=== PATIENT | female | born 1945 | race Caucasian/White ===

== ENCOUNTER 2019-09-10 13:33 | Outpatient (RCR) | payer MEDICARE, SELFPAY ==
--- NOTE | 2019-09-13 11:24 | PCPTNOTE ---
09/13/19-pt cancelled appointment due to inclement weather forcast.-.
--- NOTE | 2019-09-17 08:18 | PCPTNOTE ---
09/17/19- appointment on 09/16/19 was cancelled secondary to pt not having any transportation.-.
--- NOTE | 2019-09-18 07:16 | PTOPEVAL ---
Thank you for referring this patient to [facility]. Please review, sign, date and return this plan of care LAINE. I agree with and certify that the following plan of care is medically necessary. Referring Physician Date Admitting Provider: Attending Provider: Luisa Chowdary MD Referring Provider: *PT Outpatient Evaluation Start: 09/10/19 14:01 Freq: Status: Active Protocol: Document 09/10/19 14:01 [facility] (Rec: 09/10/19 14:53 [facility] [id number]) Therapy Assessment Status Assessment Status Assessment Status Evaluation Outpatient Past Medical History Neurological History Hx Cerebrovascular Accident (CVA) Yes: right side weakness 2018 Cardiovascular History Hx Hypercholesterolemia Yes Respiratory History Hx Respiratory Disorders No Significant History Gastrointestinal History Hx Obstructive Bowel Yes: colon cancer sep 2018 Genitourinary History Hx Genitourinary Disorders No Significant History Musculoskeletal History Hx Joint Replacement Yes: Rt. knee Hematological History Hx Hematological Disorders No Significant History Endocrine History Hx Endocrine Disorders No Significant History HEENT History Hx Cataracts Yes: 10 years ago Integumentary History Hx Skin Disorders No Significant History Reproductive History Hx Hysterectomy Yes Psychosocial History Hx Psychiatric Disorders No Significant History Pain History History of Any Previous or Ongoing No Significant History Instance of Pain Anesthesia History Hx Anesthesia Reactions No Significant History Other History Hx Cancer Yes: colon Hx Radiation Therapy Yes: colon cancer Evaluation Information Problem Diagnosis generalized weaknes, polyneuropathy Onset 09/04/19 Subjective Information patient reports she is coming Query Text:As Reported By Patient/ to therapy for her R side. she Family reports she is having weakness in the R side from the upper to the lower extremity. she reports she has had a slight stroke in the past that left her with this weakness in the R side. she reports she also has trouble with her balance. she reports she lives at the [facility]. she reports she has been there for 3 weeks. she reports prior to this, she was in her own
--- NOTE | 2019-09-18 16:28 | OTOPEVAL ---
Thank you for referring this patient to [facility]. Please review, sign, date and return this plan of care LAINE. I agree with and certify that the following plan of care is medically necessary. Referring Physician Date Admitting Provider: Attending Provider: Luisa Chowdary MD Referring Provider: *OT Outpatient Evaluation Start: 09/18/19 15:24 Freq: Status: Active Protocol: Document 09/18/19 15:23 [facility] (Rec: 09/18/19 16:28 [facility] [id number]) Therapy Assessment Status Assessment Status Assessment Status Evaluation Outpatient Past Medical History Neurological History Hx Cerebrovascular Accident (CVA) Yes: right side weakness 2018 Cardiovascular History Hx Hypercholesterolemia Yes Respiratory History Hx Respiratory Disorders No Significant History Gastrointestinal History Hx Obstructive Bowel Yes: colon cancer sep 2018 Genitourinary History Hx Genitourinary Disorders No Significant History Musculoskeletal History Hx Joint Replacement Yes: Rt. knee Hematological History Hx Hematological Disorders No Significant History Endocrine History Hx Endocrine Disorders No Significant History HEENT History Hx Cataracts Yes: 10 years ago Integumentary History Hx Skin Disorders No Significant History Reproductive History Hx Hysterectomy Yes Psychosocial History Hx Psychiatric Disorders No Significant History Pain History History of Any Previous or Ongoing No Significant History Instance of Pain Anesthesia History Hx Anesthesia Reactions No Significant History Other History Hx Cancer Yes: colon Hx Radiation Therapy Yes: colon cancer Evaluation Information Problem Diagnosis weakness Onset 09/04/19 Subjective Information Patient arrives to OT Query Text:As Reported By Patient/ evaluation following PT Family session. She reports that she recently moved out to the [facility]. Patient reports concerns with her coordination and strength of her R UE as well as R LE. Prior Level of Function Activity Level (Last 3 Months) Hand Dominance Right Activity of Daily Living Ability Independent Indoor/Home Mobility Independent Community Mobility Independent Functional Cognition (Planning, Shopping Independent , Taking Medications) Cooking No Cleaning Yes Laundry No Shopping No Driving
--- NOTE | 2019-10-29 16:22 | PTOPEVAL ---
Thank you for referring this patient to [facility]. Please review, sign, date and return this plan of care LAINE. I agree with and certify that the following plan of care is medically necessary. Referring Physician Date Admitting Provider: Attending Provider: Luisa Chowdary MD Referring Provider: *PT Outpatient Evaluation Start: 09/10/19 14:01 Freq: Status: Active Protocol: Document 10/29/19 14:00 [facility] (Rec: 10/29/19 16:18 [facility] [id number]) Therapy Assessment Status Assessment Status Assessment Status Re-evaluation Outpatient Past Medical History Neurological History Hx Cerebrovascular Accident (CVA) Yes: right side weakness 2018 Cardiovascular History Hx Hypercholesterolemia Yes Respiratory History Hx Respiratory Disorders No Significant History Gastrointestinal History Hx Obstructive Bowel Yes: colon cancer sep 2018 Genitourinary History Hx Genitourinary Disorders No Significant History Musculoskeletal History Hx Joint Replacement Yes: Rt. knee Hematological History Hx Hematological Disorders No Significant History Endocrine History Hx Endocrine Disorders No Significant History HEENT History Hx Cataracts Yes: 10 years ago Integumentary History Hx Skin Disorders No Significant History Reproductive History Hx Hysterectomy Yes Psychosocial History Hx Psychiatric Disorders No Significant History Pain History History of Any Previous or Ongoing No Significant History Instance of Pain Anesthesia History Hx Anesthesia Reactions No Significant History Other History Hx Cancer Yes: colon Hx Radiation Therapy Yes: colon cancer Evaluation Information Problem Diagnosis generalized weakness Subjective Information patient reports she feels Query Text:As Reported By Patient/ good this date. she reports Family she has just received her R ankle AFO. she reports she still has some difficulty with her balance. she reports she does feel better that she is no longer using a walker. Pain Assessment Timing of Pain Assessment Timing of Pain Assessment Assessment Self Report Self Report Pain Level 0 Pain Score Pain Score 0: Self Report Lower Extremity Muscle Strength Testing Hip Strength Right Hip Flexion Strength 4- Good - Hip Abduction Strength 4 Good Left Hip Flexion Strength 4+ Good + Hip Abduction Strength 4+ Good + Knee Strength Right Knee Flexion Strength 5 Normal Knee Extension Strength 4+ Good + Left K
--- NOTE | 2019-11-08 15:59 | PCOTNOTE ---
Patient is discharged from skilled OT services. See last treatment note for patient's skills and progress towards goals. Patient seen for 7 OT sessions. MS
== END 2019-11-05 17:00 | disposition home or self-care (01) ==
LOC: CHSPT 13:33
PROVIDERS: PCP Internal Medicine; Visit Provider Internal Medicine
DX: R53.1 Weakness (principal); G62.9 Polyneuropathy, unspecified
CPT/HCPCS: 97110; 97112; 97162; 97165; 97530

== ENCOUNTER 2019-10-28 15:06 | Outpatient (CLI) | payer MEDICARE, SELFPAY ==
[2019-10-28 15:25] LABS: Basophils Percent Auto 0.9 % (0.2-1.2); Eosinophils Absolute Auto 0.1 K/mm3 (0-0.3); Eosinophils Percent Auto 3.1 % (0-4.4); Hematocrit 38.1 % (37.0-47.0); Immature Granulocyte Absolute 0.01 K/mm3 (0.00-0.031); Immature Granulocyte Percent A 0.2 % (0-0.5); Lymphocytes Absolute Auto 0.95 K/mm3 (0.9-3.2); Mean Corpuscular HGB Conc 31.5 g/dl (32-36); Mean Corpuscular Hemoglobin 30.5 pg (26-34); Mean Corpuscular Volume 96.9 fl (80-100); Mean Platelet Volume 9.5 fl (7.4-10.4); Monocytes Absolute Auto 0.5 K/mm3 (0.1-0.6); Monocytes Percent Auto 10.8 % (2.6-8.5); Neutrophils Absolute Auto 2.9 K/mm3 (1.3-6.7); Platelet Count Result 198 k/mm3 (150-375); Red Blood Count 3.93 M/mm3 (4.2-5.4); Red Cell Distribution Width 14.5 % (11.5-14.5); White Blood Count 4.5 K/mm3 (4.5-10.0)
[2019-10-28 16:48] LABS: Alanine Aminotransferase 19 U/L (4-35); Albumin Level 4.2 g/dL (3.5-5.1); Alkaline Phosphatase 49 U/L (38-126); Aspartate Amino Transferase 27 U/L (14-36); Bilirubin,Total 0.3 mg/dL (0.2-1.3); Blood Urea Nitrogen 16 mg/dL (7-17); Calcium 9.3 mg/dL (8.4-10.2); Carbon Dioxide 31 mmol/L (22-30); Chloride 99 mmol/L (98-107); Estimated Glomerular Filt Rate > 60; Glucose 91 mg/dL (65-105); Potassium 4.3 mmol/L (3.4-5.0); Sodium 141 mmol/L (137-145)
[2019-10-28 17:19] LABS: Carcinoembryonic Antigen 2.5 ng/mL (0.0-3.0)
== END 2019-10-28 15:07 | disposition home or self-care (01) ==
LOC: ANHLAB 15:09
PROVIDERS: PCP Internal Medicine; Visit Provider Internal Medicine Hematology & Oncology
DX: C18.7 Malignant neoplasm of sigmoid colon (principal)
CPT/HCPCS: 36415; 80053; 82378; 85025

== ENCOUNTER 2019-11-24 20:30 | Inpatient (IN) | payer MEDICARE, SELFPAY ==
--- NOTE | ~2019-11-24 | CT_ITS ---
EXAMINATION: CT abdomen pelvis w con DATE: 11/24/2019 21:23 INDICATION: Generalized abdominal pain. TECHNIQUE: Computed tomography (CT) of the abdomen and pelvis was performed with 100 mL Omnipaque 350 intravenous contrast. Automated exposure control and iterative reconstruction technique were employe d. The dose-length product was 277.78 mGy-cm. COMPARISON: CT abdomen and pelvis 08/19/2019. FINDINGS: The visualized portions of the lung bases demonstrate mild atelectasis. Again seen is mild elevation right hemidiaphragm. No pleural effusion. The heart size is normal. No pericardial effusion . There is a central line tip in right atrium. There are cysts in the liver measuring up to 11 mm. Th e gallbladder, spleen, pancreas, adrenal glands are normal. There is cortical thinning of the kidneys . There is an anastomosis in the rectum. The appendix is normal. There are multiple dilated loops of small bowel without focal transition point. There are no pathologically enlarged lymph nodes. There i s no free intraperitoneal fluid. There are old healed fractures of right superior and inferior pubic rami. There is thoracolumbar levoscoliosis and severe spondylosis. IMPRESSION: 1. Dilated small bowel without focal transition point, consistent with adynamic ileus versus partial small bowel obstruction. Reviewed, dictated and finalized at location A.
--- NOTE | ~2019-11-24 | XR_ITS ---
EXAMINATION: XR abdomen/kub 1V DATE: 11/26/2019 08:10 INDICATION: Partial small bowel obstruction. TECHNIQUE: A supine view of the abdomen was obtained. COMPARISON: Studies dated 11/25/2019 and 11/24/2019 FINDINGS: Nasogastric tube tip in proximal side port in the body of the decompressed stomach. The oral contrast material is advanced now scattered throughout normal caliber colon. Anastomotic suture line at the r ectosigmoid junction. No dilated or residual contrast filled small bowel. Moderate lumbar levorotosco liosis. Bone island at the right femoral neck. IMPRESSION: 1. Normal bowel gas pattern with some residual oral contrast material from recent small bowel follow- through study now distributed throughout the normal colon. Reviewed, dictated and finalized at location A. IMPRESSION: 1. Normal bowel gas pattern with some residual oral contrast material from rece nt small bowel follow-through study now distributed throughout the normal colon .
--- NOTE | ~2019-11-24 | XR_ITS ---
EXAMINATION: XR abdomen NG/feed tube insert DATE: 11/24/2019 23:16 INDICATION: Nasogastric tube placement TECHNIQUE: A supine view of the abdomen and lower chest was obtained for evaluation of feeding tube placement. COMPARISON: CT dated 11/24/2019 FINDINGS: Nasogastric tube tip in the body of the stomach with proximal side-port near the level of the gastroe sophageal junction. Gas and stool scattered throughout the colon. No dilated gas-filled loops of patrice l identified. A few small calcified pulmonary nodules in the right lung along with calcified right hi lar lymph nodes consistent with old granulomatous disease. Cardiomegaly. Central venous catheter exte nding from the superior vena cava caudally with distal tip at the high right atrium. Thoracolumbar le vorotoscoliosis. IMPRESSION: 1. Nasogastric tube tip in the stomach. Reviewed, dictated and finalized at location A.
--- NOTE | ~2019-11-24 | XR_ITS ---
EXAMINATION: XR sm bowel follow through WS EXAM DATE: 11/25/2019 16:02 INDICATION: Partial small bowel obstruction versus ileus. TECHNIQUE: Plasticator radiograph was acquired. Small bowel series was performed with water-soluble solut ion. Spot images of the terminal ileum were acquired. The DAP for this procedure was 0.1 Gycm2. FINDINGS: Ileal and jejunal fold patterns are normal. There is no small bowel wall thickening or m ass effect displacing small bowel. There are no intraluminal filling defects identified. There is n o small bowel dilation. Terminal ileum is unremarkable. Contrast reached the colon by 45 minutes ti me, normal. IMPRESSION: Normal small bowel examination. Reviewed, dictated and finalized at location A.
[2019-11-24 20:32] VITALS: BP 170/102; PULSE 66; RESP 20; TEMP 36.7; O2SAT 100
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
[2019-11-24] MEDS: SODIUM CHLORIDE 0.9% IV 1,000 ML 999 ML IV CONT (20:43)
[2019-11-24 20:49] LABS: Basophils Percent Auto 0.7 % (0.2-1.2); Eosinophils Absolute Auto 0.2 K/mm3 (0-0.3); Eosinophils Percent Auto 3.2 % (0-4.4); Hematocrit 39.1 % (37.0-47.0); Hemoglobin 12.4 g/dL (12.0-15.0); Immature Granulocyte Absolute 0.01 K/mm3 (0.00-0.031); Immature Granulocyte Percent A 0.2 % (0-0.5); Lymphocytes Absolute Auto 0.86 K/mm3 (0.9-3.2); Lymphocytes Percent Auto 14.7 % (18.3-44.2); Mean Corpuscular HGB Conc 31.7 g/dl (32-36); Mean Corpuscular Hemoglobin 30.2 pg (26-34); Mean Corpuscular Volume 95.1 fl (80-100); Mean Platelet Volume 9.9 fl (7.4-10.4); Monocytes Absolute Auto 0.5 K/mm3 (0.1-0.6); Monocytes Percent Auto 9.1 % (2.6-8.5); Neutrophils Absolute Auto 4.2 K/mm3 (1.3-6.7); Neutrophils Percent Auto 72.1 % (45.5-73.1); Platelet Count Result 192 k/mm3 (150-375); Red Blood Count 4.11 M/mm3 (4.2-5.4); Red Cell Distribution Width 14.4 % (11.5-14.5); White Blood Count 5.9 K/mm3 (4.5-10.0)
[2019-11-24 21:04] LABS: Alanine Aminotransferase 18 U/L (4-35); Albumin Level 4.3 g/dL (3.5-5.1); Alkaline Phosphatase 49 U/L (38-126); Aspartate Amino Transferase 29 U/L (14-36); Bilirubin,Total 0.3 mg/dL (0.2-1.3); Blood Urea Nitrogen 16 mg/dL (7-17); Calcium 9.3 mg/dL (8.4-10.2); Carbon Dioxide 31 mmol/L (22-30); Chloride 102 mmol/L (98-107); Estimated Glomerular Filt Rate > 60; Glucose 127 mg/dL (65-105); Lipase 117 U/L (23-300); Sodium 136 mmol/L (137-145)
[2019-11-24 21:33] VITALS: BP 138/72; PULSE 75; RESP 20; O2SAT 98
[2019-11-24 22:19] VITALS: BP 145/62; PULSE 60; RESP 20; O2SAT 100
[2019-11-24 22:20] LABS: Add Urine Microscopic? NO; Appearance Urine Clear (Clear); Bilirubin Urine Negative (Negative); Blood Urine Negative (Negative); Color Urine Colorless (Yellow); Glucose Urine UA Negative (Negative); Ketones Urine Negative (Negative); Leukocyte Esterase Ur Negative LEU/UL (Negative); Nitrate Urine Negative (Negative); Protein Urine Negative (Negative); Specific Grav Ur 1.016 (1.001-1.035); Urobilinogen Urine Negative mg/dL (<2.0)
[2019-11-24] MEDS: PANTOPRAZOLE SODIUM IV 40 MG VIAL IV PUSH (22:50)
[2019-11-24 22:51] VITALS: BP 122/63; PULSE 66; RESP 20; O2SAT 98
[2019-11-24 23:01] VITALS: BP 164/73; PULSE 66; RESP 20; O2SAT 99
[2019-11-24 23:20] VITALS: BMI 20.9
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
[2019-11-25 00:13] VITALS: BP 146/68; PULSE 62; RESP 18; TEMP 36.9; O2SAT 99
[2019-11-25] MEDS: SODIUM CHLORIDE 0.9% IV 1,000 ML 100 ML IV CONT ×3 (00:20→21:44)
[2019-11-25 06:00] VITALS: BP 138/72; PULSE 66; RESP 18; TEMP 36.6; O2SAT 99
[2019-11-25 06:20] LABS: Basophils Percent Auto 0.7 % (0.2-1.2); Eosinophils Absolute Auto 0.2 K/mm3 (0-0.3); Eosinophils Percent Auto 4.1 % (0-4.4); Hematocrit 33.1 % (37.0-47.0); Hemoglobin 10.6 g/dL (12.0-15.0); Immature Granulocyte Absolute 0.01 K/mm3 (0.00-0.031); Immature Granulocyte Percent A 0.2 % (0-0.5); Mean Corpuscular Hemoglobin 29.9 pg (26-34); Mean Corpuscular Volume 93.2 fl (80-100); Mean Platelet Volume 10.2 fl (7.4-10.4); Monocytes Absolute Auto 0.6 K/mm3 (0.1-0.6); Monocytes Percent Auto 12.4 % (2.6-8.5); Neutrophils Absolute Auto 2.9 K/mm3 (1.3-6.7); Neutrophils Percent Auto 64.6 % (45.5-73.1); Platelet Count Result 161 k/mm3 (150-375); Red Blood Count 3.55 M/mm3 (4.2-5.4); Red Cell Distribution Width 14.3 % (11.5-14.5); White Blood Count 4.4 K/mm3 (4.5-10.0)
[2019-11-25 06:39] LABS: Alanine Aminotransferase 16 U/L (4-35); Albumin Level 3.1 g/dL (3.5-5.1); Alkaline Phosphatase 36 U/L (38-126); Aspartate Amino Transferase 26 U/L (14-36); Bilirubin,Total 0.3 mg/dL (0.2-1.3); Blood Urea Nitrogen 13 mg/dL (7-17); Calcium 7.8 mg/dL (8.4-10.2); Carbon Dioxide 26 mmol/L (22-30); Chloride 108 mmol/L (98-107); Estimated CRCL calculation 63 ml/min; Estimated Glomerular Filt Rate > 60; Glucose 87 mg/dL (65-105); Sodium 137 mmol/L (137-145)
[2019-11-25 08:00] VITALS: PULSE 66; RESP 18; O2SAT 99
[2019-11-25] MEDS: PANTOPRAZOLE SODIUM IV 40 MG VIAL IV PUSH (08:26)
--- NOTE | 2019-11-25 11:19 | PM.IMPN ---
Progress Note: A&P Assessment and Plan (1) Partial small bowel obstruction: Code(s): K56.600 - Partial intestinal obstruction, unspecified as to cause Status: Acute Assessment and Plan: Npo, medications on hold, continue IV fluids, NG tube in place, pt advised to walk in hallways, hopeful dc in 1-2 days time, i will order KUB for brady morning. (2) Small bowel obstruction due to adhesions: Code(s): K56.50 - Intestinal adhesions [bands], unspecified as to partial versus complete obstruction Status: Acute (3) Colon cancer: Qualifiers: Colon location: unspecified part of colon Qualified Code(s): C18.9 - Malignant neoplasm of colon, unspecified Code(s): C18.9 - Malignant neoplasm of colon, unspecified Status: Acute Assessment and Plan: Stable. SP Colon resection 2019. With negative margins and chemoradiation therapy. (4) Pure hypercholesterolemia: Code(s): E78.00 - Pure hypercholesterolemia, unspecified Status: Chronic (5) GERD (gastroesophageal reflux disease): Code(s): K21.9 - Gastro-esophageal reflux disease without esophagitis Status: Chronic Assessment and Plan: Protonix IV. Subjective Date/time seen: 11/25/19 11:19 Interval history: 74 year old female with known history of #2 previous bowel obstructions as well as history of previous colon cancer s/ p colon resection in 2019. Pt has NG tube in situ, doing well. Seen by surgery. Npo and iv fluids. No other complaints. Review of Systems Review of Systems: All systems reviewed & are unremarkable except as noted in HPI and below Constitutional: Constitutional: Denies no additional constitutional complaints Cardiovascular: Cardiovascular: Denies no additional cardiovascular complaints Respiratory: Respiratory: Denies no additional respiratory complaints Gastrointestinal: Gastrointestinal: Reports other (abdominal distension ) Exam Const: General: cooperative, healthy appearing, no acute distress, alert and awake Nutritional Appearance: well nourished Orientation/consciousness: patient oriented x3 Resp: Effort & Inspection: normal respiratory effort Auscultation: clear to auscultation bilaterally Cardio: Rate: regular rate Rhythm: regular rhythm Heart sounds: no murmurs GI: Inspection: distended and other (mild distension, non tender ) Auscultation: normal bowel sounds Skin: General skin exam: normal color and no rashes or lesions noted Neuro: General: patient oriented x3 Cranial nerves: Yes CN's II-XII intact bilaterally and Yes Equal, round and reactive pupils present Speech: normal speech Motor exam (neuro): 5/5 motor strength present throughout Sensory Exam: normal sensation Extrem: General: normal to inspection and no edema Psych: Mental Status: mental status grossly normal Affect: normal affect Objective Data Vital Signs Vital Signs: Vital Signs - 24 hr 11/24/19 20:32 11/24/19 21:33 11/24/19 22:19 Temperature 36.7 C Pulse Rate 66 75 60 Respiratory Rate 20 20 20 Blood Pressure 170/102 H 138/72 145/62 H Pulse Oximetry 100 98 100 11/24/19 22:51 11/24/19 23:01 11/25/19 00:13 Temperature 36.9 C Pulse Rate 66 66 62 Respiratory Rate 20 20 18 Blood Pressure 122/63 164/73 H 146/68 H Pulse Oximetry 98 99 99 11/25/19 06:00 11/25/19 08:00 Temperature 36.6 C Pulse Rate 66 66 Respiratory Rate 18 18 Blood Pressure 138/72 Pulse Oximetry 99 99 Intake/Output Intake/Output: Intake & Output 11/22/19 11/23/19 11/24/19 11/25/19 23:59 23:59 23:59 23:59 Intake Total 1100 1000 Output Total 700 Balance 1100 300 Meds/Results Medications: Active Medications Generic Name Dose Route Start Last Admin Trade Name Freq PRN Reason Stop Dose Admin Sodium Chloride 1,000 mls @ 100 mls/hr 11/24/19 22:15 11/25/19 08:31 Normal Saline Iv IV CONT 100 mls/hr .Q10H ANNA Administration Acetaminophen 1,000 mg in 100
--- NOTE | 2019-11-25 12:13 | PM.CNGS ---
Assessment and Plan Assessment and plan (1) Partial small bowel obstruction: Code(s): K56.600 - Partial intestinal obstruction, unspecified as to cause Status: Acute Assessment and Plan: CT scan reviewed and discussed with the patient. CT suggesting ileus versus partial small bowel obstruction. Patient has already improved by the time I examined her. She had moved her bowels right before admission and again since after I examined her today. She seems to be improving and her bowels continue to move, making it unlikely that she is obstructed. Will get a Gastrografin small bowel follow through today. If this goes through to the colon, then we will be able to remove the NG tube and allow her to start on a diet. Will continue with conservative management at this time with NG tube decompression, bowel rest, IV fluids and analgesics for now. Thank you for allowing me to evaluate the patient in consultation and we will continue to follow along with you. Additional Plan I discussed the patient's case and formulated the plan of care with Dr. Higgins. History of Present Illness Consult details Consult date: 11/25/19 Reason for consult: other (Ileus versus partial small bowel obstruction) Requesting physician: Mario Ponce DO Narrative: This is a 74-year-old female who presented to the emergency department with complaints of abdominal pain. 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 The patient was last admitted to [place] for a small bowel obstruction in July of 2019. She was treated conservatively with NG tube decompression and this resolved. She was discharged home and since been placed in assisted living. The patient reports that yesterday morning around 8:00 am she noticed a sudden onset of epigastric and right-sided abdominal pain that felt similar to the pain she experienced before being admitted in July of last year. She reports that after about noon yesterday, she also was unable to void but had the urgency to void at home. The abdominal pain continued to worsen and she eventually had the staff at her assisted living call EMS. She reports that prior to leaving her apartment, she had a formed bowel movement that was normal for her. She denies any recent nausea, vomiting, or diarrhea. She then presented to the emergency department for further evaluation. CT scan of the abdomen and pelvis showed dilated small bowel without focal transition point, consistent with ileus versus partial small bowel obstruction. Labs were unremarkable. Urinalysis normal. The patient was admitted to the Hospitalist service and our service was consulted for the possible partial small bowel obstruction. The patient is now being seen on the medical floor. She denies any abdominal pain, nausea, or bloating at this time. She states that yesterday she did have some bloating and nausea but this has subsided since admission. No vomiting. She reports her bowels have been moving normally for her. Denies flatus today and last bowel movement was last night around 8:00 pm. Reports now voiding three times today without complications. Denies any other urinary complaints. No other complaints at this time. Review of Systems Constitutional: Constitutional: Reports as per HPI, Denies chills, Denies excessive sweating, Denies fatigue, Denies fever(s), Denies headache(s) and Denies weakness Eyes: Eyes: Denies change in vision and Denies loss of vision ENT: Reports Normal hearing present, Denies dizziness and Denies headache(s) Cardiovascular: Cardiovascular: Denies chest pain, Denies syncope, Denies leg edema, Denies lightheadedness, Denies radiating jaw, neck or arm pain and Denies dyspnea Respiratory: Respiratory: Denies cough, Denies dyspnea and Denies wheezing Gastrointestinal: Gastrointestinal: Reports as per HPI, Reports abdominal pain, Denies melena, Reports bloating, De
[2019-11-25 14:00] VITALS: BP 129/83; PULSE 64; RESP 18; TEMP 36.8; O2SAT 99
--- NOTE | 2019-11-25 19:59 | PC.NURSE ---
N-G CONNECTED TO SUCTION AFTER XY REPORTED SHE WAS FINISHED WITH SBF CLEAR RETURN NOTED HAVING 2 BM FORMED AND BROWN
[2019-11-25 22:00] VITALS: BP 125/57; PULSE 62; RESP 18; TEMP 36.7; O2SAT 100
[2019-11-26 06:00] VITALS: BP 143/76; PULSE 78; RESP 18; TEMP 36.8; O2SAT 99
[2019-11-26] MEDS: SODIUM CHLORIDE 0.9% IV 1,000 ML 100 ML IV CONT (09:08)
[2019-11-26] MEDS: PANTOPRAZOLE SODIUM IV 40 MG VIAL IV PUSH (11:51)
--- NOTE | 2019-11-26 13:53 | P.PNGS_ITS ---
Progress Note: A&P Assessment and Plan (1) Ileus: Code(s): K56.7 - Ileus, unspecified Status: Acute Assessment and Plan: * No small bowel obstruction seen on SBFT yesterday. NG removed and advancing diet as tolerated. No other surgical recommendations at this time. Avoid constipation. Will sign off. Subjective Subjective Date/Time Seen: 11/26/19 13:53 Bowels moving. No significant abdominal pain. No obstruction seen on SBFT. Exam GI: GI Palp: No abdominal tenderness, Yes Soft to palpation, No Tenderness to palpation present (GI) and No Guarding due to palpation present (GI) Percussion: Yes normal to percussion Auscultation: normal bowel sounds Objective Data Vital Signs Vital Signs: Vital Signs - 24 hr 11/25/19 14:00 11/25/19 22:00 11/26/19 06:00 Temperature 36.8 C 36.7 C 36.8 C Pulse Rate 64 62 78 Respiratory Rate 18 18 18 Blood Pressure 129/83 125/57 L 143/76 H Pulse Oximetry 99 100 99 Intake/Output Intake/Output: Intake & Output 11/23/19 11/24/19 11/25/19 11/26/19 23:59 23:59 23:59 23:59 Intake Total 1100 2100 1000 Output Total 1950 1550 Balance 1100 150 -550 Meds/Results Medications: Active Medications Generic Name Dose Route Start Last Admin Trade Name Freq PRN Reason Stop Dose Admin Sodium Chloride 1,000 mls @ 100 mls/hr 11/24/19 22:15 11/26/19 09:08 Normal Saline Iv IV CONT 100 mls/hr .Q10H ANNA Administration Ondansetron HCl 4 mg 11/24/19 22:14 Zofran Inj IV PUSH Q4H PRN Nausea Pantoprazole Sodium 40 mg 11/25/19 09:00 11/26/19 11:51 Protonix Iv IV PUSH 40 mg QAM ANNA Administration Radiology Results: ITS Impressions Abdomen/Pelvis CT 11/24/19 21:25 IMPRESSION: 1. Dilated small bowel without focal transition point, consistent with adynamic ileus versus partial small bowel obstruction. Small Bowel X-Ray 11/25/19 16:36 IMPRESSION: Normal small bowel examination. Abdomen X-Ray 11/26/19 08:23 IMPRESSION: 1. Normal bowel gas pattern with some residual oral contrast material from recent small bowel follow-through study now distributed throughout the normal colon. Quality VTE Prophylaxis VTE prophylaxis: mechanical ordered
[2019-11-26 14:00] VITALS: BP 113/61; PULSE 69; RESP 18; TEMP 36.6; O2SAT 95
[2019-11-26] MEDS: ACETAMINOPHEN 325 MG TABLET 650 MG PO (15:08)
--- NOTE | 2019-11-26 16:37 | PM.IMPN ---
Progress Note: A&P Assessment and Plan (1) Partial small bowel obstruction: Code(s): K56.600 - Partial intestinal obstruction, unspecified as to cause Status: Acute Assessment and Plan: Small bowel series showing no obstruction. KUB today also revealing no obstructive process. NG tube removed and diet has been started. Advance diet as tolerated. Possibly home tomorrow. Patient takes MiraLax at home which will schedule here. (2) Colon cancer: Qualifiers: Colon location: unspecified part of colon Qualified Code(s): C18.9 - Malignant neoplasm of colon, unspecified Code(s): C18.9 - Malignant neoplasm of colon, unspecified Status: Acute Assessment and Plan: Patient is status post colon resection with negative margins and chemoradiation therapy in 2019. (3) Pure hypercholesterolemia: Code(s): E78.00 - Pure hypercholesterolemia, unspecified Status: Chronic Assessment and Plan: Stable. Normal LFTs. Resume Lipitor. (4) GERD (gastroesophageal reflux disease): Code(s): K21.9 - Gastro-esophageal reflux disease without esophagitis Status: Chronic Assessment and Plan: Stable. Resume Pepcid. Stop IV Protonix. Subjective Date/time seen: 11/26/19 16:37 Interval history: 74yo female with known history of previous bowel obstructions as well as history of previous colon cancer s/ p colon resection in 2019 here for abdominal pain and found to have pSBO. Assuming care. Chart reviewed. Patient feels well today. Tolerating the clear liquid diet. NG tube was removed earlier today. No nausea or vomiting. Some mild abdominal pain but improved after passing flatus and bowel movement. No chest pain or shortness of breath. She is up ambulating in the room. Exam Narrative: Exam Narrative: AF 113/61 69 Gen - NARD Chest - CTA bilaterally, nml RR CV - RRR S1/S2 Abd - Soft, NT/ND, Positive BS Ext - No pedal edema Psych - Nml mood; anxious affect Skin - Warm and dry Objective Data Vital Signs Vital Signs: Vital Signs - 24 hr 11/25/19 22:00 11/26/19 06:00 11/26/19 14:00 Temperature 98.0 F 98.3 F 97.8 F Pulse Rate 62 78 69 Respiratory Rate 18 18 18 Blood Pressure 125/57 L 143/76 H 113/61 Pulse Oximetry 100 99 95 Intake/Output Intake/Output: Intake & Output 11/23/19 11/24/19 11/25/19 11/26/19 23:59 23:59 23:59 23:59 Intake Total 1100 2100 1120 Output Total 1950 1550 Balance 1100 150 -430 Meds/Results Medications: Active Medications Generic Name Dose Route Start Last Admin Trade Name Freq PRN Reason Stop Dose Admin Acetaminophen 650 mg 11/26/19 14:55 11/26/19 15:08 Tylenol Tablet PO 650 mg Q6H PRN Administration Mild Pain (1-3) or Fever Sodium Chloride 1,000 mls @ 100 mls/hr 11/24/19 22:15 11/26/19 09:08 Normal Saline Iv IV CONT 100 mls/hr .Q10H ANNA Administration Ondansetron HCl 4 mg 11/24/19 22:14 Zofran Inj IV PUSH Q4H PRN Nausea Pantoprazole Sodium 40 mg 11/25/19 09:00 11/26/19 11:51 Protonix Iv IV PUSH 40 mg QAM ANNA Administration Radiology Results: ITS Impressions Abdomen/Pelvis CT 11/24/19 21:25 IMPRESSION: 1. Dilated small bowel without focal transition point, consistent with adynamic ileus versus partial small bowel obstruction. Small Bowel X-Ray 11/25/19 16:36 IMPRESSION: Normal small bowel examination. Abdomen X-Ray 11/26/19 08:23 IMPRESSION: 1. Normal bowel gas pattern with some residual oral contrast material from recent small bowel follow-through study now distributed throughout the normal colon. Quality VTE Prophylaxis VTE prophylaxis: mechanical ordered
[2019-11-26] MEDS: FAMOTIDINE 20 MG TABLET PO (18:10)
[2019-11-26] MEDS: polyethylene glycoL 3350 17 GM POWD.PACK PO (18:10)
[2019-11-26 22:00] VITALS: BP 136/75; PULSE 63; RESP 18; TEMP 36.4; O2SAT 98
[2019-11-27] MEDS: ACETAMINOPHEN 500 MG TABLET 1000 MG PO (03:47)
[2019-11-27 06:00] VITALS: BP 154/82; PULSE 71; RESP 18; TEMP 36.4; O2SAT 99
[2019-11-27] MEDS: LORATADINE 10 MG TABLET PO (07:52)
[2019-11-27] MEDS: ATORVASTATIN 20 MG TABLET PO (07:52)
[2019-11-27] MEDS: FAMOTIDINE 20 MG TABLET PO (07:52)
[2019-11-27] MEDS: polyethylene glycoL 3350 17 GM POWD.PACK PO (07:52)
[2019-11-27] MEDS: MULTIVITAMINS THERAPEUTIC TAB (*BKC) 1 TABLET PO (07:52)
--- NOTE | 2019-11-27 11:36 | PM.DS ---
DS: Diagnosis Admitting Diagnosis Admitting Diagnosis: Partial intestinal obstruction, unspecified as to cause Discharge Diagnosis (1) Partial small bowel obstruction: Code(s): K56.600 - Partial intestinal obstruction, unspecified as to cause Status: Acute Assessment and Plan: Patient with abdominal pain. CT scan showing dilated small bowel without focal transition point, consistent with adynamic ileus versus partial small bowel obstruction. NGT placed. Serial x-ray showing improvement and a small bowel series ordered showing no obstruction. NG tube removed and clear liquid diet started. Diet advanced to regular diet and patient tolerated this well. MiraLax resumed and patient with normal BMs. (2) Colon cancer: Qualifiers: Colon location: unspecified part of colon Qualified Code(s): C18.9 - Malignant neoplasm of colon, unspecified Code(s): C18.9 - Malignant neoplasm of colon, unspecified Status: Acute Assessment and Plan: Patient is status post colon resection with negative margins and chemoradiation therapy in 2019. (3) Pure hypercholesterolemia: Code(s): E78.00 - Pure hypercholesterolemia, unspecified Status: Chronic Assessment and Plan: Stable. Normal LFTs. We resumed Lipitor. (4) GERD (gastroesophageal reflux disease): Code(s): K21.9 - Gastro-esophageal reflux disease without esophagitis Status: Chronic Assessment and Plan: Stable. We resumed Pepcid. DS: Summary Hospital Course Reason for hospitalization: 74yo female here for abdominal pain. Please see H&P for details. Hospital Course: As above. Status at Discharge Functional status at discharge: independent ambulation Overall status at discharge: patient is back to baseline Time Spent with Patient Time attestation: Total time spent providing and/or coordinating discharge services:31 minutes Time spent: Greater than 30 minutes Exam Narrative: Exam Narrative: AF 154/82 71 Gen - NARD sitting up in chair Chest - CTA bilaterally, nml RR CV - RRR S1/S2 Abd - Soft, NT/ND, Positive BS Ext - No pedal edema Psych - Nml mood and affect Skin - Warm and dry Discharge Plan Discharge Attending physician on discharge: Cipriano Coronado Discharging Clinician: Cipriano Coronado Anticipated Discharge Date/Time: 11/27/19 11:43 Patient Disposition: Home, Self-Care Activity: as tolerated Diet: regular Discharge Instructions: Take precautions to avoid falls. Rise slowly from sitting lying position. Pause before walking. Titrate MiraLax to ensure 1 soft bowel movement daily. Patient Instructions: Antibiotic Form, Pain Management in Older Adults (GEN) Stand Alone Forms: General Discharge Information Follow-up/Referrals: Luisa Chowdary MD [Primary Care Provider] - Call for Appointment Discharge Medications: New polyethylene glycol 3350 [Miralax] 17 gram Powder In Packet 17 g PO BID Qty: 100 RF: 2 Continued atorvastatin 20 mg Tablet 20 mg PO DAILY RF: 0 melatonin 10 mg Tablet 10 mg PO HS PRN (Reason: Insomnia) RF: 0 multivitamin Tablet 1 tablet PO DAILY RF: 0 famotidine 20 mg Tablet 20 mg PO BID RF: 0 acetaminophen [Mapap (acetaminophen)] 500 mg Capsule 1,000 mg PO Q6H PRN (Reason: Pain (Scale Score 1-3)) RF: 0 cetirizine 10 mg Tablet 5 mg PO DAILY RF: 0 Date of admission: 11/25/19 09:48 Primary Care Provider: Luisa Chowdary Admitting Provider: Philip Connelly Attending physician on admission: Cipriano Coronado Condition: Stable Quality VTE Prophylaxis VTE prophylaxis: mechanical ordered
== END 2019-11-27 13:58 | disposition home or self-care (01) | DRG 389 ==
LOC: ANHED 22:26 → ANH3MEDSUR 22:33
PROVIDERS: Admitting Provider Family Medicine; Emergency Provider Emergency Medicine; PCP Internal Medicine; Visit Provider Internal Medicine
DX: K56.600 Partial intestinal obstruction, unspecified as to cause (principal); I69.351 Hemiplegia and hemiparesis following cerebral infarction affecting right dominant side; Z85.038 Personal history of other malignant neoplasm of large intestine; M19.90 Unspecified osteoarthritis, unspecified site; E78.00 Pure hypercholesterolemia, unspecified; Z90.710 Acquired absence of both cervix and uterus; K21.9 Gastro-esophageal reflux disease without esophagitis; Z92.21 Personal history of antineoplastic chemotherapy; Z92.3 Personal history of irradiation; Z96.651 Presence of right artificial knee joint; Z98.49 Cataract extraction status, unspecified eye
CPT/HCPCS: 36415; 74018; 74177; 74250; 80053; 81003; 83605; 83690; 85025; 85610; 85730; 96361; 96365; 96367; 96375; 96376; 99285; A9270; C9113; G0378; J0131; J7030; Q9967

== ENCOUNTER 2020-05-30 21:40 | Inpatient (IN) | payer MEDICARE, SELFPAY ==
--- NOTE | ~2020-05-30 | XR_ITS ---
XR abdomen/kub 1V DATE: 06/01/2020 07:02 INDICATION: Small bowel obstruction TECHNIQUE: Portable supine AP view on 06/01/2020 at 0645 hours COMPARISON: 05/31/2020 portable AP view at 0125 hours FINDINGS: An NG tube is noted within the lower body of the stomach approximately, the proximal side-p ort approximately 12 mm distal to the diaphragmatic hiatus. Probable surgical clip overlying the left lower quadrant of the abdomen. Radiopaque bowel sutures ove rlie the mid pelvis. There is a moderately prominent amount of fecal material in the colon. No bowel obstruction is evident. The psoas shadows are intact. No visceromegaly is detected. There is rotatory levoscoliosis of the lumbar spine. IMPRESSION: NG tube in stomach Moderately prominent amount of fecal material within the colon; no bowel obstruction is evident radio graphically. Reviewed, dictated and finalized at [facility]. Reviewed, dictated and finalized at [facility]. IMPRESSION: NG tube in stomach Moderately prominent amount of fecal material within the colon; no bowel obstru ction is evident radiographically.
--- NOTE | ~2020-05-30 | XR_ITS ---
XR UGI water soluble w sbs DATE: 06/01/2020 11:42 INDICATION: Small bowel obstruction TECHNIQUE: Single contrast upper gastrointestinal examination with serial images of the abdomen and s pot images of the terminal ileum 2 minutes fluoroscopy time DAP: 31.864 COMPARISON: 11/25/2019 small bowel series FINDINGS: Water-soluble Omnipaque 350 contrast material was administered through the existing nasogas tric tube. No mucosal fold thickening, ulceration or intraluminal mass lesion of the stomach is detected. Normal ly shaped duodenal bulb. Normal small bowel mucosal pattern. No small bowel stricture, mucosal fold thickening, abnormal dilatation or obstruction is evident. Con trast material reaches the colon within 1.5 hours. No abnormality of the terminal ileum is evident Radiopaque sutures are noted in the lower mid pelvic area. IMPRESSION: No evidence of bowel obstruction Reviewed, dictated and finalized at [facility]. Reviewed, dictated and finalized at [facility].
--- NOTE | ~2020-05-30 | CT_ITS ---
EXAMINATION: CT brain wo con INDICATION: Altered mental status, prior stroke COMPARISON: 01/16/2019 TECHNIQUE: Standard unenhanced head CT. The dose-length product (DLP) was 605.33 mGy-cm. The mA was a djusted according to patient size. Iterative reconstruction technique was employed. FINDINGS: There is no acute intraparenchymal hemorrhage. No evidence of mass lesion. No evidence of a cute infarction. There is chronic encephalomalacia in the left frontal lobe in the left MCA distribut ion. There is mild periventricular and subcortical hypodensity probably related to small vessel ische yessenia disease. There is mild prominence of the sulci and ventricles related to cerebral atrophy. Intrac ranial calcified cerebral atherosclerosis is noted. There are no extra-axial collections. There is no mass effect or midline shift. The orbits and soft tissues are unremarkable. The visualized sinuses and mastoid air cells are well aerated. IMPRESSION: 1. 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 2. Age related findings. Reviewed, dictated and finalized at [facility].
--- NOTE | ~2020-05-30 | CT_ITS ---
EXAMINATION: CT abdomen pelvis w con EXAM DATE: 05/30/2020 22:33 INDICATION: Low abdominal pain. TECHNIQUE: Spiral CT of the abdomen and pelvis was performed following intravenous injection of 100 m L Omnipaque 350. Axial, coronal and sagittal images were reviewed. The dose-length product (DLP) fo r this examination was 333.21 mGy-cm. The exposure was tailored according to patient size (auto mA e xposure control), and iterative reconstruction (ASIR) was used as additional dose reduction technique . Comparison is made to prior examination from 11/24/2019. FINDINGS: There is a 1 cm lateral segment cyst. The liver, spleen, adrenal glands and pancreas are o therwise unremarkable. Gallbladder is unremarkable. No biliary obstruction. Portal and splenic vei ns are patent. Kidneys enhance symmetrically. There is no hydronephrosis. The uterus is not ident ified and has likely been surgically resected. The bladder is unremarkable. There is no retroperito aleena or pelvic lymphadenopathy. There is mild scattered arteriosclerotic disease. The appendix is normal. Multiple loops of moderately distended small bowel with evidence of fecal st asis, bowel dilation up to 3.5 cm. There is a transition point identified in the deep right side of t pelvis, see axial image 131. There is fluid contents beyond this, ileum is not completely collapse d. This is consistent with partial small bowel obstruction. [place] infraumbilical abdominal wall d ehiscence with small bowel bulging inside, not causing any transition points. There is moderate amount of colonic stool. There is intact rectosigmoid anastomosis site. No free i ntraperitoneal gas. The heart is normal in size. There are no pericardial or pleural effusions. [facility] lung bases are unremarkable. There are no osteoblastic or osteolytic lesions identified. Compared to October examination, a more discrete transition point is identified, and the bowel is more dilated. IMPRESSION: 1. Partial small bowel obstruction with transition point identified in right lower quadrant, could b e related. 2. Other chronic, surgical changes. Reviewed, dictated and finalized at location [facility]. IMPRESSION: 1. Partial small bowel obstruction with transition point identified in right l ower quadrant, could be related. 2. Other chronic, surgical changes.
--- NOTE | ~2020-05-30 | XR_ITS ---
EXAMINATION: XR abdomen NG/feed tube insert EXAM DATE: 05/31/2020 01:31 INDICATION: Tube insertion. TECHNIQUE: Frontal projection(s) of the abdomen for interpretation. Comparison is made to prior exami nation from 11/26/2019. FINDINGS: Feeding tube tip and side-port project over left side of the abdomen, expected position. Th ere is nonobstructive upper abdominal bowel gas pattern, but please note that partial obstruction was suspected on CT scan. Lung bases unremarkable. There is moderate thoracolumbar levoscoliosis. IMPRESSION: Tube in position. Reviewed, dictated and finalized at location [facility]. IMPRESSION: Tube in position.
[2020-05-30 21:40] VITALS: PULSE 69; RESP 18; TEMP 36.6; O2SAT 98
--- NOTE | 2020-05-30 21:51 | ED.ABDPAIN ---
HPI - Abdominal Pain General Chief Complaint: Abdominal Pain Stated Complaint: abd pain Time Seen by Provider: 05/30/20 21:41 Source: patient Mode of arrival: EMS Limitations: no limitations History of Present Illness HPI narrative: This patient is a 74 year old female with history of colon cancer and bowel obstruction who presents for evaluation of right abdominal pain. She states she developed pain around 830 after eating dinner. Her pain was initially located in her right lower abdomen and she reports now her pain is located in her right upper abdomen. She states she had a small bowel movement to see if her pain would improved. She also reports she was drinking water to see if her pain improved, but her pain has continued to worsen. She denies vomiting or fever. She reports similar pain in the past and it was due to bowel obstruction. MD elicited complaint: abdominal pain Radiation: RUQ and RLQ Exacerbating factors: movement Relieving factors: nothing Related Data Home Medications Medication Instructions Recorded Confirmed acetaminophen [Mapap 1,000 mg PO Q6H PRN 06/21/19 05/31/20 (acetaminophen)] famotidine 20 mg PO DAILY 06/21/19 05/31/20 multivitamin 1 tablet PO DAILY 06/21/19 05/31/20 atorvastatin 20 mg PO DAILY 07/23/19 05/31/20 melatonin 10 mg PO HS PRN 08/19/19 05/31/20 cetirizine 5 mg PO DAILY 11/24/19 05/31/20 polyethylene glycol 3350 [Miralax] 34 g PO DAILY 05/31/20 05/31/20 Allergies Allergy/AdvReac Type Severity Reaction Status Date / Time ampicillin Allergy Unknown Unknown Verified 11/24/19 20:40 morphine AdvReac Confusion Verified 11/25/19 00:06 Review of Systems Review of Systems: All systems reviewed & are unremarkable except as noted in HPI and below Constitutional: Constitutional: Denies chills and Denies fever(s) Gastrointestinal: Gastrointestinal: Reports abdominal pain, Denies constipation, Denies diarrhea and Denies vomiting Genitourinary: Genitourinary: Denies dysuria and Denies flank pain PMFSH Social History Social History Social History: Smoking status: Never smoker Second hand tobacco smoke exposure: No Alcohol intake: never Substance use: never Substance use type: does not use Living arrangements: assisted living Occupation/Education: retired Gender identity (if verbalized by the patient): Female Sexual Orientation (if Verbalized by the Patient): Straight or Heterosexual Spiritual care concerns: No Agree to blood products: Yes Exam Const: General: alert Orientation/consciousness: patient oriented x3 Other: moderate distress due to pain Eyes: EOM: EOMs intact bilaterally Neck: Neck: no lymphadenopathy Resp: Effort & Inspection: normal respiratory effort and no retractions Auscultation: clear to auscultation bilaterally Cardio: Rate: regular rate Rhythm: regular rhythm Heart sounds: no murmurs GI: Inspection: distended GI Palp: Yes Soft to palpation, Yes Tenderness to palpation present (GI) (diffuse) and No Rigid due to palpation Auscultation: Hyperactive bowel sounds present Skin: General skin exam: normal color Rashes: no rashes Neuro: General: patient oriented x3 and moves all extremities Course Consultations Consultation #1: I Discussed case with Dr. Dangelo who accepts patient to his service. Date: 05/31/20 Time: 02:13 Vital Signs Vital signs: Vital Signs Temperature 97.8 F 05/30/20 21:40 Pulse Rate 69 05/30/20 21:40 Respiratory Rate 18 05/30/20 21:40 Pulse Oximetry 98 05/30/20 21:40 Temperature 97.6 F 05/31/20 02:55 Pulse Rate 62 05/31/20 02:55 Respiratory Rate 16 05/31/20 02:55 Blood Pressure 137/65 05/31/20 02:55 Pulse Oximetry 97 05/31/20 02:55 MDM - Abdominal Pain Lab Data Attestation: I reviewed the patient's lab results. Result diagrams: 05/30/20 21:56 05/30/20 21:56 Labs: Lab R
[2020-05-30 22:03] LABS: Basophils Absolute Auto 0.1 K/mm3 (0.0-0.1); Basophils Percent Auto 0.7 % (0.2-1.2); Eosinophils Absolute Auto 0.2 K/mm3 (0-0.3); Eosinophils Percent Auto 2.5 % (0-4.4); Hematocrit 40.3 % (37.0-47.0); Hemoglobin 13.5 g/dL (12.0-15.0); Immature Granulocyte Absolute 0.01 K/mm3 (0.00-0.031); Immature Granulocyte Percent A 0.1 % (0-0.5); Lymphocytes Absolute Auto 1.18 K/mm3 (0.9-3.2); Lymphocytes Percent Auto 14.6 % (18.3-44.2); Mean Corpuscular HGB Conc 33.5 g/dl (32-36); Mean Corpuscular Hemoglobin 31.6 pg (26-34); Mean Corpuscular Volume 94.4 fl (80-100); Monocytes Absolute Auto 0.7 K/mm3 (0.1-0.6); Monocytes Percent Auto 8.2 % (2.6-8.5); Neutrophils Percent Auto 73.9 % (45.5-73.1); Platelet Count Result 188 k/mm3 (150-375); Red Blood Count 4.27 M/mm3 (4.2-5.4); Red Cell Distribution Width 14.1 % (11.5-14.5); White Blood Count 8.1 K/mm3 (4.5-10.0)
[2020-05-30] MEDS: ONDANSETRON INJ 4 MG/2 ML VIAL IV PUSH (22:05)
[2020-05-30 22:13] LABS: Lactic Acid Reflex 1.3 mmol/L (0.7-2.1)
[2020-05-30 22:14] LABS: Alanine Aminotransferase 19 U/L (4-35); Albumin Level 4.3 g/dL (3.5-5.1); Alkaline Phosphatase 52 U/L (38-126); Anion Gap 6 mmol/L (8-16); Aspartate Amino Transferase 29 U/L (14-36); Bilirubin,Total 0.4 mg/dL (0.2-1.3); Blood Urea Nitrogen 11 mg/dL (7-17); Calcium 9.4 mg/dL (8.4-10.2); Carbon Dioxide 35 mmol/L (22-30); Chloride 98 mmol/L (98-107); Estimated CRCL calculation 53 ml/min; Estimated Glomerular Filt Rate > 60; Glucose 122 mg/dL (65-105); Lipase 72 U/L (23-300); Potassium 3.9 mmol/L (3.4-5.0); Sodium 139 mmol/L (137-145)
[2020-05-30 23:17] VITALS: BP 120/72; PULSE 74; RESP 16; O2SAT 97
[2020-05-30 23:57] LABS: Add Urine Microscopic? YES; Appearance Urine Clear (Clear); Bilirubin Urine Negative (Negative); Blood Urine Negative (Negative); Color Urine Straw (Yellow); Glucose Urine UA Negative (Negative); Ketones Urine Negative (Negative); Leukocyte Esterase Ur Trace LEU/UL (Negative); Mucus Urine Rare /lpf; Nitrate Urine Negative (Negative); Protein Urine Negative (Negative); RBC Urine 0-2 /hpf (0-2); Squamous Epithelial Cell Urine Few /hpf (Few); Urobilinogen Urine Negative mg/dL (<2.0)
[2020-05-31] LABS: Specific Grav Ur 1.034 (1.001-1.035)
[2020-05-31 02:22] VITALS: BP 128/74; PULSE 58; RESP 16; O2SAT 96
[2020-05-31 02:52] VITALS: BMI 21.5
[2020-05-31 02:55] VITALS: BP 137/65; PULSE 62; RESP 16; TEMP 36.4; O2SAT 97
--- NOTE | 2020-05-31 03:06 | ADMGEN ---
This patient, Azeb Vallejo, was admitted to [facility] Surg Room 325-01. Patient/family oriented to hospital policies and general routines including ID bracelet, bed and alarms, visiting hours, pain management, procedures, bathroom and other care routines, personal items, smoking policy, room service/diet, and visiting hours. Valuables list has been completed. Information on how to activate the Rapid Response Team has been discussed. Patient/Family are encouraged to report perceived risks to care and to ask questions if they do not understand what they are told or what they should do.
[2020-05-31] MEDS: SODIUM CHLORIDE 0.9% IV 1,000 ML 125 ML IV CONT (03:39)
[2020-05-31 06:00] VITALS: BP 148/68; PULSE 67; RESP 16; TEMP 36.8; O2SAT 95
[2020-05-31 08:00] VITALS: PULSE 67; RESP 16; O2SAT 95
[2020-05-31] MEDS: KCL 40 MEQ/D5/0.9% SOD CHL 1,000 ML 100 ML IV CONT ×2 (09:57→23:29)
[2020-05-31] MEDS: FAMOTIDINE 20 MG/2 ML VIAL IV PUSH ×2 (09:58→20:47)
[2020-05-31] MEDS: ENOXAPARIN 40 MG/0.4 ML SYRINGE SUB-Q (09:58)
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
[2020-05-31 14:00] VITALS: BP 129/81; PULSE 64; RESP 16; TEMP 36.7; O2SAT 98
[2020-05-31] MEDS: ACETAMINOPHEN 500 MG TABLET 1000 MG PO ×2 (16:18→23:58)
[2020-05-31 22:00] VITALS: BP 124/72; PULSE 68; RESP 20; TEMP 36.6; O2SAT 96
[2020-06-01 06:00] VITALS: BP 132/75; PULSE 65; RESP 18; TEMP 36.4; O2SAT 94
[2020-06-01 06:15] LABS: Hematocrit 35.9 % (37.0-47.0); Hemoglobin 11.9 g/dL (12.0-15.0); Mean Corpuscular HGB Conc 33.1 g/dl (32-36); Mean Corpuscular Hemoglobin 30.9 pg (26-34); Mean Corpuscular Volume 93.2 fl (80-100); Platelet Count Result 174 k/mm3 (150-375); Red Blood Count 3.85 M/mm3 (4.2-5.4); Red Cell Distribution Width 14.2 % (11.5-14.5); White Blood Count 4.4 K/mm3 (4.5-10.0)
[2020-06-01 06:46] LABS: Anion Gap 3 mmol/L (8-16); Blood Urea Nitrogen 4 mg/dL (7-17); Calcium 8.3 mg/dL (8.4-10.2); Carbon Dioxide 30 mmol/L (22-30); Chloride 109 mmol/L (98-107); Estimated CRCL calculation 75 ml/min; Estimated Glomerular Filt Rate > 60; Glucose 109 mg/dL (65-105); Potassium 3.9 mmol/L (3.4-5.0); Sodium 142 mmol/L (137-145)
--- NOTE | 2020-06-01 07:44 | PM.PNGS ---
Progress Note: A&P Assessment and Plan (1) Partial small bowel obstruction: Code(s): K56.600 - Partial intestinal obstruction, unspecified as to cause Status: Acute Assessment and Plan: much improved. Will get Gastrografin upper GI small-bowel follow-through this morning. If no evidence of obstruction, will discontinue NG tube and proceed with feeding. (2) Colon cancer: Qualifiers: Colon location: unspecified part of colon Qualified Code(s): C18.9 - Malignant neoplasm of colon, unspecified Code(s): C18.9 - Malignant neoplasm of colon, unspecified Status: Chronic (3) History of external beam radiation therapy: Code(s): Z92.3 - Personal history of irradiation Status: Chronic Subjective Subjective Date/Time Seen: 06/01/20 07:44 Patient reports: no new complaints, feels better, pain is less, bowel movement and afebrile Review of Systems Review of Systems: All systems reviewed & are unremarkable except as noted in HPI and below Constitutional: Constitutional: Denies headache(s) Cardiovascular: Cardiovascular: Denies chest pain and Denies dyspnea Respiratory: Respiratory: Denies cough and Denies dyspnea Gastrointestinal: Gastrointestinal: Reports as per HPI Neurologic: Denies confusion and Denies headache(s) Exam Const: General: comfortable and no acute distress; No confusion Orientation/consciousness: patient oriented x3 and No confusion GI: GI Palp: Yes Soft to palpation, Yes Tenderness to palpation present (GI), No Guarding due to palpation present (GI) and No Rebound tenderness present Auscultation: normal bowel sounds Neuro: General: patient oriented x3, no focal motor deficits and No confusion Extrem: General: no calf tenderness and no edema Psych: Affect: normal affect Insight: Good insight present (Psych) Judgement: Good judgement present (Psych) Objective Data Vital Signs Vital Signs: Vital Signs - 24 hr 05/31/20 08:00 05/31/20 14:00 05/31/20 22:00 Temperature 36.7 C 36.6 C Pulse Rate 67 64 68 Respiratory Rate 16 16 20 Blood Pressure 129/81 124/72 Pulse Oximetry 95 98 96 06/01/20 06:00 Temperature 36.4 C L Pulse Rate 65 Respiratory Rate 18 Blood Pressure 132/75 Pulse Oximetry 94 Intake/Output Intake/Output: Intake & Output 10/02/20 05/30/20 05/31/20 06/01/20 23:59 23:59 23:59 23:59 Intake Total 1700 0 Output Total 1275 850 Balance 425 -850 Meds/Results Medications: Active Medications Generic Name Dose Route Start Last Admin Trade Name Freq PRN Reason Stop Dose Admin Acetaminophen 1,000 mg 05/31/20 07:46 05/31/20 23:58 Tylenol Tablet PO 1,000 mg Q6H PRN Administration Mild Pain (1-3) or Fever Enoxaparin Sodium 40 mg 05/31/20 09:00 05/31/20 09:58 Lovenox SUB-Q 40 mg DAILY ANNA Administration Famotidine 20 mg 05/31/20 09:00 05/31/20 20:47 Pepcid Iv IV PUSH 20 mg Q12HR ANNA Administration Potassium Chloride/Dextrose/Sod Cl 1,000 mls @ 100 mls/hr 05/31/20 07:50 05/31/20 23:29 Kcl 40 Meq/D5ns IV CONT 100 mls/hr .Q10H ANNA Administration Ondansetron HCl 4 mg 05/31/20 02:07 Zofran Inj IV PUSH Q4H PRN Nausea Phenol 1 spray 05/31/20 13:51 Chloraseptic [place] MUCOUS MEM PRN PRN Sore Throat Radiology Results: ITS Impressions Abdomen/Pelvis CT 05/31/20 08:48 IMPRESSION: 1. Partial small bowel obstruction with transition point identified in right lower quadrant, could be related. 2. Other chronic, surgical changes. Abdomen X-Ray 06/01/20 07:12 IMPRESSION: NG tube in stomach Moderately prominent amount of fecal material within the colon; no bowel obstruction is evident radiographically. Labs Labs: Laboratory Results - last 24 hr 06/01/20 06/01/20 05:53 05:53 WBC 4.4 L RBC 3.85 L Hgb 11.9 L Hct 35.9 L MCV 93.2 MCH 30.9 MCHC 33.1 RDW 14.2 Plt Count 174 MPV 10.
[2020-06-01] MEDS: FAMOTIDINE 20 MG/2 ML VIAL IV PUSH ×2 (09:12→20:18)
[2020-06-01] MEDS: ENOXAPARIN 40 MG/0.4 ML SYRINGE SUB-Q (09:12)
[2020-06-01 14:00] VITALS: BP 153/88; PULSE 78; RESP 16; TEMP 37.2; O2SAT 96
--- NOTE | 2020-06-01 18:00 | WPDCN ---
Assessment and Plan Assessment and plan (1) Delirium: Code(s): R41.0 - Disorientation, unspecified Status: Acute (2) Partial small bowel obstruction: Code(s): K56.600 - Partial intestinal obstruction, unspecified as to cause Status: Acute (3) Pure hypercholesterolemia: Code(s): E78.00 - Pure hypercholesterolemia, unspecified Status: Chronic (4) GERD (gastroesophageal reflux disease): Code(s): K21.9 - Gastro-esophageal reflux disease without esophagitis Status: Chronic Additional Plan The hospitalist service has been consulted for further evaluation of confusion and headache. Her headache has since resolved, and she reported that was mainly frontal headache which she believes was due to her inability to have anything to eat or drink. With regards to the confusion, her history suggests hospital induced delirium. In fact she has had previous episodes of delirium and combativeness with previous hospitalizations. I spoke with the patient, her daughter, and nurse about the importance of keeping a regular schedule, to dim the lights at nighttime, and to keep a calm and quiet environment. She may eventually need a sitter and seems to be doing well with redirection at this time. I would avoid narcotics, sedatives, etcetera. Stroke is unlikely however her daughters quite concerned thus will order a brain CT although she is clearly suffering from delirium. Thank you for allowing us to participate in this patient's care. Please do not hesitate to contact us with any questions. We will follow with you. Supervising physician for this medical consultation is Dr. Alcon Coronado. This document was completed by using [employer] speech recognition software, therefore loan consultant variances may occur. Despite proofreading, typographical errors may also occur. HPI Data of Consult Date/Time: 06/01/20 18:00 Requesting Physician: Yung Dangelo MD Primary Care Provider: Luisa Chowdary MD Consult Narrative Narrative: Azeb Vallejo is a 74-year-old female with history stroke with mild right hand and foot weakness, colon cancer status post colectomy and chemo radiation therapy, hypertension, and GERD whom the hospitalist service has been consulted for further evaluation of confusion and a headache. She is admitted to the surgery service after presenting to the emergency department in the evening hours on 05/30/2020 with complaints of abdominal pain. She was found to have a partial small-bowel obstruction and was treated with conservative therapy. Upper GI follow-through today showed no evidence of obstruction an NG tube has been removed. Over the past 24 hours or so, the patient's daughter, especially, has been concerned about her mental status. At baseline the patient is quite quiet and reserved however today she has been extremely talkative, and has been having hallucinations. She reported to her daughter that people were painting murals on the garber in the basement, she was seeing things moving her room that were not there, and she thought she saw bullets in the wall. She has also been a bit restless and anxious, trying to get out of her chair and reportedly she has been short and ?snippy? with nursing staff. Patient also reports today that her right leg felt like ?mush? and she required help ambulating with a gait belt when typically she can ambulate with a cane and the use of orthotic in the right shoe (she has residual right foot weakness from prior stroke). She has since been walking as per usual since that time. At the time of my evaluation the patient is alert and oriented x4 and has intermittent hallucinations but is easily redirectable. She has no complaints and specifically denies current headache (she blames her headache earlier in the day on dehydration as she has not been able to drink as much water she typically does since hospitalization), vertigo, auditory and visual changes (aside
--- NOTE | 2020-06-01 18:50 | PC.NURSE ---
Pt to xray for SBS/UGI from [id number] via stretcher.
[2020-06-01 20:06] LABS: Glucose Point of Care 109 (65-105)
[2020-06-01] MEDS: KCL 40 MEQ/D5/0.9% SOD CHL 1,000 ML 100 ML IV CONT (20:16)
[2020-06-01 22:00] VITALS: BP 143/67; PULSE 77; RESP 20; TEMP 36.4; O2SAT 99
[2020-06-02] MEDS: ACETAMINOPHEN 500 MG TABLET 1000 MG PO (03:35)
[2020-06-02 06:11] LABS: Basophils Percent Auto 0.4 % (0.2-1.2); Eosinophils Absolute Auto 0.1 K/mm3 (0-0.3); Eosinophils Percent Auto 2.6 % (0-4.4); Hematocrit 35.2 % (37.0-47.0); Hemoglobin 11.6 g/dL (12.0-15.0); Immature Granulocyte Absolute 0.02 K/mm3 (0.00-0.031); Immature Granulocyte Percent A 0.4 % (0-0.5); Lymphocytes Absolute Auto 0.77 K/mm3 (0.9-3.2); Lymphocytes Percent Auto 15.1 % (18.3-44.2); Mean Corpuscular Hemoglobin 30.6 pg (26-34); Mean Corpuscular Volume 92.9 fl (80-100); Mean Platelet Volume 9.8 fl (7.4-10.4); Monocytes Absolute Auto 0.6 K/mm3 (0.1-0.6); Neutrophils Absolute Auto 3.6 K/mm3 (1.3-6.7); Neutrophils Percent Auto 70.5 % (45.5-73.1); Platelet Count Result 168 k/mm3 (150-375); Red Blood Count 3.79 M/mm3 (4.2-5.4); Red Cell Distribution Width 14.1 % (11.5-14.5); White Blood Count 5.1 K/mm3 (4.5-10.0)
[2020-06-02 06:23] VITALS: BP 139/66; PULSE 66; RESP 20; TEMP 36.5; O2SAT 98
[2020-06-02 06:26] LABS: Alanine Aminotransferase 15 U/L (4-35); Albumin Level 3.3 g/dL (3.5-5.1); Alkaline Phosphatase 45 U/L (38-126); Anion Gap 4 mmol/L (8-16); Aspartate Amino Transferase 24 U/L (14-36); Bilirubin,Total 0.6 mg/dL (0.2-1.3); Blood Urea Nitrogen 6 mg/dL (7-17); Calcium 8.4 mg/dL (8.4-10.2); Carbon Dioxide 27 mmol/L (22-30); Chloride 109 mmol/L (98-107); Estimated CRCL calculation 63 ml/min; Estimated Glomerular Filt Rate > 60; Glucose 118 mg/dL (65-105); Phosphorus 2.6 mg/dL (2.5-4.5); Potassium 4.1 mmol/L (3.4-5.0); Sodium 140 mmol/L (137-145)
[2020-06-02] MEDS: KCL 40 MEQ/D5/0.9% SOD CHL 1,000 ML 100 ML IV CONT (07:00)
[2020-06-02 08:21] LABS: Folic Acid > 20.0 ng/mL (2.76->20)
[2020-06-02] MEDS: ENOXAPARIN 40 MG/0.4 ML SYRINGE SUB-Q (08:31)
[2020-06-02] MEDS: FAMOTIDINE 20 MG/2 ML VIAL IV PUSH (08:33)
--- NOTE | 2020-06-02 09:46 | PM.DS ---
DS: Admitting Diagnosis Admitting Diagnosis Admitting Diagnosis: small bowel obstruction DS: Discharge Diagnosis Discharge Diagnosis (1) Partial small bowel obstruction: Code(s): K56.600 - Partial intestinal obstruction, unspecified as to cause Status: Resolved (2) Delirium: Code(s): R41.0 - Disorientation, unspecified Status: Resolved (3) Colon cancer: Qualifiers: Colon location: unspecified part of colon Qualified Code(s): C18.9 - Malignant neoplasm of colon, unspecified Code(s): C18.9 - Malignant neoplasm of colon, unspecified Status: Chronic (4) History of external beam radiation therapy: Code(s): Z92.3 - Personal history of irradiation Status: Chronic DS: Summary Time Spent with Patient Time attestation: Total time spent providing and/or coordinating discharge services: the patient is a 74-year-old woman who has some baseline dementia and lives in assisted living. She had an upper rectal cancer removed by Dr. Garcia in September of 2018. Following surgery she had pelvic radiation therapy which was completed January 02, 2019. She developed partial small-bowel obstructions in July of 2019 and again last October. Both of these resolve without surgery. The patient came to the emergency room on May 30 with abdominal pain, she had no nausea or vomiting. Evaluation showed a recurrent partial small-bowel obstruction. She had some diffuse abdominal tenderness. An NG tube was placed and by the next morning she was feeling quite a bit better. She was given IV fluid resuscitation and analgesics. She continued to improve. Radiographically her small-bowel obstruction had resolved by 06/01/2020. An upper GI small-bowel follow-through was done and showed no evidence of a small-bowel obstruction. Also on 06/01/2020 the patient had some confusion and was seen in consultation by the hospitalist. This did not appear to be a stroke. CT scan of the head was done and shoulder an old left middle cerebral artery infarct but no acute intracranial abnormality. She was diagnosed as having acute delirium which subsequently resolved. Following her upper GI small-bowel follow-through, her NG tube was removed and the patient was started on liquids. She tolerated these well. Her diet was advanced to solid food on June 02. Her mental status was back to baseline on June 02. She was discharged in good condition. Exam GI: Inspection: non-distended and scar GI Palp: Yes Soft to palpation and No Tenderness to palpation present (GI) Auscultation: normal bowel sounds Neuro: General: oriented to place ( [facility]), oriented to time ( Two [place]), no focal motor deficits and CN's II-XI intact bilaterally Cognition (Neuro): normal cognition ( baseline) Speech: normal speech Motor exam (neuro): 5/5 motor strength present throughout and No tremor noted DS: Data Data Completed and Pending Labs on day of discharge: Labs from last 24 hours 06/02/20 06/02/20 06/02/20 05:57 05:57 05:57 WBC 5.1 RBC 3.79 L Hgb 11.6 L Hct 35.2 L MCV 92.9 MCH 30.6 MCHC 33.0 RDW 14.1 Plt Count 168 MPV 9.8 Immature Gran % (Auto) 0.4 Neut % (Auto) 70.5 Lymph % (Auto) 15.1 L [place] % (Auto) 11.0 H Eos % (Auto) 2.6 Baso % (Auto) 0.4 Lymph # (Auto) 0.77 L [place] # (Auto) 0.6 Eos # (Auto) 0.1 Baso # (Auto) 0.0 Abs Immat Gran (auto) 0.02 Absolute Neuts (auto) 3.6 Absolute Nucleated RBC 0.0 Nucleated RBC % 0.0 Sodium 140 Potassium 4.1 Chloride 109 H Carbon Dioxide 27 Anion Gap 4 L BUN 6 L Creatinine 0.60 L Estim Creat Clear Calc 63 Estimated GFR > 60 Glucose 118 H POC Capillary Glucose Calcium 8.4 Phosphorus 2.6 Magnesium 2.0 Total Bilirubin 0.6 AST 24 ALT 15 Alkaline Phosphatase 45 Total Protein 6.0 L Albumin 3.3 L Vitamin B12 664.0 Folat
[2020-06-02 13:49] LABS: SARS-CoV-2 RNA PCR Negative
== END 2020-06-02 15:10 | DRG 389 ==
LOC: ANHED 05-31 02:16 → ANH3MEDSUR 05-31 02:23
PROVIDERS: Internal Medicine; Physician Assistant; Admitting Provider Surgery; Emergency Provider General Practice; PCP Internal Medicine; Visit Provider Surgery
DX: K56.600 Partial intestinal obstruction, unspecified as to cause (principal); I69.351 Hemiplegia and hemiparesis following cerebral infarction affecting right dominant side; R41.0 Disorientation, unspecified; F03.90 Unspecified dementia, unspecified severity, without behavioral disturbance, psychotic disturbance, mood disturbance, and anxiety; Z20.828 Contact with and (suspected) exposure to other viral communicable diseases; M19.90 Unspecified osteoarthritis, unspecified site; K21.9 Gastro-esophageal reflux disease without esophagitis; E78.00 Pure hypercholesterolemia, unspecified; Z98.41 Cataract extraction status, right eye; Z85.038 Personal history of other malignant neoplasm of large intestine; Z96.651 Presence of right artificial knee joint; Z92.3 Personal history of irradiation; Z90.710 Acquired absence of both cervix and uterus; Z98.42 Cataract extraction status, left eye
CPT/HCPCS: 36415; 70450; 74018; 74177; 74240; 74248; 80048; 80053; 81001; 82607; 82746; 83605; 83690; 83735; 84100; 84443; 85025; 85027; 87635; 96374; 96375; 99285; A9270; C9803; G0378; J0131; J1650; J2405; J3480; J7030; Q9967; U0003

== ENCOUNTER 2020-07-04 01:30 | Inpatient (IN) | payer MEDICARE, SELFPAY ==
[2020-07-04] VITALS (7 sets, daily range): BP systolic 117–146; BP diastolic 62–105; PULSE 71–105; RESP 16–19; TEMP 36.3–37.7; O2SAT 91–99; BMI 22.8
--- NOTE | ~2020-07-04 | XR_ITS ---
EXAMINATION: XR chest 2V DATE: 07/04/2020 02:37 INDICATION: Chest pain TECHNIQUE: AP and lateral views of the chest are obtained. COMPARISON: 08/20/2019 FINDINGS: There is mild atelectasis of the lung bases. There is no pleural effusion or pneumothorax. The cardiomediastinal silhouette is normal. There is mild thoracic spondylosis. A right internal jugu lar Port-A-Cath ends with its tip in the right atrium. Healed right-sided rib and left clavicle fract ures are noted. IMPRESSION: 1. Mild atelectasis of the lung bases. Reviewed, dictated and finalized at location A. ALCHOLIZER
--- NOTE | ~2020-07-04 | XR_ITS ---
EXAMINATION: XR small bowel follow through DATE: 07/05/2020 20:11 INDICATION: Nausea and abdominal pain TECHNIQUE: Barrel Tester And Drainer radiograph(s) of the abdomen was/were obtained. Water-soluble contrast was administe red through the nasogastric tube and sequential radiographs of the abdomen were obtained. Fluoroscopy was not performed. COMPARISON: 06/01/2020 FINDINGS: Barrel Tester And Drainer image demonstrates a nasogastric tube in the stomach and multiple dilated loops of sm all bowel. A surgical anastomosis is noted in the pelvis. Contrast opacifies the dilated small bowel. The colon is normal in caliber. Transit time from the stomach to proximal colon was approximately tw o hours. Contrast is seen in the rectum on the final image. IMPRESSION: 1. Dilated small bowel with passage of contrast through the bowel into the rectum, consistent with il eus. Reviewed, dictated and finalized at location A. D CARE MANAGER IMPRESSION: 1. Dilated small bowel with passage of contrast through the bowel into the rect um, consistent with ileus.
--- NOTE | ~2020-07-04 | XR_ITS ---
EXAMINATION: XR abdomen NG/feed tube insert INDICATION: Nasogastric tube placement TECHNIQUE: Portable AP KUB-NG at 0425 hours COMPARISON: 06/01/2020 FINDINGS: The nasogastric tube is in the stomach. There is mild atelectasis of the lung bases. A part ially imaged right-sided Port-A-Cath ends with its tip in the proximal right atrium. Dilated small jim wel loops are present in the midabdomen. IMPRESSION: 1. Nasogastric tube in the stomach. Reviewed, dictated and finalized at location A. RGLASS AUTO BODY REPAIRER
--- NOTE | ~2020-07-04 | CT_ITS ---
EXAMINATION: CT abdomen pelvis w con INDICATION: Abdominal pain, history of cancer of the sigmoid colon TECHNIQUE: Computed tomographic images of the abdomen and pelvis were obtained after the administrati on of 100 cc of Omnipaque 350 intravenous contrast. The dose-length product (DLP) was 517.43 mGy-cm. Automated exposure control and iterative reconstruction technique were employed. COMPARISON: 05/30/2020 FINDINGS: Minimal dependent atelectasis is present in the lung bases. The heart size is normal. Stabl e nodules of the right lower lobe measure up to 5 mm. There is a 1.3 cm cyst in the liver. The spleen , pancreas, gallbladder, and adrenal glands are normal. The kidneys are unremarkable. There is calcif ied atherosclerosis of the aorta and many of the other arteries. No pathologically enlarged abdominal or pelvic lymph nodes are identified. Surgical changes are noted in the sigmoid colon. There are mul tiple dilated loops of small bowel. No focal transition point is identified. A ventral hernia is note d containing nonobstructed large and small bowel. There is no free intraperitoneal gas. There is thor acolumbar levoscoliosis. IMPRESSION: 1. Dilated small bowel without focal transition point, consistent with partial obstruction versus ashley namic ileus. Reviewed, dictated and finalized at location A. L INSPECTION SUPERVISOR IMPRESSION: 1. Dilated small bowel without focal transition point, consistent with partial obstruction versus adynamic ileus.
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
[2020-07-04 01:55] LABS: Add Urine Microscopic? NO; Appearance Urine Clear (Clear); Bilirubin Urine Negative (Negative); Blood Urine Negative (Negative); Color Urine Straw (Yellow); Glucose Urine UA Negative (Negative); Ketones Urine Negative (Negative); Leukocyte Esterase Ur Negative LEU/UL (Negative); Nitrate Urine Negative (Negative); Protein Urine Negative (Negative); Specific Grav Ur 1.006 (1.001-1.035); Urobilinogen Urine Negative mg/dL (<2.0)
--- NOTE | 2020-07-04 02:04 | ECG_ITS ---
Measurements Intervals [place] Rate: 72 P: 67 MO: 145 QRS: -4 QRSD: 91 T: 24 QT: 384 QTc: 421 Interpretive Statements SINUS RHYTHM EARLY PRECORDIAL R/S TRANSITION BASELINE ARTIFACT- I, II, AVR, AVF BORDERLINE ECG Electronically Signed On 07-04-2020 7:05:39 CORE DRILLER HELPER by Stewart Barrera D.O.
[2020-07-04] MEDS: ONDANSETRON INJ 4 MG/2 ML VIAL IV PUSH (02:07)
[2020-07-04] MEDS: SODIUM CHLORIDE 0.9% IV 1,000 ML 999 ML IV CONT (02:07)
[2020-07-04 02:15] LABS: Basophils Percent Auto 0.5 % (0.2-1.2); Eosinophils Absolute Auto 0.2 K/mm3 (0-0.3); Hematocrit 42.7 % (37.0-47.0); Hemoglobin 14.3 g/dL (12.0-15.0); Immature Granulocyte Absolute 0.02 K/mm3 (0.00-0.031); Immature Granulocyte Percent A 0.3 % (0-0.5); Lymphocytes Absolute Auto 0.71 K/mm3 (0.9-3.2); Lymphocytes Percent Auto 9.6 % (18.3-44.2); Mean Corpuscular HGB Conc 33.5 g/dl (32-36); Mean Corpuscular Hemoglobin 31.2 pg (26-34); Monocytes Absolute Auto 0.6 K/mm3 (0.1-0.6); Monocytes Percent Auto 8.2 % (2.6-8.5); Neutrophils Absolute Auto 5.9 K/mm3 (1.3-6.7); Neutrophils Percent Auto 79.4 % (45.5-73.1); Platelet Count Result 188 k/mm3 (150-375); Red Blood Count 4.59 M/mm3 (4.2-5.4); Red Cell Distribution Width 13.7 % (11.5-14.5); White Blood Count 7.4 K/mm3 (4.5-10.0)
[2020-07-04] MEDS: MORPHINE SULFATE (*CRX) 2 MG/ML INJ IV PUSH (02:18)
--- NOTE | 2020-07-04 02:25 | PC.NURSE ---
pt to ct via stretcher
[2020-07-04 02:27] LABS: Alanine Aminotransferase 17 U/L (4-35); Albumin Level 4.1 g/dL (3.5-5.1); Alkaline Phosphatase 66 U/L (38-126); Anion Gap 6 mmol/L (8-16); Aspartate Amino Transferase 27 U/L (14-36); Bilirubin,Total 0.8 mg/dL (0.2-1.3); Blood Urea Nitrogen 10 mg/dL (7-17); Calcium 9.6 mg/dL (8.4-10.2); Carbon Dioxide 35 mmol/L (22-30); Chloride 97 mmol/L (98-107); Estimated CRCL calculation 55 ml/min; Estimated Glomerular Filt Rate > 60; Glucose 130 mg/dL (65-105); Lipase 51 U/L (23-300); Potassium 3.4 mmol/L (3.4-5.0); Sodium 138 mmol/L (137-145)
[2020-07-04 02:30] LABS: INR 0.9; Partial Thromboplastin Time 25.6 SECONDS (22.3-36.8); Prothrombin Time 12.9 Seconds (11.1-14.7)
[2020-07-04 02:38] LABS: Troponin I < 0.012 ng/mL (0.000-0.034)
[2020-07-04] MEDS: MORPHINE SULFATE (*CRX) 4 MG/ML INJ IV PUSH ×2 (04:14→06:27)
--- NOTE | 2020-07-04 05:10 | ADMGEN ---
This patient, Azeb Vallejo, was admitted to Medical Room 349-01. Patient/family oriented to hospital policies and general routines including ID bracelet, bed and alarms, visiting hours, pain management, procedures, bathroom and other care routines, personal items, smoking policy, room service/diet, and visiting hours. Information on how to activate the Rapid Response Team has been discussed. Patient/Family are encouraged to report perceived risks to care and to ask questions if they do not understand what they are told or what they should do.
[2020-07-04] MEDS: SODIUM CHLORIDE 0.9% IV 1,000 ML 125 ML IV CONT ×3 (05:18→20:23)
[2020-07-04] MEDS: MORPHINE SULFATE (*CRX) 4 MG/ML INJ 2 MG IV PUSH (08:30)
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
[2020-07-04 10:14] LABS: Anion Gap 6 mmol/L (8-16); Blood Urea Nitrogen 10 mg/dL (7-17); Calcium 8.5 mg/dL (8.4-10.2); Carbon Dioxide 29 mmol/L (22-30); Chloride 103 mmol/L (98-107); Estimated CRCL calculation 61 ml/min; Estimated Glomerular Filt Rate > 60; Glucose 143 mg/dL (65-105); Magnesium 1.7 mg/dL (1.6-2.3); Potassium 3.6 mmol/L (3.4-5.0); Sodium 138 mmol/L (137-145)
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
[2020-07-05 05:16] VITALS: BP 114/63; PULSE 69; RESP 16; TEMP 36.9; O2SAT 97
[2020-07-05] MEDS: SODIUM CHLORIDE 0.9% IV 1,000 ML 125 ML IV CONT ×2 (05:32→21:02)
[2020-07-05 06:19] LABS: Hematocrit 34.4 % (37.0-47.0); Hemoglobin 11.2 g/dL (12.0-15.0); Mean Corpuscular HGB Conc 32.6 g/dl (32-36); Mean Corpuscular Hemoglobin 30.7 pg (26-34); Mean Corpuscular Volume 94.2 fl (80-100); Mean Platelet Volume 10.5 fl (7.4-10.4); Platelet Count Result 144 k/mm3 (150-375); Red Blood Count 3.65 M/mm3 (4.2-5.4); Red Cell Distribution Width 13.9 % (11.5-14.5); White Blood Count 5.1 K/mm3 (4.5-10.0)
[2020-07-05 06:35] LABS: Anion Gap 5 mmol/L (8-16); Blood Urea Nitrogen 9 mg/dL (7-17); Carbon Dioxide 25 mmol/L (22-30); Chloride 110 mmol/L (98-107); Estimated CRCL calculation 72 ml/min; Estimated Glomerular Filt Rate > 60; Glucose 84 mg/dL (65-105); Magnesium 1.7 mg/dL (1.6-2.3); Potassium 3.3 mmol/L (3.4-5.0); Sodium 140 mmol/L (137-145)
[2020-07-05 07:53] VITALS: PULSE 69; RESP 16; O2SAT 97
[2020-07-05] MEDS: MORPHINE SULFATE (*CRX) 4 MG/ML INJ 2 MG IV PUSH ×3 (11:07→21:06)
--- NOTE | 2020-07-05 11:56 | PM.PNGS ---
Progress Note: A&P Assessment and Plan (1) Small bowel obstruction due to adhesions: Code(s): K56.50 - Intestinal adhesions [bands], unspecified as to partial versus complete obstruction Status: Acute Assessment and Plan: exam benign, +bowel movts, very little NG output, will clamp NG and poss dc later today, start clears if NG out Subjective Subjective Date/Time Seen: 07/05/20 11:56 feels ok, +bowel movts, no further N/V, but still c some crampy pain karma RLQ Review of Systems Constitutional: Constitutional: Denies anorexia, Denies chills, Reports fatigue, Denies fever(s), Reports lethargy and Reports weakness Cardiovascular: Cardiovascular: Reports no additional cardiovascular complaints Respiratory: Respiratory: Reports no additional respiratory complaints Gastrointestinal: Gastrointestinal: Reports abdominal pain, Denies belching, Reports bloating, Reports GI cramping, Denies nausea and Denies vomiting Exam Const: General: cooperative, comfortable and no acute distress Resp: Effort & Inspection: normal respiratory effort Auscultation: clear to auscultation bilaterally Cardio: Rate: regular rate Rhythm: regular rhythm GI: Inspection: normal to inspection and distended GI Palp: Yes Soft to palpation, No Firmness to palpation present (GI), Yes Tenderness to palpation present (GI) and No Guarding due to palpation present (GI) Objective Data Vital Signs Vital Signs: Vital Signs - 24 hr 07/04/20 14:00 07/04/20 20:49 07/05/20 05:16 Temperature 37.7 C H 36.6 C 36.9 C Pulse Rate 102 H 71 69 Respiratory Rate 16 16 16 Blood Pressure 128/71 117/62 114/63 Pulse Oximetry 91 96 97 07/05/20 07:53 Temperature Pulse Rate 69 Respiratory Rate 16 Blood Pressure Pulse Oximetry 97 Intake/Output Intake/Output: Intake & Output 07/02/20 07/03/20 07/04/20 07/05/20 23:59 23:59 23:59 23:59 Intake Total 2100 1200 Output Total 700 800 Balance 1400 400 Meds/Results Medications: Active Medications Generic Name Dose Route Start Last Admin Trade Name Freq PRN Reason Stop Dose Admin Sodium Chloride 1,000 mls @ 125 mls/hr 07/04/20 04:10 07/05/20 05:32 Normal Saline Iv IV CONT 125 mls/hr .Q8H ANNA Administration Acetaminophen 1,000 mg in 100 mls @ 400 mls/hr 07/04/20 14:50 07/05/20 07:42 Ofirmev 1,000 Mg Ivpb IVPB 07/05/20 14:51 Infused Q6H PRN Infusion Pain Potassium Chloride 500 mls @ 125 mls/hr 07/05/20 10:30 07/05/20 11:09 Kcl 40 Meq/D5w 500 Ml Peripheral IVPB 07/05/20 14:29 125 mls/hr ONCE ONE Administration Morphine Sulfate 2 mg 07/04/20 08:08 07/05/20 11:07 Morphine Sulfate (*Crx) 4 Mg/Ml Inj IV PUSH 2 mg Q2H PRN Administration Pain Rated 7-10 Ondansetron HCl 4 mg 07/04/20 04:07 Ondansetron Inj 4 Mg/2 Ml Vial IV PUSH Q4H PRN Nausea Radiology Results: ITS Impressions Chest X-Ray 07/04/20 08:44 IMPRESSION: 1. Mild atelectasis of the lung bases. Abdomen X-Ray 07/04/20 09:12 IMPRESSION: 1. Nasogastric tube in the stomach. Abdomen/Pelvis CT 07/04/20 10:46 IMPRESSION: 1. Dilated small bowel without focal transition point, consistent with partial obstruction versus adynamic ileus. Labs Labs: Laboratory Results - last 24 hr 07/05/20 07/05/20 05:39 05:39 WBC 5.1 RBC 3.65 L Hgb 11.2 L D Hct 34.4 L MCV 94.2 MCH 30.7 MCHC 32.6 RDW 13.9 Plt Count 144 L MPV 10.5 H Sodium 140 Potassium 3.3 L Chloride 110 H Carbon Dioxide 25 Anion Gap 5 L BUN 9 Creatinine 0.50 L Estim Creat Clear Calc 72 Estimated GFR > 60 Glucose 84 Calcium 7.0 L Magnesium 1.7 Quality VTE Prophylaxis VTE prophylaxis: mechanical ordered
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
--- NOTE | 2020-07-05 13:37 | PM.IMPN ---
Progress Note: A&P Assessment and Plan (1) Partial small bowel obstruction: Code(s): K56.600 - Partial intestinal obstruction, unspecified as to cause Status: Resolved Assessment and Plan: 07/05/20 13:37 Azeb Vallejo is a 74 year old female patient is 74-year-old female with history of upper rectal cancer patient was seen by general surgery team and had a surgical removal in September of 2018, after surgery patient had a pelvic radiation therapy, since then patient has had recurrent small-bowel obstruction which have resolved without any surgical intervention, patient presented to emergency department early this morning on 07/04 complaint abdominal pain and and cramping burping and belching, patient had a CT scan of the abdomen which showed patient has dilated small bowel without focal transition point, consistent with partial obstruction versus adynamic ileus. patient was placed on NG tube, IV hydration, upon arrival to the floor on 07/04 patient and a small BM, today 07/05 patient had another BM last night, patient was seen by surgery team and has clamped the NG tube plan is to monitor 4-6 hours and if there is no significant symptoms of nausea or vomiting will remove NG tube and start the patient on clear liquid will continue to monitor, patient does complain right lower quadrant pain and bloating, will monitor will have a surgery evaluate the patient and further recommendation to follow, patient is also seen GI patient may need a colonoscopy to further evaluate and further recommendation to follow, patient daughter is present in the room answered all her questions. (2) Delirium: Code(s): R41.0 - Disorientation, unspecified Status: Resolved Assessment and Plan: patient is clinically stable (3) Colon cancer: Qualifiers: Colon location: unspecified part of colon Qualified Code(s): C18.9 - Malignant neoplasm of colon, unspecified Code(s): C18.9 - Malignant neoplasm of colon, unspecified Status: Chronic Assessment and Plan: patient is status post surgical removal of the cancer in September of 1999 and radiation therapy a after will consult GI patient may need a colonoscopy, for further recommendation Subjective Date/time seen: 07/05/20 13:37 Azeb Vallejo is a 74 year old female patient is 74-year-old female with history of upper rectal cancer patient was seen by general surgery team and had a surgical removal in September of 2018, after surgery patient had a pelvic radiation therapy, since then patient has had recurrent small-bowel obstruction which have resolved without any surgical intervention, patient presented to emergency department early this morning on 07/04 complaint abdominal pain and and cramping burping and belching, patient had a CT scan of the abdomen which showed patient has dilated small bowel without focal transition point, consistent with partial obstruction versus adynamic ileus. patient was placed on NG tube, IV hydration, upon arrival to the floor on 07/04 patient and a small BM, today 07/05 patient had another BM last night, patient was seen by surgery team and has clamped the NG tube plan is to monitor 4-6 hours and if there is no significant symptoms of nausea or vomiting will remove NG tube and start the patient on clear liquid will continue to monitor, patient does complain right lower quadrant pain and bloating, will monitor will have a surgery evaluate the patient and further recommendation to follow, patient is also seen GI patient may need a colonoscopy to further evaluate and further recommendation to follow, patient daughter is present in the room answered all her questions. Review of Systems Review of Systems: All systems reviewed & are unremarkable except as noted in HPI and below Exam Narrative: Exam Narrative: elderly frail Patient is comfortable, NAD HEENT: eyes are clear and none icteric LUNGS:CTA HEART: RR S1S2 ABD: bowel sounds
[2020-07-05 14:00] VITALS: BP 136/54; PULSE 69; RESP 16; TEMP 36.4; O2SAT 96
[2020-07-05 15:10] VITALS: BP 155/87; PULSE 77; RESP 16; TEMP 36.5; O2SAT 95
--- NOTE | 2020-07-05 15:14 | ECG_ITS ---
Measurements Intervals [place] Rate: 78 P: 44 CO: 141 QRS: 21 QRSD: 82 T: 55 QT: 351 QTc: 401 Interpretive Statements SINUS RHYTHM NONSPECIFIC ST & T-WAVE ABNORMALITY- DIFFUSE LEADS BASELINE ARTIFACT- I, II, III, AVR, AVL, AVF, V1-V6 BORDERLINE ECG Electronically Signed On 07-06-2020 8:36:59 C ARCHITECT by Stewart Barrera D.O.
[2020-07-05] MEDS: ONDANSETRON INJ 4 MG/2 ML VIAL IV PUSH (15:20)
[2020-07-05 15:58] LABS: Troponin I < 0.012 ng/mL (0.000-0.034)
[2020-07-05 20:51] VITALS: BP 161/78; PULSE 86; RESP 14; TEMP 37.6; O2SAT 94
[2020-07-06 00:53] LABS: SARS-CoV-2 RNA PCR Negative
[2020-07-06] MEDS: SODIUM CHLORIDE 0.9% IV 1,000 ML 125 ML IV CONT ×2 (05:26→15:56)
[2020-07-06 06:00] VITALS: BP 133/70; PULSE 71; RESP 16; TEMP 37; O2SAT 94
[2020-07-06 06:23] LABS: Hemoglobin 11.1 g/dL (12.0-15.0); Mean Corpuscular HGB Conc 32.6 g/dl (32-36); Mean Platelet Volume 10.6 fl (7.4-10.4); Platelet Count Result 168 k/mm3 (150-375); Red Blood Count 3.58 M/mm3 (4.2-5.4); Red Cell Distribution Width 13.8 % (11.5-14.5); White Blood Count 6.4 K/mm3 (4.5-10.0)
[2020-07-06 06:37] LABS: Anion Gap 7 mmol/L (8-16); Blood Urea Nitrogen 5 mg/dL (7-17); Calcium 7.4 mg/dL (8.4-10.2); Carbon Dioxide 23 mmol/L (22-30); Chloride 107 mmol/L (98-107); Estimated CRCL calculation 72 ml/min; Estimated Glomerular Filt Rate > 60; Glucose 70 mg/dL (65-105); Magnesium 1.9 mg/dL (1.6-2.3); Potassium 3.4 mmol/L (3.4-5.0); Sodium 137 mmol/L (137-145)
--- NOTE | 2020-07-06 11:52 | WPDGIPROGNO ---
Progress Note: A&P Additional Plan Patient feeling better this morning. Reports he passing bowel movement flatus. NG tube remains in place. Physical exam reveals patient be alert. HEENT exam reveals her to be anicteric. Lungs are clear. Heart without murmur. Abdomen is soft mild distention noted no localized tenderness. Small-bowel series reveals passage of contrast suggesting ileus. Impression 1. Partial small-bowel obstruction appears to be improving. May have a lingering ileus. Plan is to clamp NG tube discontinue in surgical service agrees. Slow advancing of diet advised. 2. Stage III colon cancer. Elective follow-up colonoscopy advised as an outpatient. This should be deferred until ileus and small-bowel obstruction resolved. Anticipate this is an outpatient. Subjective Date/time seen: 07/06/20 11:52 Objective Data Vital Signs Vital Signs: Vital Signs - 24 hr 07/05/20 14:00 07/05/20 15:10 07/05/20 20:51 Temperature 97.6 F 97.7 F 99.6 F Pulse Rate 69 77 86 Respiratory Rate 16 16 14 Blood Pressure 136/54 L 155/87 H 161/78 H Pulse Oximetry 96 95 94 07/06/20 06:00 Temperature 98.6 F Pulse Rate 71 Respiratory Rate 16 Blood Pressure 133/70 Pulse Oximetry 94 Intake/Output Intake/Output: Intake & Output 07/03/20 07/04/20 07/05/20 07/06/20 23:59 23:59 23:59 23:59 Intake Total 2100 2200 1160 Output Total 700 2500 600 Balance 1400 -300 560 Meds/Results Medications: Active Medications Generic Name Dose Route Start Last Admin Trade Name Freq PRN Reason Stop Dose Admin Sodium Chloride 1,000 mls @ 125 mls/hr 07/04/20 04:10 07/06/20 05:26 Normal Saline Iv IV CONT 125 mls/hr .Q8H ANNA Administration Acetaminophen 1,000 mg in 100 mls @ 400 mls/hr 07/06/20 06:43 07/06/20 07:11 Ofirmev 1,000 Mg Ivpb IVPB 07/07/20 06:44 Infused Q6H PRN Infusion Pain Rated 4-6 Potassium Chloride 500 mls @ 75 mls/hr 07/06/20 09:00 07/06/20 09:29 Kcl 40 Meq/D5w 500 Ml Peripheral IVPB 07/06/20 15:39 75 mls/hr ONCE ONE Administration Morphine Sulfate 2 mg 07/04/20 08:08 07/05/20 21:06 Morphine Sulfate (*Crx) 4 Mg/Ml Inj IV PUSH 2 mg Q2H PRN Administration Pain Rated 7-10 Ondansetron HCl 4 mg 07/04/20 04:07 07/05/20 15:20 Ondansetron Inj 4 Mg/2 Ml Vial IV PUSH 4 mg Q4H PRN Administration Nausea Pantoprazole Sodium 40 mg 07/07/20 09:00 Pantoprazole Sodium Iv 40 Mg Vial IV PUSH [facility] Radiology Results: ITS Impressions Chest X-Ray 07/04/20 08:44 IMPRESSION: 1. Mild atelectasis of the lung bases. Abdomen X-Ray 07/04/20 09:12 IMPRESSION: 1. Nasogastric tube in the stomach. Abdomen/Pelvis CT 07/04/20 10:46 IMPRESSION: 1. Dilated small bowel without focal transition point, consistent with partial obstruction versus adynamic ileus. Upper GI and Small Bowel X-Ray 07/05/20 20:23 IMPRESSION: 1. Dilated small bowel with passage of contrast through the bowel into the rectum, consistent with ileus. Labs Labs: Laboratory Results - last 24 hr 07/05/20 07/05/20 07/06/20 14:12 15:27 05:25 WBC 6.4 RBC 3.58 L Hgb 11.1 L Hct 34.0 L MCV 95.0 MCH 31.0 MCHC 32.6 RDW 13.8 Plt Count 168 MPV 10.6 H Sodium Potassium Chloride Carbon Dioxide Anion Gap BUN Creatinine Estim Creat Clear Calc Estimated GFR Glucose Calcium Magnesium Troponin I < 0.012 SARS-CoV-2 RNA (RT-PCR) Negative 07/06/20 05:25 WBC RBC Hgb Hct MCV MCH MCHC RDW Plt Count MPV Sodium 137 Potassium 3.4 Chloride 107 Carbon Dioxide 23 Anion Gap 7 L BUN 5 L Creatinine 0.50 L Estim Creat Clear Calc 72 Estimated GFR > 60 Glucose 70 Calcium 7.4 L Magnesium 1.9 Troponin I SARS-CoV-2 RNA (RT-PCR)
--- NOTE | 2020-07-06 12:24 | PM.PNGS ---
Progress Note: A&P Assessment and Plan (1) Partial small bowel obstruction: Code(s): K56.600 - Partial intestinal obstruction, unspecified as to cause Status: Resolved Assessment and Plan: Seems to be resolving. Exam benign and patient clinically improving. Bowels are moving. Will clamp NG tube today. If she tolerates this, okay to start slowly advancing on a diet. Additional Plan Discussed plan of care with Dr. Phelps. Subjective Subjective Date/Time Seen: 07/06/20 10:24 Patient reports: no new complaints, feels better, flatus and bowel movement Interval history: Patient reports feeling better today. Denies abdominal pain and feels less bloated. Reports minimal flatus yesterday and multiple bowel movements last night, none yet today. No nausea. NG in place on suction. Has tolerated ambulation but reporting generalized weakness (that has been ongoing for the past few weeks). No other new complaints. Review of Systems Review of Systems: All systems reviewed & are unremarkable except as noted in HPI and below Constitutional: Constitutional: Reports no additional constitutional complaints, Denies fever(s) and Reports weakness Cardiovascular: Cardiovascular: Reports no additional cardiovascular complaints, Denies chest pain, Denies chest pain at rest and Denies leg edema Respiratory: Respiratory: Reports no additional respiratory complaints, Denies cough and Denies dyspnea Gastrointestinal: Gastrointestinal: Reports as per HPI and Reports no additional gastrointestinal complaints Exam Const: General: cooperative, comfortable and no acute distress Nutritional Appearance: average body habitus Orientation/consciousness: patient oriented x3 Resp: Effort & Inspection: normal respiratory effort Auscultation: clear to auscultation bilaterally Cardio: Rate: regular rate Rhythm: regular rhythm GI: Inspection: other (mildly distended) GI Palp: Yes Soft to palpation, Yes Tenderness to palpation present (GI) (improved lower abdominal tenderness, no focal tenderness), No Guarding due to palpation present (GI), Yes Hernia present (lower near midline incisional hernia, soft and reducible) and No Rebound tenderness present Auscultation: normal bowel sounds Skin: General skin exam: normal color Rashes: no rashes Neuro: General: patient oriented x3 and no focal motor deficits Extrem: General: normal to inspection, no pedal edema, no calf tenderness and no edema Psych: Appearance: grossly normal Mental Status: mental status grossly normal Attitude: cooperative Insight: Good insight present (Psych) Judgement: Good judgement present (Psych) Objective Data Vital Signs Vital Signs: Vital Signs - 24 hr 07/05/20 14:00 07/05/20 15:10 07/05/20 20:51 Temperature 97.6 F 97.7 F 99.6 F Pulse Rate 69 77 86 Respiratory Rate 16 16 14 Blood Pressure 136/54 L 155/87 H 161/78 H Pulse Oximetry 96 95 94 07/06/20 06:00 Temperature 98.6 F Pulse Rate 71 Respiratory Rate 16 Blood Pressure 133/70 Pulse Oximetry 94 Intake/Output Intake/Output: Intake & Output 07/03/20 07/04/20 07/05/20 07/06/20 23:59 23:59 23:59 23:59 Intake Total 2100 2200 1160 Output Total 700 2500 600 Balance 1400 -300 560 Meds/Results Medications: Active Medications Generic Name Dose Route Start Last Admin Trade Name Freq PRN Reason Stop Dose Admin Sodium Chloride 1,000 mls @ 125 mls/hr 07/04/20 04:10 07/06/20 05:26 Normal Saline Iv IV CONT 125 mls/hr .Q8H ANNA Administration Acetaminophen 1,000 mg in 100 mls @ 400 mls/hr 07/06/20 06:43 07/06/20 07:11 Ofirmev 1,000 Mg Ivpb IVPB 07/07/20 06:44 Infused Q6H PRN Infusion Pain Rated 4-6 Potassium Chloride 500 mls @ 75 mls/hr 07/06/20 09:00 07/06/20 09:29 Kcl 40 Meq/D5w 500 Ml Peripheral IVPB 07/06/20 15:39 75 mls/hr ONCE ONE Administration Morphine Sulfate 2 mg 07/04/20 08:08 07/05/20 21:06 Morphine Sulfate (*Crx) 4 Mg/Ml Inj IV PUSH 2 mg
[2020-07-06 14:00] VITALS: BP 135/73; PULSE 74; RESP 18; TEMP 36.4; O2SAT 97
[2020-07-06] MEDS: CENTRAL LINE FLUSH 10 ML IV PUSH ×2 (14:21→21:03)
--- NOTE | 2020-07-06 15:02 | PM.IMPN ---
Progress Note: A&P Assessment and Plan (1) Partial small bowel obstruction: Code(s): K56.600 - Partial intestinal obstruction, unspecified as to cause Status: Resolved Assessment and Plan: 07/06/20 15:02 Azeb Vallejo is a 74 year old female patient is 74-year-old female with history of upper rectal cancer patient was seen by general surgery team and had a surgical removal in September of 2018, after surgery patient had a pelvic radiation therapy, since then patient has had recurrent small-bowel obstruction which have resolved without any surgical intervention, patient presented to emergency department early this morning on 07/04 complaint abdominal pain and and cramping burping and belching, patient had a CT scan of the abdomen which showed patient has dilated small bowel without focal transition point, consistent with partial obstruction versus adynamic ileus. patient was placed on NG tube, IV hydration, upon arrival to the floor on 07/04 patient and a small BM, today 07/05 patient had another BM last night, patient was seen by surgery team and has clamped the NG tube plan is to monitor 4-6 hours and if there is no significant symptoms of nausea or vomiting will remove NG tube and start the patient on clear liquid will continue to monitor, patient does complain right lower quadrant pain and bloating, will monitor will have a surgery evaluate the patient and further recommendation to follow, on 07/05 patient had a small-bowel follow-through which showed patient has ileus, and her ileus is slow resolving most likely secondary underlying colon cancer, patient is seen by surgery service NG tube is clamped if there is no significant nausea or vomiting we can remove the NG tube and possibly start on clear liquid, patient is seen by GI recommended patient need a colonoscopy for further evaluate this can be arranged as an outpatient once the patient clinically stable, patient daughter is present in answered all her questions (2) Delirium: Code(s): R41.0 - Disorientation, unspecified Status: Resolved Assessment and Plan: patient is clinically stable (3) Colon cancer: Qualifiers: Colon location: unspecified part of colon Qualified Code(s): C18.9 - Malignant neoplasm of colon, unspecified Code(s): C18.9 - Malignant neoplasm of colon, unspecified Status: Chronic Assessment and Plan: patient is status post surgical removal of the cancer in September of 1999 and radiation therapy a after will consult GI patient may need a colonoscopy, for further recommendation Subjective Date/time seen: 07/06/20 15:02 Azeb Vallejo is a 74 year old female patient is 74-year-old female with history of upper rectal cancer patient was seen by general surgery team and had a surgical removal in September of 2018, after surgery patient had a pelvic radiation therapy, since then patient has had recurrent small-bowel obstruction which have resolved without any surgical intervention, patient presented to emergency department early this morning on 07/04 complaint abdominal pain and and cramping burping and belching, patient had a CT scan of the abdomen which showed patient has dilated small bowel without focal transition point, consistent with partial obstruction versus adynamic ileus. patient was placed on NG tube, IV hydration, upon arrival to the floor on 07/04 patient and a small BM, today 07/05 patient had another BM last night, patient was seen by surgery team and has clamped the NG tube plan is to monitor 4-6 hours and if there is no significant symptoms of nausea or vomiting will remove NG tube and start the patient on clear liquid will continue to monitor, patient does complain right lower quadrant pain and bloating, will monitor will have a surgery evaluate the patient and further recommendation to follow, on 07/05 patient had a small-bowel follow-through which showed patient has ileus, and her ileus is slow res
[2020-07-06 20:45] VITALS: BP 143/67; PULSE 66; RESP 14; TEMP 37; O2SAT 97
[2020-07-07] MEDS: SODIUM CHLORIDE 0.9% IV 1,000 ML 125 ML IV CONT (00:33)
[2020-07-07] MEDS: CENTRAL LINE FLUSH 10 ML IV PUSH ×3 (05:51→22:30)
[2020-07-07 06:00] VITALS: BP 144/72; PULSE 72; RESP 14; TEMP 36.7; O2SAT 98
[2020-07-07 06:19] LABS: Anion Gap 7 mmol/L (8-16); Blood Urea Nitrogen 4 mg/dL (7-17); Calcium 7.3 mg/dL (8.4-10.2); Carbon Dioxide 24 mmol/L (22-30); Chloride 111 mmol/L (98-107); Estimated CRCL calculation 87 ml/min; Estimated Glomerular Filt Rate > 60; Glucose 103 mg/dL (65-105); Magnesium 1.8 mg/dL (1.6-2.3); Potassium 3.4 mmol/L (3.4-5.0); Sodium 142 mmol/L (137-145)
[2020-07-07 08:00] VITALS: PULSE 72; RESP 14; O2SAT 92
[2020-07-07] MEDS: PANTOPRAZOLE SODIUM IV 40 MG VIAL IV PUSH (08:50)
[2020-07-07] MEDS: SODIUM CHLORIDE 0.9% IV 1,000 ML 75 ML IV CONT (08:59)
[2020-07-07 09:39] LABS: Hematocrit 32.6 % (37.0-47.0); Hemoglobin 10.9 g/dL (12.0-15.0); Mean Corpuscular HGB Conc 33.4 g/dl (32-36); Mean Corpuscular Hemoglobin 31.1 pg (26-34); Mean Corpuscular Volume 92.9 fl (80-100); Platelet Count Result 175 k/mm3 (150-375); Red Blood Count 3.51 M/mm3 (4.2-5.4); Red Cell Distribution Width 13.7 % (11.5-14.5); White Blood Count 4.4 K/mm3 (4.5-10.0)
--- NOTE | 2020-07-07 10:02 | PM.PNGS ---
Progress Note: A&P Assessment and Plan (1) Partial small bowel obstruction: Code(s): K56.600 - Partial intestinal obstruction, unspecified as to cause Status: Resolved Assessment and Plan: Continues to improve. Exam benign and bowels are moving. Will advance to full liquids and okay to advance diet as tolerated from our standpoint. Additional Plan Discussed plan of care with Dr. Phelps. GI consult noted. Appears they will be planning an outpatient colonoscopy after discharge. Subjective Subjective Date/Time Seen: 07/07/20 10:02 Patient reports: no new complaints, feels better, flatus and bowel movement Interval history: Patient tolerating clear liquids. Had 3 BMs yesterday and one this morning. Reports bloating has improved. Denies abdominal pain. Mild nausea this morning that subsided, no vomiting. No other complaints at this time. Review of Systems Review of Systems: All systems reviewed & are unremarkable except as noted in HPI and below Constitutional: Constitutional: Denies chills and Denies fever(s) Cardiovascular: Cardiovascular: Denies chest pain, Denies leg edema and Denies dyspnea Respiratory: Respiratory: Reports no additional respiratory complaints, Denies cough and Denies dyspnea Gastrointestinal: Gastrointestinal: Reports as per HPI and Reports no additional gastrointestinal complaints Exam Const: General: comfortable and no acute distress Orientation/consciousness: patient oriented x3 Resp: Effort & Inspection: normal respiratory effort Auscultation: clear to auscultation bilaterally Cardio: Rate: regular rate Rhythm: regular rhythm GI: Inspection: other (mildly distended) GI Palp: Yes Soft to palpation, Yes Tenderness to palpation present (GI) (diffusely tender, mild, improving) and No Guarding due to palpation present (GI) Auscultation: normal bowel sounds Neuro: General: patient oriented x3 and no focal motor deficits Extrem: General: normal to inspection, no calf tenderness and no edema Psych: Appearance: grossly normal Mental Status: mental status grossly normal Insight: Good insight present (Psych) Judgement: Good judgement present (Psych) Objective Data Vital Signs Vital Signs: Vital Signs - 24 hr 07/06/20 14:00 07/06/20 20:45 07/07/20 06:00 Temperature 97.5 F L 98.6 F 98.1 F Pulse Rate 74 66 72 Respiratory Rate 18 14 14 Blood Pressure 135/73 143/67 H 144/72 H Pulse Oximetry 97 97 98 Intake/Output Intake/Output: Intake & Output 07/04/20 07/05/20 07/06/20 07/07/20 23:59 23:59 23:59 23:59 Intake Total 2100 2200 2760 2300 Output Total 700 2500 850 800 Balance 1400 -300 1910 1500 Meds/Results Medications: Active Medications Generic Name Dose Route Start Last Admin Trade Name Freq PRN Reason Stop Dose Admin Heparin Sodium (Beef Lung) 50 units 07/07/20 09:00 07/07/20 08:55 Heparin Flush 50 Units/5 Ml Syringe IV PUSH Not Given QAM ANNA Heparin Sodium (Beef Lung) 50 units 07/06/20 13:25 Heparin Flush 50 Units/5 Ml Syringe IV PUSH PRN PRN after intermittent infusion Heparin Sodium (Beef Lung) 50 units 07/06/20 13:25 Heparin Flush 50 Units/5 Ml Syringe IV PUSH PRN PRN after blood draws Heparin Sodium (Porcine) 500 units 07/06/20 13:25 Heparin Sod Flush 500 Units/5 Ml Syringe IV PUSH PRN PRN see comments below Sodium Chloride 1,000 mls @ 75 mls/hr 07/04/20 04:10 07/07/20 08:59 Normal Saline Iv IV CONT 75 mls/hr .[id number] ANNA Administration Morphine Sulfate 2 mg 07/04/20 08:08 07/05/20 21:06 Morphine Sulfate (*Crx) 4 Mg/Ml Inj IV PUSH 2 mg Q2H PRN Administration Pain Rated 7-10 Ondansetron HCl 4 mg 07/04/20 04:07 07/05/20 15:20 Ondansetron Inj 4 Mg/2 Ml Vial IV PUSH 4 mg Q4H PRN Administration Nausea Pantoprazole Sodium 40 mg 07/07/20 09:00 07/07/20 08:50 Pantoprazole Sodium Iv 40 Mg Vial IV PUSH 40 mg QAM ANNA Administration Sodium Chl
[2020-07-07 10:54] VITALS: O2SAT 92
[2020-07-07] MEDS: POTASSIUM CHLORIDE 20 MEQ PACKET (FOR LIQUID) 40 MEQ PO (12:08)
--- NOTE | 2020-07-07 13:09 | WPDGIPROGNO ---
Progress Note: A&P Additional Plan Patient more alert and comfortable this morning. NG tube is removed. Patient tolerating full liquid diet at this point. Physical exam reveals patient be alert. Abdomen is soft bowel sounds are present. She has mild right-sided abdominal discomfort however. no masses are palpable. Impression 1. Partial small-bowel obstruction. Appears resolved. No obstruction on small bowel series. Agree with stool advancing diet slowly. 2. History of colon cancer. Elective colonoscopy is advised this can be performed as an outpatient. Would wait until complete resolution of her small bowel obstruction. Subjective Date/time seen: 07/07/20 13:09 Objective Data Vital Signs Vital Signs: Vital Signs - 24 hr 07/06/20 14:00 07/06/20 20:45 07/07/20 06:00 Temperature 97.5 F L 98.6 F 98.1 F Pulse Rate 74 66 72 Respiratory Rate 18 14 14 Blood Pressure 135/73 143/67 H 144/72 H Pulse Oximetry 97 97 98 07/07/20 08:00 07/07/20 10:54 Temperature Pulse Rate 72 Respiratory Rate 14 Blood Pressure Pulse Oximetry 92 92 Intake/Output Intake/Output: Intake & Output 07/04/20 07/05/20 07/06/20 07/07/20 23:59 23:59 23:59 23:59 Intake Total 2100 2200 2760 2890 Output Total 700 2500 850 800 Balance 1400 -300 1910 2090 Meds/Results Medications: Active Medications Generic Name Dose Route Start Last Admin Trade Name Freq PRN Reason Stop Dose Admin Heparin Sodium (Beef Lung) 50 units 07/07/20 09:00 07/07/20 08:55 Heparin Flush 50 Units/5 Ml Syringe IV PUSH Not Given QAM ANNA Heparin Sodium (Beef Lung) 50 units 07/06/20 13:25 Heparin Flush 50 Units/5 Ml Syringe IV PUSH PRN PRN after intermittent infusion Heparin Sodium (Beef Lung) 50 units 07/06/20 13:25 Heparin Flush 50 Units/5 Ml Syringe IV PUSH PRN PRN after blood draws Heparin Sodium (Porcine) 500 units 07/06/20 13:25 Heparin Sod Flush 500 Units/5 Ml Syringe IV PUSH PRN PRN see comments below Morphine Sulfate 2 mg 07/04/20 08:08 07/05/20 21:06 Morphine Sulfate (*Crx) 4 Mg/Ml Inj IV PUSH 2 mg Q2H PRN Administration Pain Rated 7-10 Ondansetron HCl 4 mg 07/04/20 04:07 07/05/20 15:20 Ondansetron Inj 4 Mg/2 Ml Vial IV PUSH 4 mg Q4H PRN Administration Nausea Pantoprazole Sodium 40 mg 07/07/20 09:00 07/07/20 08:50 Pantoprazole Sodium Iv 40 Mg Vial IV PUSH 40 mg QAM ANNA Administration Sodium Chloride 10 ml 07/06/20 14:00 07/07/20 05:51 Central Line Flush IV PUSH 10 ml Q8HR ANNA Administration Radiology Results: ITS Impressions Chest X-Ray 07/04/20 08:44 IMPRESSION: 1. Mild atelectasis of the lung bases. Abdomen X-Ray 07/04/20 09:12 IMPRESSION: 1. Nasogastric tube in the stomach. Abdomen/Pelvis CT 07/04/20 10:46 IMPRESSION: 1. Dilated small bowel without focal transition point, consistent with partial obstruction versus adynamic ileus. Upper GI and Small Bowel X-Ray 07/05/20 20:23 IMPRESSION: 1. Dilated small bowel with passage of contrast through the bowel into the rectum, consistent with ileus. Labs Labs: Laboratory Results - last 24 hr 07/07/20 07/07/20 05:43 05:43 WBC 4.4 L RBC 3.51 L Hgb 10.9 L Hct 32.6 L MCV 92.9 MCH 31.1 MCHC 33.4 RDW 13.7 Plt Count 175 MPV 11.0 H Sodium 142 Potassium 3.4 Chloride 111 H Carbon Dioxide 24 Anion Gap 7 L BUN 4 L Creatinine 0.40 L Estim Creat Clear Calc 87 Estimated GFR > 60 Glucose 103 Calcium 7.3 L Magnesium 1.8
--- NOTE | 2020-07-07 13:32 | PC.NURSE ---
Tolerated full liquid diet with no problems noted.
[2020-07-07 14:00] VITALS: BP 111/76; PULSE 86; RESP 16; TEMP 36.6; O2SAT 98
--- NOTE | 2020-07-07 14:52 | PM.IMPN ---
Progress Note: A&P Assessment and Plan (1) Partial small bowel obstruction: Code(s): K56.600 - Partial intestinal obstruction, unspecified as to cause Status: Resolved Assessment and Plan: 07/07/20 14:52 Azeb Vallejo is a 74 year old female patient is 74-year-old female with history of upper rectal cancer patient was seen by general surgery team and had a surgical removal in September of 2018, after surgery patient had a pelvic radiation therapy, since then patient has had recurrent small-bowel obstruction which have resolved without any surgical intervention, patient presented to emergency department early this morning on 07/04 complaint abdominal pain and and cramping burping and belching, patient had a CT scan of the abdomen which showed patient has dilated small bowel without focal transition point, consistent with partial obstruction versus adynamic ileus. patient was placed on NG tube, IV hydration, upon arrival to the floor on 07/04 patient and a small BM, today 07/05 patient had another BM last night, patient was seen by surgery team and has clamped the NG tube plan is to monitor 4-6 hours and if there is no significant symptoms of nausea or vomiting will remove NG tube and start the patient on clear liquid will continue to monitor, patient does complain right lower quadrant pain and bloating, will monitor will have a surgery evaluate the patient and further recommendation to follow, on 07/05 patient had a small-bowel follow-through which showed patient has ileus, and her ileus is slow resolving most likely secondary underlying colon cancer, patient is seen by surgery service NG tube is clamped if there is no significant nausea or vomiting we can remove the NG tube and possibly start on clear liquid, patient is seen by GI recommended patient need a colonoscopy for further evaluate this can be arranged as an outpatient once the patient clinically stable, patient daughter is present in answered all her questions Today patient is seen by surgery team and removed NG tube, patient had a clear liquid this morning and will have full liquid for lunch and will advanced diet as tolerated, is feeling better denies any abdominal pain nausea or vomiting did have a BM yesterday, remains clinically stable may discharge the patient home tomorrow (2) Delirium: Code(s): R41.0 - Disorientation, unspecified Status: Resolved Assessment and Plan: patient is clinically stable (3) Colon cancer: Qualifiers: Colon location: unspecified part of colon Qualified Code(s): C18.9 - Malignant neoplasm of colon, unspecified Code(s): C18.9 - Malignant neoplasm of colon, unspecified Status: Chronic Assessment and Plan: patient is status post surgical removal of the cancer in September of 1999 and radiation therapy a after will consult GI patient may need a colonoscopy, for further recommendation Subjective Date/time seen: 07/07/20 14:52 Azeb Vallejo is a 74 year old female patient is 74-year-old female with history of upper rectal cancer patient was seen by general surgery team and had a surgical removal in September of 2018, after surgery patient had a pelvic radiation therapy, since then patient has had recurrent small-bowel obstruction which have resolved without any surgical intervention, patient presented to emergency department early this morning on 07/04 complaint abdominal pain and and cramping burping and belching, patient had a CT scan of the abdomen which showed patient has dilated small bowel without focal transition point, consistent with partial obstruction versus adynamic ileus. patient was placed on NG tube, IV hydration, upon arrival to the floor on 07/04 patient and a small BM, today 07/05 patient had another BM last night, patient was seen by surgery team and has clamped the NG tube plan is to monitor 4-6 hours and if there is no significant symptoms of nausea or vomiting will remove NG tube
[2020-07-07 20:10] VITALS: BP 137/85; PULSE 73; RESP 12; TEMP 36.8; O2SAT 100
[2020-07-08 05:27] VITALS: BP 139/80; PULSE 83; RESP 12; TEMP 36.9; O2SAT 98
[2020-07-08] MEDS: CENTRAL LINE FLUSH 10 ML IV PUSH ×2 (06:08→12:02)
[2020-07-08 06:29] LABS: Hematocrit 30.7 % (37.0-47.0); Hemoglobin 10.2 g/dL (12.0-15.0); Mean Corpuscular HGB Conc 33.2 g/dl (32-36); Mean Corpuscular Hemoglobin 31.1 pg (26-34); Mean Corpuscular Volume 93.6 fl (80-100); Mean Platelet Volume 9.9 fl (7.4-10.4); Platelet Count Result 167 k/mm3 (150-375); Red Blood Count 3.28 M/mm3 (4.2-5.4); Red Cell Distribution Width 13.7 % (11.5-14.5); White Blood Count 3.9 K/mm3 (4.5-10.0)
[2020-07-08 06:41] LABS: Anion Gap 6 mmol/L (8-16); Blood Urea Nitrogen 4 mg/dL (7-17); Calcium 7.7 mg/dL (8.4-10.2); Carbon Dioxide 26 mmol/L (22-30); Chloride 110 mmol/L (98-107); Estimated CRCL calculation 72 ml/min; Estimated Glomerular Filt Rate > 60; Glucose 98 mg/dL (65-105); Magnesium 1.8 mg/dL (1.6-2.3); Potassium 3.3 mmol/L (3.4-5.0); Sodium 142 mmol/L (137-145)
[2020-07-08] MEDS: POTASSIUM CHLORIDE 20 MEQ TABLET 40 MEQ PO (09:00)
[2020-07-08] MEDS: PANTOPRAZOLE SODIUM IV 40 MG VIAL IV PUSH (09:01)
--- NOTE | 2020-07-08 09:36 | WPDGIPROGNO ---
Progress Note: A&P Additional Plan Patient appears alert comfortable this morning. Tolerating diet. Physical exam reveals patient to be alert. Vital signs stable. Abdomen bowel sounds are present. Abdomen is soft flat nontender. No masses identified at this time. Impression 1. Resolved small-bowel obstruction. Suspect she has adhesions. Plan is for diet be advanced as tolerated. 2. History of colon cancer. Follow-up colonoscopy advised. This will be planned as an outpatient. Would prefer that her small-bowel obstruction be resolved completely before proceeding with colon prep. Subjective Date/time seen: 07/08/20 09:36 Objective Data Vital Signs Vital Signs: Vital Signs - 24 hr 07/07/20 10:54 07/07/20 14:00 07/07/20 20:10 Temperature 97.8 F 98.2 F Pulse Rate 86 73 Respiratory Rate 16 12 Blood Pressure 111/76 137/85 Pulse Oximetry 92 98 100 07/08/20 05:27 Temperature 98.4 F Pulse Rate 83 Respiratory Rate 12 Blood Pressure 139/80 Pulse Oximetry 98 Intake/Output Intake/Output: Intake & Output 07/05/20 07/06/20 07/07/20 07/08/20 23:59 23:59 23:59 23:59 Intake Total 2200 2760 3580 300 Output Total 2500 850 800 800 Balance -300 1910 2780 -500 Meds/Results Medications: Active Medications Generic Name Dose Route Start Last Admin Trade Name Freq PRN Reason Stop Dose Admin Heparin Sodium (Beef Lung) 50 units 07/07/20 09:00 07/08/20 09:01 Heparin Flush 50 Units/5 Ml Syringe IV PUSH 50 units QAM ANNA Administration Heparin Sodium (Beef Lung) 50 units 07/06/20 13:25 07/07/20 13:27 Heparin Flush 50 Units/5 Ml Syringe IV PUSH 50 units PRN PRN Administration after intermittent infusion Heparin Sodium (Beef Lung) 50 units 07/06/20 13:25 07/08/20 06:08 Heparin Flush 50 Units/5 Ml Syringe IV PUSH 50 units PRN PRN Administration after blood draws Heparin Sodium (Porcine) 500 units 07/06/20 13:25 Heparin Sod Flush 500 Units/5 Ml Syringe IV PUSH PRN PRN see comments below Morphine Sulfate 2 mg 07/04/20 08:08 07/05/20 21:06 Morphine Sulfate (*Crx) 4 Mg/Ml Inj IV PUSH 2 mg Q2H PRN Administration Pain Rated 7-10 Ondansetron HCl 4 mg 07/04/20 04:07 07/05/20 15:20 Ondansetron Inj 4 Mg/2 Ml Vial IV PUSH 4 mg Q4H PRN Administration Nausea Pantoprazole Sodium 40 mg 07/07/20 09:00 07/08/20 09:01 Pantoprazole Sodium Iv 40 Mg Vial IV PUSH 40 mg QAM ANNA Administration Sodium Chloride 10 ml 07/06/20 14:00 07/08/20 06:08 Central Line Flush IV PUSH 10 ml Q8HR ANNA Administration Radiology Results: ITS Impressions Chest X-Ray 07/04/20 08:44 IMPRESSION: 1. Mild atelectasis of the lung bases. Abdomen X-Ray 07/04/20 09:12 IMPRESSION: 1. Nasogastric tube in the stomach. Abdomen/Pelvis CT 07/04/20 10:46 IMPRESSION: 1. Dilated small bowel without focal transition point, consistent with partial obstruction versus adynamic ileus. Upper GI and Small Bowel X-Ray 07/05/20 20:23 IMPRESSION: 1. Dilated small bowel with passage of contrast through the bowel into the rectum, consistent with ileus. Labs Labs: Laboratory Results - last 24 hr 07/07/20 07/08/20 07/08/20 05:43 06:06 06:06 WBC 4.4 L 3.9 L RBC 3.51 L 3.28 L Hgb 10.9 L 10.2 L Hct 32.6 L 30.7 L MCV 92.9 93.6 MCH 31.1 31.1 MCHC 33.4 33.2 RDW 13.7 13.7 Plt Count 175 167 MPV 11.0 H 9.9 Sodium 142 Potassium 3.3 L Chloride 110 H Carbon Dioxide 26 Anion Gap 6 L BUN 4 L Creatinine 0.50 L Estim Creat Clear Calc 72 Estimated GFR > 60 Glucose 98 Calcium 7.7 L Magnesium 1.8
--- NOTE | 2020-07-08 11:03 | PM.PNGS ---
Progress Note: A&P Assessment and Plan (1) Small bowel obstruction due to adhesions: Code(s): K56.50 - Intestinal adhesions [bands], unspecified as to partial versus complete obstruction Status: Acute Assessment and Plan: improved c conservative mgmt, ok to dc home Subjective Subjective Date/Time Seen: 07/08/20 11:03 feels better today, ap diet, having normal bowel fxn Review of Systems Constitutional: Constitutional: Denies anorexia, Denies chills, Denies fever(s), Denies lethargy, Denies poor appetite and Denies weakness Cardiovascular: Cardiovascular: Reports no additional cardiovascular complaints Respiratory: Respiratory: Reports no additional respiratory complaints Gastrointestinal: Gastrointestinal: Reports no additional gastrointestinal complaints Exam Const: General: cooperative, comfortable and no acute distress Orientation/consciousness: patient oriented x3 Resp: Effort & Inspection: normal respiratory effort Auscultation: clear to auscultation bilaterally Cardio: Rate: regular rate Rhythm: regular rhythm GI: Inspection: normal to inspection and non-distended GI Palp: No abdominal tenderness, Yes Soft to palpation, No Tenderness to palpation present (GI) and No Guarding due to palpation present (GI) Auscultation: normal bowel sounds Objective Data Vital Signs Vital Signs: Vital Signs - 24 hr 07/07/20 14:00 07/07/20 20:10 07/08/20 05:27 Temperature 36.6 C 36.8 C 36.9 C Pulse Rate 86 73 83 Respiratory Rate 16 12 12 Blood Pressure 111/76 137/85 139/80 Pulse Oximetry 98 100 98 Intake/Output Intake/Output: Intake & Output 07/05/20 07/06/20 07/07/20 07/08/20 23:59 23:59 23:59 23:59 Intake Total 2200 2760 3580 300 Output Total 2500 850 800 800 Balance -300 1910 2780 -500 Meds/Results Medications: Active Medications Generic Name Dose Route Start Last Admin Trade Name Freq PRN Reason Stop Dose Admin Heparin Sodium (Beef Lung) 50 units 07/07/20 09:00 07/08/20 09:01 Heparin Flush 50 Units/5 Ml Syringe IV PUSH 50 units QAM ANNA Administration Heparin Sodium (Beef Lung) 50 units 07/06/20 13:25 07/07/20 13:27 Heparin Flush 50 Units/5 Ml Syringe IV PUSH 50 units PRN PRN Administration after intermittent infusion Heparin Sodium (Beef Lung) 50 units 07/06/20 13:25 07/08/20 06:08 Heparin Flush 50 Units/5 Ml Syringe IV PUSH 50 units PRN PRN Administration after blood draws Heparin Sodium (Porcine) 500 units 07/06/20 13:25 Heparin Sod Flush 500 Units/5 Ml Syringe IV PUSH PRN PRN see comments below Morphine Sulfate 2 mg 07/04/20 08:08 07/05/20 21:06 Morphine Sulfate (*Crx) 4 Mg/Ml Inj IV PUSH 2 mg Q2H PRN Administration Pain Rated 7-10 Ondansetron HCl 4 mg 07/04/20 04:07 07/05/20 15:20 Ondansetron Inj 4 Mg/2 Ml Vial IV PUSH 4 mg Q4H PRN Administration Nausea Pantoprazole Sodium 40 mg 07/07/20 09:00 07/08/20 09:01 Pantoprazole Sodium Iv 40 Mg Vial IV PUSH 40 mg QAM ANNA Administration Sodium Chloride 10 ml 07/06/20 14:00 07/08/20 06:08 Central Line Flush IV PUSH 10 ml Q8HR ANNA Administration Radiology Results: ITS Impressions Chest X-Ray 07/04/20 08:44 IMPRESSION: 1. Mild atelectasis of the lung bases. Abdomen X-Ray 07/04/20 09:12 IMPRESSION: 1. Nasogastric tube in the stomach. Abdomen/Pelvis CT 07/04/20 10:46 IMPRESSION: 1. Dilated small bowel without focal transition point, consistent with partial obstruction versus adynamic ileus. Upper GI and Small Bowel X-Ray 07/05/20 20:23 IMPRESSION: 1. Dilated small bowel with passage of contrast through the bowel into the rectum, consistent with ileus. Labs Labs: Laboratory Results - last 24 hr 07/08/20 07/08/20 06:06 06:06 WBC 3.9 L RBC 3.28 L Hgb 10.2 L Hct 30.7 L MCV 93.6 MCH 31.1 MCHC 33.2 RDW 13.7 Plt Count 167 MPV 9.9 Sodium 142 P
[2020-07-08] MEDS: HEPARIN SOD FLUSH 500 UNITS/5 ML SYRINGE IV PUSH (11:59)
--- NOTE | 2020-07-08 12:31 | PM.DS ---
DS: Admitting Diagnosis Admitting Diagnosis Admitting Diagnosis: Small bowel obstruction DS: Discharge Diagnosis Discharge Diagnosis (1) Partial small bowel obstruction: Code(s): K56.600 - Partial intestinal obstruction, unspecified as to cause Status: Resolved Assessment and Plan: 07/07/20 14:52 Azeb Vallejo is a 74 year old female patient is 74-year-old female with history of upper rectal cancer patient was seen by general surgery team and had a surgical removal in September of 2018, after surgery patient had a pelvic radiation therapy, since then patient has had recurrent small-bowel obstruction which have resolved without any surgical intervention, patient presented to emergency department early this morning on 07/04 complaint abdominal pain and and cramping burping and belching, patient had a CT scan of the abdomen which showed patient has dilated small bowel without focal transition point, consistent with partial obstruction versus adynamic ileus. patient was placed on NG tube, IV hydration, upon arrival to the floor on 07/04 patient and a small BM, today 07/05 patient had another BM last night, patient was seen by surgery team and has clamped the NG tube plan is to monitor 4-6 hours and if there is no significant symptoms of nausea or vomiting will remove NG tube and start the patient on clear liquid will continue to monitor, patient does complain right lower quadrant pain and bloating, will monitor will have a surgery evaluate the patient and further recommendation to follow, on 07/05 patient had a small-bowel follow-through which showed patient has ileus, and her ileus is slow resolving most likely secondary underlying colon cancer, patient is seen by surgery service NG tube is clamped if there is no significant nausea or vomiting we can remove the NG tube and possibly start on clear liquid, patient is seen by GI recommended patient need a colonoscopy for further evaluate this can be arranged as an outpatient once the patient clinically stable, patient daughter is present in answered all her questions Today patient is seen by surgery team and removed NG tube, patient had a clear liquid this morning and will have full liquid for lunch and will advanced diet as tolerated, is feeling better denies any abdominal pain nausea or vomiting did have a BM yesterday, remains clinically stable may discharge the patient home tomorrow (2) Delirium: Code(s): R41.0 - Disorientation, unspecified Status: Resolved Assessment and Plan: patient is clinically stable (3) Colon cancer: Qualifiers: Colon location: unspecified part of colon Qualified Code(s): C18.9 - Malignant neoplasm of colon, unspecified Code(s): C18.9 - Malignant neoplasm of colon, unspecified Status: Chronic Assessment and Plan: patient is status post surgical removal of the cancer in September of 1999 and radiation therapy a after will consult GI patient may need a colonoscopy, for further recommendation DS: Summary Hospital Course Reason for hospitalization: Chief complaint: Small bowel obstruction Narrative: Azeb Vallejo is a 74 year old female patient is 74-year-old female with history of upper rectal cancer patient was seen by his general surgery team and had a surgical removal in September of 2018, after surgery patient had a pelvic radiation therapy, since then patient has had recurrent small-bowel obstruction which have resolved without any surgical intervention, patient presented to emergency department early this morning the complaint abdominal pain and and cramping burping and belching, patient had a CT scan of the abdomen which showed patient has dilated small bowel without focal transition point, consistent with partial obstruction versus adynamic ileus. patient was placed on NG tube, IV hydration, upon arrival to the floor patient and a small BM, patient was seen by surgery service recommended to continue prese
== END 2020-07-08 14:49 | DRG 389 ==
LOC: ANHED 03:58 → ANH3MED 05:04
PROVIDERS: Admitting Provider Family Medicine; Emergency Provider Emergency Medicine; PCP Internal Medicine; Visit Provider Family Medicine
DX: K56.7 Ileus, unspecified (principal); I69.351 Hemiplegia and hemiparesis following cerebral infarction affecting right dominant side; Z85.038 Personal history of other malignant neoplasm of large intestine; Z20.828 Contact with and (suspected) exposure to other viral communicable diseases; R41.0 Disorientation, unspecified; M19.90 Unspecified osteoarthritis, unspecified site; E78.00 Pure hypercholesterolemia, unspecified; Z96.651 Presence of right artificial knee joint; Z87.820 Personal history of traumatic brain injury; Z98.49 Cataract extraction status, unspecified eye; Z90.710 Acquired absence of both cervix and uterus; Z90.722 Acquired absence of ovaries, bilateral
CPT/HCPCS: 36415; 71046; 74177; 74250; 80048; 80053; 81003; 83690; 83735; 84484; 85025; 85027; 85610; 85730; 87040; 87635; 93005; 96361; 96374; 96375; 96376; 97110; 97116; 97161; 97165; 97530; 97535; 99285; A9270; C9113; C9803; G0378; J0131; J1642; J2270; J2405; J3480; J7030; Q9967; U0003

== ENCOUNTER 2020-12-05 04:31 | Inpatient (IN) | payer MEDICARE, SELFPAY ==
[2020-12-05] VITALS (11 sets, daily range): BP systolic 130–147; BP diastolic 64–104; PULSE 64–82; RESP 14–18; TEMP 36.3–36.9; O2SAT 94–99; BMI 22.8
--- NOTE | ~2020-12-05 | XR_ITS ---
EXAMINATION: XR abdomen/kub 1V EXAM DATE: 12/06/2020 05:42 INDICATION: Small bowel obstruction. TECHNIQUE: Frontal projection(s) of the abdomen for interpretation. Comparison is made to prior exami nation from 12/05/2020. FINDINGS: Feeding tube is in position. Small bowel obstruction seen on CT from yesterday is not appa rent on this examination. There is moderate amount of colonic stool and gas. Rectosigmoid anastomosis material. Moderate lumbosacral levoscoliosis. Lung bases unremarkable. IMPRESSION: Feeding tube in position. Nonspecific bowel gas pattern. Reviewed, dictated and finalized at location A.
--- NOTE | ~2020-12-05 | XR_ITS ---
EXAMINATION: XR sm bowel follow through EXAM DATE: 12/07/2020 10:25 INDICATION: Small bowel obstruction. TECHNIQUE: Benefits Officer radiograph was acquired. Small bowel series was performed with water-soluble solut ion. Fluoroscopic time of 0.0 minutes. A total of 5 KUB images obtained for the exam. Spot images not acquired, reportedly patient was having reflux from the administered contrast while in supine po sition and there were concerns about aspiration. Correlation is made to CT abdomen pelvis earlier amando e date. FINDINGS: Benefits Officer image confirmed nasogastric tube in expected position. On the 15 minute image contras t had gone through most of the small bowel. There was increasing distention on the 30 minute image. O n the 45 minute image contrast is just reaching the cecum, normal transit time. Terminal ileum is unr emarkable. In the right lower quadrant there is a loop of small bowel which does demonstrate mild fold thickenin g, probably mild edema. This finding has been indicated on the 30 minute x-ray. This is the segment o f small bowel which was identified on CT earlier same date, correlate with that report. IMPRESSION: 1. Single loop of normal calibered small bowel with mild wall thickening identified. Probably edema. 2. Normal transit time of 45 minutes. Reviewed, dictated and finalized at location A. IMPRESSION: 1. Single loop of normal calibered small bowel with mild wall thickening ident ified. Probably edema. 2. Normal transit time of 45 minutes.
--- NOTE | ~2020-12-05 | CT_ITS ---
EXAMINATION: CT abdomen pelvis wo con DATE: 12/07/2020 05:02 INDICATION: Abdominal pain TECHNIQUE: Computed tomography (CT) of the abdomen and pelvis was performed without intravenous contr ast. The dose-length product (DLP) was 766.15 mGy-cm. Automated exposure control and iterative recons truction technique were employed. COMPARISON: 12/05/2020 FINDINGS: Minimal dependent atelectasis is present in the lung bases. Cardiomegaly is noted. A nasoga stric tube is in the stomach. There is a 1.3 cm cyst in the left hepatic lobe. The spleen, pancreas, and adrenal glands are normal. Hyperattenuating material in the gallbladder likely reflects vicarious excretion of contrast from recent CT examination. The gallbladder is otherwise unremarkable. The kid neys are normal. No persistently dilated bowel loops are present. Although limited by the absence of intravenous contrast, there is persistent wall thickening in the small bowel near the area of the pre viously described transition. A Iisdro catheter has been inserted. There is a surgical anastomosis at the rectosigmoid junction. There is no free intraperitoneal gas. No pathologically enlarged abdominal or pelvic lymph nodes are identified. There is levoscoliosis and moderate spondylosis of the lumbar spine. Healed fractures of the right inferior and superior pubic rami are noted. IMPRESSION: 1. Interval resolution of dilated small bowel. Persistent wall thickening of the small bowel in the r egion of the previously described transition. Reviewed, dictated and finalized at location B. IMPRESSION: 1. Interval resolution of dilated small bowel. Persistent wall thickening of th e small bowel in the region of the previously described transition.
--- NOTE | ~2020-12-05 | CT_ITS ---
EXAMINATION: CT brain wo con EXAM DATE: 12/07/2020 05:02 INDICATION: Altered mental status. TECHNIQUE: Spiral CT of the head was performed without contrast. Axial, coronal and sagittal images were reviewed. The dose-length product (DLP) for this examination was 605.33 mGy-cm. The exposure w as tailored according to patient size, and iterative reconstruction (ASIR) was used as additional dos e reduction technique. Comparison is made to prior examination from 06/01/2020. FINDINGS: There is no acute intraparenchymal hemorrhage. No evidence of intraparenchymal brain mass lesion. No evidence of acute infarction. Please note that initial head CT has limited sensitivity f or small or acute infarctions. Large old left frontal lobe infarction. Small old left parietal lobe infarction. There is mild periventricular and subcortical hypodensity, nonspecific but probably rela abraham to small vessel ischemic disease. There is mild prominence of the sulci and ventricles related to cerebral atrophy. There is intracranial carotid arteriosclerosis. There are no extra-axial kwabena ections. There is no mass effect or midline shift. The orbits are unremarkable. Soft tissue is unr emarkable. The visualized sinuses and mastoid air cells are well aerated. IMPRESSION: 1. No acute intracranial findings. 2. Chronic age related findings. 3. Old large left frontal, small left parietal lobe infarctions. Reviewed, dictated and finalized at location A.
--- NOTE | ~2020-12-05 | CT_ITS ---
EXAMINATION: CT abdomen pelvis w con EXAM DATE: 12/05/2020 05:42 INDICATION: Abdominal pain. TECHNIQUE: Spiral CT of the abdomen and pelvis was performed following intravenous injection of 100 m L Omnipaque 350. Axial, coronal and sagittal images were reviewed. The dose-length product (DLP) fo r this examination was 247.71 mGy-cm. The exposure was tailored according to patient size (auto mA e xposure control), and iterative reconstruction (ASIR) was used as additional dose reduction technique . 07/04/2020 FINDINGS: Trace perihepatic ascites. Several loops of significantly distended small bowel with a barrios sition point identified in the right side of the pelvis, indicated on axial image 109. There is fecal stasis proximal to this within the dilated loop of small bowel. There is mild to moderate wall thick ening of the ileum from the obstruction point for bowel 30 cm segment, consistent with enteritis. Mod erate amount of colonic stool. Normal appendix. Rectosigmoid anastomosis. No free intraperitoneal gas or pneumatosis. Infraumbilical abdominal wall dehiscence in the midline with small bowel bulging inside, but does not appear to be a cause of obstruction. The liver, spleen, adrenal glands and pancreas are unremarkable. Gallbladder is unremarkable. No bi liary obstruction. Portal and splenic veins are patent. Kidneys enhance symmetrically. There is no hydronephrosis. The uterus is not identified and has likely been surgically resected. The bladder is unremarkable. There is no retroperitoneal or pelvic lymphadenopathy. There is mild scattered a rteriosclerotic disease. There are bibasilar linear opacities, subsegmental atelectasis. Moderate t o severe thoracolumbar levoscoliosis. There are no osteoblastic or osteolytic lesions identified. IMPRESSION: 1. Small bowel obstruction, could be from adhesion or enteritis given the mild to moderate small bow el wall thickening from the obstructing point for about 30 cm. 2. Ventral infraumbilical abdominal wall dehiscence. Reviewed, dictated and finalized at location A. IMPRESSION: 1. Small bowel obstruction, could be from adhesion or enteritis given the mild to moderate small bowel wall thickening from the obstructing point for about 3 0 cm. 2. Ventral infraumbilical abdominal wall dehiscence.
--- NOTE | ~2020-12-05 | XR_ITS ---
EXAMINATION: XR abdomen NG/feed tube insert EXAM DATE: 12/05/2020 07:00 INDICATION: Nasogastric tube placement. TECHNIQUE: Frontal projection(s) of the abdomen for interpretation. Comparison is made to prior exami nation from 07/05/2020. FINDINGS: Feeding tube tip and side-port project over gastric bubble, adequate. There is a right-alexsander ed portacatheter. Contrast within the renal collecting systems. Lung bases are unremarkable. Nonspeci fic upper abdominal bowel gas pattern. IMPRESSION: 1. Small bowel obstruction seen on CT is not apparent on this KUB. 2. Feeding tube in position. Reviewed, dictated and finalized at location A.
[2020-12-05] MEDS: SODIUM CHLORIDE 0.9% IV 1,000 ML 999 ML IV CONT (05:01)
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
[2020-12-05] MEDS: ONDANSETRON INJ 4 MG/2 ML VIAL IV PUSH (05:03)
[2020-12-05 05:12] LABS: Basophils Absolute Auto 0.1 K/mm3 (0.0-0.1); Basophils Percent Auto 0.7 % (0.2-1.2); Eosinophils Absolute Auto 0.2 K/mm3 (0-0.3); Eosinophils Percent Auto 1.7 % (0-4.4); Hematocrit 39.8 % (37.0-47.0); Hemoglobin 13.1 g/dL (12.0-15.0); Immature Granulocyte Absolute 0.03 K/mm3 (0.00-0.031); Immature Granulocyte Percent A 0.3 % (0-0.5); Lymphocytes Absolute Auto 0.92 K/mm3 (0.9-3.2); Lymphocytes Percent Auto 10.6 % (18.3-44.2); Mean Corpuscular HGB Conc 32.9 g/dl (32-36); Mean Corpuscular Volume 91.3 fl (80-100); Mean Platelet Volume 10.2 fl (7.4-10.4); Monocytes Absolute Auto 0.5 K/mm3 (0.1-0.6); Monocytes Percent Auto 6.1 % (2.6-8.5); Neutrophils Percent Auto 80.6 % (45.5-73.1); Platelet Count Result 198 k/mm3 (150-375); Red Blood Count 4.36 M/mm3 (4.2-5.4); Red Cell Distribution Width 13.6 % (11.5-14.5); White Blood Count 8.7 K/mm3 (4.5-10.0)
[2020-12-05 05:24] LABS: Alanine Aminotransferase 17 U/L (4-35); Alkaline Phosphatase 61 U/L (38-126); Anion Gap 4 mmol/L (8-16); Aspartate Amino Transferase 29 U/L (14-36); Bilirubin,Total 0.4 mg/dL (0.2-1.3); Blood Urea Nitrogen 10 mg/dL (7-17); Calcium 8.8 mg/dL (8.4-10.2); Carbon Dioxide 29 mmol/L (22-30); Chloride 106 mmol/L (98-107); Estimated CRCL calculation 52 ml/min; Estimated Glomerular Filt Rate > 60; Glucose 128 mg/dL (65-105); Lactic Acid Reflex 1.1 mmol/L (0.7-2.1); Lipase 60 U/L (23-300); Potassium 3.6 mmol/L (3.4-5.0); Sodium 139 mmol/L (137-145)
[2020-12-05 07:39] LABS: Add Urine Microscopic? YES; Appearance Urine Clear (Clear); Bilirubin Urine Negative (Negative); Blood Urine Negative (Negative); Color Urine Straw (Yellow); Glucose Urine UA Negative (Negative); Ketones Urine Trace mg/dL (Negative); Leukocyte Esterase Ur Negative LEU/UL (Negative); Nitrate Urine Negative (Negative); Protein Urine Negative (Negative); RBC Urine 0-2 /hpf (0-2); Squamous Epithelial Cell Urine Few /hpf (Few); Urobilinogen Urine Negative mg/dL (<2.0); WBC Urine 0-3 /hpf
[2020-12-05 07:40] LABS: Specific Grav Ur 1.032 (1.001-1.035)
--- NOTE | 2020-12-05 07:51 | ADMGEN ---
This patient, Azeb Vallejo, was admitted to 3 [facility] Room 315-01. Patient/family oriented to hospital policies and general routines including ID bracelet, bed and alarms, visiting hours, pain management, procedures, bathroom and other care routines, personal items, smoking policy, room service/diet, and visiting hours. Information on how to activate the Rapid Response Team has been discussed. Patient/Family are encouraged to report perceived risks to care and to ask questions if they do not understand what they are told or what they should do.
[2020-12-05] MEDS: SODIUM CHLORIDE 0.9% IV 1,000 ML 100 ML IV CONT ×2 (07:58→18:26)
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
[2020-12-05] MEDS: PANTOPRAZOLE SODIUM IV 40 MG VIAL IV PUSH (13:56)
[2020-12-06] MEDS: SODIUM CHLORIDE 0.9% IV 1,000 ML 100 ML IV CONT ×2 (05:57→15:41)
[2020-12-06 06:00] VITALS: BP 152/75; PULSE 78; RESP 18; TEMP 36.4; O2SAT 98
[2020-12-06 06:09] LABS: Basophils Percent Auto 0.6 % (0.2-1.2); Eosinophils Absolute Auto 0.1 K/mm3 (0-0.3); Eosinophils Percent Auto 1.8 % (0-4.4); Hemoglobin 11.9 g/dL (12.0-15.0); Immature Granulocyte Absolute 0.01 K/mm3 (0.00-0.031); Immature Granulocyte Percent A 0.2 % (0-0.5); Lymphocytes Absolute Auto 0.75 K/mm3 (0.9-3.2); Mean Corpuscular HGB Conc 33.1 g/dl (32-36); Mean Corpuscular Hemoglobin 30.2 pg (26-34); Mean Corpuscular Volume 91.4 fl (80-100); Mean Platelet Volume 9.8 fl (7.4-10.4); Monocytes Absolute Auto 0.4 K/mm3 (0.1-0.6); Neutrophils Absolute Auto 3.7 K/mm3 (1.3-6.7); Neutrophils Percent Auto 74.4 % (45.5-73.1); Platelet Count Result 170 k/mm3 (150-375); Red Blood Count 3.94 M/mm3 (4.2-5.4)
[2020-12-06 06:29] LABS: Alanine Aminotransferase 15 U/L (4-35); Albumin Level 3.6 g/dL (3.5-5.1); Alkaline Phosphatase 52 U/L (38-126); Anion Gap 6 mmol/L (8-16); Aspartate Amino Transferase 28 U/L (14-36); Bilirubin,Total 0.7 mg/dL (0.2-1.3); Blood Urea Nitrogen 7 mg/dL (7-17); Calcium 8.3 mg/dL (8.4-10.2); Carbon Dioxide 26 mmol/L (22-30); Chloride 108 mmol/L (98-107); Estimated CRCL calculation 60 ml/min; Estimated Glomerular Filt Rate > 60; Glucose 82 mg/dL (65-105); Potassium 3.5 mmol/L (3.4-5.0); Sodium 140 mmol/L (137-145)
[2020-12-06] MEDS: PANTOPRAZOLE SODIUM IV 40 MG VIAL IV PUSH (08:35)
--- NOTE | 2020-12-06 11:21 | PM.IMPN ---
Progress Note: A&P Assessment and Plan (1) Partial small bowel obstruction: Code(s): K56.600 - Partial intestinal obstruction, unspecified as to cause Status: Resolved Assessment and Plan: Likely due to adhesions. Less likely due to radiation enteritis or recurrent neoplasm. She had a soft bowel movement last night. Pain has resolved. No further nausea. Plain films demonstrate improvement with nonspecific bowel gas pattern. General surgery following with management deferred to general surgery Plan for gastrografin small-bowel follow-through tomorrow Continue bowel rest, NPO, NG tube in place Continue antiemetics and analgesics as needed. Avoid morphine due to hx of combativeness. (2) History of external beam radiation therapy: Code(s): Z92.3 - Personal history of irradiation Status: Chronic (3) Hx of colon cancer, stage III: Code(s): Z85.038 - Personal history of other malignant neoplasm of large intestine Status: Acute Assessment and Plan: Stage IIIB status post resection 2019, radiation therapy, and chemotherapy. I had a long discussion with the patient and the patient's daughter and Little AGUILAR. I discussed that she needs a repeat colonoscopy to r/o recurrence. They are aware of the need for repeat colonoscopy and have not had this accomplished yet due to visitor restriction w/ COVID. The patient has a hx of delirium and the daughter wants to be present before and after the procedure. Discussed with Dr. Wagner who states that 1 visitor is now allowed so I called to speak with Little Garcia and she will call Monday to get this scheduled after recovery from her small bowel obstruction. Check CEA (4) GERD (gastroesophageal reflux disease): Qualifiers: Esophagitis presence: esophagitis presence not specified Qualified Code(s): K21.9 - Gastro-esophageal reflux disease without esophagitis Code(s): K21.9 - Gastro-esophageal reflux disease without esophagitis Status: Chronic Assessment and Plan: Continue pantoprazole IV (5) Cerebrovascular accident: Onset Date: ~2018 Code(s): I63.9 - Cerebral infarction, unspecified Status: Chronic Assessment and Plan: Spring 2018 with residual RUE and RLE weakness and issues with dexterity. Discussed with surgery who is okay to clamp for medications so we will plan to resume ASA and atorvastatin (6) Hx of delirium: Code(s): Z87.898 - Personal history of other specified conditions Status: Chronic Assessment and Plan: She has a hx of delirium during prior hospitalizations. Discussed with her daughter and she is available to come at any time should this recur Keep a regular schedule, minimize interruptions at night while sleeping, foster calm/quiet environment, and reorient if needed to prevent this Subjective Date/time seen: 12/06/20 11:21 Mrs. Vallejo is a 75 y.o. 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 She reports that her pain has resolved. She had a soft brown bowel movement last night and she is passing small amounts of flatus. She denies nausea. She denies chest pain, dyspnea, and cough. She denies fever and chills. She is voiding without any difficulty. She denies dizziness and lightheadedness. Her daughter was at the bedside as well to assist with history and noted that she has a history of delirium when her daughter is not present. Review of Systems Review of Systems: All systems reviewed & are unremarkable except as noted in HPI and below Exam Narrative: Exam Narrative: General: Very pleasant, well-developed, and well-nourished 75 y.o. female lying semi-recumbent in bed in no acute distress.
--- NOTE | 2020-12-06 12:27 | PM.PNGS ---
Progress Note: A&P Assessment and Plan (1) Partial small bowel obstruction: Code(s): K56.600 - Partial intestinal obstruction, unspecified as to cause Status: Resolved Assessment and Plan: Bowel obstruction showing signs improvement, I reviewed abdominal x-ray this morning and shows nonobstructive bowel gas pattern. Will get Gastrografin small-bowel follow-through tomorrow. (2) Hx of colon cancer, stage III: Code(s): Z85.038 - Personal history of other malignant neoplasm of large intestine Status: Acute Subjective Subjective Date/Time Seen: 12/06/20 12:27 Interval history: Patient did have a small bowel movement this morning. Passing flatus. No abdominal pain currently. Exam GI: Inspection: non-distended GI Palp: Yes Soft to palpation, No Tenderness to palpation present (GI) and No Guarding due to palpation present (GI) Auscultation: normal bowel sounds Objective Data Vital Signs Vital Signs: Vital Signs - 24 hr 12/05/20 14:00 12/05/20 22:00 12/06/20 06:00 Temperature 36.3 C L 36.3 C L 36.4 C Pulse Rate 70 82 78 Respiratory Rate 16 18 18 Blood Pressure 132/73 130/64 152/75 H Pulse Oximetry 98 97 98 Intake/Output Intake/Output: Intake & Output 12/03/20 12/04/20 12/05/20 12/06/20 23:59 23:59 23:59 23:59 Intake Total 2100 1000 Output Total 100 Balance 2100 900 Meds/Results Medications: Active Medications Generic Name Dose Route Start Last Admin Trade Name Freq PRN Reason Stop Dose Admin Sodium Chloride 1,000 mls @ 100 mls/hr 12/05/20 06:35 12/06/20 05:57 Normal Saline Iv IV CONT 100 mls/hr .Q10H ANNA Administration Ondansetron HCl 4 mg 12/05/20 06:35 Ondansetron Inj 4 Mg/2 Ml Vial IV PUSH Q4H PRN Nausea Pantoprazole Sodium 40 mg 12/05/20 09:00 12/06/20 08:35 Pantoprazole Sodium Iv 40 Mg Vial IV PUSH 40 mg QAM ANNA Administration Radiology Results: ITS Impressions Abdomen/Pelvis CT 12/05/20 09:35 IMPRESSION: 1. Small bowel obstruction, could be from adhesion or enteritis given the mild to moderate small bowel wall thickening from the obstructing point for about 30 cm. 2. Ventral infraumbilical abdominal wall dehiscence. Abdomen X-Ray 12/06/20 07:33 IMPRESSION: Feeding tube in position. Nonspecific bowel gas pattern. Labs Labs: Laboratory Results - last 24 hr 12/06/20 12/06/20 06:00 06:00 WBC 5.0 RBC 3.94 L Hgb 11.9 L Hct 36.0 L MCV 91.4 MCH 30.2 MCHC 33.1 RDW 14.0 Plt Count 170 MPV 9.8 Immature Gran % (Auto) 0.2 Neut % (Auto) 74.4 H Lymph % (Auto) 15.0 L Tillman % (Auto) 8.0 Eos % (Auto) 1.8 Baso % (Auto) 0.6 Lymph # (Auto) 0.75 L Tillman # (Auto) 0.4 Eos # (Auto) 0.1 Baso # (Auto) 0.0 Abs Immat Gran (auto) 0.01 Absolute Neuts (auto) 3.7 Absolute Nucleated RBC 0.0 Nucleated RBC % 0.0 Sodium 140 Potassium 3.5 Chloride 108 H Carbon Dioxide 26 Anion Gap 6 L BUN 7 Creatinine 0.60 L Estim Creat Clear Calc 60 Estimated GFR > 60 Glucose 82 Calcium 8.3 L Total Bilirubin 0.7 AST 28 ALT 15 Alkaline Phosphatase 52 Total Protein 6.0 L Albumin 3.6 Quality VTE Prophylaxis VTE prophylaxis: mechanical ordered
[2020-12-06 13:59] VITALS: BP 147/69; PULSE 62; RESP 16; TEMP 36.8; O2SAT 98
[2020-12-06] MEDS: ENOXAPARIN 40 MG/0.4 ML SYRINGE SUB-Q (21:04)
[2020-12-06 22:00] VITALS: BP 159/83; PULSE 92; RESP 18; TEMP 36.3; O2SAT 98
[2020-12-07] MEDS: SODIUM CHLORIDE 0.9% IV 1,000 ML 100 ML IV CONT (02:22)
[2020-12-07] MEDS: DEXTROSE 50% 25 GM/50 ML SYRINGE IV PUSH (03:02)
[2020-12-07] MEDS: DEXTROSE 5% 1,000 ML 1,000 ML 100 ML IV CONT ×2 (03:12→15:28)
[2020-12-07] MEDS: LORazepam INJ (*CRX) 2 MG/ML VIAL 0.5 MG IV PUSH (03:42)
[2020-12-07 04:15] LABS: Glucose Point of Care 56 (65-105)
[2020-12-07 04:15] LABS: Glucose Point of Care 149 (65-105)
--- NOTE | 2020-12-07 05:05 | PM.EVENT ---
Event Note Event Note Event Note: The patient had gotten very confused during the night. She relies what year it was but thought that she was at a concert and she was on stage. The patient was calling the staff levels and would not allow anybody to perform any lab work. Patient was ordered Ativan. The staff felt like the patient was having stroke-like symptoms. However all her neural sore intact and her speech is clear now. Her blood sugar was slightly low earlier which she may be having a longer time recovering from the low blood sugar. However CT of the brain was ordered to rule out any CVA. And the patient was having some suprapubic discomfort with palpation so I ordered a CT of the abdomen.
--- NOTE | 2020-12-07 05:29 | PC.NURSE ---
CLEANING ASSOCIATE Chandra notified that the patient is confused more then the beginning of the shift. Patient was slurring some of her words. Patient unable to urinate. bladder scan >900, CLEANING ASSOCIATE stated to put pedersen in. Right before insertion patient urinated, bladder scanned a second time which showed 535, pedersen placed and 500ml removed from bladder. RN checked blood sugar, blood sugar critically low. CLEANING ASSOCIATE order Q6HR blood sugars. Blood sugars improved with dextrose. CLEANING ASSOCIATE put in orders to change IV fluids. CLEANING ASSOCIATE order Head CT, ABD CT.
[2020-12-07 06:00] VITALS: BP 118/72; PULSE 90; RESP 18; TEMP 37.2; O2SAT 98
[2020-12-07 06:19] LABS: Hematocrit 34.6 % (37.0-47.0); Hemoglobin 11.6 g/dL (12.0-15.0); Mean Corpuscular HGB Conc 33.5 g/dl (32-36); Mean Corpuscular Hemoglobin 30.6 pg (26-34); Mean Corpuscular Volume 91.3 fl (80-100); Mean Platelet Volume 10.5 fl (7.4-10.4); Platelet Count Result 165 k/mm3 (150-375); Red Blood Count 3.79 M/mm3 (4.2-5.4); White Blood Count 5.1 K/mm3 (4.5-10.0)
[2020-12-07 06:34] LABS: Anion Gap 6 mmol/L (8-16); Blood Urea Nitrogen 8 mg/dL (7-17); Calcium 8.2 mg/dL (8.4-10.2); Carbon Dioxide 23 mmol/L (22-30); Chloride 110 mmol/L (98-107); Estimated CRCL calculation 71 ml/min; Estimated Glomerular Filt Rate > 60; Glucose 101 mg/dL (65-105); Magnesium 1.6 mg/dL (1.6-2.3); Potassium 3.3 mmol/L (3.4-5.0); Sodium 139 mmol/L (137-145)
[2020-12-07 06:52] LABS: Glucose Point of Care 110 (65-105)
[2020-12-07] MEDS: PANTOPRAZOLE SODIUM IV 40 MG VIAL IV PUSH (08:43)
--- NOTE | 2020-12-07 08:56 | PM.IMPN ---
Progress Note: A&P Assessment and Plan (1) Partial small bowel obstruction: Code(s): K56.600 - Partial intestinal obstruction, unspecified as to cause Status: Resolved Assessment and Plan: Likely due to adhesions. Less likely due to radiation enteritis or recurrent neoplasm. Soft bowel movement 2 nights ago, no BM today, passing gas, active bowel sounds. Pain has resolved, except with palpation of lower ab. No further nausea. Plain films demonstrate improvement with nonspecific bowel gas pattern. Follow through study today showed: 1. Single loop of normal calibered small bowel with mild wall thickening identified. Probably edema. 2. Normal transit time of 45 minutes. General surgery following with management deferred to general surgery Surgery planning to D/C NG and start on clear liquid diet. monitoring I/O Continue antiemetics and analgesics as needed. Avoid morphine and/or narcotics due to hx of combativeness. (2) Hx of colon cancer, stage III: Code(s): Z85.038 - Personal history of other malignant neoplasm of large intestine Status: Acute Assessment and Plan: Stage IIIB status post resection 2019, radiation therapy, and chemotherapy. former hospitalist had discussion with the patient and the patient's daughter and Little AGUILAR. discussed that patient needs a repeat colonoscopy to r/o recurrence. They are aware of the need for repeat colonoscopy and have not had this accomplished yet due to visitor restriction w/ COVID. The patient has a hx of delirium and the daughter wants to be present before and after the procedure. Discussed with Dr. Wagner who states that 1 visitor is now allowed so called to speak with Little Garcia and she will call Monday to get this scheduled after recovery from her small bowel obstruction. CEA check pending (3) GERD (gastroesophageal reflux disease): Qualifiers: Esophagitis presence: esophagitis presence not specified Qualified Code(s): K21.9 - Gastro-esophageal reflux disease without esophagitis Code(s): K21.9 - Gastro-esophageal reflux disease without esophagitis Status: Chronic Assessment and Plan: Continue pantoprazole IV curerntly not a concern with NG in place, no complaints at this time other than wanting NG out. monitor with advancing diet. (4) Cerebrovascular accident: Onset Date: ~2018 Code(s): I63.9 - Cerebral infarction, unspecified Status: Chronic Assessment and Plan: Spring 2018 with residual RUE and RLE weakness and issues with dexterity. Discussed with surgery who is okay to clamp for medications so we will plan to resume ASA and atorvastatin no new or concerning weakness or loss of sensation noted today. patient is ambulating to and from bathroom with stand by staff assistance. (5) Hx of delirium: Code(s): Z87.898 - Personal history of other specified conditions Status: Chronic Assessment and Plan: She has a hx of delirium during prior hospitalizations. Discussed with her daughter and she is available to come at any time should this recur Keep a regular schedule, minimize interruptions at night while sleeping, foster calm/quiet environment, and reorient if needed to prevent this family is having her 2-3 daughters take turns sitting with patient to keep her oriented, keep her from pulling on her NG or IVs, and to help avoid her agitation/anxiety episodes. Additional Plan DUE TO THE ACUITY IN NATURE OF HER ILLNESS SHE WILL REQUIRE AT LEAST 2 MIDNIGHTS OF HOSPITALIZATION Subjective Date/time seen: 12/07/20 08:56 Azeb is doing well, better. She has active bowel sounds throughout all quadrants, is passing gas, and getting up to use the stool thinking that she is going to have a bowel movement, but has not had any stool output yet. Her lower abdomen is still painful to soft or gentle palpation greater pain on the left than the right. Her fo
--- NOTE | 2020-12-07 08:58 | PC.NURSE ---
to xray per stretcher
--- NOTE | 2020-12-07 09:20 | PCPTNOTE ---
Attempted PT eval. Pt gone to X ray. Will try again later today.
--- NOTE | 2020-12-07 10:34 | PC.NURSE ---
patient returned to floor from xray
--- NOTE | 2020-12-07 10:59 | PCOTNOTE ---
attempted OT evaluation. Patient declines all movement and participation in OT evaluation. Patient's daughter present and states she will encourage her mother to participate next time. Nurse notified, will attempt later.
[2020-12-07 14:00] VITALS: BP 145/79; PULSE 74; RESP 18; TEMP 36.7; O2SAT 100
--- NOTE | 2020-12-07 15:19 | PM.PNGS ---
Progress Note: A&P Assessment and Plan (1) Partial small bowel obstruction: Code(s): K56.600 - Partial intestinal obstruction, unspecified as to cause Status: Resolved Assessment and Plan: Gastrografin SBFT today showed normal transit to the colon in 45 minutes. Bowels are moving. D/C NG tube and start clear liquids. Encouraged increased activity, walking the halls. (2) Hx of colon cancer, stage III: Code(s): Z85.038 - Personal history of other malignant neoplasm of large intestine Status: Acute Additional Plan I have discussed the plan of care with Dr. Higgins. Subjective Subjective Date/Time Seen: 12/07/20 15:19 Patient reports: feels better, flatus and bowel movement Interval history: Patient able to answer questions but seems somewhat confused on some recent events. Family at the bedside. Denies abdominal pain, nausea, bloating. Reports flatus and multiple BMs. No other complaints. Exam Const: General: comfortable; No acute distress Orientation/consciousness: patient oriented x3 GI: Inspection: non-distended and scar (Midline vertical scar) GI Palp: Yes Soft to palpation and No Tenderness to palpation present (GI) Auscultation: normal bowel sounds Neuro: General: moves all extremities and no focal motor deficits Psych: Insight: Limited insight present (Psych) Judgement: Limited judgement present (Psych) Objective Data Vital Signs Vital Signs: Vital Signs - 24 hr 12/06/20 22:00 12/07/20 06:00 Temperature 97.4 F L 99.0 F Pulse Rate 92 90 Respiratory Rate 18 18 Blood Pressure 159/83 H 118/72 Pulse Oximetry 98 98 Intake/Output Intake/Output: Intake & Output 12/04/20 12/05/20 12/06/20 12/07/20 23:59 23:59 23:59 23:59 Intake Total 2100 2000 1000 Output Total 150 850 Balance 2100 1850 150 Meds/Results Medications: Active Medications Generic Name Dose Route Start Last Admin Trade Name Freq PRN Reason Stop Dose Admin Aspirin 81 mg 12/07/20 08:00 12/07/20 08:43 Aspirin 81 Mg Chewable Tablet PO Not Given DAILY@0800 [facility] Atorvastatin Calcium 20 mg 12/07/20 09:00 12/07/20 08:43 Atorvastatin 20 Mg Tablet PO Not Given DAILY [facility] Dextrose 12.5 gm 12/07/20 02:45 12/07/20 03:02 Dextrose 50% 25 Gm/50 Ml Syringe IV PUSH 12.5 gm PRN PRN Administration Hypoglycemia Protocol Enoxaparin Sodium 40 mg 12/06/20 21:00 12/06/20 21:04 Enoxaparin 40 Mg/0.4 Ml Syringe SUB-Q 40 mg HS ANNA Administration Glucagon 1 mg 12/07/20 02:45 Glucagon For Inj 1 Mg Vial IM PRN PRN Hypoglycemia Protocol Glucose 15 gm 12/07/20 02:45 Glucose Oral Gel 15 Gm Of Glucse In 37.5 Gm Tube PO PRN PRN Hypoglycemia Protocol Dextrose 1,000 mls @ 100 mls/hr 12/07/20 02:45 Dextrose 5% 1,000 Ml IVPB PRN PRN Hypoglycemia Protocol Dextrose 1,000 mls @ 100 mls/hr 12/07/20 03:05 12/07/20 03:12 Dextrose 5% 1,000 Ml IV CONT 100 mls/hr .Q10H ANNA Administration Lidocaine 2 patch 12/07/20 12:50 Lidocaine 5% Patch TRANSDERM DAILY ANNA Ondansetron HCl 4 mg 12/05/20 06:35 Ondansetron Inj 4 Mg/2 Ml Vial IV PUSH Q4H PRN Nausea Pantoprazole Sodium 40 mg 12/05/20 09:00 12/07/20 08:43 Pantoprazole Sodium Iv 40 Mg Vial IV PUSH 40 mg QAM ANNA Administration Potassium Chloride 20 meq 12/07/20 12:05 Potassium Chloride 20 Meq Packet (For Liquid) PO 12/10/20 12:06 DAILY [facility] Radiology Results: ITS Impressions Abdomen X-Ray 12/06/20 07:33 IMPRESSION: Feeding tube in position. Nonspecific bowel gas pattern. Head CT 12/07/20 07:26 IMPRESSION: 1. No acute intracranial findings. 2. Chronic age related findings. 3. Old large left frontal, small left parietal lobe infarctions. Abdomen/Pelvis CT 12/07/20 08:30 IMPRESSION: 1. Interval resolution of dilated small bowel. Persistent wall thickening of the small bowel in the ward
[2020-12-07] MEDS: ASPIRIN 81 MG CHEWABLE TABLET PO (15:31)
[2020-12-07] MEDS: POTASSIUM CHLORIDE 20 MEQ PACKET (FOR LIQUID) PO (15:31)
[2020-12-07] MEDS: LIDOCAINE 5% PATCH 2 PATCH TRANSDERM (15:31)
[2020-12-07 18:39] LABS: Glucose Point of Care 238 (65-105)
[2020-12-07] MEDS: ENOXAPARIN 40 MG/0.4 ML SYRINGE SUB-Q (20:54)
[2020-12-07 22:00] VITALS: BP 144/75; PULSE 68; RESP 18; TEMP 36.2; O2SAT 100
[2020-12-08 01:05] LABS: Glucose Point of Care 145 (65-105)
[2020-12-08] MEDS: DEXTROSE 5% 1,000 ML 1,000 ML 100 ML IV CONT ×2 (01:13→11:42)
[2020-12-08 06:00] VITALS: BP 132/61; PULSE 64; RESP 16; TEMP 36.3; O2SAT 98
[2020-12-08 06:09] LABS: Glucose Point of Care 106 (65-105)
[2020-12-08 06:32] LABS: Basophils Percent Auto 0.6 % (0.2-1.2); Eosinophils Absolute Auto 0.3 K/mm3 (0-0.3); Eosinophils Percent Auto 5.5 % (0-4.4); Hematocrit 37.7 % (37.0-47.0); Hemoglobin 12.4 g/dL (12.0-15.0); Immature Granulocyte Absolute 0.01 K/mm3 (0.00-0.031); Immature Granulocyte Percent A 0.2 % (0-0.5); Lymphocytes Percent Auto 16.9 % (18.3-44.2); Mean Corpuscular HGB Conc 32.9 g/dl (32-36); Mean Corpuscular Hemoglobin 29.9 pg (26-34); Mean Corpuscular Volume 90.8 fl (80-100); Mean Platelet Volume 10.4 fl (7.4-10.4); Monocytes Absolute Auto 0.5 K/mm3 (0.1-0.6); Monocytes Percent Auto 9.4 % (2.6-8.5); Neutrophils Absolute Auto 3.6 K/mm3 (1.3-6.7); Neutrophils Percent Auto 67.4 % (45.5-73.1); Platelet Count Result 186 k/mm3 (150-375); Red Blood Count 4.15 M/mm3 (4.2-5.4); Red Cell Distribution Width 13.9 % (11.5-14.5); White Blood Count 5.3 K/mm3 (4.5-10.0)
[2020-12-08 06:41] LABS: Alanine Aminotransferase 16 U/L (4-35); Albumin Level 3.7 g/dL (3.5-5.1); Alkaline Phosphatase 50 U/L (38-126); Anion Gap 6 mmol/L (8-16); Aspartate Amino Transferase 30 U/L (14-36); Bilirubin,Total 0.7 mg/dL (0.2-1.3); Blood Urea Nitrogen 3 mg/dL (7-17); Calcium 8.6 mg/dL (8.4-10.2); Carbon Dioxide 28 mmol/L (22-30); Chloride 108 mmol/L (98-107); Estimated CRCL calculation 60 ml/min; Estimated Glomerular Filt Rate > 60; Glucose 118 mg/dL (65-105); Potassium 3.5 mmol/L (3.4-5.0); Sodium 142 mmol/L (137-145)
[2020-12-08] MEDS: ATORVASTATIN 20 MG TABLET PO (07:59)
[2020-12-08] MEDS: ASPIRIN 81 MG CHEWABLE TABLET PO (07:59)
[2020-12-08] MEDS: LIDOCAINE 5% PATCH 2 PATCH TRANSDERM (08:00)
[2020-12-08] MEDS: PANTOPRAZOLE SODIUM IV 40 MG VIAL IV PUSH (08:00)
[2020-12-08] MEDS: POTASSIUM CHLORIDE 20 MEQ PACKET (FOR LIQUID) PO (08:00)
[2020-12-08] MEDS: ACETAMINOPHEN 325 MG TABLET 650 MG PO (09:16)
[2020-12-08 12:13] LABS: Glucose Point of Care 83 (65-105)
[2020-12-08 12:50] LABS: Carcinoembryonic Antigen 2.7 ng/mL (0.0-3.0)
[2020-12-08 14:00] VITALS: BP 122/70; PULSE 61; RESP 18; TEMP 36.5; O2SAT 100
--- NOTE | 2020-12-08 14:31 | PM.PNGS ---
Progress Note: A&P Assessment and Plan (1) Partial small bowel obstruction: Code(s): K56.600 - Partial intestinal obstruction, unspecified as to cause Status: Resolved Assessment and Plan: Bowels continue to move and she is tolerating her diet. Advance to soft diet. Okay from a surgical standpoint to discharge the patient when medically stable. (2) Hx of colon cancer, stage III: Code(s): Z85.038 - Personal history of other malignant neoplasm of large intestine Status: Acute Assessment and Plan: She has not had a colonoscopy since her surgery in September of 2018. I will work on scheduling a colonoscopy with Dr. Garcia as an outpatient in the future. Will avoid doing this too quickly after the resolution of her bowel obstruction in order to tolerate the prep. Additional Plan I have discussed the plan of care with Dr. Higgins. Subjective Subjective Date/Time Seen: 12/08/20 13:31 Patient reports: tolerating liquids well, flatus and bowel movement Interval history: Patient seen today and feeling well. No abdominal pain, nausea, or vomiting. Bloating continues to improve. Reports flatus and BM today. Tolerated full liquids this morning. She tried chicken pot pie and had issues with swallowing this. She reports coughing/choking with a bite of the pot pie, although she then tried some liquids after and had no issues. No other issues with swallowing meds or food until this occurence. No other complaints at this time. Exam Const: General: comfortable and alert; No acute distress Orientation/consciousness: patient oriented x3 and Other orientation findings (forgetful at times) GI: Inspection: normal to inspection and non-distended GI Palp: Yes Soft to palpation, No Tenderness to palpation present (GI) and No Guarding due to palpation present (GI) Auscultation: normal bowel sounds Neuro: General: moves all extremities and no focal motor deficits Extrem: General: normal to inspection Psych: Insight: Limited insight present (Psych) Judgement: Limited judgement present (Psych) Objective Data Vital Signs Vital Signs: Vital Signs - 24 hr 12/07/20 22:00 12/08/20 06:00 Temperature 97.1 F L 97.4 F L Pulse Rate 68 64 Respiratory Rate 18 16 Blood Pressure 144/75 H 132/61 Pulse Oximetry 100 98 Intake/Output Intake/Output: Intake & Output 12/05/20 12/06/20 12/07/20/13/21 23:59 23:59 23:59 23:59 Intake Total 2099 1999 7243 2710 Output Total 150 1700 3050 Balance 2100 1850 765 -340 Meds/Results Medications: Active Medications Generic Name Dose Route Start Last Admin Trade Name Freq PRN Reason Stop Dose Admin Acetaminophen 650 mg 12/08/20 08:36 12/08/20 09:16 Acetaminophen 325 Mg Tablet PO 650 mg Q4H PRN Administration Mild Pain (1-3) or Fever Aspirin 81 mg 12/07/20 08:00 12/08/20 07:59 Aspirin 81 Mg Chewable Tablet PO 81 mg DAILY@0800 ANNA Administration Atorvastatin Calcium 20 mg 12/07/20 09:00 12/08/20 07:59 Atorvastatin 20 Mg Tablet PO 20 mg DAILY ANNA Administration Dextrose 12.5 gm 12/07/20 02:45 12/07/20 03:02 Dextrose 50% 25 Gm/50 Ml Syringe IV PUSH 12.5 gm PRN PRN Administration Hypoglycemia Protocol Enoxaparin Sodium 40 mg 12/06/20 21:00 12/07/20 20:54 Enoxaparin 40 Mg/0.4 Ml Syringe SUB-Q 40 mg HS ANNA Administration Glucagon 1 mg 12/07/20 02:45 Glucagon For Inj 1 Mg Vial IM PRN PRN Hypoglycemia Protocol Glucose 15 gm 12/07/20 02:45 Glucose Oral Gel 15 Gm Of Glucse In 37.5 Gm Tube PO PRN PRN Hypoglycemia Protocol Dextrose 1,000 mls @ 100 mls/hr 12/07/20 02:45 Dextrose 5% 1,000 Ml IVPB PRN PRN Hypoglycemia Protocol Lidocaine 2 patch 12/07/20 12:50 12/08/20 08:00 Lidocaine 5% Patch TRANSDERM 2 patch DAILY ANNA Administration Ondansetron HCl 4 mg 12/05/20 06:35 Ondansetron Inj 4 Mg/2 Ml Vial IV PUSH Q4H PRN
--- NOTE | 2020-12-08 14:37 | PM.IMPN ---
Progress Note: A&P Assessment and Plan (1) Partial small bowel obstruction: Code(s): K56.600 - Partial intestinal obstruction, unspecified as to cause Status: Resolved Assessment and Plan: Presented with 1 day history of abdominal pain consistent with prior SBO. CT on 12/05/2020 showed SBO. Likely due to adhesions. Less likely due to radiation enteritis or recurrent neoplasm. Her bowel function has returned with conservative management and she is passing flatus and having loose stools. Small-bowel follow-through performed 12/07 showed normal transit time of 45 minutes. Appreciate general surgery consultation. Continue full liquid diet. Had some difficulty with soft/bite sized diet so will go back to full liquids at dinner and attempt soft/bite sized diet for breakfast tomorrow. NG tube discontinued on 12/07/2020 Encourage ambulation Analgesics and antiemetics available as needed. Will avoid narcotics as possible due to confusion/delirium Hopeful discharge tomorrow if continued improvement and able to tolerate diet. (2) Hx of colon cancer, stage III: Code(s): Z85.038 - Personal history of other malignant neoplasm of large intestine Status: Acute Assessment and Plan: Stage IIIB status post resection 2019, radiation therapy, and chemotherapy. CEA is 2.7 Recommended outpatient repeat colonoscopy to rule out recurrence. A plan to schedule outpatient colonoscopy with Dr. Temple. (3) GERD (gastroesophageal reflux disease): Qualifiers: Esophagitis presence: esophagitis presence not specified Qualified Code(s): K21.9 - Gastro-esophageal reflux disease without esophagitis Code(s): K21.9 - Gastro-esophageal reflux disease without esophagitis Status: Chronic Assessment and Plan: No issues at this time. Continue IV Protonix Continue to slowly advance diet (4) Cerebrovascular accident: Onset Date: ~2018 Code(s): I63.9 - Cerebral infarction, unspecified Status: Chronic Assessment and Plan: Spring 2018 with residual RUE and RLE weakness and issues with dexterity. Continue ASA and atorvastatin Appreciate PT/OT eval (5) Hx of delirium: Code(s): Z87.898 - Personal history of other specified conditions Status: Chronic Assessment and Plan: She has a hx of delirium during prior hospitalizations. She had an episode of acute confusion on 12/07/2020 overnight. Keep a regular schedule, minimize interruptions at night while sleeping, foster calm/quiet environment, and reorient if needed to prevent this Family is having her 2-3 daughters take turns sitting with patient to keep her oriented and to help avoid agitation/anxiety episodes. They have received permission to be present in the hospital at any time given history. Subjective Date/time seen: 12/08/20 14:38 Interval history: Date of service: 12/08/2020 Azeb garcia is a 75-year-old female with history of CVA with residual right-sided deficits, stage III colon cancer status post colon resection and chemoradiation in 2019, and hyperlipidemia who is seen in follow-up for small bowel obstruction. She is feeling fairly well today. She denies abdominal pain. She denies nausea or vomiting. She was able to tolerate full liquid diet well this morning. She reports a liquid stool this morning. She denies abdominal cramping or bloating. She was up and walking the halls this morning with therapy in felt that she did well. She felt steady on her feet and denied dizziness or lightheadedness. She does endorse weakness of the right leg which is a chronic issue. She denies shortness breath, cough, chest pain. Denies fever or chills. She has no additional concerns at this time. Her daughter is at the bedside during interview and examination. Review of Systems Review of Systems: All systems reviewed & are unremarkable except as noted in HPI and below E
[2020-12-08 17:54] LABS: Glucose Point of Care 104 (65-105)
[2020-12-08] MEDS: ENOXAPARIN 40 MG/0.4 ML SYRINGE SUB-Q (20:38)
[2020-12-08 20:45] LABS: SARS-CoV-2 RNA PCR Negative
[2020-12-08 21:12] LABS: Glucose Point of Care 111 (65-105)
[2020-12-08 21:57] VITALS: BP 137/79; PULSE 73; RESP 20; TEMP 36.8; O2SAT 98
[2020-12-08 22:54] VITALS: PULSE 68; O2SAT 98
[2020-12-09 06:00] VITALS: BP 138/75; PULSE 74; RESP 20; TEMP 36.7; O2SAT 99
[2020-12-09 06:35] LABS: Anion Gap 4 mmol/L (8-16); Blood Urea Nitrogen 6 mg/dL (7-17); Calcium 8.7 mg/dL (8.4-10.2); Carbon Dioxide 29 mmol/L (22-30); Chloride 108 mmol/L (98-107); Estimated CRCL calculation 60 ml/min; Estimated Glomerular Filt Rate > 60; Glucose 103 mg/dL (65-105); Potassium 3.8 mmol/L (3.4-5.0); Sodium 141 mmol/L (137-145)
[2020-12-09 07:54] LABS: Glucose Point of Care 98 (65-105)
[2020-12-09 08:08] VITALS: O2SAT 95
[2020-12-09] MEDS: LIDOCAINE 5% PATCH 2 PATCH TRANSDERM (09:00)
[2020-12-09] MEDS: ATORVASTATIN 20 MG TABLET PO (09:01)
[2020-12-09] MEDS: ASPIRIN 81 MG CHEWABLE TABLET PO (09:01)
[2020-12-09] MEDS: POTASSIUM CHLORIDE 20 MEQ PACKET (FOR LIQUID) PO (09:01)
[2020-12-09] MEDS: PANTOPRAZOLE SODIUM IV 40 MG VIAL IV PUSH (09:01)
[2020-12-09 11:29] LABS: Glucose Point of Care 79 (65-105)
--- NOTE | 2020-12-09 11:49 | PM.DS ---
DS: Admitting Diagnosis Admitting Diagnosis Admitting Diagnosis: Partial small-bowel obstruction DS: Discharge Diagnosis Discharge Diagnosis (1) Partial small bowel obstruction: Code(s): K56.600 - Partial intestinal obstruction, unspecified as to cause Status: Resolved Assessment and Plan: Presented with 1 day history of abdominal pain consistent with prior SBO. CT on 12/05/2020 showed SBO. Likely due to adhesions. Less likely due to radiation enteritis or recurrent neoplasm. She was seen in consultation by General surgery. Her bowel function returned with conservative management. NG tube discontinued on 12/07/2020. Small-bowel follow-through performed 12/07 showed normal transit time of 45 minutes. Diet was slowly advanced and she was able to tolerate a soft and bite sized diet, which she will continue. (2) Hx of colon cancer, stage III: Code(s): Z85.038 - Personal history of other malignant neoplasm of large intestine Status: Acute Assessment and Plan: Stage IIIB status post resection 2019, radiation therapy, and chemotherapy. CEA is 2.7. Last colonoscopy was September 2018. She has been scheduled for colonoscopy with Dr. Garcia on 01/01/2021. (3) GERD (gastroesophageal reflux disease): Qualifiers: Esophagitis presence: esophagitis presence not specified Qualified Code(s): K21.9 - Gastro-esophageal reflux disease without esophagitis Code(s): K21.9 - Gastro-esophageal reflux disease without esophagitis Status: Chronic Assessment and Plan: Remained asymptomatic. Received IV Protonix during stay. Continue PO omeprazole upon discharge (4) Cerebrovascular accident: Onset Date: ~2018 Code(s): I63.9 - Cerebral infarction, unspecified Status: Chronic Assessment and Plan: Spring 2018 with residual RUE and RLE weakness and issues with dexterity. She was evaluated by PT/OT. Continue aspirin and atorvastatin. (5) Hx of delirium: Code(s): Z87.898 - Personal history of other specified conditions Status: Chronic Assessment and Plan: She has a hx of delirium during prior hospitalizations. She had an episode of acute confusion on 12/07/2020 overnight. Efforts taken to keep a regular schedule, minimize interruptions at night while sleeping, foster calm/quiet environment, and reorient to avoid further episodes. Her daughters were present with her throughout her admission to help avoid agitation/anxiety. DS: Summary Hospital Course Reason for hospitalization: Partial small-bowel obstruction Hospital Course: Date of admission: 12/05/2020 Date of discharge: 12/09/2020 Azeb Vallejo is a 75-year-old female with history of CVA with residual right-sided deficits, stage III colon cancer status post colon resection and chemoradiation in 2019, and hyperlipidemia who presented to the emergency department on 12/05/2020 with associated nausea and vomiting. She has had small bowel obstructions in the past and felt that her symptoms were similar. Upon presentation to the emergency department, her blood pressure was elevated with additional vital signs stable, she was afebrile, CBC and BMP unremarkable, lactic 1.1, abdomen/pelvis CT showed small bowel obstruction with several loops of significantly distended small bowel with a transition point identified in the right side of the pelvis. She was admitted to the hospitalist service for further evaluation and management and seen in consultation by General surgery. Please see above for further details. Her small-bowel obstruction resolved conservatively. She was able to tolerate a diet and her bowel function returned. She began feeling much better and was comfortable with discharge back to her nursing facility. Given her overall improvement, she was determined to no longer require inpatient care and was felt to be stable for discharge. She will need to follow-up with her primary care p
--- NOTE | 2020-12-09 12:11 | PM.PNGS ---
Subjective Subjective Date/Time Seen: 12/09/20 12:11 Interval history: Patient tolerating soft diet. No recurrent symptoms. Exam GI: Inspection: non-distended GI Palp: Yes Soft to palpation, No Tenderness to palpation present (GI) and No Guarding due to palpation present (GI) Percussion: Yes normal to percussion Auscultation: normal bowel sounds Objective Data Vital Signs Vital Signs: Vital Signs - 24 hr 12/08/20 14:00 12/08/20 21:57 12/08/20 22:54 Temperature 36.5 C 36.8 C Pulse Rate 61 73 68 Respiratory Rate 18 20 Blood Pressure 122/70 137/79 Pulse Oximetry 100 98 98 12/09/20 06:00 12/09/20 08:08 Temperature 36.7 C Pulse Rate 74 Respiratory Rate 20 Blood Pressure 138/75 Pulse Oximetry 99 95 Intake/Output Intake/Output: Intake & Output 12/06/20 12/07/20 12/08/20 12/09/20 23:59 23:59 23:59 23:59 Intake Total 2000 2465 3990 440 Output Total 150 1700 3050 Balance 1850 765 940 440 Meds/Results Medications: Active Medications Generic Name Dose Route Start Last Admin Trade Name Freq PRN Reason Stop Dose Admin Acetaminophen 650 mg 12/08/20 08:36 12/08/20 09:16 Acetaminophen 325 Mg Tablet PO 650 mg Q4H PRN Administration Mild Pain (1-3) or Fever Aspirin 81 mg 12/07/20 08:00 12/09/20 09:01 Aspirin 81 Mg Chewable Tablet PO 81 mg DAILY@0800 ANNA Administration Atorvastatin Calcium 20 mg 12/07/20 09:00 12/09/20 09:01 Atorvastatin 20 Mg Tablet PO 20 mg DAILY ANNA Administration Dextrose 12.5 gm 12/07/20 02:45 12/07/20 03:02 Dextrose 50% 25 Gm/50 Ml Syringe IV PUSH 12.5 gm PRN PRN Administration Hypoglycemia Protocol Enoxaparin Sodium 40 mg 12/06/20 21:00 12/08/20 20:38 Enoxaparin 40 Mg/0.4 Ml Syringe SUB-Q 40 mg HS ANNA Administration Glucagon 1 mg 12/07/20 02:45 Glucagon For Inj 1 Mg Vial IM PRN PRN Hypoglycemia Protocol Glucose 15 gm 12/07/20 02:45 Glucose Oral Gel 15 Gm Of Glucse In 37.5 Gm Tube PO PRN PRN Hypoglycemia Protocol Dextrose 1,000 mls @ 100 mls/hr 12/07/20 02:45 Dextrose 5% 1,000 Ml IVPB PRN PRN Hypoglycemia Protocol Lidocaine 2 patch 12/07/20 12:50 12/09/20 09:00 Lidocaine 5% Patch TRANSDERM 2 patch DAILY ANNA Administration Ondansetron HCl 4 mg 12/05/20 06:35 Ondansetron Inj 4 Mg/2 Ml Vial IV PUSH Q4H PRN Nausea Pantoprazole Sodium 40 mg 12/05/20 09:00 12/09/20 09:01 Pantoprazole Sodium Iv 40 Mg Vial IV PUSH 40 mg QAM ANNA Administration Potassium Chloride 20 meq 12/07/20 12:05 12/09/20 09:01 Potassium Chloride 20 Meq Packet (For Liquid) PO 12/10/20 12:06 20 meq DAILY ANNA Administration Radiology Results: ITS Impressions Abdomen X-Ray 12/06/20 07:33 IMPRESSION: Feeding tube in position. Nonspecific bowel gas pattern. Head CT 12/07/20 07:26 IMPRESSION: 1. No acute intracranial findings. 2. Chronic age related findings. 3. Old large left frontal, small left parietal lobe infarctions. Abdomen/Pelvis CT 12/07/20 08:30 IMPRESSION: 1. Interval resolution of dilated small bowel. Persistent wall thickening of the small bowel in the region of the previously described transition. Small Bowel X-Ray 12/07/20 10:36 IMPRESSION: 1. Single loop of normal calibered small bowel with mild wall thickening identified. Probably edema. 2. Normal transit time of 45 minutes. Labs Labs: Laboratory Results - last 24 hr 12/08/20 12/08/20 12/08/20 05:57 11:41 11:45 Sodium Potassium Chloride Carbon Dioxide Anion Gap BUN Creatinine Estim Creat Clear Calc Estimated GFR Glucose POC Capillary Glucose 83 Calcium Carcinoembryonic Ag 2.7 SARS-CoV-2 RNA (RT-PCR) Negative 12/08/20 12/08/20 12/09/20 16:45 20:36 05:52 Sodium 141 Potassium 3.8 Chloride 108 H Carbon Dioxide 29 Anion Gap 4 L BUN
== END 2020-12-09 13:30 | DRG 389 ==
LOC: ANHED 06:50 → ANH3MEDSUR 07:24
PROVIDERS: Nurse Practitioner; Physician Assistant; Surgery; Admitting Provider Internal Medicine; Emergency Provider Emergency Medicine; PCP Internal Medicine; Visit Provider Physician Assistant
DX: K56.51 Intestinal adhesions [bands], with partial obstruction (principal); G81.91 Hemiplegia, unspecified affecting right dominant side; K21.9 Gastro-esophageal reflux disease without esophagitis; Z20.822 Contact with and (suspected) exposure to COVID-19; M19.90 Unspecified osteoarthritis, unspecified site; E78.00 Pure hypercholesterolemia, unspecified; Z96.651 Presence of right artificial knee joint; Z66 Do not resuscitate; Z98.42 Cataract extraction status, left eye; Z98.41 Cataract extraction status, right eye; Z90.710 Acquired absence of both cervix and uterus; Z90.722 Acquired absence of ovaries, bilateral; Z92.3 Personal history of irradiation; Z87.820 Personal history of traumatic brain injury; Z85.038 Personal history of other malignant neoplasm of large intestine
CPT/HCPCS: 36415; 70450; 74018; 74176; 74177; 74250; 80048; 80053; 81001; 82378; 82948; 83605; 83690; 83735; 85025; 85027; 96365; 96375; 97110; 97116; 97161; 97165; 97535; 99285; A9270; C9113; C9803; G0378; J0131; J1650; J2060; J2405; J7030; J7070; Q9967; U0003; U0005

== ENCOUNTER 2020-12-29 08:57 | Outpatient (CLI) | payer MEDICARE, SELFPAY ==
[2020-12-29 17:41] LABS: SARS-CoV-2 RNA PCR Negative (Negative)
== END 2020-12-29 08:58 | disposition home or self-care (01) ==
LOC: CHSLAB 09:06
PROVIDERS: PCP Internal Medicine; Visit Provider Surgery
DX: Z85.038 Personal history of other malignant neoplasm of large intestine (principal); Z20.822 Contact with and (suspected) exposure to COVID-19
CPT/HCPCS: C9803; U0003; U0005

== ENCOUNTER 2021-01-01 02:18 | Day surgery (SDC) | payer MEDICARE, SELFPAY ==
[2020-12-22 14:33] VITALS: BMI 20.7
[2021-01-01 12:08] VITALS: BP 153/78; PULSE 81; RESP 18; TEMP 36.3; O2SAT 98; BMI 20.2
[2021-01-01] MEDS: LACTATED RINGERS 1,000 ML 150 ML IV CONT (12:23)
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
--- NOTE | 2021-01-01 13:19 | WPDHPUPDATE1 ---
History and Physical Update Update Date/Time: 01/01/21 13:19 History and Physical has been reviewed, including an updated exam of the patient. There are changes in the patient's condition. Patient has had no symptoms of small-bowel obstruction over the last month. Because she has not had a colonoscopy since her colon surgery with resection of a T3 colon cancer in the sigmoid colon in 2019 it was been recommended that we proceed with a colonoscopy. Her last hospitalization was in the middle of November and the history physical is otherwise up-to-date. Risks, benefits, and alternatives of a colonoscopy with possible biopsies have been discussed and questions answered. Patient agrees to proceed with procedure.
[2021-01-01 14:26] VITALS: BP 123/84; PULSE 88; RESP 21; O2SAT 98
[2021-01-01 14:36] VITALS: BP 134/87; PULSE 71; RESP 23; O2SAT 99
[2021-01-01 14:46] VITALS: BP 149/83; PULSE 61; RESP 21; O2SAT 100
== END 2021-01-01 15:10 | disposition home or self-care (01) ==
PROVIDERS: PCP Internal Medicine; Visit Provider Surgery
PROC: 0DJD8ZZ Inspection of Lower Intestinal Tract, Via Natural or Artificial Opening Endoscopic (ICD-10-PCS; CPT 45378; principal; 2021-01-01 13:30)
DX: Z12.11 Encounter for screening for malignant neoplasm of colon (principal); Z90.49 Acquired absence of other specified parts of digestive tract; Z85.038 Personal history of other malignant neoplasm of large intestine; K62.89 Other specified diseases of anus and rectum; K64.1 Second degree hemorrhoids; K63.89 Other specified diseases of intestine; K56.50 Intestinal adhesions [bands], unspecified as to partial versus complete obstruction; Z79.82 Long term (current) use of aspirin; Z86.73 Personal history of transient ischemic attack (TIA), and cerebral infarction without residual deficits; M19.90 Unspecified osteoarthritis, unspecified site; E78.00 Pure hypercholesterolemia, unspecified; Z92.21 Personal history of antineoplastic chemotherapy; Z92.3 Personal history of irradiation
CPT/HCPCS: G0105; J2704; J7120

== ENCOUNTER 2021-01-15 09:14 | Outpatient (NON) | payer MEDICARE, SELFPAY ==
[2021-01-15 09:26] LABS: Basophils Absolute Auto 0.04 K/mm3 (0.00-0.10); Eosinophils Absolute Auto 0.17 K/mm3 (0.02-0.50); Hematocrit 39.8 % (35.0-42.0); Hemoglobin 12.8 g/dL (11.7-13.8); Immature Granulocyte Absolute 0.01 K/mm3 (0.00-0.00); Immature Granulocyte Percent A 0.2 % (0.0-0.0); Lymphocytes Absolute Auto 1.03 K/mm3 (1.10-4.50); Lymphocytes Percent Auto 24.5 % (18.0-42.0); Mean Corpuscular HGB Conc 32.2 g/dL (32.0-36.0); Mean Corpuscular Hemoglobin 29.8 pg (27.0-31.0); Mean Corpuscular Volume 92.6 fL (78.0-102.0); Mean Platelet Volume 10.3 fl (9.2-11.8); Monocytes Absolute Auto 0.36 K/mm3 (0.10-0.90); Monocytes Percent Auto 8.6 % (2.0-11.0); Neutrophils Absolute Auto 2.6 K/mm3 (1.7-7.2); Neutrophils Percent Auto 61.7 % (50.0-70.0); Platelet Count Result 208 K/mm3 (150-420); Red Cell Distribution Width 14.5 % (11.6-14.4); White Blood Count 4.2 K/mm3 (4.8-10.8)
[2021-01-15 09:27] LABS: Add Urine Microscopic? YES; Appearance Urine Clear (Clear); Bilirubin Urine Negative (Negative); Blood Urine Negative (Negative); Color Urine Yellow (Yellow); Glucose Urine UA Negative (Negative); Ketones Urine Negative (Negative); Leukocyte Esterase Ur 2+ (Negative); Nitrate Urine Negative (Negative); Protein Urine Negative (Negative); Urobilinogen Urine 0.2 mg/dL (0.2-1.0)
[2021-01-15 09:39] LABS: Bacteria Urine 1+ /hpf; RBC Urine None seen /hpf (0-2); Squamous Epithelial Cell Urine Few /hpf (Few)
[2021-01-15 10:29] LABS: Alanine Aminotransferase 26 U/L (14-59); Albumin Level 3.9 g/dL (3.4-5.0); Alkaline Phosphatase 62 U/L (46-116); Anion Gap 6 mmol/L (8-16); Aspartate Amino Transferase 32 U/L (15-37); Bilirubin,Total 0.4 mg/dL (0.00-1.00); Blood Urea Nitrogen 10 mg/dL (7-18); Calcium 9.2 mg/dL (8.5-10.1); Carbon Dioxide 31 mmol/L (21-32); Chloride 106 mmol/L (98-108); Cholesterol 179 mg/dL (0-200); Creatine Kinase 134 U/L (26-192); Estimated Glomerular Filt Rate > 60; Ferritin 37 ng/mL (8-252); Glucose 84 mg/dL (70-99); HDL Direct 81 mg/dL (40-60); Iron 61 ug/dL (50-170); LDL Cholesterol Calculated 84 mg/dL (<130); Osmolality Calculated 294 mOsm/kg (285-295); Percent Iron Saturation 18 % (12-57); Potassium 4.3 mmol/L (3.5-5.1); Sodium 143 mmol/L (136-145); Total Protein 7.7 g/dL (6.4-8.2); Triglycerides 70 mg/dL (0-150)
== END 2021-01-15 09:15 | disposition home or self-care (01) ==
LOC: CHSLAB 09:16
PROVIDERS: Visit Provider Internal Medicine
DX: E78.5 Hyperlipidemia, unspecified (principal); D64.0 Hereditary sideroblastic anemia; N39.0 Urinary tract infection, site not specified
CPT/HCPCS: 36415; 80053; 80061; 81001; 82550; 82728; 83540; 83550; 85025

== ENCOUNTER 2021-02-17 10:33 | Outpatient (NON) | payer MEDICARE, SELFPAY ==
[2021-02-17 10:58] LABS: Basophils Absolute Auto 0.04 K/mm3 (0.00-0.10); Basophils Percent Auto 0.7 % (0.0-1.0); Eosinophils Absolute Auto 0.08 K/mm3 (0.02-0.50); Eosinophils Percent Auto 1.3 % (1.0-6.0); Hemoglobin 12.5 g/dL (11.7-13.8); Immature Granulocyte Absolute 0.01 K/mm3 (0.00-0.00); Immature Granulocyte Percent A 0.2 % (0.0-0.0); Lymphocytes Absolute Auto 1.08 K/mm3 (1.10-4.50); Mean Corpuscular HGB Conc 32.1 g/dL (32.0-36.0); Mean Corpuscular Hemoglobin 30.3 pg (27.0-31.0); Mean Corpuscular Volume 94.7 fL (78.0-102.0); Mean Platelet Volume 9.8 fl (9.2-11.8); Monocytes Absolute Auto 0.56 K/mm3 (0.10-0.90); Monocytes Percent Auto 9.3 % (2.0-11.0); Neutrophils Absolute Auto 4.2 K/mm3 (1.7-7.2); Neutrophils Percent Auto 70.5 % (50.0-70.0); Platelet Count Result 212 K/mm3 (150-420); Red Blood Count 4.12 M/mm3 (4.20-5.40); Red Cell Distribution Width 14.6 % (11.6-14.4)
[2021-02-17 11:26] LABS: Alanine Aminotransferase 28 U/L (14-59); Albumin Level 3.8 g/dL (3.4-5.0); Alkaline Phosphatase 59 U/L (46-116); Anion Gap 9 mmol/L (8-16); Aspartate Amino Transferase 21 U/L (15-37); Bilirubin,Total 0.4 mg/dL (0.00-1.00); Blood Urea Nitrogen 9 mg/dL (7-18); Calcium 8.8 mg/dL (8.5-10.1); Carbon Dioxide 30 mmol/L (21-32); Chloride 101 mmol/L (98-108); Estimated Glomerular Filt Rate > 60; Glucose 98 mg/dL (70-99); Osmolality Calculated 288 mOsm/kg (285-295); Potassium 3.9 mmol/L (3.5-5.1); Sodium 140 mmol/L (136-145); Total Protein 6.8 g/dL (6.4-8.2)
[2021-02-21 08:17] LABS: Carcinoembryonic Antigen 3.1 ng/mL (0.0-2.4)
== END 2021-02-17 10:34 | disposition home or self-care (01) ==
PROVIDERS: Visit Provider Internal Medicine Hematology & Oncology
DX: C18.7 Malignant neoplasm of sigmoid colon (principal)
CPT/HCPCS: 36415; 80053; 82378; 85025

== ENCOUNTER 2021-03-05 01:17 | Day surgery (SDC) | payer MEDICARE, SELFPAY ==
[2021-02-26 10:10] VITALS: BMI 22.4
[2021-03-05 06:25] VITALS: BP 159/82; PULSE 65; RESP 20; TEMP 37.1; O2SAT 98
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
[2021-03-05] MEDS: LACTATED RINGERS 1,000 ML 30 ML IV CONT (06:45)
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
--- NOTE | 2021-03-05 07:19 | WPDHPUPDATE1 ---
History and Physical Update Update Date/Time: 03/05/21 07:19 History and Physical has been reviewed, including an updated exam of the patient. There are NO changes in the patient's condition. Risks, benefits, and alternatives have been discussed and questions answered. Patient agrees to proceed with procedure.
[2021-03-05] MEDS: LIDO 2%/EPINEPHRINE 1:100,000 20 ML VIAL 10 ML INFILTRATE (07:48)
[2021-03-05 08:10] VITALS: BP 110/72; PULSE 70; RESP 14; O2SAT 100
[2021-03-05 08:40] VITALS: BP 157/82; PULSE 66; RESP 14
--- NOTE | 2021-03-05 08:52 | W.PM.PROC2 ---
Procedure Note - Detailed Date of Procedure 03/05/21 Pre-op Diagnosis Malignant Neoplasm Sigmoid Colon Post-op Diagnosis same Procedure Performed Removal of Jenny-cath Surgeon Nathan Garcia MD Senior Information Security Architect Luis SANTOS, OR Mechanical Designer Anesthesia MAC and local (2% Xylocaine with Epi) Indications Patient has had a Port-A-Cath in for chemotherapy in the past. Now no longer in use. Plan to remove under local anesthetic. Findings Unremarkable port and catheter. Description of Procedure Prior to the procedure the patient was seen in the holding area and the area of proposed surgery was marked. All questions were answered and the patient wished to proceed with removal of the Port-A-Cath. The patient was brought to the operating room and placed supine. The entire right neck, chest, and shoulder were prepped with chlorhexidine. The area was draped off. Time-out was performed confirming patient and site of surgery. Following this a 15 blade knife was used to make incision directly on the scar from the previous port placement. This was done after infiltrating local anesthetic into the area of and inferior to the scar and into the area of the pocket containing the port to some degree using 1% xylocaine with epinephrine. Following this we carefully dissected down to the junction of the port and catheter. Bovie cautery with needle-tip was used to carefully incise the capsule around the port and free up the scar tissue around the junction of the port and catheter. Two Prolene sutures that were holding the port to the underlying fascia were carefully excised with a 15 blade knife and mosquito hemostats. Following this the port was brought up and out of the pocket. Then watching the patient's respirations I carefully removed the catheter in one smooth pull while applying pressure in the lower right neck area at the catheter exit site as the patient was breathing out. Pressure was held for 1 minute. I used Bovie cautery on some the subcutaneous tissues as we waited for good clotting. Again hemostasis was checked in the wound using Bovie cautery for superficial hemostasis in the subcutaneous tissues. Following this closure was obtained with 2 layers. I used buried subcutaneous sutures of 3-0 Vicryl in the subcutaneous layer followed by a running subcuticular closure of 4-0 Monocryl on the skin. Patient tolerated the procedure well. Estimated blood loss was 3 cc Sponge, needle, and instrument counts were correct at the end the procedure and patient was taken to the outpatient recovery area in good condition. Implants none Estimated Blood Loss 3 Drains No Packing No Pathology none sent Complications No immediate complications Condition stable Disposition same day
== END 2021-03-05 09:05 | disposition home or self-care (01) ==
PROVIDERS: PCP Internal Medicine; Visit Provider Surgery
PROC: (CPT 36589; principal; 2021-03-05 07:30)
DX: Z45.2 Encounter for adjustment and management of vascular access device (principal); Z85.038 Personal history of other malignant neoplasm of large intestine; Z92.21 Personal history of antineoplastic chemotherapy; R10.9 Unspecified abdominal pain; I69.351 Hemiplegia and hemiparesis following cerebral infarction affecting right dominant side; M19.90 Unspecified osteoarthritis, unspecified site; E78.00 Pure hypercholesterolemia, unspecified; Z90.49 Acquired absence of other specified parts of digestive tract; Z79.82 Long term (current) use of aspirin
CPT/HCPCS: 36590; J2704; J3010; J7120

== ENCOUNTER 2021-03-11 14:18 | Inpatient (IN) | payer MEDICARE, SELFPAY ==
[2021-03-11] VITALS (8 sets, daily range): BP systolic 129–164; BP diastolic 74–97; PULSE 54–74; RESP 16–20; TEMP 36.4–36.9; O2SAT 91–100; BMI 21.8
--- NOTE | ~2021-03-11 | CT_ITS ---
EXAMINATION: CT abdomen pelvis wo con DATE: 03/13/2021 10:27 INDICATION: Small bowel obstruction TECHNIQUE: Computed tomography (CT) of the abdomen and pelvis was performed without intravenous contr ast. The dose-length product (DLP) was 439.24 mGy-cm. Automated exposure control and iterative recons truction technique were employed. COMPARISON: 03/11/2021 FINDINGS: There is a small right pleural effusion. Minimal airspace opacities are present in the visu alized lung bases. The heart size is normal. There is a nasogastric tube in the stomach. A small to m oderate volume of ascites has developed. There is an 11 mm cyst of the liver. The spleen, pancreas, a nd adrenal glands are normal. The gallbladder is distended which is likely due to fasting state. The kidneys are unremarkable. No pathologically enlarged abdominal or pelvic lymph nodes are identified. A surgical anastomosis is present in the rectum. There are multiple persistently dilated loops of sma ll bowel without significant change. The distal small bowel is decompressed. There is thoracolumbar l evoscoliosis. There is an umbilical hernia containing fat and ascites. Is no free intraperitoneal gas is identified. IMPRESSION: 1. Small bowel obstruction. 2. Interval development of small to moderate volume of ascites. 3. Small right pleural effusion. Reviewed, dictated and finalized at location A.
--- NOTE | ~2021-03-11 | XR_ITS ---
EXAMINATION: XR abdomen obstructive series DATE: 03/12/2021 07:09 INDICATION: Generalized abdominal pain. TECHNIQUE: Upright and supine views of the abdomen on 3 radiographs were obtained. COMPARISON: CT abdomen and pelvis 03/11/2021 FINDINGS: There are no dilated loops of bowel. There is a small volume of stool in the colon. No free intraperitoneal gas. The nasogastric tube tip is in the stomach. There is contrast in the bladder, w hich is distended. IMPRESSION: 1. Normal bowel gas pattern. 2. Distended bladder. Reviewed, dictated and finalized at location A.
--- NOTE | ~2021-03-11 | CT_ITS ---
EXAMINATION: CT abdomen pelvis w con EXAM DATE: 03/11/2021 16:11 INDICATION: Abdominal tenderness, distention, pain. Prior obstruction in November. History colon cancer. TECHNIQUE: Spiral CT of the abdomen and pelvis was performed following intravenous injection of 100 m L Omnipaque 350. Axial, coronal and sagittal images of the abdomen and pelvis were reviewed. The do se-length product (DLP) for this examination was 282.25 mGy-cm. The exposure was tailored according to patient size (auto mA exposure control), and iterative reconstruction (ASIR) was used as additiona l dose reduction technique. Comparison is made to prior examination from 12/18/2019. FINDINGS: The liver, spleen, adrenal glands and pancreas are unremarkable. Gallbladder is unremarkab le. No biliary obstruction. Mild right-sided hydroureteronephrosis without obstructing stone. Could be the results of low-lying b ladder due to some amount of pelvic prolapse. The bladder is distended. The kidneys do enhance symmet rically. The uterus is not identified and has likely been surgically resected. There is no retroper itoneal or pelvic lymphadenopathy. Multiple midline abdominal wall hernias. Some bowel bulging inside 2 of these but no transition point due to this, they are nonobstructing. There are several regions of mild noncontiguous small bowel di lation, with differential diagnosis including enteritis or partial low-grade small bowel obstruction. There is moderate amount of colonic contents. Intact rectosigmoid anastomosis. The appendix is tye l. No free intraperitoneal gas. The heart is normal in size. There are no pericardial or ple ural effusions. The lung bases are unremarkable. Moderate to severe thoracolumbar levoscoliosis. IMPRESSION: 1. Several noncontiguous regions mild small bowel dilation without discrete transition point. Could be enteritis or low-grade partial obstruction. 2. Midline hernias with bowel bulging inside. 3. Some amount of pelvic prolapse, distended bladder and mild right hydroureteronephrosis probably p hasic. Reviewed, dictated and finalized at location B. IMPRESSION: 1. Several noncontiguous regions mild small bowel dilation without discrete tr ansition point. Could be enteritis or low-grade partial obstruction. 2. Midline hernias with bowel bulging inside. 3. Some amount of pelvic prolapse, distended bladder and mild right hydrourete ronephrosis probably phasic.
--- NOTE | ~2021-03-11 | XR_ITS ---
EXAMINATION: XR sm bowel follow through WS DATE: 03/15/2021 10:00 INDICATION: Small bowel obstruction TECHNIQUE: Independent Beauty Consultant radiograph(s) of the abdomen was/were obtained. Oral contrast was administered, and sequential radiographs of the abdomen were obtained until oral contrast was noted to be in the proxi mal colon. COMPARISON: CT dated 03/15/2021 FINDINGS: Independent Beauty Consultant image demonstrates a persistent single dilated loop of gas-filled small bowel in the right abdo men. Anastomotic suture line is seen in the pelvis in the region of the rectosigmoid junction. Transi t time from the stomach to proximal colon was approximately 45 minutes. There is normal caliber and m ucosal fold pattern throughout the small bowel. The dilated loop of small bowel decreases to normal c aliber on the 45 minute and 1 hour and 15 minute images at which time there are no residual dilated l oops of bowel. IMPRESSION: 1. Prior small bowel obstruction appears to have resolved with contrast transit into the colon within 45 minutes and with resolution of prior small bowel dilation. Reviewed, dictated and finalized at location A. IMPRESSION: 1. Prior small bowel obstruction appears to have resolved with contrast transit into the colon within 45 minutes and with resolution of prior small bowel dila tion.
--- NOTE | ~2021-03-11 | XR_ITS ---
EXAMINATION: XR abdomen obstructive series DATE: 03/17/2021 09:40 INDICATION: Abdominal pain TECHNIQUE: Upright and supine views of the abdomen were obtained. COMPARISON: 03/15/2021 FINDINGS: There is mildly dilated small bowel in the midabdomen. Gas and enteric contrast material fr om recent small bowel follow-through are seen throughout the colon to the level of the rectum. The vi sualized lung bases are clear. There is thoracolumbar levoscoliosis. Moderate osteoarthritis is noted in the hips. IMPRESSION: 1. Dilated small bowel, likely ileus. Reviewed, dictated and finalized at location B.
--- NOTE | ~2021-03-11 | CT_ITS ---
EXAMINATION: CT abdomen pelvis wo con DATE: 03/15/2021 05:14 INDICATION: Bowel obstruction. Abdominal pain. TECHNIQUE: Computed tomography (CT) of the abdomen and pelvis was performed without intravenous contr ast. Automated exposure control and iterative reconstruction technique were employed. The dose-length product was 486.81 mGy-cm. COMPARISON: 03/13/2021 FINDINGS: Small bilateral pleural effusions with dependent atelectasis in the bilateral lower lobes. Heart size is normal. No pericardial effusion. 1 cm hepatic cyst. Dependently layering sludge versus residual v icariously excreted contrast in the otherwise normal-appearing gallbladder. Spleen, pancreas, bilater al adrenal glands and kidneys are normal. Interval decrease in now a couple short mildly dilated loop s of small bowel in the abdomen consistent with improving small bowel obstruction. Normal appendix. P ostoperative changes with anastomotic suture line at the rectosigmoid junction. Ventral diastases wit h wide mouthed hernia containing short segments of nonobstructed large and small bowel. The uterus is not identified and has likely been surgically resected. Bladder is normal. Minimal ascites in the cu l-de-sac. Pelvic floor relaxation. No pathologically enlarged abdominal or pelvic lymphadenopathy. Ol d healed right superior and inferior pubic rami fractures thoracolumbar levoscoliosis with moderate s pondylosis. IMPRESSION: 1. Improving small bowel obstruction. 2. Small bilateral pleural effusions. 3. Ventral hernia with wide mouthed midline hernia containing short segment of nonobstructed bowel. Reviewed, dictated and finalized at location A.
--- NOTE | ~2021-03-11 | CT_ITS ---
EXAMINATION: CT abdomen pelvis w con DATE: 03/18/2021 09:16 INDICATION: Persistent small bowel obstruction presenting with nausea and vomiting. TECHNIQUE: Computed tomography (CT) of the abdomen and pelvis was performed with 100 mL Omnipaque-350 intravenous contrast. Automated exposure control and iterative reconstruction technique were employe d. The dose-length product was 293.08 mGy-cm. COMPARISON: 03/15/2021 mild atelectasis and a few scattered calcified granulomata at the bilateral low er lung zones. Heart size is normal. No pericardial or pleural effusion. 1 cm hepatic cyst. Gallbladd er is dilated to 4.7 cm but without evident wall thickening or pericholecystic inflammatory change to suggest acute cholecystitis. Pancreas, spleen, bilateral adrenal glands and kidneys are normal. Agai n seen are multiple loops of dilated fluid-filled small bowel which measure up to 4.8 cm in maximal d iameter. There is a transition point in the mid abdomen on axial series 3, image 90, coronal series 6 01, image 32. Colon is relatively decompressed with anastomotic suture line at the rectosigmoid junct ion. Normal appendix. Bladder is normal. The uterus is not identified and has likely been surgically resected. Pelvic floor relaxation. Small amount of ascites in the cul-de-sac. No pathologically enlar ged abdominal or pelvic lymphadenopathy. Old healed right superior and inferior pubic rami fractures. Thoracolumbar levorotoscoliosis with moderate spondylosis. FINDINGS: 1. Recurrent small bowel obstruction with transition point in the mid abdomen. 2. Ventral diastases with wide mouthed hernia IMPRESSION: 1. Reviewed, dictated and finalized at location A. IMPRESSION: 1.
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
[2021-03-11] MEDS: SODIUM CHLORIDE 0.9% IV 1,000 ML 999 ML IV CONT (15:24)
[2021-03-11] MEDS: ONDANSETRON INJ 4 MG/2 ML VIAL IV PUSH (15:24)
[2021-03-11] MEDS: HYDROmorphone HCL INJ (*CRX) 2 MG/ML VIAL 0.5 MG IV PUSH ×3 (15:24→22:51)
[2021-03-11 15:29] LABS: Basophils Absolute Auto 0.04 K/mm3 (0.00-0.10); Basophils Percent Auto 0.8 % (0.0-1.0); Eosinophils Absolute Auto 0.05 K/mm3 (0.02-0.50); Hematocrit 38.7 % (35.0-42.0); Hemoglobin 12.7 g/dL (11.7-13.8); Immature Granulocyte Absolute 0.02 K/mm3 (0.00-0.00); Immature Granulocyte Percent A 0.4 % (0.0-0.0); Lymphocytes Absolute Auto 0.96 K/mm3 (1.10-4.50); Lymphocytes Percent Auto 18.6 % (18.0-42.0); Mean Corpuscular HGB Conc 32.8 g/dL (32.0-36.0); Mean Corpuscular Hemoglobin 30.1 pg (27.0-31.0); Mean Corpuscular Volume 91.7 fL (78.0-102.0); Mean Platelet Volume 9.3 fl (9.2-11.8); Monocytes Absolute Auto 0.46 K/mm3 (0.10-0.90); Monocytes Percent Auto 8.9 % (2.0-11.0); Neutrophils Absolute Auto 3.6 K/mm3 (1.7-7.2); Neutrophils Percent Auto 70.3 % (50.0-70.0); Platelet Count Result 213 K/mm3 (150-420); Red Blood Count 4.22 M/mm3 (4.20-5.40); Red Cell Distribution Width 14.2 % (11.6-14.4); White Blood Count 5.2 K/mm3 (4.8-10.8)
[2021-03-11 15:45] LABS: Alanine Aminotransferase 27 U/L (14-59); Albumin Level 3.8 g/dL (3.4-5.0); Alkaline Phosphatase 63 U/L (46-116); Anion Gap 11 mmol/L (8-16); Aspartate Amino Transferase 20 U/L (15-37); Bilirubin,Total 0.3 mg/dL (0.00-1.00); Blood Urea Nitrogen 9 mg/dL (7-18); Calcium 9.2 mg/dL (8.5-10.1); Carbon Dioxide 28 mmol/L (21-32); Chloride 103 mmol/L (98-108); Estimated CRCL calculation 52 ml/min; Estimated Glomerular Filt Rate > 60; Glucose 108 mg/dL (70-99); Lipase 102 U/L (73-393); Osmolality Calculated 293 mOsm/kg (285-295); Potassium 3.5 mmol/L (3.5-5.1); Sodium 142 mmol/L (136-145); Total Protein 7.3 g/dL (6.4-8.2)
[2021-03-11 15:48] LABS: Lactic Acid Reflex 1.6 mmol/L (0.4-2.0)
[2021-03-11] MEDS: SODIUM CHLORIDE 0.9% IV 1,000 ML 150 ML IV CONT (19:49)
--- NOTE | 2021-03-11 21:09 | PC.NURSE ---
Patient is NPO.
[2021-03-11] MEDS: PANTOPRAZOLE SODIUM IV 40 MG VIAL IV PUSH (21:35)
--- NOTE | 2021-03-11 22:45 | ADMGEN ---
This patient, Azeb Vallejo, was admitted to 2nd Floor Room 204-2. Patient/family oriented to hospital policies and general routines including ID bracelet, bed and alarms, visiting hours, pain management, procedures, bathroom and other care routines, personal items, smoking policy, room service/diet, and visiting hours. Information on how to activate the Rapid Response Team has been discussed. Patient/Family are encouraged to report perceived risks to care and to ask questions if they do not understand what they are told or what they should do.
[2021-03-11] MEDS: SODIUM CHLORIDE 0.9% IV 1,000 ML 100 ML IV CONT (22:59)
[2021-03-12 01:58] VITALS: BP 122/67; PULSE 67; RESP 20; TEMP 36.3; O2SAT 97
[2021-03-12] MEDS: SODIUM CHLORIDE 0.9% IV 1,000 ML 150 ML IV CONT ×3 (04:36→17:37)
[2021-03-12 05:30] LABS: Basophils Absolute Auto 0.03 K/mm3 (0.00-0.10); Basophils Percent Auto 0.4 % (0.0-1.0); Eosinophils Absolute Auto 0.01 K/mm3 (0.02-0.50); Eosinophils Percent Auto 0.1 % (1.0-6.0); Hemoglobin 11.8 g/dL (11.7-13.8); Immature Granulocyte Absolute 0.04 K/mm3 (0.00-0.00); Immature Granulocyte Percent A 0.6 % (0.0-0.0); Lymphocytes Absolute Auto 0.58 K/mm3 (1.10-4.50); Lymphocytes Percent Auto 8.3 % (18.0-42.0); Mean Corpuscular HGB Conc 31.9 g/dL (32.0-36.0); Mean Corpuscular Hemoglobin 29.9 pg (27.0-31.0); Mean Corpuscular Volume 93.9 fL (78.0-102.0); Mean Platelet Volume 9.7 fl (9.2-11.8); Monocytes Absolute Auto 0.42 K/mm3 (0.10-0.90); Neutrophils Absolute Auto 5.9 K/mm3 (1.7-7.2); Neutrophils Percent Auto 84.6 % (50.0-70.0); Platelet Count Result 209 K/mm3 (150-420); Red Blood Count 3.94 M/mm3 (4.20-5.40); Red Cell Distribution Width 14.4 % (11.6-14.4)
[2021-03-12 05:55] LABS: Alanine Aminotransferase 23 U/L (14-59); Albumin Level 3.1 g/dL (3.4-5.0); Alkaline Phosphatase 56 U/L (46-116); Anion Gap 8 mmol/L (8-16); Aspartate Amino Transferase 16 U/L (15-37); Bilirubin,Total 0.5 mg/dL (0.00-1.00); Blood Urea Nitrogen 7 mg/dL (7-18); Calcium 8.2 mg/dL (8.5-10.1); Carbon Dioxide 28 mmol/L (21-32); Chloride 109 mmol/L (98-108); Estimated CRCL calculation 54 ml/min; Estimated Glomerular Filt Rate > 60; Glucose 116 mg/dL (70-99); Lipase 62 U/L (73-393); Osmolality Calculated 299 mOsm/kg (285-295); Potassium 3.8 mmol/L (3.5-5.1); Sodium 145 mmol/L (136-145)
[2021-03-12 06:00] LABS: Lactic Acid Reflex 0.9 mmol/L (0.4-2.0)
[2021-03-12 08:00] VITALS: BP 122/78; PULSE 78; RESP 20; TEMP 36.6; O2SAT 97
[2021-03-12] MEDS: HYDROmorphone HCL INJ (*CRX) 2 MG/ML VIAL 0.5 MG IV PUSH ×3 (08:26→19:04)
[2021-03-12] MEDS: PANTOPRAZOLE SODIUM IV 40 MG VIAL IV PUSH ×2 (08:26→21:24)
[2021-03-12] MEDS: ENOXAPARIN 40 MG/0.4 ML SYRINGE SUB-Q (08:30)
[2021-03-12] MEDS: ONDANSETRON INJ 4 MG/2 ML VIAL IV PUSH (10:40)
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
--- NOTE | 2021-03-12 11:07 | PC.NURSE ---
patient had emesis sm amt of clear with brown specks. ng tube checked again for placement and flushed with 15ml of h20, immediate return of brown clear fluid in tube and return of 300ml. back in bed hob up. prn given for n/v and prn given headache. oral care given and lip balm applied. claims feeling better. denies any abd pain at this time. family at bedside.
[2021-03-12 16:00] VITALS: BP 116/60; PULSE 65; RESP 15; TEMP 36.7; O2SAT 94
[2021-03-12 16:19] LABS: Add Urine Microscopic? YES; Appearance Urine Clear (Clear); Bilirubin Urine Negative (Negative); Blood Urine Negative (Negative); Color Urine Light Yellow (Yellow); Glucose Urine UA Negative (Negative); Ketones Urine 1+ (Negative); Leukocyte Esterase Ur Trace LEU/UL (Negative); Nitrate Urine Negative (Negative); Protein Urine Negative (Negative); Specific Grav Ur 1.015 (1.010-1.020); Urobilinogen Urine 0.2 mg/dL (0.2-1.0)
[2021-03-12 16:35] LABS: RBC Urine None seen /hpf (0-2); Squamous Epithelial Cell Urine Few /hpf (Few)
[2021-03-12 16:36] LABS: Bacteria Urine 1+ /hpf
[2021-03-13] VITALS: BP 142/73; PULSE 71; RESP 18; TEMP 37.1; O2SAT 91
[2021-03-13] MEDS: SODIUM CHLORIDE 0.9% IV 1,000 ML 150 ML IV CONT (00:59)
[2021-03-13] MEDS: HYDROmorphone HCL INJ (*CRX) 2 MG/ML VIAL 0.5 MG IV PUSH ×4 (01:03→21:22)
[2021-03-13] MEDS: ONDANSETRON INJ 4 MG/2 ML VIAL IV PUSH ×2 (01:04→06:42)
--- NOTE | 2021-03-13 01:26 | PC.NURSE ---
Dr. Houston notified of pt's c/o sore throat from NG tube; New orders received and noted.
[2021-03-13] MEDS: PHENOL/SOD PHENO SPRAY CHERRY (*BKC) 1 SPRAY MUCOUS MEM ×3 (01:35→20:19)
[2021-03-13 01:39] VITALS: TEMP 37.1
[2021-03-13 05:12] LABS: Hematocrit 35.5 % (35.0-42.0); Hemoglobin 11.3 g/dL (11.7-13.8); Mean Corpuscular HGB Conc 31.8 g/dL (32.0-36.0); Mean Corpuscular Hemoglobin 30.7 pg (27.0-31.0); Mean Corpuscular Volume 96.5 fL (78.0-102.0); Mean Platelet Volume 10.1 fl (9.2-11.8); Platelet Count Result 181 K/mm3 (150-420); Red Blood Count 3.68 M/mm3 (4.20-5.40); Red Cell Distribution Width 14.6 % (11.6-14.4); White Blood Count 6.5 K/mm3 (4.8-10.8)
[2021-03-13 05:29] LABS: Alanine Aminotransferase 19 U/L (14-59); Albumin Level 2.7 g/dL (3.4-5.0); Alkaline Phosphatase 49 U/L (46-116); Aspartate Amino Transferase 15 U/L (15-37); Bilirubin,Total 0.6 mg/dL (0.00-1.00); Blood Urea Nitrogen 6 mg/dL (7-18); Calcium 7.9 mg/dL (8.5-10.1); Carbon Dioxide 26 mmol/L (21-32); Estimated CRCL calculation 65 ml/min; Estimated Glomerular Filt Rate > 60; Glucose 81 mg/dL (70-99); Total Protein 5.4 g/dL (6.4-8.2)
[2021-03-13 05:34] LABS: Anion Gap 9 mmol/L (8-16); Chloride 112 mmol/L (98-108); Osmolality Calculated 300 mOsm/kg (285-295); Potassium 3.6 mmol/L (3.5-5.1); Sodium 147 mmol/L (136-145)
[2021-03-13 07:35] VITALS: BP 137/88; PULSE 66; RESP 18; TEMP 37; O2SAT 94
[2021-03-13] MEDS: DEXTROSE 5%/0.9% SOD CHL 1,000 ML 150 ML IV CONT ×3 (08:14→21:42)
[2021-03-13] MEDS: ENOXAPARIN 40 MG/0.4 ML SYRINGE SUB-Q (08:52)
[2021-03-13] MEDS: PANTOPRAZOLE SODIUM IV 40 MG VIAL IV PUSH ×2 (08:52→20:16)
--- NOTE | 2021-03-13 09:49 | P.PN_ITS ---
Progress Note: A&P Assessment and Plan (1) Partial obstruction of small intestine: Code(s): K56.600 - Partial intestinal obstruction, unspecified as to cause <Ugo Garcia GAS DISPATCHER-C - Last Filed: 03/13/21 09:52> Status: Acute <Ugo Garcia GAS DISPATCHERLynnetteEvert - Last Filed: 03/13/21 09:52> Assessment and Plan: * Chronic, possibly secondary to adhesion or enteritis * CT indicates partial obstructing to the sigmoid colon * Patient will remain n.p.o. with NG tube to suction in place * CT of the abdomen scheduled for 03/14/2021 * Continue antiemesis and analgesics * Avoid morphine and due to history of combativeness * Patient currently receiving Dilaudid it is controlling her pain at this time <Ugo GarciaEUNICE - Last Filed: 03/13/21 09:52> (2) Hx of delirium: Code(s): Z87.898 - Personal history of other specified conditions <Ugo Garcia GAS DISPATCHER-C - Last Filed: 03/13/21 09:52> Status: Chronic <Ugo Garcia GAS DISPATCHER-C - Last Filed: 03/13/21 09:52> Assessment and Plan: * History of hospitalization delirium <Ugo GarciaEUNICE - Last Filed: 03/13/21 09:52> (3) Cerebrovascular accident: Onset Date: ~2018 <Ugo Garcia GAS DISPATCHERLynnetteEvert - Last Filed: 03/13/21 09:52> Code(s): I63.9 - Cerebral infarction, unspecified <Ugo Garcia GAS DISPATCHER-C - Last Filed: 03/13/21 09:52> Status: Chronic <Ugo Garcia GAS DISPATCHERLynnetteEvert - Last Filed: 03/13/21 09:52> Assessment and Plan: * CVA in 2019 with residual to the right upper and lower extremity <Ugo GarciaEUNICE - Last Filed: 03/13/21 09:52> (4) Hx of colon cancer, stage III: Code(s): Z85.038 - Personal history of other malignant neoplasm of large intestine <Ugo AndersonEUNICE Padilla - Last Filed: 03/13/21 09:52> Status: Acute <Ugo Garcia EMILY-C - Last Filed: 03/13/21 09:52> Assessment and Plan: * Developed colon cancer September 2018 status post hemicolectomy for stage T3!, 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 * Followed by <Ugo AndersonEMILY Padilla-C - Last Filed: 03/13/21 09:52> (5) GERD (gastroesophageal reflux disease): Qualifiers: Esophagitis presence: esophagitis presence not specified Qualified Code(s): K21.9 - Gastro-esophageal reflux disease without esophagitis <Ugo AndersonJuan Garcia GAS DISPATCHER-C - Last Filed: 03/13/21 09:52> Code(s): K21.9 - Gastro-esophageal reflux disease without esophagitis <Ugo AndersonJuan Garcia GAS DISPATCHER-C - Last Filed: 03/13/21 09:52> Status: Chronic <Ugo AndersonNAZ PadillaMaryanne - Last Filed: 03/13/21 09:52> Assessment and Plan: * Protonix <Ugo AndersonNAZ PadillaP-C - Last Filed: 03/13/21 09:52> (6) Pure hypercholesterolemia: Code(s): E78.00 - Pure hypercholesterolemia, unspecified <Ugo Garcia JULIOC - Last Filed: 03/13/21 09:52> Status: Chronic <Ugo AndersonJuan JoseNAZMaribellC - Last Filed: 03/13/21 09:52> Additional Plan Pt was seen on rounds with Ugo RICH. Please review the notes. Will review the CT scan to decide whether to transfer her today for Surgical review. <Victor Hugo Pringle MD - Last Filed: 03/13/21 12:54> Time Spent With Patient Time with patient: 15 - 25 minutes <Victor Hugo Pringle MD - Last Filed: 03/13/21 12:54> Subjective Date/time seen: 03/13/21 09:49 patient continues to have severe abdominal cramping specifically on the right upper quadrant. Her pain is being controlled with pain medication, she will remain n.p.o. for another day. We will
--- NOTE | 2021-03-13 09:49 | WPDPN ---
Progress Note: A&P Assessment and Plan (1) Partial obstruction of small intestine: Code(s): K56.600 - Partial intestinal obstruction, unspecified as to cause <Ugo Ann EUNICE Garcia - Last Filed: 03/13/21 09:52> Status: Acute <Ugo GarciaEUNICE - Last Filed: 03/13/21 09:52> Assessment and Plan: Chronic, possibly secondary to adhesion or enteritis CT indicates partial obstructing to the sigmoid colon Patient will remain n.p.o. with NG tube to suction in place CT of the abdomen scheduled for 03/14/2021 Continue antiemesis and analgesics Avoid morphine and due to history of combativeness Patient currently receiving Dilaudid it is controlling her pain at this time <Ugo JustinEUNICE Padilla - Last Filed: 03/13/21 09:52> (2) Hx of delirium: Code(s): Z87.898 - Personal history of other specified conditions <EUNICE Irby - Last Filed: 03/13/21 09:52> Status: Chronic <Ugo GarciaEUNICE - Last Filed: 03/13/21 09:52> Assessment and Plan: History of hospitalization delirium <Ugo JustinEUNICE Padilla - Last Filed: 03/13/21 09:52> (3) Cerebrovascular accident: Onset Date: ~2019 <Ugo JustinEUNICE Padilla - Last Filed: 03/13/21 09:52> Code(s): I63.9 - Cerebral infarction, unspecified <Ugo AndersonEUNICE Padilla - Last Filed: 03/13/21 09:52> Status: Chronic <Sarwatina JustinEUNICE Padilla - Last Filed: 03/13/21 09:52> Assessment and Plan: CVA in 2019 with residual to the right upper and lower extremity <EUNICE Irby - Last Filed: 03/13/21 09:52> (4) Hx of colon cancer, stage III: Code(s): Z85.038 - Personal history of other malignant neoplasm of large intestine <EUNICE Irby - Last Filed: 03/13/21 09:52> Status: Acute <SarwatEUNICE Garcia - Last Filed: 03/13/21 09:52> Assessment and Plan: Developed colon cancer September 2018 status post hemicolectomy for stage T3!, 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 Followed by <EUNICE Irby - Last Filed: 03/13/21 09:52> (5) GERD (gastroesophageal reflux disease): Qualifiers: Esophagitis presence: esophagitis presence not specified Qualified Code(s): K21.9 - Gastro-esophageal reflux disease without esophagitis <JULIO IrbyC - Last Filed: 03/13/21 09:52> Code(s): K21.9 - Gastro-esophageal reflux disease without esophagitis <JULIO IrbyC - Last Filed: 03/13/21 09:52> Status: Chronic <EUNICE Irby - Last Filed: 03/13/21 09:52> Assessment and Plan: Protonix <JULIO IrbyC - Last Filed: 03/13/21 09:52> (6) Pure hypercholesterolemia: Code(s): E78.00 - Pure hypercholesterolemia, unspecified <EUNICE Irby - Last Filed: 03/13/21 09:52> Status: Chronic <EUNICE Irby - Last Filed: 03/13/21 09:52> Additional Plan Pt was seen on rounds with Ms Ugo RICH. Please review the notes. Will review the CT scan to decide whether to transfer her today for Surgical review. <Victor Hugo Pringle MD - Last Filed: 03/13/21 12:54> Time Spent With Patient Time with patient: 15 - 25 minutes <Victor Hugo Pringle MD - Last Filed: 03/13/21 12:54> Subjective Date/time seen: 03/13/21 09:49 patient continues to have severe abdominal cramping specifically on the right upper quadrant. Her pain is being controlled with pain medication, she will remain n.p.o. for another day. We will repeat a CT of the abdomen in the a.m. and attempt to advance her diet if no change in CT. patient does have brownish secretion in the suction canister her NG tube which is different from yesterday. The patient denies SOB, CP, palpitation, extremity numbness, lightheadedness, dizziness, constipation, diarrhea, chills, or
[2021-03-13 13:05] VITALS: TEMP 37.3
[2021-03-13 16:34] VITALS: BP 124/70; PULSE 65; RESP 18; TEMP 36.8; O2SAT 93
[2021-03-14] VITALS: BP 137/66; PULSE 73; RESP 20; TEMP 36.3; O2SAT 95
[2021-03-14] MEDS: HYDROmorphone HCL INJ (*CRX) 2 MG/ML VIAL 0.5 MG IV PUSH ×2 (03:37→09:26)
--- NOTE | 2021-03-14 03:47 | PC.NURSE ---
Pt given Dilaudid 0.5 mg IVP to relieve c/o lower abdominal pain. Pt rated her pain as a 9 on a 1-10 pain scale.
[2021-03-14 05:17] LABS: Hematocrit 34.1 % (35.0-42.0); Hemoglobin 10.9 g/dL (11.7-13.8); Mean Corpuscular Hemoglobin 30.5 pg (27.0-31.0); Mean Corpuscular Volume 95.5 fL (78.0-102.0); Platelet Count Result 177 K/mm3 (150-420); Red Blood Count 3.57 M/mm3 (4.20-5.40); Red Cell Distribution Width 14.4 % (11.6-14.4); White Blood Count 4.9 K/mm3 (4.8-10.8)
--- NOTE | 2021-03-14 05:25 | PC.NURSE ---
Pt expelled several small pieces of small formed brown stool mixed with urine @ once on BSC.
[2021-03-14 05:35] LABS: Alanine Aminotransferase 6 U/L (14-59); Albumin Level 2.8 g/dL (3.4-5.0); Alkaline Phosphatase 47 U/L (46-116); Anion Gap 12 mmol/L (8-16); Aspartate Amino Transferase 15 U/L (15-37); Bilirubin,Total 0.5 mg/dL (0.00-1.00); Blood Urea Nitrogen 3 mg/dL (7-18); Calcium 7.5 mg/dL (8.5-10.1); Carbon Dioxide 25 mmol/L (21-32); Chloride 109 mmol/L (98-108); Estimated CRCL calculation 61 ml/min; Estimated Glomerular Filt Rate > 60; Glucose 119 mg/dL (70-99); Magnesium 1.5 mg/dL (1.8-2.4); Osmolality Calculated 299 mOsm/kg (285-295); Potassium 2.9 mmol/L (3.5-5.1); Sodium 146 mmol/L (136-145); Total Protein 5.6 g/dL (6.4-8.2)
[2021-03-14] MEDS: DEXTROSE 5%/0.9% SOD CHL 1,000 ML 150 ML IV CONT ×3 (06:06→19:43)
[2021-03-14 07:40] VITALS: BP 128/78; PULSE 70; RESP 18; TEMP 36.8; O2SAT 92
--- NOTE | 2021-03-14 08:37 | WPDPN ---
Progress Note: A&P Assessment and Plan (1) Partial obstruction of small intestine: Code(s): K56.600 - Partial intestinal obstruction, unspecified as to cause Status: Acute Assessment and Plan: Chronic, possibly secondary to adhesion or enteritis CT indicates partial obstructing to the sigmoid colon Patient will remain n.p.o. with NG tube to suction in place CT of the abdomen scheduled for 03/15/2021 patient will more than likely need SBFT Continue antiemesis and analgesics Avoid morphine and due to history of combativeness Patient currently receiving Dilaudid it is controlling her pain at this time (2) Hx of delirium: Code(s): Z87.898 - Personal history of other specified conditions Status: Chronic Assessment and Plan: History of hospitalization delirium (3) Cerebrovascular accident: Onset Date: ~2018 Code(s): I63.9 - Cerebral infarction, unspecified Status: Chronic Assessment and Plan: CVA in 2019 with residual to the right upper and lower extremity (4) Hx of colon cancer, stage III: Code(s): Z85.038 - Personal history of other malignant neoplasm of large intestine Status: Acute Assessment and Plan: Developed colon cancer September 2018 status post hemicolectomy for stage T3!, 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 Followed by (5) GERD (gastroesophageal reflux disease): Qualifiers: Esophagitis presence: esophagitis presence not specified Qualified Code(s): K21.9 - Gastro-esophageal reflux disease without esophagitis Code(s): K21.9 - Gastro-esophageal reflux disease without esophagitis Status: Chronic Assessment and Plan: Protonix (6) Pure hypercholesterolemia: Code(s): E78.00 - Pure hypercholesterolemia, unspecified Status: Chronic (7) Hypokalemia: Code(s): E87.6 - Hypokalemia Status: Acute Assessment and Plan: Potassium 2.9 Will replace with K rider (8) Hypomagnesemia: Code(s): E83.42 - Hypomagnesemia Status: Acute Assessment and Plan: Magnesium 1.5 Will supplement with mag sulfate IV Subjective Date/time seen: 03/14/21 08:37 patient continues to have abdominal cramping she did have 1 small bowel movement today her pain is still being controlled by pain medication. Her NG is still in place and up to suction. Plan to schedule a CT of the abdomen tomorrow morning if no improvement I will call Dr. Garcia to see if he wants patient transferred to [place]. Patient will more than likely need SBFT in our facility does not provide the services. The patient denies SOB, CP, palpitation, extremity numbness, lightheadedness, dizziness, constipation, diarrhea, chills, or fever. Review of Systems Review of Systems: Narrative: A 14 organ system Review of Systems was performed and pertinent positives included in the HPI, otherwise remaining ROS is negative. All systems reviewed & are unremarkable except as noted in HPI and below Exam Narrative: Exam Narrative: GENERAL: This is a well-nourished, well-developed patient, in no apparent distress. HEAD: normocephalic, atraumatic. EYES: PERRL. Sclera clear/white. Vision is grossly intact. EARS: External ears normal, auditory canals clear and without drainage, TMs normal without perforation. Hearing grossly intact. NOSE: External nose normal with no obvious nasal discharge, nares without redness, no rhinorrhea. THROAT: Mucous membranes moist, posterior pharynx clear. NECK: Neck supple, non-tender without lymphadenopathy, masses or thyromegaly. CARDIOVASCULAR: Regular rate and rhythm without murmurs, gallops, or rubs. RESPIRATORY: Clear to auscultation. Breath sounds equal bilaterally. No wheezes, rales, or rhonchi. GASTROINTESTINAL: Abdomen soft, abdominal tenderness right upper quadrant, nondistended. Bowel sounds are active. No hepato-splenom
[2021-03-14] MEDS: KCL 20 MEQ/SW 100 ML 100 ML 50 MEQ IVPB ×2 (09:04→11:19)
[2021-03-14] MEDS: ENOXAPARIN 40 MG/0.4 ML SYRINGE SUB-Q (09:05)
[2021-03-14] MEDS: PANTOPRAZOLE SODIUM IV 40 MG VIAL IV PUSH ×2 (09:05→20:44)
[2021-03-14] MEDS: MAGNESIUM SULF 2 GM/WATER 50ML 2 GM/50 ML BAG IVPB (10:45)
[2021-03-14] MEDS: SODIUM CHLORIDE 0.9% IV 250 ML 100 ML IV CONT (11:19)
[2021-03-14 15:34] VITALS: BP 136/79; PULSE 66; RESP 18; TEMP 37.2; O2SAT 92
--- NOTE | 2021-03-14 20:40 | PC.NURSE ---
Assisted to BSC, very confused, verbal cues needed to complete activity; Patient states, Your making fun of me , I don't believe you are a nurse Refused IV Protonix and requested to speak to Charge Nurse. Vianey, Charge Nurse came in to room and discussed care needs and that this nurse was there to care for her. Patient agreed to medication and continued care but was tearful at times and stated she didn't know what was going on and what she should do. Reoriented to place and Hospitalization but then said she wasn't sure.
[2021-03-14 23:49] VITALS: BP 152/88; PULSE 73; RESP 20; TEMP 36.7; O2SAT 97
--- NOTE | 2021-03-15 00:50 | PC.NURSE ---
Pt up to the commode with assist of one. Pt voided 1200 ml mof light yellow clear urine. Pt's gait and balance were very unsteady during transfer. Side rails up x2 and alarm set. Pt was upset that the bed alarm was set and said I wouldnt do that to you I explained why the bed alarm was on at this time. but pt said she didnt trust me.
--- NOTE | 2021-03-15 02:15 | PC.NURSE ---
Dr. Houston notified of pt's agitated behavior; New orders received and noted.
[2021-03-15] MEDS: LORazepam INJ (*CRX) 2 MG/ML VIAL 1 MG IV PUSH (02:32)
[2021-03-15] MEDS: DEXTROSE 5%/0.9% SOD CHL 1,000 ML 150 ML IV CONT ×2 (02:37→13:00)
--- NOTE | 2021-03-15 03:32 | PC.NURSE ---
Sleeping; skin pink, respirations easy/unlabored. N/G to low intermitten suction continues. IV fluids @150ml/hr per IV pump.
--- NOTE | 2021-03-15 04:48 | PC.NURSE ---
Dr. Houston notified of pt pulling NG tube out; He said to contact X-ray and have a CTA of the abdomen done now .
--- NOTE | 2021-03-15 04:55 | PC.NURSE ---
Pulled out N/G; agitated trying to get out of bed however would not stand to be assisted to BSC requiring complete assist to pivot transfer. Very disoriented and pushing against staff. Voided clear light yellow urine and assisted by 2 staff to return to bed. Bed alarm reset and patient immediately attempted to get out of bed again, states she doesn't know where she wants to go. Purvi, oil pumper contacted physician regarding N/G and patient behavoirs. Patient placed in w/c and brought to nurse's station to wait for X-Ray for transport to CT. Patient remains confused to situation, needing constant visual monitoring and verbal cues to remain in W/C.
--- NOTE | 2021-03-15 05:06 | PC.NURSE ---
To radiology department per w/c accompanied by tech.
[2021-03-15 05:27] LABS: Hematocrit 35.5 % (35.0-42.0); Hemoglobin 11.5 g/dL (11.7-13.8); Mean Corpuscular HGB Conc 32.4 g/dL (32.0-36.0); Mean Corpuscular Hemoglobin 29.9 pg (27.0-31.0); Mean Corpuscular Volume 92.4 fL (78.0-102.0); Mean Platelet Volume 10.3 fl (9.2-11.8); Platelet Count Result 188 K/mm3 (150-420); Red Blood Count 3.84 M/mm3 (4.20-5.40); Red Cell Distribution Width 13.7 % (11.6-14.4); White Blood Count 4.8 K/mm3 (4.8-10.8)
[2021-03-15 05:44] LABS: Alanine Aminotransferase 21 U/L (14-59); Albumin Level 3.2 g/dL (3.4-5.0); Alkaline Phosphatase 52 U/L (46-116); Anion Gap 9 mmol/L (8-16); Aspartate Amino Transferase 20 U/L (15-37); Bilirubin,Total 0.5 mg/dL (0.00-1.00); Blood Urea Nitrogen 1 mg/dL (7-18); Calcium 8.2 mg/dL (8.5-10.1); Carbon Dioxide 27 mmol/L (21-32); Chloride 111 mmol/L (98-108); Estimated CRCL calculation 66 ml/min; Estimated Glomerular Filt Rate > 60; Glucose 94 mg/dL (70-99); Magnesium 1.7 mg/dL (1.8-2.4); Osmolality Calculated 299 mOsm/kg (285-295); Potassium 3.1 mmol/L (3.5-5.1); Sodium 147 mmol/L (136-145); Total Protein 6.4 g/dL (6.4-8.2)
--- NOTE | 2021-03-15 05:50 | PC.NURSE ---
Remains at nurse's station in Shirin-chair with table in place to maintain a safe environment. Patient frequently trying to remove Coban from IV insertion site and pulling at tray.
[2021-03-15 07:30] VITALS: BP 146/78; PULSE 84; RESP 18; TEMP 36.8; O2SAT 96
--- NOTE | 2021-03-15 08:00 | PC.NURSE ---
Patient off floor to radiology
--- NOTE | 2021-03-15 10:00 | PC.NURSE ---
Patient returned to floor from radiology
[2021-03-15] MEDS: PANTOPRAZOLE SODIUM IV 40 MG VIAL IV PUSH ×2 (10:19→21:14)
[2021-03-15] MEDS: ENOXAPARIN 40 MG/0.4 ML SYRINGE SUB-Q (10:19)
[2021-03-15] MEDS: ASPIRIN 81 MG ENTERIC TABLET PO (10:19)
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
--- NOTE | 2021-03-15 10:46 | WPDPN ---
Progress Note: A&P Assessment and Plan (1) Partial obstruction of small intestine: Code(s): K56.600 - Partial intestinal obstruction, unspecified as to cause <Ugo Garcia EUNICE - Last Filed: 03/15/21 10:52> Status: Acute <Ugo Garcia EUNICE - Last Filed: 03/15/21 10:52> Assessment and Plan: Chronic, possibly secondary to adhesion or enteritis CT indicates partial obstructing to the sigmoid colon repeat CT indicates improved small bowel obstruction Patient will remain n.p.o. with NG tube to suction in place CT of the abdomen scheduled for 03/15/2021 SBFT indicates small bowel obstruction resolved will start clear liquid diet and advance as tolerated Continue antiemesis and analgesics Avoid morphine and due to history of combativeness Patient currently receiving Dilaudid it is controlling her pain at this time <Ugo Garcia JULIOC - Last Filed: 03/15/21 10:52> (2) Hx of delirium: Code(s): Z87.898 - Personal history of other specified conditions <Ugo Garcia JULIOC - Last Filed: 03/15/21 10:52> Status: Chronic <Ugo Garcia EUNICE - Last Filed: 03/15/21 10:52> Assessment and Plan: History of hospitalization delirium Patient has a history of sundowners <Ugo Garcia JULIOC - Last Filed: 03/15/21 10:52> (3) Cerebrovascular accident: Onset Date: ~2018 <Ugo Garcia EUNICE - Last Filed: 03/15/21 10:52> Code(s): I63.9 - Cerebral infarction, unspecified <Ugo Garcia JULIOC - Last Filed: 03/15/21 10:52> Status: Chronic <Ugo Garcia EUNICE - Last Filed: 03/15/21 10:52> Assessment and Plan: 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 Followed by <Ugo AndersonJuan Jose [facility]-C - Last Filed: 03/15/21 10:52> (5) GERD (gastroesophageal reflux disease): Qualifiers: Esophagitis presence: esophagitis presence not specified Qualified Code(s): K21.9 - Gastro-esophageal reflux disease without esophagitis <Ugo Garcia EMILY-C - Last Filed: 03/15/21 10:52> Code(s): K21.9 - Gastro-esophageal reflux disease without esophagitis <Ugo AndersonJuan Jose EMILY-C - Last Filed: 03/15/21 10:52> Status: Chronic <Ugo Garcia EMILY-C - Last Filed: 03/15/21 10:52> Assessment and Plan: Protonix <Ugo Garcia EMILY-C - Last Filed: 03/15/21 10:52> (6) Pure hypercholesterolemia: Code(s): E78.00 - Pure hypercholesterolemia, unspecified <Ugo Garcia EMILY-C - Last Filed: 03/15/21 10:52> Status: Chronic <Ugo Garica EMILY-C - Last Filed: 03/15/21 10:52> (7) Hypokalemia: Code(s): E87.6 - Hypokalemia <Ugo Garcia EMILY-C - Last Filed: 03/15/21 10:52> Status: Acute <Ugo Garcia EMILY-C - Last Filed: 03/15/21 10:52> Assessment and Plan: Potassium 2.9>3.1 Will replace with K rider <Ugo AndersonJuan Garcia EMILY-C - Last Filed: 03/15/21 10:52> (8) Hypomagnesemia: Code(s): E83.42 - Hypomagnesemia <EUNICE Irby - Last Filed: 03/15/21 10:52> Status: Acute <EUNICE Irby - Last Filed: 03/15/21 10:52> Assessment and Plan: Magnesium 1.5>1.7 Will supplement with mag sulfate IV <EUNICE Irby - Last Filed: 03/15/21 10:52> Subjective Date/time seen:
[2021-03-15 12:44] VITALS: TEMP 36.6
[2021-03-15] MEDS: KCL 20 MEQ/SW 100 ML 100 ML 50 MEQ IVPB ×2 (13:12→15:15)
[2021-03-15 16:00] VITALS: BP 137/93; PULSE 80; RESP 18; TEMP 36.4; O2SAT 99
[2021-03-15] MEDS: MAGNESIUM SULF 2 GM/WATER 50ML 2 GM/50 ML BAG IVPB (17:40)
--- NOTE | 2021-03-15 19:45 | PC.NURSE ---
Mold Tooler assisting patient off toilet and patient walked with walker set walker down and started demanding her cane so she can walk. Mold Tooler and charge nurse attempting to redirect patient and safety precautions with patient. Patient agitated and stated she doesn't need this thing, I have my own and slamming walker down. Mold Tooler and charge nurse were able to redirect patient back to recliner. Patient did not want chair reclined as she stated she was going to do my exercises. Tray was placed on recliner.
[2021-03-15 20:23] LABS: Appearance Urine Clear (Clear); Bilirubin Urine Negative (Negative); Color Urine Light Yellow (Yellow); Glucose Urine UA Negative (Negative); Ketones Urine Negative (Negative); Leukocyte Esterase Ur 1+ LEU/UL (Negative); Nitrate Urine Negative (Negative); Protein Urine Negative (Negative); Specific Grav Ur 1.015 (1.010-1.020); Urobilinogen Urine 0.2 mg/dL (0.2-1.0)
[2021-03-15 20:30] LABS: Add Urine Microscopic? YES; Bacteria Urine None seen /hpf; Blood Urine Trace-Intact (Negative); RBC Urine 0-2 /hpf (0-2); Squamous Epithelial Cell Urine Rare /hpf (Few); WBC Urine 0-3 /hpf (0-3)
[2021-03-16] VITALS: BP 148/85; PULSE 65; RESP 18; TEMP 36.2; O2SAT 98
--- NOTE | 2021-03-16 00:39 | PC.NURSE ---
Patient bed alarm sounding. Middle School Librarian entered room and patient stated had to use restroom. [employer] Librarian assisting patient and then patient grabbed bedside commode and attempted to throw bedside commode. Patient started hitting loan underwriter in chest and shoving writers shoulder. Patient very unsteady and loan underwriter attempting to get patient back into bed, which patient is refusing. Patient finally sat on bed, refused to toilet and laid down and covered self up. Bed alarm set, rails up.
--- NOTE | 2021-03-16 00:58 | PC.NURSE ---
Patient getting out of bed to get cane. Track Repair Supervisor assisting patient d/t unsteady gait. Patient jerking shoulders away. Patient grabbed cane and got back into bed. Currently holding cane to chest and in bed. Not sleeping.
[2021-03-16] MEDS: ACETAMINOPHEN 500 MG TABLET 1000 MG PO ×3 (04:38→20:47)
[2021-03-16 07:30] VITALS: BP 154/81; PULSE 71; RESP 18; TEMP 36.4; O2SAT 97
[2021-03-16 07:47] LABS: Hematocrit 35.3 % (35.0-42.0); Hemoglobin 11.7 g/dL (11.7-13.8); Mean Corpuscular HGB Conc 33.1 g/dL (32.0-36.0); Mean Corpuscular Hemoglobin 30.6 pg (27.0-31.0); Mean Corpuscular Volume 92.4 fL (78.0-102.0); Mean Platelet Volume 9.8 fl (9.2-11.8); Platelet Count Result 199 K/mm3 (150-420); Red Blood Count 3.82 M/mm3 (4.20-5.40); White Blood Count 4.8 K/mm3 (4.8-10.8)
[2021-03-16 07:57] LABS: Anion Gap 9 mmol/L (8-16); Blood Urea Nitrogen 4 mg/dL (7-18); Calcium 8.4 mg/dL (8.5-10.1); Carbon Dioxide 29 mmol/L (21-32); Chloride 108 mmol/L (98-108); Estimated CRCL calculation 58 ml/min; Estimated Glomerular Filt Rate > 60; Glucose 99 mg/dL (70-99); Osmolality Calculated 298 mOsm/kg (285-295); Potassium 3.4 mmol/L (3.5-5.1); Sodium 146 mmol/L (136-145)
[2021-03-16] MEDS: ASPIRIN 81 MG ENTERIC TABLET PO (08:13)
[2021-03-16] MEDS: ENOXAPARIN 40 MG/0.4 ML SYRINGE SUB-Q (08:14)
[2021-03-16] MEDS: PANTOPRAZOLE SODIUM IV 40 MG VIAL IV PUSH ×2 (08:14→21:11)
--- NOTE | 2021-03-16 11:29 | PC.NURSE ---
pt's sister at bedside visiting with pt
--- NOTE | 2021-03-16 13:27 | P.DS_ITS ---
DS: Discharge Diagnosis Discharge Diagnosis (1) Partial obstruction of small intestine: Code(s): K56.600 - Partial intestinal obstruction, unspecified as to cause Status: Acute Assessment and Plan: * Chronic, possibly secondary to adhesion or enteritis * CT indicates partial obstructing to the sigmoid colon repeat CT indicates improved small bowel obstruction * Patient will remain n.p.o. with NG tube to suction in place * CT of the abdomen scheduled for 03/15/2021 * SBFT indicates small bowel obstruction resolved will start clear liquid diet and advance as tolerated * Continue antiemesis and analgesics * Avoid morphine and due to history of combativeness * Patient currently receiving Dilaudid it is controlling her pain at this time * (2) Hx of delirium: Code(s): Z87.898 - Personal history of other specified conditions Status: Chronic Assessment and Plan: * History of hospitalization delirium * Patient has a history of sundowners (3) Cerebrovascular accident: Onset Date: ~2018 Code(s): I63.9 - Cerebral infarction, unspecified Status: Chronic Assessment and Plan: * CVA in 2019 with residual to the right upper and lower extremity (4) Hx of colon cancer, stage III: Code(s): Z85.038 - Personal history of other malignant neoplasm of large intestine Status: Acute Assessment and Plan: * Developed colon cancer September 2018 status post hemicolectomy for stage T3!, 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 * Followed by (5) GERD (gastroesophageal reflux disease): Qualifiers: Esophagitis presence: esophagitis presence not specified Qualified Code(s): K21.9 - Gastro-esophageal reflux disease without esophagitis Code(s): K21.9 - Gastro-esophageal reflux disease without esophagitis Status: Chronic Assessment and Plan: * Protonix (6) Pure hypercholesterolemia: Code(s): E78.00 - Pure hypercholesterolemia, unspecified Status: Chronic (7) Hypokalemia: Code(s): E87.6 - Hypokalemia Status: Acute Assessment and Plan: * Potassium 2.9>3.1 * Will replace with K rider (8) Hypomagnesemia: Code(s): E83.42 - Hypomagnesemia Status: Acute Assessment and Plan: * Magnesium 1.5>1.7 * Will supplement with mag sulfate IV DS: Summary Time Spent with Patient Time attestation: Total time spent providing and/or coordinating discharge services: DS: Data Data Completed and Pending Labs on day of discharge: Labs from last 24 hours 03/16/21 03/16/21 03/15/21 07:40 07:40 20:00 WBC 4.8 RBC 3.82 L Hgb 11.7 Hct 35.3 MCV 92.4 MCH 30.6 MCHC 33.1 RDW 14.0 Plt Count 199 MPV 9.8 Sodium 146 H Potassium 3.4 L Chloride 108 Carbon Dioxide 29 Anion Gap 9 BUN 4 L Creatinine 0.65 Estim Creat Clear Calc 58 Estimated GFR > 60 Glucose 99 Calculated Osmolality 298 H Calcium 8.4 L Urine Color Light yellow Urine Appearance Clear Urine pH 7.0 Ur Specific [place] 1.015 Urine Protein Negative Urine Glucose (UA) Negative Urine Ketones Negative Ur Blood (Man) Trace-intact H
--- NOTE | 2021-03-16 13:27 | PM.DS ---
DS: Discharge Diagnosis Discharge Diagnosis (1) Partial obstruction of small intestine: Code(s): K56.600 - Partial intestinal obstruction, unspecified as to cause Status: Acute Assessment and Plan: Chronic, possibly secondary to adhesion or enteritis CT indicates partial obstructing to the sigmoid colon repeat CT indicates improved small bowel obstruction Patient will remain n.p.o. with NG tube to suction in place CT of the abdomen scheduled for 03/15/2021 SBFT indicates small bowel obstruction resolved will start clear liquid diet and advance as tolerated Continue antiemesis and analgesics Avoid morphine and due to history of combativeness Patient currently receiving Dilaudid it is controlling her pain at this time (2) Hx of delirium: Code(s): Z87.898 - Personal history of other specified conditions Status: Chronic Assessment and Plan: History of hospitalization delirium Patient has a history of sundowners (3) Cerebrovascular accident: Onset Date: ~2018 Code(s): I63.9 - Cerebral infarction, unspecified Status: Chronic Assessment and Plan: CVA in 2019 with residual to the right upper and lower extremity (4) Hx of colon cancer, stage III: Code(s): Z85.038 - Personal history of other malignant neoplasm of large intestine Status: Acute Assessment and Plan: Developed colon cancer September 2018 status post hemicolectomy for stage T3!, 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 Followed by (5) GERD (gastroesophageal reflux disease): Qualifiers: Esophagitis presence: esophagitis presence not specified Qualified Code(s): K21.9 - Gastro-esophageal reflux disease without esophagitis Code(s): K21.9 - Gastro-esophageal reflux disease without esophagitis Status: Chronic Assessment and Plan: Protonix (6) Pure hypercholesterolemia: Code(s): E78.00 - Pure hypercholesterolemia, unspecified Status: Chronic (7) Hypokalemia: Code(s): E87.6 - Hypokalemia Status: Acute Assessment and Plan: Potassium 2.9>3.1 Will replace with K rider (8) Hypomagnesemia: Code(s): E83.42 - Hypomagnesemia Status: Acute Assessment and Plan: Magnesium 1.5>1.7 Will supplement with mag sulfate IV DS: Summary Time Spent with Patient Time attestation: Total time spent providing and/or coordinating discharge services: DS: Data Data Completed and Pending Labs on day of discharge: Labs from last 24 hours 03/16/21 03/16/21 03/15/21 07:40 07:40 20:00 WBC 4.8 RBC 3.82 L Hgb 11.7 Hct 35.3 MCV 92.4 MCH 30.6 MCHC 33.1 RDW 14.0 Plt Count 199 MPV 9.8 Sodium 146 H Potassium 3.4 L Chloride 108 Carbon Dioxide 29 Anion Gap 9 BUN 4 L Creatinine 0.65 Estim Creat Clear Calc 58 Estimated GFR > 60 Glucose 99 Calculated Osmolality 298 H Calcium 8.4 L Urine Color Light yellow Urine Appearance Clear Urine pH 7.0 Ur Specific [place] 1.015 Urine Protein Negative Urine Glucose (UA) Negative Urine Ketones Negative Ur Blood (Man) Trace-intact H Urine Nitrate Negative Urine Bilirubin Negative Urine Urobilinogen 0.2 Leukocyte Esterase Rfl 1+ H Urine RBC 0-2 Urine WBC 0-3 Ur Squamous Epith Cells Rare Urine Bacteria None seen Discharge Plan Discharge Discharge Medications: No Action sennosides [Senna Lax] 8.6 mg Tablet 8.6 mg PO DAILY PRN (Reason: Constipation) RF: 0 omeprazole 40 mg capsule,delayed release(DR/EC) 40 mg PO DAILY RF: 0 multivitamin Tablet 1 tablet PO DAILY RF: 0 acetaminophen [Mapap (acetaminophen)] 500 mg Capsule 1,000 mg PO Q6H PRN (Reason: Pain (Scale Score 1-3)) RF: 0 cetirizine 10 mg Tablet 10 mg PO DAILY RF: 0 atorvastatin 20 mg tablet 20 mg P
--- NOTE | 2021-03-16 13:28 | PC.NURSE ---
Juan TABULATING MACHINE MECHANIC at bedside with pt
--- NOTE | 2021-03-16 13:45 | P.PNIM_ITS ---
Progress Note: A&P Assessment and Plan (1) Partial obstruction of small intestine: Code(s): K56.600 - Partial intestinal obstruction, unspecified as to cause <Christos Pedro STEVEN Day - Last Filed: 03/16/21 14:06> Status: Acute <Christos AmayaSTEVEN kennedy - Last Filed: 03/16/21 14:06> Assessment and Plan: * Chronic, possibly secondary to adhesion or enteritis * CT indicates partial obstructing to the sigmoid colon repeat CT indicates improved small bowel obstruction * Patient will remain n.p.o. with NG tube to suction in place * CT of the abdomen scheduled for 03/15/2021 * SBFT indicates small bowel obstruction resolved will start clear liquid diet and advance as tolerated * Continue antiemesis and analgesics * Avoid morphine and due to history of combativeness * Patient currently receiving Dilaudid it is controlling her pain at this time 03/16/2021 Imaging from yesterday indicated resolution of SBO, Pt had pain after eating lunch, RN reports Pt did have a lot of gas around 1345 hours after lunch, will go to full liquid diet, continue with pain management <Christos YanSTEVEN Duarte - Last Filed: 03/16/21 14:06> (2) Hx of delirium: Code(s): Z87.898 - Personal history of other specified conditions <Christos YanSTEVEN Duarte - Last Filed: 03/16/21 14:06> Status: Chronic <Christos YanSTEVEN Duarte - Last Filed: 03/16/21 14:06> Assessment and Plan: * History of hospitalization delirium * Patient has a history of sundowners 03/16/2021 This AM to early after noon Pt seemed good, able to hold conversation <Christos FarrahSTEVEN Duarte - Last Filed: 03/16/21 14:06> (3) Cerebrovascular accident: Onset Date: 2018 <Christos FarrahSTEVEN Duarte - Last Filed: 03/16/21 14:06> Code(s): I63.9 - Cerebral infarction, unspecified <Christos FarrahSTEVEN Duarte - Last Filed: 03/16/21 14:06> Status: Chronic <Christos Farrah. Vogt, DEPUTY SHERIFF K9 HANDLER-C - Last Filed: 03/16/21 14:06> Assessment and Plan: * CVA in 2019 with residual to the right upper and lower extremity 03/16/2021 Pt walking in [place] with her sister using a walker, walked with small cautious steps <Christos DayPASHA-C - Last Filed: 03/16/21 14:06> (4) Hx of colon cancer, stage III: Code(s): Z85.038 - Personal history of other malignant neoplasm of large intestine <Christos Day DEPUTY SHERIFF K9 HANDLER-C - Last Filed: 03/16/21 14:06> Status: Acute <OSIEL TolbertN-C - Last Filed: 03/16/21 14:06> Assessment and Plan: * Developed colon cancer September 2018 status post hemicolectomy for stage T3!, 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 * Followed by <Christos DayPASHA-C - Last Filed: 03/16/21 14:06> (5) GERD (gastroesophageal reflux disease): Qualifiers: Esophagitis presence: esophagitis presence not specified Qualified Code(s): K21.9 - Gastro-esophageal reflux disease without esophagitis <Christos Day DEPUTY SHERIFF K9 HANDLER-C - Last Filed: 03/16/21 14:06> Code(s): K21.9 - Gastro-esophageal reflux disease without esophagitis <Christos Day DEPUTY SHERIFF K9 HANDLER-C - Last Filed: 03/16/21 14:06> Status: Chronic <Christos DayPASHA-C - Last Filed: 03/16/21 14:06> Assessment and Plan: * Protonix <Christos DayPASHA-C - Last Filed: 03/16/21 14:06> (6) Pure hypercholesterolemia: Code(s): E78.00 - Pure hypercholesterolemia, unspecified <Christos DayPASHA-C - Last Filed: 03/16/21 14:06> Status: Chronic <Christos DayAPSHA-C - Last Filed: 03/16/21 14:06> Assessment and Plan:
--- NOTE | 2021-03-16 13:45 | PM.IMPN ---
Progress Note: A&P Assessment and Plan (1) Partial obstruction of small intestine: Code(s): K56.600 - Partial intestinal obstruction, unspecified as to cause <Christos FarrahSTEVEN Duarte - Last Filed: 03/16/21 14:06> Status: Acute <Christos FarrahSTEVEN Duarte - Last Filed: 03/16/21 14:06> Assessment and Plan: Chronic, possibly secondary to adhesion or enteritis CT indicates partial obstructing to the sigmoid colon repeat CT indicates improved small bowel obstruction Patient will remain n.p.o. with NG tube to suction in place CT of the abdomen scheduled for 03/15/2021 SBFT indicates small bowel obstruction resolved will start clear liquid diet and advance as tolerated Continue antiemesis and analgesics Avoid morphine and due to history of combativeness Patient currently receiving Dilaudid it is controlling her pain at this time 03/16/2021 Imaging from yesterday indicated resolution of SBO, Pt had pain after eating lunch, RN reports Pt did have a lot of gas around 1345 hours after lunch, will go to full liquid diet, continue with pain management <STEVEN Tolbert - Last Filed: 03/16/21 14:06> (2) Hx of delirium: Code(s): Z87.898 - Personal history of other specified conditions <STEVEN Tolbert - Last Filed: 03/16/21 14:06> Status: Chronic <STEVEN Tolbert - Last Filed: 03/16/21 14:06> Assessment and Plan: History of hospitalization delirium Patient has a history of sundowners 03/16/2021 This AM to early after noon Pt seemed good, able to hold conversation <STEVEN Tolbert - Last Filed: 03/16/21 14:06> (3) Cerebrovascular accident: Onset Date: 2018 <STEVEN Tolbert - Last Filed: 03/16/21 14:06> Code(s): I63.9 - Cerebral infarction, unspecified <STEVEN Tolbert - Last Filed: 03/16/21 14:06> Status: Chronic <STEVEN Tolbert - Last Filed: 03/16/21 14:06> Assessment and Plan: CVA in 2019 with residual to the right upper and lower extremity 03/16/2021 Pt walking in [place] with her sister using a walker, walked with small cautious steps <Christos YanJuan BarbDAVYC - Last Filed: 03/16/21 14:06> (4) Hx of colon cancer, stage III: Code(s): Z85.038 - Personal history of other malignant neoplasm of large intestine <Christos DyaPASHA-C - Last Filed: 03/16/21 14:06> Status: Acute <Christos DayPASHA-C - Last Filed: 03/16/21 14:06> Assessment and Plan: Developed colon cancer September 2018 status post hemicolectomy for stage T3!, 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 Followed by <Christos YanDAVY DuarteC - Last Filed: 03/16/21 14:06> (5) GERD (gastroesophageal reflux disease): Qualifiers: Esophagitis presence: esophagitis presence not specified Qualified Code(s): K21.9 - Gastro-esophageal reflux disease without esophagitis <Christos YanJuan Jose LuisPASHA kennedy-C - Last Filed: 03/16/21 14:06> Code(s): K21.9 - Gastro-esophageal reflux disease without esophagitis <Christos YanJuan Jose LuisPASHA kennedy-C - Last Filed: 03/16/21 14:06> Status: Chronic <Christos YanJuan Jose LuisPASHA kennedy-C - Last Filed: 03/16/21 14:06> Assessment and Plan: Protonix <Christos YanJuan Jose LuisPASHA kennedy-C - Last Filed: 03/16/21 14:06> (6) Pure hypercholesterolemia: Code(s): E78.00 - Pure hypercholesterolemia, unspecified <Christos AmayaPASHA kennedy-C - Last Filed: 03/16/21 14:06> Status: Chronic <Christos YanJuan Jose LuisPASHA kennedy-C - Last Filed: 03/16/21 14:06> Assessment and Plan: Continue atorvastatin <Christos YanJuan Jose LuisPASHA kennedy-C - Last Filed: 03/16/21 14:06> (7) Hypokalemia: Code(s): E87.6 - Hypokalemia <STEVEN Tolbert - Last Filed: 03/16/21 14:06> Status: Acute <STEVEN Tolbert - Last Filed: 03/16/21 14:06> Assessment and Plan: [place]
--- NOTE | 2021-03-16 14:23 | PCOTNOTE ---
OT attempted to see patient for PM session however patient declined at this time secondary to gas pain. Nursing is aware. MS
[2021-03-16 16:00] VITALS: BP 147/87; PULSE 76; RESP 20; TEMP 36.8; O2SAT 98
[2021-03-16 23:57] VITALS: BP 120/91; PULSE 71; RESP 20; TEMP 36.4; O2SAT 98
[2021-03-17] MEDS: ONDANSETRON INJ 4 MG/2 ML VIAL IV PUSH ×2 (03:24→12:05)
--- NOTE | 2021-03-17 03:30 | PC.NURSE ---
Pt is c/o nausea and vomiting; Pt given zofran 4 mg IVP to relieve nausea and vomiting.
[2021-03-17 05:41] LABS: Hematocrit 37.9 % (35.0-42.0); Hemoglobin 12.5 g/dL (11.7-13.8); Mean Corpuscular Volume 91.1 fL (78.0-102.0); Mean Platelet Volume 10.2 fl (9.2-11.8); Platelet Count Result 206 K/mm3 (150-420); Red Blood Count 4.16 M/mm3 (4.20-5.40); Red Cell Distribution Width 14.1 % (11.6-14.4); White Blood Count 5.2 K/mm3 (4.8-10.8)
[2021-03-17 05:52] LABS: Anion Gap 10 mmol/L (8-16); Blood Urea Nitrogen 9 mg/dL (7-18); Carbon Dioxide 27 mmol/L (21-32); Chloride 106 mmol/L (98-108); Estimated CRCL calculation 54 ml/min; Estimated Glomerular Filt Rate > 60; Glucose 108 mg/dL (70-99); Osmolality Calculated 295 mOsm/kg (285-295); Potassium 3.6 mmol/L (3.5-5.1); Sodium 143 mmol/L (136-145)
[2021-03-17 08:00] VITALS: BP 118/73; PULSE 86; RESP 18; TEMP 37.3; O2SAT 97
[2021-03-17] MEDS: ASPIRIN 81 MG ENTERIC TABLET PO (08:37)
[2021-03-17] MEDS: PANTOPRAZOLE SODIUM IV 40 MG VIAL IV PUSH ×2 (08:37→21:11)
[2021-03-17] MEDS: ACETAMINOPHEN 500 MG TABLET 1000 MG PO (08:37)
[2021-03-17] MEDS: ENOXAPARIN 40 MG/0.4 ML SYRINGE SUB-Q (08:37)
[2021-03-17] MEDS: MAG HYDROX/AL HYDROX/SIMETH 30 ML UDC PO (10:41)
[2021-03-17] MEDS: ACETAMINOPHEN/CODEINE (*CRX) 300/30 MG TABLET 1 TAB PO (13:25)
--- NOTE | 2021-03-17 14:39 | PM.IMPN ---
Progress Note: A&P Assessment and Plan (1) Partial obstruction of small intestine: Code(s): K56.600 - Partial intestinal obstruction, unspecified as to cause Status: Acute Assessment and Plan: Chronic, possibly secondary to adhesion or enteritis CT indicates partial obstructing to the sigmoid colon repeat CT indicates improved small bowel obstruction Patient will remain n.p.o. with NG tube to suction in place CT of the abdomen scheduled for 03/15/2021 SBFT indicates small bowel obstruction resolved will start clear liquid diet and advance as tolerated Continue antiemesis and analgesics Avoid morphine and due to history of combativeness Patient currently receiving Dilaudid it is controlling her pain at this time 03/16/2021 Imaging from yesterday indicated resolution of SBO, Pt had pain after eating lunch, RN reports Pt did have a lot of gas around 1345 hours after lunch, will go to full liquid diet, continue with pain management 03/17/2021 Increased abdominal pain this AM with drinking, 2X vomiting, made NPO, family states Dilaudid makes Pt confused and Morphine makes her combative, Tylenol III worked well for this Pt as she is now resting/sleeping, started D5NS @ 100/h d/t NPO status, will consider placement of NG tube (2) Hx of delirium: Code(s): Z87.898 - Personal history of other specified conditions Status: Chronic Assessment and Plan: History of hospitalization delirium Patient has a history of sundowners 03/16/2021 This AM to early after noon Pt seemed good, able to hold conversation 03/17/2021 Pt does seem a bit anxious today, likely related to pain/hospitalization/History (3) Cerebrovascular accident: Onset Date: ~2018 Code(s): I63.9 - Cerebral infarction, unspecified Status: Chronic Assessment and Plan: CVA in 2019 with residual to the right upper and lower extremity 03/16/2021 Pt walking in [place] with her sister using a walker, walked with small cautious steps 03/17/2021 Pt working with PT/OT (4) Hx of colon cancer, stage III: Code(s): Z85.038 - Personal history of other malignant neoplasm of large intestine Status: Acute Assessment and Plan: Developed colon cancer September 2018 status post hemicolectomy for stage T3!, 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 Followed by (5) GERD (gastroesophageal reflux disease): Qualifiers: Esophagitis presence: esophagitis presence not specified Qualified Code(s): K21.9 - Gastro-esophageal reflux disease without esophagitis Code(s): K21.9 - Gastro-esophageal reflux disease without esophagitis Status: Chronic Assessment and Plan: Protonix (6) Pure hypercholesterolemia: Code(s): E78.00 - Pure hypercholesterolemia, unspecified Status: Chronic Assessment and Plan: Continue atorvastatin (7) Hypokalemia: Code(s): E87.6 - Hypokalemia Status: Acute Assessment and Plan: Potassium 2.9>3.1 Will replace with K rider 03/16/2021 K 3.4 this AM, continue to monitor 03/17/2021 K 3.6 (8) Hypomagnesemia: Code(s): E83.42 - Hypomagnesemia Status: Acute Assessment and Plan: Magnesium 1.5>1.7 Will supplement with mag sulfate IV 03/16/2021 will monitor as needed 03/17/2021 lab holiday in the AM Additional Plan Discussed with Little, daughter, about keeping Pt here since she is stable and should [facility] accept then plan to transfer her at that time. Otherwise should Pt need more urgent transfer d/t severe change in condition then will attempt [facility] first and other facilities thereafter. Little was ok with this plan. Subjective Date/time seen: 03/17/21 14:39 Pt seems anxious today. She c/o abdominal pain this AM. States clear liquids were causing her abdomen to burn and the only thing that seemed to make it better was cold liquids. She admits thought that this did not last long.
[2021-03-17] MEDS: METOCLOPRAMIDE HCL INJ 10 MG/2 ML VIAL IV PUSH ×2 (15:46→18:06)
[2021-03-17] MEDS: DEXTROSE 5%/0.9% SOD CHL 1,000 ML 100 ML IV CONT (15:46)
[2021-03-17 16:00] VITALS: BP 126/70; PULSE 76; RESP 18; TEMP 37.1; O2SAT 97
--- NOTE | 2021-03-17 23:05 | PC.NURSE ---
Bedside report completed. Patient is sleeping with cloth over forehead.
[2021-03-18] VITALS: BP 102/65; PULSE 59; RESP 18; TEMP 37.9; O2SAT 92
[2021-03-18] MEDS: METOCLOPRAMIDE HCL INJ 10 MG/2 ML VIAL IV PUSH ×4 (00:12→17:06)
[2021-03-18] MEDS: HYDROmorphone HCL INJ (*CRX) 2 MG/ML VIAL 0.5 MG IV PUSH (00:16)
[2021-03-18] MEDS: DEXTROSE 5%/0.9% SOD CHL 1,000 ML 100 ML IV CONT ×2 (00:46→12:10)
--- NOTE | 2021-03-18 03:15 | PC.NURSE ---
Patient rang for toilet. Since she has IV pump connected, she used the bedside commode. Did not urinate - said I guess I just thought I had to go . Went back to bed. Pain level has decreased. Patient went back to sleep.
[2021-03-18 04:28] VITALS: TEMP 37.6
--- NOTE | 2021-03-18 06:20 | PC.NURSE ---
Patient called for the toilet. Had difficulty standing for pivot, turn to bedside commode. After approximately 5 minutes on the commode, she began vomiting. Most of it was caught in the emesis bag or her gown. She vomited approximately 400 mL of brown, slurry fluid. Patient was cleaned up, and helped back to bed. She was very tired, and needed a lot of help to stand and pivot to the bed. She went to sleep almost immediatly after she was returned to the bed.
--- NOTE | 2021-03-18 06:45 | PC.NURSE ---
Dr. Houston notified of pt's large amount of brown emesis; No new orders at this time.
[2021-03-18 07:55] VITALS: BP 119/69; PULSE 103; RESP 20; TEMP 36.6; O2SAT 95
[2021-03-18] MEDS: SACCHAROMYCES BOULARDII 250 MG CAPSULE PO ×2 (09:59→17:06)
[2021-03-18] MEDS: ENOXAPARIN 40 MG/0.4 ML SYRINGE SUB-Q (09:59)
[2021-03-18] MEDS: PANTOPRAZOLE SODIUM IV 40 MG VIAL IV PUSH (10:00)
[2021-03-18] MEDS: ASPIRIN 81 MG ENTERIC TABLET PO (10:00)
[2021-03-18] MEDS: ACETAMINOPHEN/CODEINE (*CRX) 300/30 MG TABLET 1 TAB PO (11:36)
--- NOTE | 2021-03-18 14:23 | PM.DS ---
DS: Admitting Diagnosis Admitting Diagnosis SBO <STEVEN Tolbert - Last Filed: 03/18/21 15:06> DS: Discharge Diagnosis Discharge Diagnosis (1) Partial obstruction of small intestine: Code(s): K56.600 - Partial intestinal obstruction, unspecified as to cause <STEVEN Tolbert - Last Filed: 03/18/21 15:06> Status: Acute <STEVEN Tolbert - Last Filed: 03/18/21 15:06> Assessment and Plan: Chronic, possibly secondary to adhesion or enteritis CT indicates partial obstructing to the sigmoid colon repeat CT indicates improved small bowel obstruction Patient will remain n.p.o. with NG tube to suction in place CT of the abdomen scheduled for 03/15/2021 SBFT indicates small bowel obstruction resolved will start clear liquid diet and advance as tolerated Continue antiemesis and analgesics Avoid morphine and due to history of combativeness Patient currently receiving Dilaudid it is controlling her pain at this time 03/16/2021 Imaging from yesterday indicated resolution of SBO, Pt had pain after eating lunch, RN reports Pt did have a lot of gas around 1345 hours after lunch, will go to full liquid diet, continue with pain management 03/17/2021 Increased abdominal pain this AM with drinking, 2X vomiting, made NPO, family states Dilaudid makes Pt confused and Morphine makes her combative, Tylenol III worked well for this Pt as she is now resting/sleeping, started D5NS @ 100/h d/t NPO status, will consider placement of NG tube 03/18/2021 CT imaging this AM indicates: Recurrent small bowel obstruction with transition point in the mid abdomen, Ventral diastases with wide mouthed hernia, discussed this with LAYLA Coronel at [facility] with Dr. Hoffmann and Dr Garcia onboard with accepting this Pt d/t recurrent SBO. Will be placing NG tube, Pt no vomiting today has been NPO <STEVEN Tolbert - Last Filed: 03/18/21 15:06> (2) Hx of delirium: Code(s): Z87.898 - Personal history of other specified conditions <STEVEN Tolbert - Last Filed: 03/18/21 15:06> Status: Chronic <STEVEN Tolbert - Last Filed: 03/18/21 15:06> Assessment and Plan: History of hospitalization delirium Patient has a history of sundowners 03/16/2021 This AM to early after noon Pt seemed good, able to hold conversation 03/17/2021 Pt does seem a bit anxious today, likely related to pain/hospitalization/History 03/18/2021 Pt was a little confused to day but was able to refocus, Pt does not tolerate Dilaudid well causes confusion and Morphine makes her combative, Tylenol III seems to work quite well for her <STEVEN Tolbert - Last Filed: 03/18/21 15:06> (3) Cerebrovascular accident: Onset Date: 2018 <STEVEN Tolbert - Last Filed: 03/18/21 15:06> Code(s): I63.9 - Cerebral infarction, unspecified <STEVEN Tolbert - Last Filed: 03/18/21 15:06> Status: Chronic <STEVEN Tolbert - Last Filed: 03/18/21 15:06> Assessment and Plan: CVA in 2019 with residual to the right upper and lower extremity 03/16/2021 Pt walking in [place] with her sister using a walker, walked with small cautious steps 03/17/2021 Pt working with PT/OT 03/18/2021 ... 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 Followed by <STEVEN Tolbert - Last Filed: 03/18/21 15:06> (5) GERD (gastroesophageal reflux disease): Qualifiers: Esophagitis presen
[2021-03-18 16:40] VITALS: BP 128/77; PULSE 78; RESP 18; TEMP 36.8; O2SAT 97
--- NOTE | 2021-03-18 16:48 | PC.NURSE ---
Placement found for patient at [facility]. Bed 256. Report called to Birdie at [facility]. Call back #[phone]. Patient being transferred due to unresolved bowel obstruction. Patient and family aware or situation and agree to transfer.
--- NOTE | 2021-03-18 17:00 | PC.NURSE ---
Report given. Birdie from [facility] Room is not clean yet, will call back when room is ready and it is okay to contact EMS for transport.
--- NOTE | 2021-03-18 18:15 | PC.NURSE ---
[facility] notified of need for transfer. This nurse was told that [facility] 2nd ambulance rig was down and they were unable to transfer patient. [facility] was notified of need for transfer.
--- NOTE | 2021-03-18 18:58 | PC.NURSE ---
This nurse called to find out status of [facility] for transfer. Dispatcher stated this patient was the next on the list and that the ambulance was on their way back from previous call.
--- NOTE | 2021-03-18 20:13 | PC.NURSE ---
[facility] here to transfer patient to [facility] Room 256. Patient alert and oriented. Patient is able to amb with assist to ambulance stretcher. Patient denies abd pain, chest pain, SOB. Daughter present in room and took patient's belongings.
== END 2021-03-18 20:10 | disposition short-term general hospital (02) | DRG 389 ==
LOC: CHSED 14:21 → CHS2ND 18:04
PROVIDERS: Nurse Practitioner; Nurse Practitioner Family; Admitting Provider Emergency Medicine; Emergency Provider Emergency Medicine; PCP Internal Medicine; Visit Provider Emergency Medicine
DX: K56.600 Partial intestinal obstruction, unspecified as to cause (principal); I69.351 Hemiplegia and hemiparesis following cerebral infarction affecting right dominant side; Z85.038 Personal history of other malignant neoplasm of large intestine; Z87.820 Personal history of traumatic brain injury; E78.00 Pure hypercholesterolemia, unspecified; M19.90 Unspecified osteoarthritis, unspecified site; Z90.710 Acquired absence of both cervix and uterus; Z90.722 Acquired absence of ovaries, bilateral; Z90.49 Acquired absence of other specified parts of digestive tract; Z96.651 Presence of right artificial knee joint; E87.6 Hypokalemia; E83.42 Hypomagnesemia; K21.9 Gastro-esophageal reflux disease without esophagitis; K43.9 Ventral hernia without obstruction or gangrene; G30.9 Alzheimer's disease, unspecified; F02.80 Dementia in other diseases classified elsewhere, unspecified severity, without behavioral disturbance, psychotic disturbance, mood disturbance, and anxiety; Z98.49 Cataract extraction status, unspecified eye
CPT/HCPCS: 36415; 74019; 74150; 74176; 74177; 74250; 80048; 80053; 81001; 83605; 83690; 83735; 85025; 85027; 87077; 87086; 87088; 87186; 96361; 96374; 96375; 97110; 97116; 97162; 97165; 97530; 97535; 99285; A9270; C9113; J0131; J0743; J1170; J1650; J2060; J2405; J2765; J3475; J3480; J7030; J7042; J7050; Q9967

== ENCOUNTER 2021-03-18 21:46 | Inpatient (IN) | payer MEDICARE, SELFPAY ==
--- NOTE | ~2021-03-18 | XR_ITS ---
EXAMINATION: XR abdomen obstructive series DATE: 03/19/2021 07:52 INDICATION: Small bowel obstruction TECHNIQUE: Upright and supine views of the abdomen were obtained. COMPARISON: 03/19/2021, 03/18/2021 FINDINGS: The nasogastric tube is in the stomach. There are persistently dilated loops of small bowel without significant change. The colon appears relatively gasless. Contrast from earlier CT examinati on partially opacifies the urinary tract. There is thoracolumbar levoscoliosis. Mild osteoarthritis i s noted in the hips. IMPRESSION: 1. Dilated small bowel consistent with small bowel obstruction. Reviewed, dictated and finalized at location B.
--- NOTE | ~2021-03-18 | US_ITS ---
EXAMINATION: US venous doppler [facility] DATE: 03/19/2021 07:46 INDICATION: Lower limb swelling TECHNIQUE: Shaw scale images without and with compression and Doppler images of the left lower extrem ity veins were obtained. COMPARISON: None FINDINGS: The left common femoral vein, profunda femoral vein, femoral vein, popliteal vein, peroneal trunk, posterior tibial veins, and greater saphenous vein are patent. IMPRESSION: 1. Patent left lower extremity veins. No evidence of deep venous thrombosis. Reviewed, dictated and finalized at location B.
--- NOTE | ~2021-03-18 | XR_ITS ---
EXAMINATION: XR abdomen NG/feed tube insert DATE: 03/19/2021 00:38 INDICATION: Nasogastric tube placement TECHNIQUE: A supine view of the abdomen and lower chest was obtained for evaluation of feeding tube placement. COMPARISON: None. FINDINGS: Nasogastric tube tip in proximal side port in the body of the stomach. No dilated loops of gas-filled bowel in the visualized abdomen. Lungs are clear with the apices excluded from the [id number]. Ca rdiomediastinal silhouette is normal. Moderate thoracolumbar levoscoliosis with moderate spondylosis. IMPRESSION: 1. Nasogastric tube in the stomach. Reviewed, dictated and finalized at location A.
--- NOTE | 2021-03-18 20:52 | ADMGEN ---
This patient, Azeb Vallejo, was admitted to [facility] Medical Room 256-. Patient/family oriented to hospital policies and general routines including ID bracelet, bed and alarms, visiting hours, pain management, procedures, bathroom and other care routines, personal items, smoking policy, room service/diet, and visiting hours. Information on how to activate the Rapid Response Team has been discussed. Patient/Family are encouraged to report perceived risks to care and to ask questions if they do not understand what they are told or what they should do.
[2021-03-18 21:26] VITALS: BP 126/62; PULSE 88; RESP 16; TEMP 36.6; O2SAT 94; BMI 21.9
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
[2021-03-18] MEDS: ERTAPENEM 1 GM/NS 50 ML 1 GM/50 ML BAG IVPB (22:48)
[2021-03-18] MEDS: KCL 20 MEQ/D5/0.45% SOD CHL 1,000 ML 100 ML IV CONT (23:14)
[2021-03-19] VITALS (12 sets, daily range): BP systolic 117–155; BP diastolic 62–90; PULSE 71–109; RESP 11–20; TEMP 36.4–38.3; O2SAT 90–100
--- NOTE | 2021-03-19 01:07 | PC.NURSE ---
FAX RECEIVED STATING NG PLACEMENT WAS IN THE STOMACH. CONNECTED PT TO LOW INTERMITTENT SUCTION.
[2021-03-19] MEDS: HYDROmorphone HCL INJ (*CRX) 1 MG/ML SYR 0.5 MG IV PUSH (02:43)
[2021-03-19 05:56] LABS: Hematocrit 32.8 % (37.0-47.0); Hemoglobin 10.9 g/dL (12.0-15.0); Mean Corpuscular HGB Conc 33.2 g/dl (32-36); Mean Corpuscular Hemoglobin 30.4 pg (26-34); Mean Corpuscular Volume 91.6 fl (80-100); Mean Platelet Volume 10.2 fl (7.4-10.4); Platelet Count Result 202 k/mm3 (150-375); Red Blood Count 3.58 M/mm3 (4.2-5.4); Red Cell Distribution Width 14.6 % (11.5-14.5); White Blood Count 7.2 K/mm3 (4.5-10.0)
[2021-03-19 06:02] LABS: Alanine Aminotransferase 27 U/L (4-35); Albumin Level 2.9 g/dL (3.5-5.1); Alkaline Phosphatase 58 U/L (38-126); Anion Gap 4 mmol/L (8-16); Aspartate Amino Transferase 28 U/L (14-36); Bilirubin,Total 0.5 mg/dL (0.2-1.3); Blood Urea Nitrogen 15 mg/dL (7-17); Calcium 8.3 mg/dL (8.4-10.2); Carbon Dioxide 31 mmol/L (22-30); Chloride 102 mmol/L (98-107); Estimated CRCL calculation 60 ml/min; Estimated Glomerular Filt Rate > 60; Glucose 128 mg/dL (65-110); Lactic Acid Reflex 0.9 mmol/L (0.7-2.1); Magnesium 1.9 mg/dL (1.6-2.3); Potassium 3.2 mmol/L (3.4-5.0); Sodium 137 mmol/L (137-145)
[2021-03-19 06:38] LABS: Band Neutrophils Percent 22 % (0-6); Lymphocytes Absolute Manual 0.86 K/mm3 (1.1-4.5); Monocytes Percent Manual 7 % (3-9); Neutrophils Absolute Manual 5.83 K/mm3 (1.7-7.2); Neutrophils Percent Manual 59 % (46-73); Platelet Estimate Adequate (Adequate); Total Cells Counted 100
[2021-03-19 06:39] LABS: Hypochromasia 1+ (NORMAL)
[2021-03-19] MEDS: PANTOPRAZOLE SODIUM IV 40 MG VIAL IV PUSH (09:34)
--- NOTE | 2021-03-19 10:27 | PM.IMPN ---
Progress Note: A&P Assessment and Plan (1) Small bowel obstruction: Code(s): K56.609 - Unspecified intestinal obstruction, unspecified as to partial versus complete obstruction Status: Acute Assessment and Plan: Persistent, plan for exploratory laparotomy with adhesiolysis later today per nursing staff -Continue NG tube, no bowel sounds heard -Change fluids to 40meq/D5/0/9% saline since potassium is a little low and sodium has improved. -Appreciate sx recommendations (2) Memory impairment: Code(s): R41.3 - Other amnesia Status: Acute Assessment and Plan: A&Ox4 for me today. -Previous provider states she has no official diagnosis of dementia but does have a hx of hospital induced delirium - Will attempt to keep a calm/quiet environment for the patient with plans to keep a regimented wake/sleep schedule. -She is close to the nursing station (3) Gastroesophageal reflux disease: Code(s): K21.9 - Gastro-esophageal reflux disease without esophagitis Status: Acute Assessment and Plan: Continue protonix (4) Hyperlipidemia: Code(s): E78.5 - Hyperlipidemia, unspecified Status: Acute Assessment and Plan: Chronic -statin held Additional Plan Thank you for allowing us to participate in this patient's care. Please do not hesitate to contact us with any questions. Time Spent With Patient Time with patient: 25 - 35 minutes Subjective Date/time seen: 03/19/21 10:27 Interval history: Pt is a 75 y/o female here for SBO. Pt was seen today And she is doing much better since the NG tube has been placed. She has abdominal pain with palpation but little pain at rest. She has not been having any bowel movements or passing gas. She denies nausea, vomiting, Chest pain, shortness of breath,fevers or chills. Daughter at bedside and plan discussed with her. Review of Systems Review of Systems: All systems reviewed & are unremarkable except as noted in HPI and below Exam Narrative: Exam Narrative: General: Well developed well nourished patient in NAD HEENT: normocephalic, NG tube intact Neck: supple Neuro: Alert and oriented x4 CV:RRR Resp:CTA Abd: Soft, non distended. pain to palpation throughout. Positive bowel sounds Extremities: No swelling, erythema, or pain to palpation. Objective Data Vital Signs Vital Signs: Vital Signs - 24 hr 03/18/21 21:26 03/19/21 05:22 Temperature 97.9 F 97.6 F Pulse Rate 88 83 Respiratory Rate 16 16 Blood Pressure 126/62 117/62 Pulse Oximetry 94 96 Intake/Output Intake/Output: Intake & Output 03/16/21 03/17/21 03/18/21 03/19/21 23:59 23:59 23:59 23:59 Intake Total 0 Output Total 0 Balance 0 Meds/Results Medications: Active Medications Generic Name Dose Route Start Last Admin Trade Name Freq PRN Reason Stop Dose Admin Hydrocodone Bitart/Acetaminophen 1 tab 03/18/21 21:46 Hydrocodone/Acetaminophen (*Crx) 5-325 Mg Tablet PO Q4H PRN Moderate Pain (4-6) Enoxaparin Sodium 30 mg 03/19/21 09:00 Enoxaparin 30 Mg/0.3 Ml Syringe SUB-Q DAILY ANNA Hydromorphone HCl 0.5 mg 03/18/21 21:51 03/19/21 02:43 Hydromorphone Hcl Inj (*Crx) 1 Mg/Ml Syr IV PUSH 0.5 mg Q3H PRN Administration Pain Rated 4-6 Hydromorphone HCl 1 mg 03/18/21 21:58 Hydromorphone Hcl Inj (*Crx) 1 Mg/Ml Syr IV PUSH Q3H PRN Pain Rated 7-10 Potassium Chloride/Dextrose/Sod Cl 1,000 mls @ 100 mls/hr 03/18/21 21:50 03/18/21 23:14 Kcl 20 Meq/D5/0.45% Sod Chl IV CONT 100 mls/hr .Q10H ANNA Administration Ertapenem 1 gm in 50 mls @ 100 mls/hr 03/19/21 22:00 Invanz 1 Gm/Ns 50 Ml IVPB Q24H ANNA Naloxone HCl 0.1 mg 03/18/21 21:46 Naloxone Hcl 0.4 Mg/Ml Vial IV PUSH Q2M PRN Opiate Reversal Ondansetron HCl 4 mg 03/18/21 21:46 Ondansetron Inj 4 Mg/2 Ml Vial IV PUSH Q6H PRN Nausea And Vomiting Pantoprazole S
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
[2021-03-19] MEDS: KCL 40 MEQ/D5/0.9% SOD CHL 1,000 ML 100 ML IV CONT ×2 (11:56→22:40)
--- NOTE | 2021-03-19 12:37 | WPDHPUPDATE1 ---
History and Physical Update Update Date/Time: 03/19/21 12:37 History and Physical has been reviewed, including an updated exam of the patient. There are NO changes in the patient's condition. Risks, benefits, and alternatives have been discussed and questions answered. Patient agrees to proceed with procedure.
[2021-03-19] MEDS: LACTATED RINGERS 1,000 ML 30 ML IV CONT ×3 (12:45→20:45)
--- NOTE | 2021-03-19 12:50 | WPDANESEPPF ---
Anes - Initial Pre Proc Eval Procedure: Operation Date: 03/19/21 14:15 Proposed Procedures p Diagnostic Laparoscopy, Possible Lysis of Adhesion with Release of Small Bowel Obstruction - Nathan Garcia MD s Possible Open - Nathan Garcia MD Date/Time: 03/19/21 12:50 Surgeon: Shanae Daniels PA-C Pre Op Diagnosis: SBO Patient Data Age: 75 Gender: F Height: 1.65 m Weight: 59.9 kg Last Vital Signs Temp 36.4 C 03/19/21 05:22 Pulse 83 03/19/21 05:22 Resp 16 03/19/21 05:22 BP 117/62 03/19/21 05:22 Pulse Ox 96 03/19/21 05:22 Allergies Allergy/AdvReac Type Severity Reaction Status Date / Time morphine AdvReac Intermediate Confusion Verified 03/11/21 15:05 ampicillin AdvReac Mild Rash Verified 03/11/21 15:05 Home Medications Medication Instructions Recorded Confirmed Type acetaminophen [Mapap 1,000 mg PO Q6H PRN 06/21/19 03/18/21 History (acetaminophen)] multivitamin [Daily Multi-Vitamin] 1 tablet PO DAILY 06/21/19 03/18/21 History cetirizine [Zyrtec] 10 mg PO DAILY 11/24/19 03/18/21 History polyethylene glycol 3350 [Miralax] 34 g PO DAILY 05/31/20 03/18/21 History aspirin 81 mg PO DAILY 07/04/20 03/18/21 History atorvastatin [Lipitor] 20 mg PO DAILY 12/05/20 03/18/21 History Adult Probiotic 3,000 mmu cells PO DAILY 12/22/20 03/18/21 History psyllium [Hydrocil Instant] 1 packet PO DAILY 02/26/21 03/18/21 History simethicone [Gas-X Extra Strength] 125 mg PO DAILY 02/26/21 03/18/21 History omeprazole 40 mg PO DAILY 03/11/21 03/18/21 History sennosides [Senna Lax] 8.6 mg PO DAILY PRN 03/11/21 03/18/21 History Laboratory Tests 03/19/21 03/19/21 03/19/21 05:28 05:28 05:28 WBC 7.2 K/mm3 K/mm3 (4.5-10.0) RBC 3.58 M/mm3 L M/mm3 (4.2-5.4) Hgb 10.9 g/dL L g/dL (12.0-15.0) Hct 32.8 % L % (37.0-47.0) MCV 91.6 fl fl (80-100) MCH 30.4 pg pg (26-34) MCHC 33.2 g/dl g/dl (32-36) RDW 14.6 % H % (11.5-14.5) Plt Count 202 k/mm3 k/mm3 (150-375) MPV 10.2 fl fl (7.4-10.4) Immature Gran % (Auto) Not Reportable Neut % (Auto) Not Reportable Lymph % (Auto) Not Reportable [place] % (Auto) Not Reportable Eos % (Auto) Not Reportable Baso % (Auto) Not Reportable Lymph # (Auto) Not Reportable [place] # (Auto) Not Reportable Eos # (Auto) Not Reportable Baso # (Auto) Not Reportable Abs Immat Gran (auto) Not Reportable Absolute Neuts (auto) Not Reportable Absolute Nucleated RBC Not Reportable Total Counted 100 Neutrophils % (Manual) 59 % % (46-73) Band Neutrophils % 22 % H % (0-6) Lymphocytes % (Manual) 12.0 % L % (18-44) Monocytes % (Manual) 7 % % (3-9) Nucleated RBC % Not Reportable Abs Neuts (Manual) 5.83 K/mm3 K/mm3 (1.7-7.2) Abs Lymphs (Manual) 0.86 K/mm3 L K/mm3 (1.1-4.5) Abs Monocytes (Manual) 0.50 K/mm3 K/mm3 (0.1-0.90) Platelet Estimate Adequate (Adequate) Hypochromasia 1+ (NORMAL) Sodium 137 mmol/L mmol/L (137-145) Potassium 3.2 mmol/L L mmol/L (3.4-5.0) Chloride 102 mmol/L mmol/L (98-107) Carbon Dioxide 31 mmol/L H mmol/L (22-30) Anion Gap 4 mmol/L L mmol/L (8-16) BUN 15 mg/dL D mg/dL (7-17) Creatinine 0.60 mg/dL L mg/dL (0.7-1.0) Estim Creat Clear Calc 60 ml/min ml/min Estimated GFR > 60 (59 - ) Glucose 128 mg/dL H mg/dL (65-110) Lactic Acid 0.9 mmol/L mmol/L (0.7-2.1) Calcium 8.3 mg/dL L mg/dL (8.4-10.2) Magnesium 1.9 mg/dL mg/dL (1.6-2.3) Total Bilirubin 0.5 mg/dL mg/dL (0.2-1.3) AST 28 U/L U/L (14-36) ALT 27 U/L U/L
[2021-03-19] MEDS: BUPIVACAINE/EPINEPHRINE 0.5% 30 ML VIAL INFILTRATE (14:52)
--- NOTE | 2021-03-19 20:35 | W.PM.PROC2 ---
Procedure Note - Detailed Date of Procedure 03/19/21 Pre-op Diagnosis 1. Recurrent small bowel obstruction (SBO) 2. ventral incisional hernia lower midline more to the right. Post-op Diagnosis same Procedure Performed 1. operative laparoscopy, with lysis of adhesions, and release of small-bowel obstruction.a 2. diagnostic laparoscopy 3. laparoscopic assisted mesh repair of a 3 x 2.5 cm right lower quadrant ventral incisional hernia Surgeon Nathan Garcia MD Routing Equipment Tender Silverio Higgins DO Indications The patient has intermittently over the last 2 years been admitted for small bowel obstructions which typically have resolved with NG decompression. However, recently approximately 8 days ago, she was admitted to [facility] with another episode of SBO and improved after NG suction and a small-bowel follow-through proved that dye went through to the cecum. However, she developed recurrent symptoms while in a swing bed in [facility] this week and a CT scan again showed central abdominal SBO wit a transition zone in the mid small bowel for causing a partial to complete small bowel obstruction on 03/18/2021. when I reviewed the CT scan of that date with Dr. mikala ferguson in radiology her at [facility] appeared that this was occurring in the same area as the previous time the week before which was deep to the umbilicus about half-way back to the retroperitoneum. Findings Severe adhesions of the omentum to the anterior abdominal wall throughout the entire midline of the abdomen. There werealso multiple interloop adhesions and fibrous bands leading to partial or near obstruction. All adhesions were lysed except for a very long adhesion of 1 loop of small bowel against the sacral prominence in the pelvis. Description of Procedure Patient was brought to the operating room and placed supine. After induction of adequate general tracheal anesthesia by [facility] anesthesia a Isidro catheter was placed. An NG tube was already in position. This was connected to low intermittent suction. Following this the patient's entire abdomen was widely draped and prepped in usual sterile fashion. Following this time-out was performed confirming patient and site of surgery to be the abdomen for small-bowel obstruction and possible ventral incisional hernia repair. Confirmation was made of a permit allowing for permission to repair the known ventral incisional hernia in the lower abdomen also. Following this I accessed the abdomen with the Veress needle technique using a small incision in the left upper quadrant 2 fingerbreadths below the costal margin on the left placing 2 towel clips on this and elevating the skin and then advancing a 5 mm 0 degree laparoscope through the trocar and carefully advanced this into the abdomen upon entering it appeared that we were among some adhesions. I then carefully moved the laparoscope back and forth to try to find an open spot within the peritoneum and although there was a good pneumoperitoneum I could not find anopen area within the abdominal cavity. Therefore, without doing anything else I moved to the patient's right side and in about the right mid abdomen made a small incision with an 11 blade knife and another 5 mm trocar port was obtained and I placed the laparoscopic through this using direct vision through the port nd I was then able to enter the abdomen and find a clear space within the peritoneum on the right side of the abdomen. In this allowed us to see through to the left side And then I could tell that we had never truly entered the peritoneum and had instilled CO2 gas into the preperitoneal space on the left. We were then able to bring the original trocar through the peritoneum into the peritoneal space. So then I moved back to the left side and in about the left mid abdomen I placed a 3rd 5 mm trocar that contained a balloon on the inside and placed it under direct lapproscopic visulization. Then this balloon was filled with 5
--- NOTE | 2021-03-19 21:30 | PC.NURSE ---
Returned from OR per [braxton ]. Report received from [Alyce SANTOS ].
[2021-03-19] MEDS: ERTAPENEM 1 GM/NS 50 ML 1 GM/50 ML BAG IVPB (21:58)
[2021-03-20] VITALS: BP 131/66; PULSE 64; RESP 14; TEMP 36.6; O2SAT 98
[2021-03-20 03:14] VITALS: BP 137/68; PULSE 69; RESP 18; TEMP 36.7; O2SAT 100
[2021-03-20 05:37] LABS: Basophils Percent Auto 0.3 % (0.2-1.2); Hematocrit 32.1 % (37.0-47.0); Hemoglobin 10.3 g/dL (12.0-15.0); Immature Granulocyte Absolute 0.03 K/mm3 (0.00-0.031); Immature Granulocyte Percent A 0.4 % (0-0.5); Lymphocytes Absolute Auto 0.53 K/mm3 (0.9-3.2); Lymphocytes Percent Auto 7.6 % (18.3-44.2); Mean Corpuscular HGB Conc 32.1 g/dl (32-36); Mean Corpuscular Hemoglobin 30.1 pg (26-34); Mean Corpuscular Volume 93.9 fl (80-100); Mean Platelet Volume 9.9 fl (7.4-10.4); Monocytes Absolute Auto 0.4 K/mm3 (0.1-0.6); Monocytes Percent Auto 5.9 % (2.6-8.5); Neutrophils Percent Auto 85.8 % (45.5-73.1); Platelet Count Result 200 k/mm3 (150-375); Red Blood Count 3.42 M/mm3 (4.2-5.4); Red Cell Distribution Width 14.5 % (11.5-14.5)
[2021-03-20 05:55] LABS: Anion Gap 5 mmol/L (8-16); Blood Urea Nitrogen 11 mg/dL (7-17); Carbon Dioxide 26 mmol/L (22-30); Chloride 108 mmol/L (98-107); Estimated CRCL calculation 60 ml/min; Estimated Glomerular Filt Rate > 60; Glucose 144 mg/dL (65-110); Magnesium 1.9 mg/dL (1.6-2.3); Sodium 139 mmol/L (137-145)
[2021-03-20] MEDS: ENOXAPARIN 40 MG/0.4 ML SYRINGE SUB-Q (08:35)
[2021-03-20] MEDS: PANTOPRAZOLE SODIUM IV 40 MG VIAL IV PUSH (08:35)
--- NOTE | 2021-03-20 10:20 | PM.PNGS ---
Progress Note: A&P Assessment and Plan (1) Small bowel obstruction: Onset Date: ~02/2021 Code(s): K56.609 - Unspecified intestinal obstruction, unspecified as to partial versus complete obstruction Status: Acute Assessment and Plan: Await return of bowel function Increase activity Continue NG decompression, Isidro possibly out tomorrow (2) Memory impairment: Onset Date: Unknown Code(s): R41.3 - Other amnesia Status: Acute Subjective Subjective Date/Time Seen: 03/20/21 10:20 Interval history: No flatus or BM yet. Complains of NG tube discomfort. Pain controlled. Exam GI: Inspection: non-distended GI Palp: Yes Soft to palpation and Yes Tenderness to palpation present (GI) (appropriate postop) Auscultation: Hypoactive bowel sounds present Objective Data Vital Signs Vital Signs: Vital Signs - 24 hr 03/19/21 12:45 03/19/21 20:18 03/19/21 20:30 Temperature 38.3 C H 36.8 C Pulse Rate 72 100 109 H Respiratory Rate 20 17 15 Blood Pressure 128/70 136/80 137/70 Pulse Oximetry 96 100 100 03/19/21 20:45 03/19/21 21:00 03/19/21 21:16 Temperature Pulse Rate 100 84 71 Respiratory Rate 14 13 11 L Blood Pressure 155/90 H 145/80 H 138/73 Pulse Oximetry 100 98 100 03/19/21 21:29 03/19/21 21:44 03/19/21 22:14 Temperature 36.5 C 36.6 C 36.4 C Pulse Rate 79 82 76 Respiratory Rate 16 16 14 Blood Pressure 144/77 H 132/71 136/74 Pulse Oximetry 91 90 98 03/19/21 22:28 03/19/21 23:02 03/20/21 00:00 Temperature 36.6 C 36.6 C Pulse Rate 78 64 Respiratory Rate 16 14 Blood Pressure 145/75 H 131/66 Pulse Oximetry 98 99 98 03/20/21 03:14 Temperature 36.7 C Pulse Rate 69 Respiratory Rate 18 Blood Pressure 137/68 Pulse Oximetry 100 Intake/Output Intake/Output: Intake & Output 03/17/21 03/18/21 03/19/21 03/20/21 23:59 23:59 23:59 23:59 Intake Total 3350 1100 Output Total 870 625 Balance 2480 475 Meds/Results Medications: Active Medications Generic Name Dose Route Start Last Admin Trade Name Freq PRN Reason Stop Dose Admin Hydrocodone Bitart/Acetaminophen 1 tab 03/18/21 21:46 Hydrocodone/Acetaminophen (*Crx) 5-325 Mg Tablet PO Q4H PRN Moderate Pain (4-6) Diphenhydramine HCl 25 mg 03/19/21 21:29 Diphenhydramine Hcl Inj 50 Mg/Ml Vial IV PUSH Q6H PRN Itching Enoxaparin Sodium 40 mg 03/20/21 09:00 03/20/21 08:35 Enoxaparin 40 Mg/0.4 Ml Syringe SUB-Q 40 mg DAILY ANNA Administration Hydromorphone HCl 0.5 mg 03/18/21 21:51 03/19/21 02:43 Hydromorphone Hcl Inj (*Crx) 1 Mg/Ml Syr IV PUSH 0.5 mg Q3H PRN Administration Pain Rated 4-6 Hydromorphone HCl 1 mg 03/18/21 21:58 Hydromorphone Hcl Inj (*Crx) 1 Mg/Ml Syr IV PUSH Q3H PRN Pain Rated 7-10 Ertapenem 1 gm in 50 mls @ 100 mls/hr 03/19/21 22:00 03/19/21 22:28 Invanz 1 Gm/Ns 50 Ml IVPB Infused Q24H ANNA Infusion Potassium Chloride/Dextrose/Sod Cl 1,000 mls @ 100 mls/hr 03/19/21 10:30 03/20/21 08:41 Kcl 40 Meq/D5ns IV CONT Infused .Q10H ANNA Infusion Acetaminophen 1,000 mg in 100 mls @ 400 mls/hr 03/19/21 22:00 03/20/21 06:34 Ofirmev 1,000 Mg Ivpb IVPB 03/22/21 14:14 Infused Q8H ANNA Infusion Naloxone HCl 0.1 mg 03/18/21 21:46 Naloxone Hcl 0.4 Mg/Ml Vial IV PUSH Q2M PRN Opiate Reversal Ondansetron HCl 4 mg 03/18/21 21:46 Ondansetron Inj 4 Mg/2 Ml Vial IV PUSH Q6H PRN Nausea And Vomiting Pantoprazole Sodium 40 mg 03/19/21 09:00 03/20/21 08:35 Pantoprazole Sodium Iv 40 Mg Vial IV PUSH 40 mg QAM ANNA Administration Senna/Docusate Sodium 2 tab 03/19/21 21:29 03/19/21 21:48 Senna/Docusate Sodium Tablet PO Not Given HS [facility] Radiology Results: ITS Impressions Venous Doppler Study 03/19/21 08:11 IMPRESSION: 1. Patent left lower extremity veins. No evidence of deep venous thrombosis. Abdomen X-Ray 03/19/21 10:47 IMPRESS
[2021-03-20] MEDS: KCL 40 MEQ/D5/0.9% SOD CHL 1,000 ML 100 ML IV CONT ×2 (10:55→21:20)
--- NOTE | 2021-03-20 13:17 | PM.IMPN ---
Progress Note: A&P Assessment and Plan (1) Small bowel obstruction: Onset Date: ~02/2021 Code(s): K56.609 - Unspecified intestinal obstruction, unspecified as to partial versus complete obstruction Status: Acute Assessment and Plan: Pt underwent laparoscopy with lysis of adhesions with laparoscopic assisted mesh repair of a 3 x 2.5 cm right lower quadrant ventral incisional hernia -Pt doing well after sx and icision sites clean and dry -She has not had any flatus or BMs yet but I do hear bowel sounds -Continue with the abdominal binder and NG tube -PT/OT ordered (2) Memory impairment: Onset Date: Unknown Code(s): R41.3 - Other amnesia Status: Acute Assessment and Plan: A&Ox4 for me today. -Previous provider states she has no official diagnosis of dementia but does have a hx of hospital induced delirium - Will attempt to keep a calm/quiet environment for the patient with plans to keep a regimented wake/sleep schedule. -She is close to the nursing station -will start buspar for anxiety once pt able to take oral meds. will do PRN ativan for now. (3) Gastroesophageal reflux disease: Code(s): K21.9 - Gastro-esophageal reflux disease without esophagitis Status: Acute Assessment and Plan: Continue protonix (4) Hyperlipidemia: Onset Date: Unknown Code(s): E78.5 - Hyperlipidemia, unspecified Status: Acute Assessment and Plan: Chronic -statin held Additional Plan Pt has a Urine cx grow 50,000-100,000 of enterobacter 03/15/21. Notes briefly reviewed, I don't see much mention of this. She states she had no dysuria (before catheter was placed prior to sx). I don't see any need for abx at this time as pt has normal WBC, no symptoms, and no fevers. Will monitor. Subjective Date/time seen: 03/20/21 13:17 Interval history: Pt is a 75 y/o female here for SBO. Pt was seen today and is doing well. She has abdominal pain with palpation and being a little sore. She has not been having any bowel movements or passing gas. She denies nausea, vomiting, chest pain, shortness of breath, fevers or chills. Daughter has asked the nurse for anxiety medications due to pts dementia and crying spells. She has a catheter but denies hx of dysuria. Exam Narrative: Exam Narrative: General: Well developed well nourished patient in NAD HEENT: normocephalic, NG tube intact Neck: supple Neuro: Alert and oriented x4 for me today CV:RRR Resp:CTA Abd: Soft, non distended. Incision sites clean and dry. bowel sounds present but scarce. Abdominal binder intact. Extremities: No swelling, erythema, or pain to palpation. Objective Data Vital Signs Vital Signs: Vital Signs - 24 hr 03/19/21 20:18 03/19/21 20:30 03/19/21 20:45 Temperature 98.2 F Pulse Rate 100 109 H 100 Respiratory Rate 17 15 14 Blood Pressure 136/80 137/70 155/90 H Pulse Oximetry 100 100 100 03/19/21 21:00 03/19/21 21:16 03/19/21 21:29 Temperature 97.7 F Pulse Rate 84 71 79 Respiratory Rate 13 11 L 16 Blood Pressure 145/80 H 138/73 144/77 H Pulse Oximetry 98 100 91 03/19/21 21:44 03/19/21 22:14 03/19/21 22:28 Temperature 97.9 F 97.6 F Pulse Rate 82 76 Respiratory Rate 16 14 Blood Pressure 132/71 136/74 Pulse Oximetry 90 98 98 03/19/21 23:02 03/20/21 00:00 03/20/21 03:14 Temperature 97.8 F 97.8 F 98.1 F Pulse Rate 78 64 69 Respiratory Rate 16 14 18 Blood Pressure 145/75 H 131/66 137/68 Pulse Oximetry 99 98 100 Intake/Output Intake/Output: Intake & Output 03/17/21 03/18/21 03/19/21 03/20/21 23:59 23:59 23:59 23:59 Intake Total 3350 1100 Output Total 870 625 Balance 2480 475 Meds/Results Medications: Active Medications Generic Name Dose Route Start Last Admin Trade Name Freq PRN Reason Stop Dose Admin Hydrocodone Bitart/Acetaminophen 1 tab 03/18/21 21:46 Hydrocodone/Acetaminophen (*Crx) 5-325 Mg Tablet PO Q4
[2021-03-20 14:00] VITALS: BP 128/65; PULSE 62; RESP 14; TEMP 36.9; O2SAT 97
--- NOTE | 2021-03-20 14:26 | PC.NURSE ---
pt's daughter requested to speak with me about her, her siblings', and pt's concerns regarding pt's anxiety; daughter stated that pt was recently dx with moderate Alzheimer's and is very anxious, weepy, and depressed; daughter stated pt is very lucid today and both daughter and pt agree that they want pt to begin some type of anxiolytic med; spoke with hospitalist regarding pt and daughter's concerns
[2021-03-20] MEDS: ERTAPENEM 1 GM/NS 50 ML 1 GM/50 ML BAG IVPB (21:25)
[2021-03-20 22:00] VITALS: BP 148/78; PULSE 73; RESP 16; TEMP 36.6; O2SAT 94
[2021-03-21 06:00] VITALS: BP 144/81; PULSE 73; RESP 16; TEMP 36.4; O2SAT 96
[2021-03-21 07:06] LABS: Hematocrit 29.9 % (37.0-47.0); Hemoglobin 9.9 g/dL (12.0-15.0); Mean Corpuscular HGB Conc 33.1 g/dl (32-36); Mean Corpuscular Hemoglobin 30.7 pg (26-34); Mean Corpuscular Volume 92.9 fl (80-100); Mean Platelet Volume 10.1 fl (7.4-10.4); Platelet Count Result 200 k/mm3 (150-375); Red Blood Count 3.22 M/mm3 (4.2-5.4); Red Cell Distribution Width 14.4 % (11.5-14.5); White Blood Count 8.4 K/mm3 (4.5-10.0)
[2021-03-21 07:17] LABS: Anion Gap 4 mmol/L (8-16); Blood Urea Nitrogen 8 mg/dL (7-17); Carbon Dioxide 26 mmol/L (22-30); Chloride 108 mmol/L (98-107); Estimated CRCL calculation 60 ml/min; Estimated Glomerular Filt Rate > 60; Glucose 106 mg/dL (65-110); Sodium 138 mmol/L (137-145)
[2021-03-21] MEDS: PANTOPRAZOLE SODIUM IV 40 MG VIAL IV PUSH (08:10)
[2021-03-21] MEDS: ENOXAPARIN 40 MG/0.4 ML SYRINGE SUB-Q (08:11)
[2021-03-21] MEDS: KCL 40 MEQ/D5/0.9% SOD CHL 1,000 ML 100 ML IV CONT (09:36)
--- NOTE | 2021-03-21 10:52 | PM.PNGS ---
Progress Note: A&P Assessment and Plan (1) Small bowel obstruction: Onset Date: ~02/2021 Code(s): K56.609 - Unspecified intestinal obstruction, unspecified as to partial versus complete obstruction Status: Acute Assessment and Plan: Will leave NG out for now since there was minimal output. Continue ice chips but will delay advancing diet until bowel function improving a little more. Isidro out today Increase ambulation (2) Memory impairment: Onset Date: Unknown Code(s): R41.3 - Other amnesia Status: Acute Subjective Subjective Date/Time Seen: 03/21/21 10:52 Interval history: NG came out this morning. Patient doesn't remember pulling it out but says she sneezed and it came out. Might be passing a little flatus but feeling a little bloated and having some cramping pain. Exam GI: Inspection: incision (intact) and other (Slightly distended) GI Palp: Yes Tenderness to palpation present (GI) (approrpiate postop) Auscultation: normal bowel sounds Objective Data Vital Signs Vital Signs: Vital Signs - 24 hr 03/20/21 14:00 03/20/21 22:00 03/21/21 06:00 Temperature 36.9 C 36.6 C 36.4 C Pulse Rate 62 73 73 Respiratory Rate 14 16 16 Blood Pressure 128/65 148/78 H 144/81 H Pulse Oximetry 97 94 96 Intake/Output Intake/Output: Intake & Output 03/18/21 03/19/21 03/20/21 03/21/21 23:59 23:59 23:59 23:59 Intake Total 3350 2350 1100 Output Total 870 1925 1125 Balance 2480 425 -25 Meds/Results Medications: Active Medications Generic Name Dose Route Start Last Admin Trade Name Freq PRN Reason Stop Dose Admin Hydrocodone Bitart/Acetaminophen 1 tab 03/18/21 21:46 Hydrocodone/Acetaminophen (*Crx) 5-325 Mg Tablet PO Q4H PRN Moderate Pain (4-6) Diphenhydramine HCl 25 mg 03/19/21 21:29 Diphenhydramine Hcl Inj 50 Mg/Ml Vial IV PUSH Q6H PRN Itching Enoxaparin Sodium 40 mg 03/20/21 09:00 03/21/21 08:11 Enoxaparin 40 Mg/0.4 Ml Syringe SUB-Q 40 mg DAILY ANNA Administration Hydromorphone HCl 0.5 mg 03/18/21 21:51 03/19/21 02:43 Hydromorphone Hcl Inj (*Crx) 1 Mg/Ml Syr IV PUSH 0.5 mg Q3H PRN Administration Pain Rated 4-6 Hydromorphone HCl 1 mg 03/18/21 21:58 Hydromorphone Hcl Inj (*Crx) 1 Mg/Ml Syr IV PUSH Q3H PRN Pain Rated 7-10 Ertapenem 1 gm in 50 mls @ 100 mls/hr 03/19/21 22:00 03/20/21 22:25 Invanz 1 Gm/Ns 50 Ml IVPB Infused Q24H ANNA Infusion Potassium Chloride/Dextrose/Sod Cl 1,000 mls @ 100 mls/hr 03/19/21 10:30 03/21/21 09:36 Kcl 40 Meq/D5ns IV CONT 100 mls/hr .Q10H ANNA Administration Acetaminophen 1,000 mg in 100 mls @ 400 mls/hr 03/19/21 22:00 03/21/21 06:06 Ofirmev 1,000 Mg Ivpb IVPB 03/22/21 14:14 Infused Q8H ANNA Infusion Lorazepam 0.5 mg 03/20/21 13:15 Lorazepam Inj (*Crx) 2 Mg/Ml Vial IV PUSH Q6H PRN extreme Anxiety Naloxone HCl 0.1 mg 03/18/21 21:46 Naloxone Hcl 0.4 Mg/Ml Vial IV PUSH Q2M PRN Opiate Reversal Ondansetron HCl 4 mg 03/18/21 21:46 Ondansetron Inj 4 Mg/2 Ml Vial IV PUSH Q6H PRN Nausea And Vomiting Pantoprazole Sodium 40 mg 03/19/21 09:00 03/21/21 08:10 Pantoprazole Sodium Iv 40 Mg Vial IV PUSH 40 mg QAM ANNA Administration Senna/Docusate Sodium 2 tab 03/19/21 21:29 03/20/21 21:22 Senna/Docusate Sodium Tablet PO Not Given HS [facility] Radiology Results: ITS Impressions Venous Doppler Study 03/19/21 08:11 IMPRESSION: 1. Patent left lower extremity veins. No evidence of deep venous thrombosis. Abdomen X-Ray 03/19/21 10:47 IMPRESSION: 1. Dilated small bowel consistent with small bowel obstruction. Labs Labs: Laboratory Results - last 24 hr 03/21/21 03/21/21 06:59 06:59 WBC 8.4 RBC 3.22 L Hgb 9.9 L Hct 29.9 L MCV 92.9 MCH 30.7 MCHC 33.1 RDW 14.4 Plt Count 200 MPV 10.1 Sodium 138 Potassium 4.0 Chloride
--- NOTE | 2021-03-21 11:02 | PM.IMPN ---
Progress Note: A&P Assessment and Plan (1) Small bowel obstruction: Onset Date: ~02/2021 Code(s): K56.609 - Unspecified intestinal obstruction, unspecified as to partial versus complete obstruction Status: Acute Assessment and Plan: Pt underwent laparoscopy with lysis of adhesions with laparoscopic assisted mesh repair of a 3 x 2.5 cm right lower quadrant ventral incisional hernia -Pt doing well after sx and icision sites clean and dry -She has been passing gas. NG tube removed -Continue with the abdominal binder -PT/OT ordered (2) Memory impairment: Onset Date: Unknown Code(s): R41.3 - Other amnesia Status: Acute Assessment and Plan: A&Ox4 for me today. -Previous provider states she has no official diagnosis of dementia but does have a hx of hospital induced delirium - Will attempt to keep a calm/quiet environment for the patient with plans to keep a regimented wake/sleep schedule. -She is close to the nursing station -will start buspar for anxiety once pt able to take oral meds. will do PRN ativan for now. (3) Gastroesophageal reflux disease: Code(s): K21.9 - Gastro-esophageal reflux disease without esophagitis Status: Acute Assessment and Plan: Continue protonix (4) Hyperlipidemia: Onset Date: Unknown Code(s): E78.5 - Hyperlipidemia, unspecified Status: Acute Assessment and Plan: Chronic -statin held Additional Plan Pt has a Urine cx grow 50,000-100,000 of enterobacter 03/15/21. Notes briefly reviewed, I don't see much mention of this. She states she had no dysuria (before catheter was placed prior to sx) but did have confusion. Pt has been on ertapenem requested by sx. Now pt is able to take oral will talk to Dr. Garcia about either narrowing down coverge or stopping abx. Pt has normal WBC, no symptoms, and no fevers. Subjective Date/time seen: 03/21/21 11:02 Interval history: Pt is a 75 y/o female here for SBO. Pt was seen today and is doing well. Pt states her pain is under control today and she is passing gas. She denies nausea, vomiting, chest pain, shortness of breath, fevers or chills. She has a catheter but denies hx of dysuria but had confusion last week. Exam Narrative: Exam Narrative: General: Well developed well nourished patient in NAD HEENT: normocephalic Neck: supple Neuro: Alert and oriented x4 for me today CV:RRR Resp:CTA Abd: Soft, non distended. Incision sites clean and dry. bowel sounds presen. Abdominal binder intact. Extremities: No swelling, erythema, or pain to palpation. Objective Data Vital Signs Vital Signs: Vital Signs - 24 hr 03/20/21 14:00 03/20/21 22:00 03/21/21 06:00 Temperature 98.4 F 97.8 F 97.6 F Pulse Rate 62 73 73 Respiratory Rate 14 16 16 Blood Pressure 128/65 148/78 H 144/81 H Pulse Oximetry 97 94 96 Intake/Output Intake/Output: Intake & Output 03/18/21 03/19/21 03/20/21 03/21/21 23:59 23:59 23:59 23:59 Intake Total 3350 2350 1100 Output Total 870 1925 1125 Balance 2480 425 -25 Meds/Results Medications: Active Medications Generic Name Dose Route Start Last Admin Trade Name Freq PRN Reason Stop Dose Admin Hydrocodone Bitart/Acetaminophen 1 tab 03/18/21 21:46 Hydrocodone/Acetaminophen (*Crx) 5-325 Mg Tablet PO Q4H PRN Moderate Pain (4-6) Diphenhydramine HCl 25 mg 03/19/21 21:29 Diphenhydramine Hcl Inj 50 Mg/Ml Vial IV PUSH Q6H PRN Itching Enoxaparin Sodium 40 mg 03/20/21 09:00 03/21/21 08:11 Enoxaparin 40 Mg/0.4 Ml Syringe SUB-Q 40 mg DAILY ANNA Administration Hydromorphone HCl 0.5 mg 03/18/21 21:51 03/19/21 02:43 Hydromorphone Hcl Inj (*Crx) 1 Mg/Ml Syr IV PUSH 0.5 mg Q3H PRN Administration Pain Rated 4-6 Hydromorphone HCl 1 mg 03/18/21 21:58 Hydromorphone Hcl Inj (*Crx) 1 Mg/Ml Syr IV PUSH Q3H PRN Pain Rated 7-10 Ertapenem 1 gm in 50 mls @
[2021-03-21] MEDS: LACTATED RINGERS 1,000 ML 60 ML IV CONT (11:44)
[2021-03-21] MEDS: HYDROmorphone HCL INJ (*CRX) 1 MG/ML SYR 0.5 MG IV PUSH ×2 (11:47→23:39)
[2021-03-21 14:00] VITALS: BP 144/81; PULSE 79; RESP 16; TEMP 36.9; O2SAT 96
[2021-03-21] MEDS: SENNA/DOCUSATE SODIUM TABLET 2 TAB PO (21:02)
[2021-03-21] MEDS: ERTAPENEM 1 GM/NS 50 ML 1 GM/50 ML BAG IVPB (21:10)
[2021-03-21 22:00] VITALS: BP 150/74; PULSE 64; RESP 20; TEMP 36.4; O2SAT 98
[2021-03-22] MEDS: HYDROmorphone HCL INJ (*CRX) 1 MG/ML SYR IV PUSH (00:11)
[2021-03-22 02:00] VITALS: BP 135/64; PULSE 89; RESP 18; TEMP 36.3; O2SAT 96
[2021-03-22 05:57] LABS: Hematocrit 32.3 % (37.0-47.0); Hemoglobin 10.5 g/dL (12.0-15.0); Mean Corpuscular HGB Conc 32.5 g/dl (32-36); Mean Corpuscular Volume 92.3 fl (80-100); Mean Platelet Volume 10.1 fl (7.4-10.4); Platelet Count Result 244 k/mm3 (150-375); Red Cell Distribution Width 14.1 % (11.5-14.5); White Blood Count 6.7 K/mm3 (4.5-10.0)
[2021-03-22 06:00] VITALS: BP 132/77; PULSE 65; RESP 18; TEMP 36.6; O2SAT 95
[2021-03-22 06:13] LABS: Anion Gap 9 mmol/L (8-16); Blood Urea Nitrogen 6 mg/dL (7-17); Calcium 8.1 mg/dL (8.4-10.2); Carbon Dioxide 24 mmol/L (22-30); Chloride 103 mmol/L (98-107); Estimated CRCL calculation 71 ml/min; Estimated Glomerular Filt Rate > 60; Glucose 71 mg/dL (65-110); Potassium 3.8 mmol/L (3.4-5.0); Sodium 136 mmol/L (137-145)
--- NOTE | 2021-03-22 07:31 | PC.NURSE ---
Pt given 0.5 mg dilaudid followed by 1mg dilaudid 30 minutes later. When wasting remaining 0.5mg from first dose of 0.5mg this nurse mistakenly wasted remainder under 1mg dilaudid rather than intended 0.5mg. total of 1.5mg given and 0.5mg wasted.
--- NOTE | 2021-03-22 08:11 | PM.PNGS ---
Progress Note: A&P Assessment and Plan (1) Small bowel obstruction due to adhesions: Onset Date: ~02/2021 Code(s): K56.50 - Intestinal adhesions [bands], unspecified as to partial versus complete obstruction Status: Acute Assessment and Plan: This was the main reason for the patient's admission. She is now postop day 3 after laparoscopic lysis of adhesions with release of small-bowel obstruction and repair of a lower abdominal ventral incisional hernia with mesh. Patient is gradually improving. She may be passing flatus but her accuracy of history is questionable. She denies any bowel movement and the nurses confirmed that she has not had a bowel movement yet since surgery. NG tube was left out yesterday after the patient possibly pulled out Monday morning. She has not nauseated. Will go ahead and have her try some clear liquids starting with sips this morning. (2) Gastroesophageal reflux disease: Onset Date: Unknown Code(s): K21.9 - Gastro-esophageal reflux disease without esophagitis Status: Acute Assessment and Plan: Apparently a longstanding problem Patient on Protonix IV. Can switch this to oral if she tolerates her liquids. (3) Hx of colon cancer, stage III: Onset Date: ~2018 Code(s): Z85.038 - Personal history of other malignant neoplasm of large intestine Status: Acute Assessment and Plan: No current signs of recurrence. She recently had her port removed and that incision is doing well. She will continue to follow up periodically with Dr. De La Rosa. (4) Ileus: Onset Date: ~03/21/21 Code(s): K56.7 - Ileus, unspecified Status: Acute Assessment and Plan: Patient has active bowel sounds today on auscultation. She may be passing some gas per patient. No bowel movement yet though. Will a lower try clear liquids since she is not nauseated and has not had any vomiting in 24 hours since her NG was removed. (5) UTI (urinary tract infection): Code(s): N39.0 - Urinary tract infection, site not specified Status: Acute Assessment and Plan: Patient apparently was not on any antibiotics when she was transferred even though her 03/15/2021 urine sample showed a UTI with Enterobacter. I put her on trapped mean in the perioperative period she has how had about 4-5 days of this. I believe we could stop this after her next dose which is 10:00 p.m. Will put a nursing order in to stop after that does if okay with hospitalist Service. Additional Plan Once IV Tylenol has outdated will switch her to p.r.n. oral Tylenol versus hydrocodone with Tylenol every 4-6 hours for her residual pain. Subjective Subjective Date/Time Seen: 03/22/21 08:11 Post Op day: 3 (Pt denies nausea or much abdominal pain.) Patient reports: feels better and no bowel movement Review of Systems Constitutional: Constitutional: Reports no additional constitutional complaints ENT: Reports other (Mucous Membranes moist.) Cardiovascular: Cardiovascular: Denies dyspnea Respiratory: Respiratory: Denies pain on inspiration and Denies dyspnea Musculoskeletal: Musculoskeletal: Reports other (No calf swelling or edema) Integumentary/Breasts: Skin/Breast: Reports system reviewed and no additional complaints, except as docu Exam Const: General: cooperative, no acute distress, alert and awake Orientation/consciousness: patient oriented x3 HENMT: Mouth: Yes moist mucous membranes Neck: Neck: normal visual inspection Chest: Chest palpation & inspection: normal inspection of the chest Resp: Effort & Inspection: normal respiratory effort Auscultation: clear to auscultation bilaterally Cardio: Jugular venous distension: no JVD Rate: regular rate Rhythm: regular rhythm GI: Rectal Exam: deferred Neuro: General: patient oriented x3 and moves all extremities Speech: normal speech Extrem: General: normal exam except as noted Psych:
[2021-03-22] MEDS: ENOXAPARIN 40 MG/0.4 ML SYRINGE SUB-Q (09:33)
[2021-03-22] MEDS: HYDROcodone/acetaminophen (*CRX) 5-325 MG TABLET 1 TAB PO (09:33)
[2021-03-22] MEDS: PANTOPRAZOLE SODIUM IV 40 MG VIAL IV PUSH (09:33)
[2021-03-22 13:30] VITALS: BMI 23.1
[2021-03-22 14:00] VITALS: BP 155/88; PULSE 72; RESP 16; TEMP 36.7; O2SAT 97
--- NOTE | 2021-03-22 14:39 | PM.IMPN ---
Progress Note: A&P Assessment and Plan (1) Small bowel obstruction: Onset Date: ~02/2021 Code(s): K56.609 - Unspecified intestinal obstruction, unspecified as to partial versus complete obstruction Status: Acute Assessment and Plan: Pt underwent laparoscopy with lysis of adhesions with laparoscopic assisted mesh repair of a 3 x 2.5 cm right lower quadrant ventral incisional hernia -Pt doing well after sx and icision sites clean and dry -She has been passing gas. -She is tolerating clear liquids. Plan to transition to full tomorrow if she does well today. -Continue with the abdominal binder -PT/OT ordered (2) Memory impairment: Onset Date: Unknown Code(s): R41.3 - Other amnesia Status: Acute Assessment and Plan: A&Ox4 for me today. -Previous provider states she has no official diagnosis of dementia but does have a hx of hospital induced delirium - Will attempt to keep a calm/quiet environment for the patient with plans to keep a regimented wake/sleep schedule. -She is close to the nursing station (3) Gastroesophageal reflux disease: Onset Date: Unknown Code(s): K21.9 - Gastro-esophageal reflux disease without esophagitis Status: Acute Assessment and Plan: Continue protonix, change to PO (4) Hyperlipidemia: Onset Date: Unknown Code(s): E78.5 - Hyperlipidemia, unspecified Status: Acute Assessment and Plan: Chronic -statin held Additional Plan Pt has a Urine cx grow 50,000-100,000 of enterobacter 03/15/21. Notes briefly reviewed, I don't see much mention of this. She states she had no dysuria (before catheter was placed prior to sx) but did have confusion. Pt has been on ertapenem and will be finished tonight Subjective Date/time seen: 03/22/21 14:39 Interval history: Pt is a 75 y/o female here for SBO. Pt was seen today and is doing well. Pt states her pain is under control today and she is passing gas. She denies nausea, vomiting, chest pain, shortness of breath, fevers or chills. Daughter at bedside for exam. Exam Narrative: Exam Narrative: General: Well developed well nourished patient in NAD HEENT: normocephalic Neck: supple Neuro: Alert and oriented x4 for me today CV:RRR Resp:CTA Abd: Soft, non distended. Incision sites clean and dry. bowel sounds presen. Abdominal binder intact. Extremities: No swelling, erythema, or pain to palpation. Objective Data Vital Signs Vital Signs: Vital Signs - 24 hr 03/21/21 22:00 03/22/21 02:00 03/22/21 06:00 Temperature 97.6 F 97.3 F L 97.9 F Pulse Rate 64 89 65 Respiratory Rate 20 18 18 Blood Pressure 150/74 H 135/64 132/77 Pulse Oximetry 98 96 95 Intake/Output Intake/Output: Intake & Output 03/19/21 03/20/21 03/21/21 03/22/21 23:59 23:59 23:59 23:59 Intake Total 3350 2350 1350 780 Output Total 870 1925 3025 1050 Balance 2486 893 -8447 -325 Meds/Results Medications: Active Medications Generic Name Dose Route Start Last Admin Trade Name Freq PRN Reason Stop Dose Admin Hydrocodone Bitart/Acetaminophen 1 tab 03/18/21 21:46 03/22/21 09:33 Hydrocodone/Acetaminophen (*Crx) 5-325 Mg Tablet PO 1 tab Q4H PRN Administration Moderate Pain (4-6) Diphenhydramine HCl 25 mg 03/19/21 21:29 Diphenhydramine Hcl Inj 50 Mg/Ml Vial IV PUSH Q6H PRN Itching Enoxaparin Sodium 40 mg 03/20/21 09:00 03/22/21 09:33 Enoxaparin 40 Mg/0.4 Ml Syringe SUB-Q 40 mg DAILY ANNA Administration Hydromorphone HCl 0.5 mg 03/18/21 21:51 03/21/21 23:39 Hydromorphone Hcl Inj (*Crx) 1 Mg/Ml Syr IV PUSH 0.5 mg Q3H PRN Administration Pain Rated 4-6 Ertapenem 1 gm in 50 mls @ 100 mls/hr 03/19/21 22:00 03/21/21 22:12 Invanz 1 Gm/Ns 50 Ml IVPB Infused Q24H ANNA Infusion Lactated Ringer's 1,000 mls @ 60 mls/hr 03/21/21 11:00 03/22/21 09:30 Lr - Lactated Ringers Iv IV CONT Not Given .Q16
[2021-03-22] MEDS: MAGNESIUM HYDROXIDE SUSP 30 ML UDC FEED TUBE (17:05)
[2021-03-22] MEDS: SENNA/DOCUSATE SODIUM TABLET 2 TAB PO (20:30)
[2021-03-22] MEDS: ERTAPENEM 1 GM/NS 50 ML 1 GM/50 ML BAG IVPB (20:31)
[2021-03-22] MEDS: LACTATED RINGERS 1,000 ML 60 ML IV CONT (20:31)
[2021-03-22] MEDS: ACETAMINOPHEN 500 MG TABLET 1000 MG PO (20:31)
[2021-03-22] MEDS: busPIRone HCL 5 MG TABLET PO (20:31)
[2021-03-22 22:00] VITALS: BP 159/76; PULSE 65; RESP 18; TEMP 36.6; O2SAT 97
[2021-03-23] MEDS: ACETAMINOPHEN 500 MG TABLET 1000 MG PO ×3 (05:48→20:34)
[2021-03-23 05:53] LABS: Hematocrit 33.6 % (37.0-47.0); Hemoglobin 10.9 g/dL (12.0-15.0); Mean Corpuscular HGB Conc 32.4 g/dl (32-36); Mean Corpuscular Hemoglobin 29.9 pg (26-34); Mean Corpuscular Volume 92.1 fl (80-100); Mean Platelet Volume 10.2 fl (7.4-10.4); Platelet Count Result 259 k/mm3 (150-375); Red Blood Count 3.65 M/mm3 (4.2-5.4); Red Cell Distribution Width 13.8 % (11.5-14.5); White Blood Count 5.8 K/mm3 (4.5-10.0)
[2021-03-23 06:00] VITALS: BP 149/73; PULSE 64; RESP 16; TEMP 36.8; O2SAT 94
[2021-03-23 06:09] LABS: Anion Gap 10 mmol/L (8-16); Blood Urea Nitrogen 4 mg/dL (7-17); Calcium 8.2 mg/dL (8.4-10.2); Carbon Dioxide 26 mmol/L (22-30); Chloride 102 mmol/L (98-107); Estimated CRCL calculation 71 ml/min; Estimated Glomerular Filt Rate > 60; Glucose 81 mg/dL (65-110); Potassium 3.3 mmol/L (3.4-5.0); Sodium 138 mmol/L (137-145)
[2021-03-23] MEDS: POTASSIUM CHLORIDE 20 MEQ TABLET 40 MEQ PO (06:34)
[2021-03-23] MEDS: ENOXAPARIN 40 MG/0.4 ML SYRINGE SUB-Q (08:37)
[2021-03-23] MEDS: busPIRone HCL 5 MG TABLET PO ×2 (08:37→20:34)
[2021-03-23] MEDS: PANTOPRAZOLE SOD SESQUIHYDRATE 20 MG TAB PO (08:37)
--- NOTE | 2021-03-23 10:14 | PM.IMPN ---
Progress Note: A&P Assessment and Plan (1) Small bowel obstruction: Onset Date: ~02/2021 Code(s): K56.609 - Unspecified intestinal obstruction, unspecified as to partial versus complete obstruction Status: Acute Assessment and Plan: Pt underwent laparoscopy with lysis of adhesions with laparoscopic assisted mesh repair of a 3 x 2.5 cm right lower quadrant ventral incisional hernia -Pt doing well after sx and incision sites clean and dry -She has had a bowel movement and is tolerating a full liquid diet -Continue with the abdominal binder -PT/OT ordered - okay to discharge from a medical standpoint (2) Memory impairment: Onset Date: Unknown Code(s): R41.3 - Other amnesia Status: Acute Assessment and Plan: A&Ox4 for me today. -Previous provider states she has no official diagnosis of dementia but does have a hx of hospital induced delirium - Will attempt to keep a calm/quiet environment for the patient with plans to keep a regimented wake/sleep schedule. -She is close to the nursing station - daughter states she also has anxiety with this, BuSpar started. monitor for dizziness. Patient says she has none today. (3) Gastroesophageal reflux disease: Onset Date: Unknown Code(s): K21.9 - Gastro-esophageal reflux disease without esophagitis Status: Acute Assessment and Plan: Continue protonix, change to PO (4) Hyperlipidemia: Onset Date: Unknown Code(s): E78.5 - Hyperlipidemia, unspecified Status: Acute Assessment and Plan: Chronic - continue home statin (5) Elevated blood pressure reading: Code(s): R03.0 - Elevated blood-pressure reading, without diagnosis of hypertension Status: Acute Assessment and Plan: patient has had elevated blood pressures last being 149/73. She has been on fluids and these were stopped. She does look like she has some history a have hypertension while she was here but she was also in a lot of pain and was anxious. I have asked her and she says she has no history of hypertension. At this time, I would recommend stopping the fluids and reassessing her blood pressure at the [facility] swing bed. If she continues to be elevated, I would consider starting Norvasc. Additional Plan Pt has a Urine cx grow 50,000-100,000 of enterobacter 03/15/21. Notes briefly reviewed, I don't see much mention of this. She states she had no dysuria (before catheter was placed prior to sx) but did have confusion. Pt has been on ertapenem and will be finished tonight Subjective Date/time seen: 03/23/21 10:14 Interval history: Pt is a 75 y/o female here for SBO. Pt was seen today and is doing well. The patient has absolutely no pain today and was walking the halls when I saw her. She has had a bowel movement and tolerated her full liquids without nausea. She denies nausea, vomiting, chest pain, shortness of breath, fevers or chills. Patient states she has no history of hypertension has never been on medications for such. She does admit to having high blood pressures when she is stressed Exam Narrative: Exam Narrative: General: Well developed well nourished patient in NAD HEENT: normocephalic Neck: supple Neuro: Alert and oriented x4 CV:RRR Resp:CTA Abd: Soft, non distended. Incision sites clean and dry. bowel sounds present. Abdominal binder intact. Extremities: No swelling, erythema, or pain to palpation. Objective Data Vital Signs Vital Signs: Vital Signs - 24 hr 03/22/21 14:00 03/22/21 22:00 03/23/21 06:00 Temperature 98.0 F 97.8 F 98.2 F Pulse Rate 72 65 64 Respiratory Rate 16 18 16 Blood Pressure 155/88 H 159/76 H 149/73 H Pulse Oximetry 97 97 94 Intake/Output Intake/Output: Intake & Output 03/20/21 03/21/21 03/22/21 03/23/21 23:59 23:59 23:59 23:59 Intake Total 2350 1350 2090 1000 Output Total 1925 3025 2150 750 Balance 956 -7847 -60 250
[2021-03-23 14:05] VITALS: BP 144/76; PULSE 74; RESP 16; TEMP 36.9; O2SAT 99
--- NOTE | 2021-03-23 18:41 | PM.PNGS ---
Progress Note: A&P Assessment and Plan (1) Small bowel obstruction due to adhesions: Onset Date: ~02/2021 Code(s): K56.50 - Intestinal adhesions [bands], unspecified as to partial versus complete obstruction Status: Acute Assessment and Plan: This was the main reason for the patient's admission. She is now postop day 4 after laparoscopic lysis of adhesions with release of small-bowel obstruction and repair of a lower abdominal ventral incisional hernia with mesh. Patient is gradually improving. She may be passing flatus but her accuracy of history is questionable. However overnight the nurses have reported 5 stools on the graphic sheet. I will advance her diet today. Will go ahead and have her try some full liquids starting with sips this morning. Will give the nurses permission to advance her to a soft or heart healthy diet for supper and then if she is doing well after eating that for breakfast tomorrow she can probably be discharged. (2) Gastroesophageal reflux disease: Onset Date: Unknown Code(s): K21.9 - Gastro-esophageal reflux disease without esophagitis Status: Acute Assessment and Plan: Apparently a longstanding problem Patient on Protonix IV. Can switch this to oral if she tolerates her liquids. (3) Hx of colon cancer, stage III: Onset Date: ~2018 Code(s): Z85.038 - Personal history of other malignant neoplasm of large intestine Status: Acute Assessment and Plan: No current signs of recurrence. She recently had her port removed and that incision is doing well. She will continue to follow up periodically with Dr. De La Rosa. (4) Ileus: Onset Date: ~03/21/21 Code(s): K56.7 - Ileus, unspecified Status: Acute Assessment and Plan: Patient has active bowel sounds today on auscultation. She may be passing some gas and had a few loose stools per patient. Will a lower try full liquids since she is not nauseated and has not had any vomiting in 4 hours since her NG was removed. (5) UTI (urinary tract infection): Code(s): N39.0 - Urinary tract infection, site not specified Status: Acute Assessment and Plan: Patient apparently was not on any antibiotics when she was transferred even though her 03/15/2021 urine sample showed a UTI with Enterobacter. I put her on Invanz in the perioperative period she & has how had about 4-5 days of this. I believe we could stop this. Additional Plan Once IV Tylenol has outdated will switch her to p.r.n. oral Tylenol versus hydrocodone with Tylenol every 4-6 hours for her residual pain. Subjective Subjective Date/Time Seen: 03/23/21 18:41 Post Op day: 4 Patient reports: no new complaints, feels better and bowel movement Interval history: Patient is sitting up in the chair when I entered the room. She states she feels better and she has been up trying to walk. She is ready to advance her diet. Still has some abdominal pain but it is improving. Review of Systems Constitutional: Constitutional: Reports as per HPI, Reports no additional constitutional complaints and Denies headache(s) Eyes: Eyes: Denies loss of vision and Denies eye pain ENT: Reports Normal hearing present, Denies change in voice, Denies dizziness, Denies headache(s) and Reports other (Mucous Membranes moist.) Cardiovascular: Cardiovascular: Denies chest pain and Denies dyspnea Respiratory: Respiratory: Denies pain on inspiration, Denies dyspnea and Denies wheezing Gastrointestinal: Gastrointestinal: Reports as per HPI and Reports abdominal pain Musculoskeletal: Musculoskeletal: Reports no additional musculoskeletal complaints, Denies back pain, Denies arthralgias and Reports other (No calf swelling or edema) Integumentary/Breasts: Skin/Breast: Reports system reviewed and no additional complaints, except as docu Neurologic: Reports Normal hearing present, Denies dizziness, Denies headache(s), Denies
[2021-03-23 20:00] VITALS: PULSE 81; RESP 20; O2SAT 98
[2021-03-23 20:41] VITALS: BP 137/81; PULSE 81; RESP 20; TEMP 36.3; O2SAT 98
[2021-03-24 05:20] VITALS: BP 161/76; PULSE 64; RESP 20; TEMP 36; O2SAT 98
[2021-03-24 05:42] LABS: Mean Platelet Volume 9.8 fl (7.4-10.4); Platelet Count Result 299 k/mm3 (150-375)
[2021-03-24] MEDS: ACETAMINOPHEN 500 MG TABLET 1000 MG PO ×2 (05:55→13:04)
--- NOTE | 2021-03-24 09:13 | PM.IMPN ---
Progress Note: A&P Assessment and Plan (1) Small bowel obstruction: Onset Date: ~02/2021 Code(s): K56.609 - Unspecified intestinal obstruction, unspecified as to partial versus complete obstruction Status: Acute Assessment and Plan: Pt underwent laparoscopy with lysis of adhesions with laparoscopic assisted mesh repair of a 3 x 2.5 cm right lower quadrant ventral incisional hernia -Pt doing well after sx and incision sites clean and dry -She has had a bowel movement and is tolerating a diet -Continue with the abdominal binder -PT/OT ordered - okay to discharge from a medical standpoint (2) Memory impairment: Onset Date: Unknown Code(s): R41.3 - Other amnesia Status: Acute Assessment and Plan: A&Ox4 for me today. -Previous provider states she has no official diagnosis of dementia but does have a hx of hospital induced delirium - Will attempt to keep a calm/quiet environment for the patient with plans to keep a regimented wake/sleep schedule. -She is close to the nursing station - daughter states she also has anxiety with this, BuSpar started. monitor for dizziness. Patient says she has none today. (3) Gastroesophageal reflux disease: Onset Date: Unknown Code(s): K21.9 - Gastro-esophageal reflux disease without esophagitis Status: Acute Assessment and Plan: Continue protonix, change to PO (4) Hyperlipidemia: Onset Date: Unknown Code(s): E78.5 - Hyperlipidemia, unspecified Status: Acute Assessment and Plan: Chronic - continue home statin (5) Elevated blood pressure reading: Code(s): R03.0 - Elevated blood-pressure reading, without diagnosis of hypertension Status: Acute Assessment and Plan: patient has had elevated blood pressures last being 161/76. These have remained elevated even after stopping IV fluids and when she is pain free. Start [facility], follow up with pcp.. Additional Plan Pt has a Urine cx grow 50,000-100,000 of enterobacter 03/15/21. Notes briefly reviewed, I don't see much mention of this. She states she had no dysuria (before catheter was placed prior to sx) but did have confusion. Pt has been on ertapenem and has completed this. Subjective Date/time seen: 03/24/21 09:13 Interval history: Pt is a 75 y/o female here for SBO. Pt was seen today and is doing well and eating her breakfast. She has some occasional cramps but no significant pain, no nausea, and no vomiting. She denies chest pain, shortness of breath, fevers or chills. Patient states she has no history of hypertension has never been on medications for such. We discussed her new bp medication and follow up with that. Exam Narrative: Exam Narrative: General: Well developed well nourished patient in NAD HEENT: normocephalic Neck: supple Neuro: Alert and oriented x4 CV:RRR Resp:CTA Abd: Soft, non distended. Incision sites clean and dry. bowel sounds present. Abdominal binder intact. Extremities: No swelling, erythema, or pain to palpation. Objective Data Vital Signs Vital Signs: Vital Signs - 24 hr 03/23/21 14:05 03/23/21 20:00 03/23/21 20:41 Temperature 98.4 F 97.4 F L Pulse Rate 74 81 81 Respiratory Rate 16 20 20 Blood Pressure 144/76 H 137/81 Pulse Oximetry 99 98 98 03/24/21 05:20 Temperature 96.8 F L Pulse Rate 64 Respiratory Rate 20 Blood Pressure 161/76 H Pulse Oximetry 98 Intake/Output Intake/Output: Intake & Output 03/21/21 03/22/21 03/23/21 03/24/21 23:59 23:59 23:59 23:59 Intake Total 1350 2090 1750 240 Output Total 3025 2150 1350 Balance -1675 -60 400 240 Meds/Results Medications: Active Medications Generic Name Dose Route Start Last Admin Trade Name Freq PRN Reason Stop Dose Admin Acetaminophen 1,000 mg 03/22/21 22:00 03/24/21 05:55 Acetaminophen 500 Mg Tablet PO 1,000 mg Q8HR ANNA Administration Acetaminophen 650 mg
[2021-03-24 09:23] LABS: Anion Gap 6 mmol/L (8-16); Blood Urea Nitrogen 7 mg/dL (7-17); Calcium 8.2 mg/dL (8.4-10.2); Carbon Dioxide 27 mmol/L (22-30); Chloride 106 mmol/L (98-107); Estimated CRCL calculation 71 ml/min; Estimated Glomerular Filt Rate > 60; Glucose 94 mg/dL (65-110); Potassium 3.9 mmol/L (3.4-5.0); Sodium 139 mmol/L (137-145)
[2021-03-24] MEDS: busPIRone HCL 5 MG TABLET PO (09:23)
[2021-03-24] MEDS: ENOXAPARIN 40 MG/0.4 ML SYRINGE SUB-Q (09:23)
[2021-03-24] MEDS: amLODIPine BESYLATE 5 MG TABLET PO (09:23)
[2021-03-24] MEDS: PANTOPRAZOLE SOD SESQUIHYDRATE 20 MG TAB PO (09:23)
--- NOTE | 2021-03-24 10:24 | PM.DS ---
DS: Admitting Diagnosis Admitting Diagnosis Small bowel obstruction secondary to adhesions. DS: Discharge Diagnosis Discharge Diagnosis (1) Small bowel obstruction: Onset Date: ~02/2021 Code(s): K56.609 - Unspecified intestinal obstruction, unspecified as to partial versus complete obstruction Status: Acute Assessment and Plan: This was the main reason for the patient's admission. She came from [facility] after she had had a hospitalization there for small-bowel obstruction which then recurred while she was in the swing bed. She never resolved the small-bowel obstruction here, therefore I proceeded with a laparoscopic lysis of adhesions and release of small-bowel obstruction. Also, a lower abdominal ventral incisional hernia that was approximately 2 x 3 cm in size was noted to be just to the right of midline in the lower abd. and was exposed during the lysis of adhesions mentioned above. This was repaired with a piece of mesh at the same surgery. Patient had a fairly uneventful postoperative course having an ileus for about 2 or 3 days. On the day of discharge from [place] she is tolerating a low-fiber soft diet and beginning to walk better. She is walking with a walker. (2) UTI (urinary tract infection): Onset Date: ~03/15/21 Code(s): N39.0 - Urinary tract infection, site not specified Status: Acute Assessment and Plan: this was with intra bacteriuria. (See culture results) it was a somewhat resistant organism. Treated adequately for 5 days IV during this hospitalization with Invanz. Treatment ended on 03/24/2021. (3) Hyperlipidemia: Onset Date: Unknown Code(s): E78.5 - Hyperlipidemia, unspecified Status: Acute Assessment and Plan: Okay for patient to go back on her usual medications. (4) Gastroesophageal reflux disease: Onset Date: Unknown Code(s): K21.9 - Gastro-esophageal reflux disease without esophagitis Status: Acute Assessment and Plan: Plan to continue p.o. proton pump inhibitor to control this. (5) Hx of colon cancer, stage III: Onset Date: ~2018 Code(s): Z85.038 - Personal history of other malignant neoplasm of large intestine Status: Acute Assessment and Plan: In 2019 the patient had a sigmoid colon cancer which was resected and she subsequently underwent chemotherapy. She has followed with Dr. Justin sarabia and continues to do so. Please help her get her next appointment set up with him depending on what his last note stated was needed. ( contact his office if necessary from the swing bed in [facility]) (6) Ileus: Onset Date: ~03/21/21 Code(s): K56.7 - Ileus, unspecified Status: Acute Assessment and Plan: This resolved 3 days following her surgical intervention. (7) Cerebrovascular accident: Onset Date: 2018 Code(s): I63.9 - Cerebral infarction, unspecified Status: Chronic Assessment and Plan: Patient still suffers some residual affects including memory loss and some confusion periodically. (8) Small bowel obstruction due to adhesions: Onset Date: ~02/2021 Code(s): K56.50 - Intestinal adhesions [bands], unspecified as to partial versus complete obstruction Status: Resolved Assessment and Plan: This is now resolved status post lysis of adhesions with release of small-bowel obstruction done with laparoscopic surgery. (9) Ventral incisional hernia: Code(s): K43.2 - Incisional hernia without obstruction or gangrene Status: Acute Assessment and Plan: this was known preop but then repaired during this admission and surgery. Circular a 0.6 cm piece of prior attacks mesh used for the repair and done laparoscopically. ( See operative report). DS: Summary Hospital Course Reason for hospitalization: Small bowel obstruction secondary to adhesions. Hospital Course: The patient had uneventful h
--- NOTE | 2021-03-24 12:13 | PCOTNOTE ---
Attempted to see patient this am, however patient declined stating she would like to rest after just completing physical therapy.
== END 2021-03-24 14:38 | disposition swing bed (61) | DRG 336 ==
PROVIDERS: Surgery; Admitting Provider Surgery; PCP Internal Medicine; Referring Provider Surgery; Visit Provider Physician Assistant
PROC: 0DN84ZZ Release Small Intestine, Percutaneous Endoscopic Approach (ICD-10-PCS; CPT 49320; principal; 2021-03-19 14:15)
PROC: 0DN84ZZ Release Small Intestine, Percutaneous Endoscopic Approach (ICD-10-PCS; CPT 49000; 2021-03-19 14:15)
DX: K56.51 Intestinal adhesions [bands], with partial obstruction (principal); I69.351 Hemiplegia and hemiparesis following cerebral infarction affecting right dominant side; N39.0 Urinary tract infection, site not specified; K56.7 Ileus, unspecified; K43.2 Incisional hernia without obstruction or gangrene; E87.6 Hypokalemia; Z85.038 Personal history of other malignant neoplasm of large intestine; Z92.21 Personal history of antineoplastic chemotherapy; Z92.3 Personal history of irradiation; Z90.49 Acquired absence of other specified parts of digestive tract; I10 Essential (primary) hypertension; K21.9 Gastro-esophageal reflux disease without esophagitis; Z86.718 Personal history of other venous thrombosis and embolism; Z87.820 Personal history of traumatic brain injury; E78.5 Hyperlipidemia, unspecified; M19.90 Unspecified osteoarthritis, unspecified site; R41.3 Other amnesia; E78.00 Pure hypercholesterolemia, unspecified; F03.90 Unspecified dementia, unspecified severity, without behavioral disturbance, psychotic disturbance, mood disturbance, and anxiety; B96.89 Other specified bacterial agents as the cause of diseases classified elsewhere
CPT/HCPCS: 36415; 74019; 80048; 80053; 83605; 83735; 85025; 85027; 85049; 88305; 93971; 97110; 97116; 97162; 97165; 97530; 97535; A9270; C1781; C9113; J0131; J1100; J1170; J1335; J1650; J2370; J2405; J2704; J2710; J3010; J3480; J7030; J7120

== ENCOUNTER 2021-03-24 15:30 | Inpatient (IN) | payer MEDICARE, SELFPAY ==
--- NOTE | 2021-03-24 15:40 | ADMGEN ---
This patient, Azeb Vallejo, was admitted to 2nd Floor Room 202-2. Patient/family oriented to hospital policies and general routines including ID bracelet, bed and alarms, visiting hours, pain management, procedures, bathroom and other care routines, personal items, smoking policy, room service/diet, and visiting hours. Information on how to activate the Rapid Response Team has been discussed. Patient/Family are encouraged to report perceived risks to care and to ask questions if they do not understand what they are told or what they should do.
[2021-03-24 15:50] VITALS: PULSE 80; RESP 16; O2SAT 96
[2021-03-24 16:28] VITALS: BMI 21.4
[2021-03-24 23:18] VITALS: PULSE 70; RESP 18; O2SAT 94
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
[2021-03-25] VITALS: BP 133/86; PULSE 70; RESP 18; TEMP 36.8; O2SAT 94
--- NOTE | 2021-03-25 02:06 | PC.NURSE ---
Pt c/o headache pain and asked for tylenol. Dr Norris notified and new orders were received and noted.
[2021-03-25] MEDS: ACETAMINOPHEN 500 MG TABLET 1000 MG PO ×2 (02:34→15:11)
[2021-03-25 08:00] VITALS: BP 155/81; PULSE 70; RESP 16; TEMP 36.9; O2SAT 95
[2021-03-25] MEDS: PSYLLIUM POWDER PACKET 1 PACKET PO (08:39)
[2021-03-25] MEDS: LORATADINE 10 MG TABLET PO (08:45)
[2021-03-25] MEDS: ATORVASTATIN 10 MG TABLET 20 MG PO (08:45)
[2021-03-25] MEDS: PANTOPRAZOLE 40 MG TABLET PO ×2 (08:45→16:51)
[2021-03-25] MEDS: ASPIRIN 81 MG CHEWABLE TABLET PO (08:45)
[2021-03-25] MEDS: busPIRone HCL 5 MG TABLET PO (08:45)
[2021-03-25] MEDS: amLODIPine BESYLATE 5 MG TABLET PO (08:45)
[2021-03-25] MEDS: MULTIVITAMINS THERAPEUTIC TAB (*BKC) 1 TABLET PO (08:45)
[2021-03-25] MEDS: polyethylene glycoL 3350 17 GM POWD.PACK 34 GM PO (08:48)
[2021-03-25] MEDS: SIMETHICONE 80 MG TAB.CHEW PO ×4 (09:55→20:34)
[2021-03-25] MEDS: ACIDOPHILUS/BULGARICUS CHEWABLE TABLET 1 TABLET PO (09:56)
--- NOTE | 2021-03-25 13:47 | P.PN_ITS ---
Progress Note: A&P Assessment and Plan (1) Weakness: Code(s): R53.1 - Weakness <Ugo Garcia EUNICE - Last Filed: 03/25/21 14:29> Status: Acute <Ugo Garcia EUNICE - Last Filed: 03/25/21 14:29> Assessment and Plan: ? Exhibit tolerance during physical activity as evidenced by a normal fluctuation of vital signs during physical activity. ? Patient will be ability to perform required activities of daily living. ? Provide appropriate nutrition for healing and strength. ? Use appropriate to prevent falls. ? Continue physical therapy/occupational therapy. <Ugo Garcia MANAGER TECHNICAL SALESSophia - Last Filed: 03/25/21 14:29> (2) Small bowel obstruction: Onset Date: ~02/2021 <Uog Garcia EUNICE - Last Filed: 03/25/21 14:29> Code(s): K56.609 - Unspecified intestinal obstruction, unspecified as to partial versus complete obstruction <Ugo Ann Jose EUNICE - Last Filed: 03/25/21 14:29> Status: Acute <Ugo Garcia EUNICE - Last Filed: 03/25/21 14:29> Assessment and Plan: / * Imaging from03/19/21,03/15/2021,12/05/2020 indicates small bowel obstruction * laparoscopy, with lysis of adhesions, and release of small-bowel obstruc tion03/19/2021 * No signs and symptoms of infection at surgical site * Continue with abdominal binder * Continue OT PT <Ugo Garcia EUNICE - Last Filed: 03/25/21 14:29> (3) GERD (gastroesophageal reflux disease): Qualifiers: Esophagitis presence: esophagitis presence not specified Qualified Code(s): K21.9 - Gastro-esophageal reflux disease without esophagitis <Ugo JustinEMILY PadillaLynnetteEvert - Last Filed: 03/25/21 14:29> Code(s): K21.9 - Gastro-esophageal reflux disease without esophagitis <Ugo JustinEUNICE Padilla - Last Filed: 03/25/21 14:29> Status: Chronic <Ugo JustinEMILY Padilla-C - Last Filed: 03/25/21 14:29> Assessment and Plan: * Continue pantoprazole <EMILY Irby-C - Last Filed: 03/25/21 14:29> (4) Delirium: Code(s): R41.0 - Disorientation, unspecified <EMILY Irby-C - Last Filed: 03/25/21 14:29> Status: Resolved <EMILY Irby-C - Last Filed: 03/25/21 14:29> (5) Memory impairment: Onset Date: Unknown <EMILY Irby-C - Last Filed: 03/25/21 14:29> Code(s): R41.3 - Other amnesia <EMILY Irby-C - Last Filed: 03/25/21 14:29> Status: Acute <EMILY Irby-C - Last Filed: 03/25/21 14:29> Assessment and Plan: Patient was on Buspar. Will discontinue due to severe dizziness. <EMILY Irby-C - Last Filed: 03/25/21 14:29> (6) Hyperlipidemia: Onset Date: Unknown <EMILY Irby-C - Last Filed: 03/25/21 14:29> Code(s): E78.5 - Hyperlipidemia, unspecified <EMILY Irby-C - Last Filed: 03/25/21 14:29> Status: Acute <Ugo Garcia EMILY-C - Last Filed: 03/25/21 14:29> Assessment and Plan: * Continue atorvastatin <EMILY Irby-C - Last Filed: 03/25/21 14:29> (7) Ventral incisional hernia: Code(s): K43.2 - Incisional hernia without obstruction or gangrene <Ugo Garcia EMILY-C - Last Filed: 03/25/21 14:29> Status: Acute <Ugo Garcia MANAGER TECHNICAL SALES-C - Last Filed: 03/25/21 14:29> Assessment and Plan: * mesh repair of a 3 x 2.5 cm left lower quadrant ventral incisional hernia completed 03/19/2021 * No signs and symptoms of infection at surgical site * Continue with abdominal binder * Continue OT PT <S
--- NOTE | 2021-03-25 13:47 | WPDPN ---
Progress Note: A&P Assessment and Plan (1) Weakness: Code(s): R53.1 - Weakness <Ugo Garcia EUNICE - Last Filed: 03/25/21 14:29> Status: Acute <Ugo Garcia EUNICE - Last Filed: 03/25/21 14:29> Assessment and Plan: ? Exhibit tolerance during physical activity as evidenced by a normal fluctuation of vital signs during physical activity. ? Patient will be ability to perform required activities of daily living. ? Provide appropriate nutrition for healing and strength. ? Use appropriate to prevent falls. ? Continue physical therapy/occupational therapy. <Ugo Garcia EUNICE - Last Filed: 03/25/21 14:29> (2) Small bowel obstruction: Onset Date: ~02/2021 <Ugo Garcia EUNICE - Last Filed: 03/25/21 14:29> Code(s): K56.609 - Unspecified intestinal obstruction, unspecified as to partial versus complete obstruction <Ugo Garcia EUNICE - Last Filed: 03/25/21 14:29> Status: Acute <Ugo Garcia EUNICE - Last Filed: 03/25/21 14:29> Assessment and Plan: / Imaging from03/19/21,03/15/2021,12/05/2020 indicates small bowel obstruction laparoscopy, with lysis of adhesions, and release of small-bowel obstruction03/19/2021 No signs and symptoms of infection at surgical site Continue with abdominal binder Continue OT PT <Ugo Garcia EUNICE - Last Filed: 03/25/21 14:29> (3) GERD (gastroesophageal reflux disease): Qualifiers: Esophagitis presence: esophagitis presence not specified Qualified Code(s): K21.9 - Gastro-esophageal reflux disease without esophagitis <Ugo AndersonJuan Garcia JANITORIAL CLEANERLynnetteEvert - Last Filed: 03/25/21 14:29> Code(s): K21.9 - Gastro-esophageal reflux disease without esophagitis <Ugo JustinJuan Garcia JANITORIAL CLEANER-C - Last Filed: 03/25/21 14:29> Status: Chronic <Ugo Ann Jose JANITORIAL CLEANERLynnetteEvert - Last Filed: 03/25/21 14:29> Assessment and Plan: Continue pantoprazole <EMILY Irby-C - Last Filed: 03/25/21 14:29> (4) Delirium: Code(s): R41.0 - Disorientation, unspecified <EMILY Irby-C - Last Filed: 03/25/21 14:29> Status: Resolved <EMILY Irby-C - Last Filed: 03/25/21 14:29> (5) Memory impairment: Onset Date: Unknown <EMILY Irby-C - Last Filed: 03/25/21 14:29> Code(s): R41.3 - Other amnesia <EMILY Irby-C - Last Filed: 03/25/21 14:29> Status: Acute <Ugo Garcia EMILY-C - Last Filed: 03/25/21 14:29> Assessment and Plan: Patient was on Buspar. Will discontinue due to severe dizziness. <Ugo Garcia JULIOC - Last Filed: 03/25/21 14:29> (6) Hyperlipidemia: Onset Date: Unknown <EMILY Irby-C - Last Filed: 03/25/21 14:29> Code(s): E78.5 - Hyperlipidemia, unspecified <EMILY Irby-C - Last Filed: 03/25/21 14:29> Status: Acute <Ugo Garcia EMILY-C - Last Filed: 03/25/21 14:29> Assessment and Plan: Continue atorvastatin <Ugo Garcia EMILY-C - Last Filed: 03/25/21 14:29> (7) Ventral incisional hernia: Code(s): K43.2 - Incisional hernia without obstruction or gangrene <Ugo Garcia EMILY-C - Last Filed: 03/25/21 14:29> Status: Acute <Ugo Garcia EMILY-C - Last Filed: 03/25/21 14:29> Assessment and Plan: mesh repair of a 3 x 2.5 cm left lower quadrant ventral incisional hernia completed 03/19/2021 No signs and symptoms of infection at surgical site Continue with abdominal binder Continue OT PT <EUNICE Irby - Last Filed: 03/25/21 14:29> (8) HTN (hypertension): Code(s): I10 - Essential (primary) hypertension <EUNICE Irby - Last Filed: 03/25/21 14:29> Status: Acute <EUNICE Irby - Last Filed: 03/25/21 14:29> Assessment and Plan: Continue Norvasc Vital signs as ordered
[2021-03-25 16:00] VITALS: BP 127/76; PULSE 69; RESP 16; TEMP 36.8; O2SAT 96
[2021-03-25] MEDS: SENNA/DOCUSATE SODIUM TABLET 1 TAB PO (20:34)
[2021-03-26 00:36] VITALS: BP 149/83; PULSE 75; RESP 18; TEMP 36.8; O2SAT 97
[2021-03-26 08:00] VITALS: BP 136/76; PULSE 73; RESP 16; TEMP 37; O2SAT 96
[2021-03-26] MEDS: PSYLLIUM POWDER PACKET 1 PACKET PO (08:27)
[2021-03-26] MEDS: LORATADINE 10 MG TABLET PO (08:28)
[2021-03-26] MEDS: PANTOPRAZOLE 40 MG TABLET PO ×2 (08:28→16:18)
[2021-03-26] MEDS: ATORVASTATIN 10 MG TABLET 20 MG PO (08:28)
[2021-03-26] MEDS: amLODIPine BESYLATE 5 MG TABLET PO (08:29)
[2021-03-26] MEDS: SIMETHICONE 80 MG TAB.CHEW PO ×4 (08:29→20:21)
[2021-03-26] MEDS: MULTIVITAMINS THERAPEUTIC TAB (*BKC) 1 TABLET PO (08:29)
[2021-03-26] MEDS: DOCUSATE SODIUM 100 MG CAPSULE PO (08:29)
[2021-03-26] MEDS: ASPIRIN 81 MG CHEWABLE TABLET PO (08:29)
[2021-03-26] MEDS: ACIDOPHILUS/BULGARICUS CHEWABLE TABLET 1 TABLET PO (08:30)
[2021-03-26] MEDS: polyethylene glycoL 3350 17 GM POWD.PACK 34 GM PO (08:30)
[2021-03-26 16:00] VITALS: BP 128/87; PULSE 86; RESP 16; TEMP 37.1; O2SAT 98
[2021-03-26] MEDS: SENNA/DOCUSATE SODIUM TABLET 1 TAB PO (20:21)
--- NOTE | 2021-03-26 23:15 | PC.NURSE ---
Bedside report completed and board updated. Patient stated that she was comfortable, and did not need anything else at the moment. Patient was remided to use the call light when she needed something. Patient settled down to go to sleep.
[2021-03-27] VITALS: BP 147/64; PULSE 78; RESP 18; TEMP 36.8; O2SAT 95
[2021-03-27] MEDS: ACETAMINOPHEN 500 MG TABLET 1000 MG PO ×2 (01:32→14:17)
--- NOTE | 2021-03-27 01:39 | PC.NURSE ---
Patient called for tylenol for a headache. While in the room giving medication, patient also c/o pins and needles feeling in her feet, and requested the machine that goes on the end of the bed for my legs . Charge nurse called for the order.
--- NOTE | 2021-03-27 01:46 | PC.NURSE ---
Pt requesting SCDs be put on because she is having a 'pins and needles' sensation in her lower legs and feet. Dr. Pringle was notified and new orders were received and noted for the application of SCD device.
--- NOTE | 2021-03-27 02:00 | PC.NURSE ---
SCDs were placed on patient's legs, after she walked to the toilet using the walker. Patient stated that she had used the SCDs at [facility], and felt that they helped.
--- NOTE | 2021-03-27 03:36 | PC.NURSE ---
Patient was observed during hourly rounding. Patient was sleeping comfortably. SCDs were still on and working.
--- NOTE | 2021-03-27 06:31 | PC.NURSE ---
Patient slept well tonight, waking only to go to the toilet, and to ask for pain medication for a headache. Tylenol resolved her headache. Patient was able to use her walker to ambulate to the toilet, pull her own clothing up and down as needed independently, and washed and dried her hands after urination independently. Patient asked for SCDs to be placed on both legs. She felt that the SCDs were very helpful for her when she was at [facility]. Patient is still sleeping.
[2021-03-27 08:00] VITALS: BP 128/79; PULSE 83; RESP 16; TEMP 37; O2SAT 96
[2021-03-27] MEDS: PSYLLIUM POWDER PACKET 1 PACKET PO (09:38)
[2021-03-27] MEDS: ACIDOPHILUS/BULGARICUS CHEWABLE TABLET 1 TABLET PO (09:38)
[2021-03-27] MEDS: polyethylene glycoL 3350 17 GM POWD.PACK 34 GM PO (09:38)
[2021-03-27] MEDS: ATORVASTATIN 10 MG TABLET 20 MG PO (09:39)
[2021-03-27] MEDS: ASPIRIN 81 MG CHEWABLE TABLET PO (09:39)
[2021-03-27] MEDS: DOCUSATE SODIUM 100 MG CAPSULE PO (09:39)
[2021-03-27] MEDS: LORATADINE 10 MG TABLET PO (09:40)
[2021-03-27] MEDS: PANTOPRAZOLE 40 MG TABLET PO ×2 (09:40→16:56)
[2021-03-27] MEDS: MULTIVITAMINS THERAPEUTIC TAB (*BKC) 1 TABLET PO (09:40)
[2021-03-27] MEDS: amLODIPine BESYLATE 5 MG TABLET PO (09:40)
[2021-03-27] MEDS: SIMETHICONE 80 MG TAB.CHEW PO ×4 (09:41→21:24)
[2021-03-27 16:00] VITALS: BP 115/60; PULSE 70; RESP 14; TEMP 36.6; O2SAT 97
[2021-03-27] MEDS: traMADol HCL (*CRX) 25 MG TABLET PO (16:54)
[2021-03-27] MEDS: SENNA/DOCUSATE SODIUM TABLET 1 TAB PO (21:24)
[2021-03-28] VITALS: BP 114/71; PULSE 66; RESP 20; TEMP 36.8; O2SAT 94
[2021-03-28 08:00] VITALS: BP 131/74; PULSE 83; RESP 16; TEMP 36.9; O2SAT 97
[2021-03-28] MEDS: MULTIVITAMINS THERAPEUTIC TAB (*BKC) 1 TABLET PO (09:10)
[2021-03-28] MEDS: LORATADINE 10 MG TABLET PO (09:10)
[2021-03-28] MEDS: DOCUSATE SODIUM 100 MG CAPSULE PO (09:10)
[2021-03-28] MEDS: ATORVASTATIN 10 MG TABLET 20 MG PO (09:10)
[2021-03-28] MEDS: ACIDOPHILUS/BULGARICUS CHEWABLE TABLET 1 TABLET PO (09:11)
[2021-03-28] MEDS: polyethylene glycoL 3350 17 GM POWD.PACK 34 GM PO (09:11)
[2021-03-28] MEDS: PANTOPRAZOLE 40 MG TABLET PO ×2 (09:11→16:55)
[2021-03-28] MEDS: SIMETHICONE 80 MG TAB.CHEW PO ×3 (09:11→20:23)
[2021-03-28] MEDS: PSYLLIUM POWDER PACKET 1 PACKET PO (09:12)
[2021-03-28] MEDS: ASPIRIN 81 MG CHEWABLE TABLET PO (09:12)
[2021-03-28] MEDS: amLODIPine BESYLATE 5 MG TABLET PO (09:13)
[2021-03-28 16:00] VITALS: BP 140/71; PULSE 84; RESP 20; TEMP 36.5; O2SAT 97
--- NOTE | 2021-03-28 16:36 | PC.NURSE ---
Patient ambulated to/from bathroom with SBA and gait belt/walker. Movement slow and steady. Patient returned to straight back chair with over the bed tray in front of her. Call light and belongings within reach.
--- NOTE | 2021-03-28 19:21 | PC.NURSE ---
Patient assisted to the bathroom then to get ready for bed. Patient able to assist with removing and donning her clothes. Patient able to get legs up into bed. SCDs applied. BLE elevated on pillow. SR up X2. Call light and belongings within reach.
[2021-03-28] MEDS: SENNA/DOCUSATE SODIUM TABLET 1 TAB PO (20:18)
[2021-03-28] MEDS: traMADol HCL (*CRX) 25 MG TABLET PO (20:18)
[2021-03-29] VITALS: BP 119/59; PULSE 74; RESP 20; TEMP 36.6; O2SAT 95
--- NOTE | 2021-03-29 00:05 | PC.NURSE ---
Pt called to use the bathroom; Pt up to the bathroom with the walker and standby assist of one. Pt voided 200 ml of clear yellow urine with a small brown formed stool. Pt back to be with the walker and standby assist of one. Side rails up x2 and call motta within reach.
--- NOTE | 2021-03-29 02:12 | PC.NURSE ---
Pt asleep and no signs of discomfort noted.
--- NOTE | 2021-03-29 04:13 | PC.NURSE ---
Pt asleep and no signs of discomfort noted.
--- NOTE | 2021-03-29 04:23 | PC.NURSE ---
Pt asleep and no signs of discomfort noted.
--- NOTE | 2021-03-29 05:10 | PC.NURSE ---
Pt up to the bathroom with her walker and assist of one. Pt voided 400 ml of clear, yellow urine with a small soft, brown stool. Pt back to be with her walker and standby assist of one. Pt tolerated activity well, side rails up x2 and call motta within reach.
[2021-03-29 08:00] VITALS: BP 124/74; PULSE 79; RESP 16; TEMP 36.9; O2SAT 96
[2021-03-29] MEDS: DOCUSATE SODIUM 100 MG CAPSULE PO (08:30)
[2021-03-29] MEDS: MULTIVITAMINS THERAPEUTIC TAB (*BKC) 1 TABLET PO (09:00)
[2021-03-29] MEDS: PSYLLIUM POWDER PACKET 1 PACKET PO (09:50)
[2021-03-29] MEDS: ACIDOPHILUS/BULGARICUS CHEWABLE TABLET 1 TABLET PO (09:50)
[2021-03-29] MEDS: ASPIRIN 81 MG CHEWABLE TABLET PO (09:51)
[2021-03-29] MEDS: polyethylene glycoL 3350 17 GM POWD.PACK 34 GM PO (09:51)
[2021-03-29] MEDS: ATORVASTATIN 10 MG TABLET 20 MG PO (09:51)
[2021-03-29] MEDS: SIMETHICONE 80 MG TAB.CHEW PO ×4 (09:52→20:48)
[2021-03-29] MEDS: LORATADINE 10 MG TABLET PO (09:52)
[2021-03-29] MEDS: PANTOPRAZOLE 40 MG TABLET PO ×2 (09:52→16:35)
[2021-03-29] MEDS: amLODIPine BESYLATE 5 MG TABLET PO (09:52)
[2021-03-29 16:00] VITALS: BP 143/89; PULSE 83; RESP 18; TEMP 36.7; O2SAT 97
--- NOTE | 2021-03-29 17:10 | PC.NURSE ---
Patient up in chair visiting with family. Alert and oriented. Denies pain, SOB. Amb to bathroom with gait belt, walker, and SBA. Gait steady.
[2021-03-29] MEDS: SENNA/DOCUSATE SODIUM TABLET 1 TAB PO (20:48)
[2021-03-30] VITALS: BP 116/67; PULSE 93; RESP 20; TEMP 36.4; O2SAT 98
[2021-03-30] MEDS: ASPIRIN 81 MG CHEWABLE TABLET PO (07:56)
[2021-03-30 08:00] VITALS: BP 108/80; PULSE 86; RESP 18; TEMP 37.3; O2SAT 96
[2021-03-30] MEDS: polyethylene glycoL 3350 17 GM POWD.PACK 34 GM PO (10:11)
[2021-03-30] MEDS: PSYLLIUM POWDER PACKET 1 PACKET PO (10:12)
[2021-03-30] MEDS: LORATADINE 10 MG TABLET PO (10:13)
[2021-03-30] MEDS: DOCUSATE SODIUM 100 MG CAPSULE PO (10:13)
[2021-03-30] MEDS: SIMETHICONE 80 MG TAB.CHEW PO ×4 (10:13→20:36)
[2021-03-30] MEDS: MULTIVITAMINS THERAPEUTIC TAB (*BKC) 1 TABLET PO (10:14)
[2021-03-30] MEDS: PANTOPRAZOLE 40 MG TABLET PO ×2 (10:14→16:43)
[2021-03-30] MEDS: amLODIPine BESYLATE 5 MG TABLET PO (10:14)
[2021-03-30] MEDS: ATORVASTATIN 10 MG TABLET 20 MG PO (10:14)
[2021-03-30] MEDS: ACIDOPHILUS/BULGARICUS CHEWABLE TABLET 1 TABLET PO (10:15)
[2021-03-30] MEDS: ACETAMINOPHEN 500 MG TABLET 1000 MG PO (11:33)
[2021-03-30 15:51] VITALS: BP 127/67; PULSE 76; RESP 16; TEMP 36.8; O2SAT 98
[2021-03-30] MEDS: SENNA/DOCUSATE SODIUM TABLET 1 TAB PO (20:36)
[2021-03-31 00:02] VITALS: BP 136/77; PULSE 85; RESP 18; TEMP 36.5; O2SAT 96
[2021-03-31 08:00] VITALS: BP 122/80; PULSE 80; RESP 16; TEMP 36.6; O2SAT 98
--- NOTE | 2021-03-31 08:17 | P.DS_ITS ---
DS: Admitting Diagnosis Admitting Diagnosis Generalized Weakness s/p multiple SBO and Lysis of Abdominal Adhesions <Christos Pedro STEVEN Day - Last Filed: 03/31/21 10:53> DS: Discharge Diagnosis Discharge Diagnosis (1) Weakness: Code(s): R53.1 - Weakness <Christos DayDAVYC - Last Filed: 03/31/21 10:53> Status: Acute <Christos DayPASHALynnetteEvert - Last Filed: 03/31/21 10:53> Assessment and Plan: ? Exhibit tolerance during physical activity as evidenced by a normal fluctuation of vital signs during physical activity. ? Patient will be ability to perform required activities of daily living. ? Provide appropriate nutrition for healing and strength. ? Use appropriate to prevent falls. ? Continue physical therapy/occupational therapy. 03/31/2021 Pt has been doing very well with PT/OT, I have seen her walking quite well in the halls, a marked improvement from her previous stay at this facility <Christos YanDAVY Duarte - Last Filed: 03/31/21 10:53> (2) Small bowel obstruction: Onset Date: ~02/2021 <Christos Pedro DAVY Day - Last Filed: 03/31/21 10:53> Code(s): K56.609 - Unspecified intestinal obstruction, unspecified as to partial versus complete obstruction <Christos AmayaSTEVEN kennedy - Last Filed: 03/31/21 10:53> Status: Acute <Christos Pedro PASHA DayLynnetteEvert - Last Filed: 03/31/21 10:53> Assessment and Plan: * Imaging from03/19/21,03/15/2021,12/05/2020 indicates small bowel obstruction * laparoscopy, with lysis of adhesions, and release of small-bowel obstruction03/19/2021 * No signs and symptoms of infection at surgical site * Continue with abdominal binder * Continue OT PT 03/31/2021 Pt is having no issues with eating and drinking and is not complaining of abdominal pain. <Christos FarrahSTEVEN Duarte - Last Filed: 03/31/21 10:53> (3) GERD (gastroesophageal reflux disease): Qualifiers: Esophagitis presence: esophagitis presence not specified Qualified Code(s): K21.9 - Gastro-esophageal reflux disease without esophagitis <Christos Day MOLD MACHINE OPERATOR-C - Last Filed: 03/31/21 10:53> Code(s): K21.9 - Gastro-esophageal reflux disease without esophagitis <Christos Day MOLD MACHINE OPERATOR-C - Last Filed: 03/31/21 10:53> Status: Chronic <Christos Day MOLD MACHINE OPERATOR-C - Last Filed: 03/31/21 10:53> Assessment and Plan: * Continue pantoprazole <Christos Day MOLD MACHINE OPERATOR-C - Last Filed: 03/31/21 10:53> (4) Delirium: Code(s): R41.0 - Disorientation, unspecified <Christos Day MOLD MACHINE OPERATOR-C - Last Filed: 03/31/21 10:53> Status: Resolved <Christos Day MOLD MACHINE OPERATOR-C - Last Filed: 03/31/21 10:53> Assessment and Plan: 03/31/2021 No evidence of this at this time <Christos Day MOLD MACHINE OPERATOR-C - Last Filed: 03/31/21 10:53> (5) Memory impairment: Onset Date: Unknown <OSIEL TolbertN-C - Last Filed: 03/31/21 10:53> Code(s): R41.3 - Other amnesia <Christos Day MOLD MACHINE OPERATOR-C - Last Filed: 03/31/21 10:53> Status: Acute <OSIEL TolbertN-C - Last Filed: 03/31/21 10:53> Assessment and Plan: Patient was on Buspar. Will discontinue due to severe dizziness. <Christos Day MOLD MACHINE OPERATOR-C - Last Filed: 03/31/21 10:53> (6) Hyperlipidemia: Onset Date: Unknown <Christos Day MOLD MACHINE OPERATOR-C - Last Filed: 03/31/21 10:53> Code(s): E78.5 - Hyperlipidemia, unspecified <Christos Day MOLD MACHINE OPERATOR-C - Last Filed: 03/31/21 10:53> Status: Acute <Christos Day MOLD MACHINE OPERATOR-C - Last Filed: 03/31/21 10:53> Assessment and Plan: * Continue atorva
--- NOTE | 2021-03-31 08:17 | PM.DS ---
DS: Admitting Diagnosis Admitting Diagnosis Generalized Weakness s/p multiple SBO and Lysis of Abdominal Adhesions <Christos Pedro STEVEN Day - Last Filed: 03/31/21 10:53> DS: Discharge Diagnosis Discharge Diagnosis (1) Weakness: Code(s): R53.1 - Weakness <Christos DaySTEVEN - Last Filed: 03/31/21 10:53> Status: Acute <Christos AmayaPASHA kennedyLynnetteEvert - Last Filed: 03/31/21 10:53> Assessment and Plan: ? Exhibit tolerance during physical activity as evidenced by a normal fluctuation of vital signs during physical activity. ? Patient will be ability to perform required activities of daily living. ? Provide appropriate nutrition for healing and strength. ? Use appropriate to prevent falls. ? Continue physical therapy/occupational therapy. 03/31/2021 Pt has been doing very well with PT/OT, I have seen her walking quite well in the halls, a marked improvement from her previous stay at this facility <Christos YanDAVY Duarte - Last Filed: 03/31/21 10:53> (2) Small bowel obstruction: Onset Date: ~02/2021 <Christos YanDAVY Duarte - Last Filed: 03/31/21 10:53> Code(s): K56.609 - Unspecified intestinal obstruction, unspecified as to partial versus complete obstruction <Christos YanSTEVEN Duarte - Last Filed: 03/31/21 10:53> Status: Acute <Christos Pedro PASHA DayLynnetteEvert - Last Filed: 03/31/21 10:53> Assessment and Plan: Imaging from03/19/21,03/15/2021,12/05/2020 indicates small bowel obstruction laparoscopy, with lysis of adhesions, and release of small-bowel obstruction03/19/2021 No signs and symptoms of infection at surgical site Continue with abdominal binder Continue OT PT 03/31/2021 Pt is having no issues with eating and drinking and is not complaining of abdominal pain. <Christos YanSTEVEN Duarte - Last Filed: 03/31/21 10:53> (3) GERD (gastroesophageal reflux disease): Qualifiers: Esophagitis presence: esophagitis presence not specified Qualified Code(s): K21.9 - Gastro-esophageal reflux disease without esophagitis <OSIEL TolbertN-C - Last Filed: 03/31/21 10:53> Code(s): K21.9 - Gastro-esophageal reflux disease without esophagitis <Christos Day FIGHTING VEHICLE INFANTRYMAN-C - Last Filed: 03/31/21 10:53> Status: Chronic <OSIEL TolbertN-C - Last Filed: 03/31/21 10:53> Assessment and Plan: Continue pantoprazole <Christos Day FIGHTING VEHICLE INFANTRYMAN-C - Last Filed: 03/31/21 10:53> (4) Delirium: Code(s): R41.0 - Disorientation, unspecified <OSIEL TolbertN-C - Last Filed: 03/31/21 10:53> Status: Resolved <OSIEL TolbertN-C - Last Filed: 03/31/21 10:53> Assessment and Plan: 03/31/2021 No evidence of this at this time <OSIEL TolbertN-C - Last Filed: 03/31/21 10:53> (5) Memory impairment: Onset Date: Unknown <OSIEL TolbertN-C - Last Filed: 03/31/21 10:53> Code(s): R41.3 - Other amnesia <OSIEL TolbertN-C - Last Filed: 03/31/21 10:53> Status: Acute <Christos Day APN-C - Last Filed: 03/31/21 10:53> Assessment and Plan: Patient was on Buspar. Will discontinue due to severe dizziness. <OSIEL TolbertN-C - Last Filed: 03/31/21 10:53> (6) Hyperlipidemia: Onset Date: Unknown <Christos Day APN-C - Last Filed: 03/31/21 10:53> Code(s): E78.5 - Hyperlipidemia, unspecified <Christos Day FIGHTING VEHICLE INFANTRYMAN-C - Last Filed: 03/31/21 10:53> Status: Acute <OSIEL TolbertN-C - Last Filed: 03/31/21 10:53> Assessment and Plan: Continue atorvastatin <STEVEN Tolbert - Last Filed: 03/31/21 10:53> (7) Ventral incisional hernia: Code(s): K43.2 - Incisional hernia without obstruction or gangrene <STEVEN Tolbert - Last Filed: 03/31/21 10:53> Status: Acute <STEVEN Tolbert - Last Filed: 03/31/21 10:53> Assessment and Plan: mesh repa
[2021-03-31] MEDS: polyethylene glycoL 3350 17 GM POWD.PACK 34 GM PO (09:23)
[2021-03-31] MEDS: PSYLLIUM POWDER PACKET 1 PACKET PO (09:23)
[2021-03-31] MEDS: amLODIPine BESYLATE 5 MG TABLET PO (09:24)
[2021-03-31] MEDS: LORATADINE 10 MG TABLET PO (09:24)
[2021-03-31] MEDS: ACIDOPHILUS/BULGARICUS CHEWABLE TABLET 1 TABLET PO (09:24)
[2021-03-31] MEDS: ASPIRIN 81 MG CHEWABLE TABLET PO (09:24)
[2021-03-31] MEDS: ATORVASTATIN 10 MG TABLET 20 MG PO (09:24)
[2021-03-31] MEDS: SIMETHICONE 80 MG TAB.CHEW PO (09:25)
[2021-03-31] MEDS: DOCUSATE SODIUM 100 MG CAPSULE PO (09:25)
[2021-03-31] MEDS: MULTIVITAMINS THERAPEUTIC TAB (*BKC) 1 TABLET PO (09:25)
[2021-03-31] MEDS: PANTOPRAZOLE 40 MG TABLET PO (10:44)
--- NOTE | 2021-03-31 11:39 | PC.NURSE ---
dc paperwork faed to [facility].
--- NOTE | 2021-03-31 14:36 | PC.NURSE ---
Pt discharged today. RN gave discharge instructions to pt and her daughter. Both verbalized understanding. Pt will return to assisted living. All personal possesions returned to pt. PT took pt down stairs in a wheel chair and assisted her into the family car.
== END 2021-03-31 11:45 | DRG 948 ==
PROVIDERS: Admitting Provider Family Medicine; PCP Internal Medicine; Visit Provider Family Medicine
DX: R53.1 Weakness (principal); I69.351 Hemiplegia and hemiparesis following cerebral infarction affecting right dominant side; Z48.815 Encounter for surgical aftercare following surgery on the digestive system; E78.5 Hyperlipidemia, unspecified; K21.9 Gastro-esophageal reflux disease without esophagitis; M19.90 Unspecified osteoarthritis, unspecified site; N81.10 Cystocele, unspecified; R41.3 Other amnesia; Z96.651 Presence of right artificial knee joint; Z85.038 Personal history of other malignant neoplasm of large intestine; Z92.3 Personal history of irradiation; Z87.820 Personal history of traumatic brain injury; Z90.710 Acquired absence of both cervix and uterus; Z90.49 Acquired absence of other specified parts of digestive tract; Z87.891 Personal history of nicotine dependence
CPT/HCPCS: 97110; 97161; 97165; 97530; 97535; A9270

== ENCOUNTER 2021-04-16 06:29 | Observation (INO) | payer MEDICARE, SELFPAY ==
[2021-04-16] VITALS (8 sets, daily range): BP systolic 111–152; BP diastolic 64–78; PULSE 55–86; RESP 14–20; TEMP 36.5–37.3; O2SAT 95–98; BMI 20.2
--- NOTE | ~2021-04-16 | XR_ITS ---
XR hip RT 2V w AP pelvis 04/16/2021 10:58 Indication: Right leg weakness Procedure: AP pelvis and 3 views right hip Comparison: No prior studies for comparison. Findings: There is mild osteoarthritis of the right hip. There is a bone island at the femoral neck. There are healed right pubic rami fractures. Osteopenia. There are symmetric degenerative changes of the sacroiliac joints. There are surgical changes of the pelvis. No acute fracture or traumatic malal ignment. Impression: 1: Mild osteoarthritis of the right hip. Reviewed, dictated and finalized at location A. Impression: 1: Mild osteoarthritis of the right hip.
--- NOTE | ~2021-04-16 | MR_ITS ---
EXAMINATION: MR lumbar spine wo con DATE: 04/17/2021 10:29 INDICATION: Acute L3 burst fracture. TECHNIQUE: Magnetic resonance imaging (MRI) of the lumbar spine was performed without intravenous con trast. Sequences included sagittal T2-weighted FSE, sagittal T2-weighted FS FSE, sagittal T1-weighted FSE, and axial T2-weighted FSE. COMPARISON: CT lumbar spine 04/16/2021 FINDINGS: There is 37 degrees levoscoliosis of thoracolumbar spine. There is a burst fracture of L3 s uperior endplate with less than 1/5 loss of height, bone marrow edema, and retropulsion of bone 3 mm into central spinal canal. There is severely decreased disc height at T11-T12 and T12-L1, moderately decreased disc height at L1-L2, mildly decreased disc height at L3-L4, and moderately decreased disc height at L4-L5. The distal spinal cord signal intensity is normal. The conus medullaris is at L1. Th e following disc levels are specifically discussed: L1-L2: The disc is bulging. There is mild bilateral facet joint osteoarthritis. There is mild bilater al neural foraminal stenosis. There is mild central canal stenosis. L2-L3: The disc is bulging and has an annular fissure. There is mild bilateral facet joint osteoarthr itis. There is mild bilateral neural foraminal stenosis. There is mild central canal stenosis. L3-L4: The disc is bulging. There is severe right and moderate left facet joint osteoarthritis. There is mild bilateral neural foraminal stenosis. There is mild central canal stenosis. L4-L5: The disc is bulging and has an annular fissure. There is severe right and moderate left facet joint osteoarthritis. There is mild bilateral neural foraminal stenosis. There is mild central canal stenosis. L5-S1: The disc does not extend beyond the endplate margin. There is severe bilateral facet joint ost eoarthritis. There is no neural foraminal stenosis. There is no central canal stenosis. IMPRESSION: 1. Acute L3 burst fracture, stable from 04/16/2021. 2. Severe thoracolumbar spondylosis. 3. Thoracolumbar levoscoliosis. Reviewed, dictated and finalized at location A.
--- NOTE | ~2021-04-16 | CT_ITS ---
EXAMINATION: CT lumbar spine wo con DATE: 04/16/2021 08:48 INDICATION: Low back pain. Right leg weakness. TECHNIQUE: Computed tomography (CT) of the lumbar spine was performed without intravenous contrast. A utomated exposure control and iterative reconstruction technique were employed. The dose-length produ ct was 351.34 mGy-cm. COMPARISON: PET CT 11/12/2018, CT abdomen and pelvis 03/18/2021 FINDINGS: There is 29 degrees levoscoliosis of thoracolumbar spine. There are 11 pairs of ribs. There is a burst fracture of superior endplate of L3 with less than 1/5 loss of height and retropulsion of bone 3 mm into central spinal canal. There is severely decreased disc height at T11-T12 and T12-L1, moderately decreased disc height at L1-L2 and L2-L3, mildly decreased disc height at L3-L4, and moder ately decreased disc height at L4-L5. The following disc levels are specifically discussed: L1-L2: The disc is bulging. There is mild bilateral facet joint osteoarthritis. There is mild bilater al neural foraminal stenosis. There is mild central canal stenosis. L2-L3: The disc is bulging. There is mild bilateral facet joint osteoarthritis. There is mild bilater al neural foraminal stenosis. There is mild central canal stenosis. L3-L4: The disc is bulging. There is severe right and moderate left facet joint osteoarthritis. There is mild bilateral neural foraminal stenosis. There is mild central canal stenosis. L4-L5: The disc is bulging. There is severe right and moderate left facet joint osteoarthritis. There is mild bilateral neural foraminal stenosis. There is mild central canal stenosis. L5-S1: The disc does not extend beyond the endplate margin. There is severe bilateral facet joint ost eoarthritis. There is no neural foraminal stenosis. There is no central canal stenosis. IMPRESSION: 1. Acute L3 burst fracture. 2. Severe thoracolumbar spondylosis. 3. Thoracolumbar levoscoliosis. Reviewed, dictated and finalized at location D.
--- NOTE | ~2021-04-16 | CT_ITS ---
EXAMINATION: CT brain wo con DATE: 04/16/2021 07:39 INDICATION: Right leg weakness. Difficulty moving TECHNIQUE: Computed tomography (CT) of the head was performed without intravenous contrast. The dose- length product was 605.33 mGy-cm. Automated exposure control and iterative reconstruction technique w ere employed. COMPARISON: CT dated 12/07/2020 FINDINGS: There is a large chronic left frontal-parietal lobe infarction with encephalomalacia. No ve ntriculomegaly or midline shift. Basilar cisterns are patent. There is intracranial atherosclerosis. Paranasal sinuses and mastoids are pneumatized. No depressed skull fractures. Basilar cisterns are pa tent. There is intracranial atherosclerosis. Midline sagittal images are unremarkable. IMPRESSION: 1. No acute intracranial abnormality. 2: Chronic left frontal-parietal lobe infarctions with encephalomalacia. Reviewed, dictated and finalized at location A.
--- NOTE | ~2021-04-16 | MR_ITS ---
EXAMINATION: MR brain/brain stem wo/w con DATE: 04/17/2021 10:29 INDICATION: New right upper extremity and right lower extremity weakness. TECHNIQUE: Magnetic resonance imaging (MRI) of the brain and brainstem was performed without and with 12 mL MultiHance intravenous contrast. Sequences included sagittal and axial T1-weighted FSE, axial diffusion-weighted FS EPI, axial T2*-weighted GRE, axial T2-weighted FLAIR Propeller, and axial T2-we ighted Propeller. Postcontrast sequences included axial and coronal T1-weighted FSE. Apparent diffusi on coefficient (ADC) maps were created. COMPARISON: Head CT 04/16/2021, brain MRI 01/16/2019 FINDINGS: There are areas of chronic encephalomalacia involving the left frontal and parietal lobes a nd to a lesser extent the left temporal and occipital lobes in the expected distribution of left midd le cerebral artery. There are scattered areas of nonspecific increased T2-weighted signal intensity i n the right-sided cerebral white matter, which is within normal limits for the patient's age. There i s no intracranial hemorrhage, acute infarction, or abnormal intracranial mass lesion. There is mild e x vacuo dilatation of left lateral ventricle. There are likely changes of ocular lens replacement antwan geries. The mastoid air cells are normal. The paranasal sinuses are clear. IMPRESSION: 1. Old infarcts in the expected distribution of left middle cerebral artery. Reviewed, dictated and finalized at location A.
--- NOTE | 2021-04-16 06:48 | ECG_ITS ---
Measurements Intervals [place] Rate: P: DC: QRS: QRSD: T: QT: QTc: Interpretive Statements SINUS RHYTHM BASELINE ARTIFACT- I, II, III, AVR, AVL, AVF, V3, V6 NORMAL ECG Electronically Signed On 04-16-2021 11:06:34 CDT by Stewart Barrera D.O.
--- NOTE | 2021-04-16 07:04 | PC.NURSE ---
report to Linette
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
[2021-04-16 07:28] LABS: Add Urine Microscopic? YES; Appearance Urine Clear (Clear); Bilirubin Urine Negative (Negative); Blood Urine Negative (Negative); Color Urine Light Yellow (Yellow); Glucose Urine UA Negative (Negative); Ketones Urine Negative (Negative); Leukocyte Esterase Ur Trace LEU/UL (Negative); Nitrate Urine Negative (Negative); Protein Urine Negative (Negative); Urobilinogen Urine 0.2 mg/dL (0.2-1.0); pH Urine 7.5 (5.0-8.0)
[2021-04-16 07:33] LABS: RBC Urine None seen /hpf (0-2); Squamous Epithelial Cell Urine Rare /hpf (Few); WBC Urine 0-3 /hpf (0-3)
[2021-04-16 07:34] LABS: Bacteria Urine Trace /hpf
[2021-04-16 07:35] LABS: Basophils Absolute Auto 0.04 K/mm3 (0.00-0.10); Eosinophils Absolute Auto 0.16 K/mm3 (0.02-0.50); Eosinophils Percent Auto 3.9 % (1.0-6.0); Hematocrit 34.5 % (35.0-42.0); Hemoglobin 11.4 g/dL (11.7-13.8); Immature Granulocyte Absolute 0.01 K/mm3 (0.00-0.00); Immature Granulocyte Percent A 0.2 % (0.0-0.0); Lymphocytes Absolute Auto 0.99 K/mm3 (1.10-4.50); Lymphocytes Percent Auto 24.1 % (18.0-42.0); Mean Corpuscular Hemoglobin 30.1 pg (27.0-31.0); Mean Platelet Volume 9.3 fl (9.2-11.8); Monocytes Absolute Auto 0.42 K/mm3 (0.10-0.90); Monocytes Percent Auto 10.2 % (2.0-11.0); Neutrophils Absolute Auto 2.5 K/mm3 (1.7-7.2); Neutrophils Percent Auto 60.6 % (50.0-70.0); Platelet Count Result 239 K/mm3 (150-420); Red Blood Count 3.79 M/mm3 (4.20-5.40); Red Cell Distribution Width 14.2 % (11.6-14.4); White Blood Count 4.1 K/mm3 (4.8-10.8)
[2021-04-16 07:50] LABS: INR 1.1; Partial Thromboplastin Time 24.1 SEC (23.90-30.70); Prothrombin Time 11.3 Seconds (9.50-12.10)
[2021-04-16 07:53] LABS: Alanine Aminotransferase 20 U/L (14-59); Albumin Level 3.5 g/dL (3.4-5.0); Alkaline Phosphatase 82 U/L (46-116); Anion Gap 14 mmol/L (8-16); Aspartate Amino Transferase 19 U/L (15-37); Bilirubin,Total 0.5 mg/dL (0.00-1.00); Blood Urea Nitrogen 6 mg/dL (7-18); Calcium 8.9 mg/dL (8.5-10.1); Carbon Dioxide 25 mmol/L (21-32); Chloride 106 mmol/L (98-108); Estimated CRCL calculation 52 ml/min; Estimated Glomerular Filt Rate > 60; Glucose 97 mg/dL (70-99); Osmolality Calculated 297 mOsm/kg (285-295); Potassium 3.3 mmol/L (3.5-5.1); Sodium 145 mmol/L (136-145); Total Protein 7.2 g/dL (6.4-8.2); Troponin I 5.9 ng/L (0.00-60.4)
--- NOTE | 2021-04-16 09:00 | PC.NURSE ---
Pts daughter returns with right leg brace and pts walker. brace applied. pt able to stand with walker from sitting position, but unable to move right leg forward to ambulate. pt able to lift right leg while sitting but not while standing. strength and movement normal in left leg. pt moves both arms and able to place both hands on walker to assist with standing. daughter at bedside. edp aware.
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
--- NOTE | 2021-04-16 10:15 | PC.NURSE ---
p/t here to evaluate pt.
[2021-04-16] MEDS: ACETAMINOPHEN 325 MG TABLET 650 MG PO ×2 (10:20→21:25)
[2021-04-16] MEDS: HYDROcodone/acetaminophen (*CRX) 5-325 MG TABLET 0.5 TAB PO (11:36)
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
--- NOTE | 2021-04-16 12:45 | ADMGEN ---
This patient, Azeb Vallejo, was admitted for observation to 2nd Floor Room 208-2. Patient/family oriented to hospital policies and general routines including ID bracelet, bed and alarms, visiting hours, pain management, procedures, bathroom and other care routines, personal items, smoking policy, and room service/diet. Her goals are pain management, and serial neurological checks. Information on how to activate the Rapid Response Team has been discussed. Patient/Family are encouraged to report perceived risks to care and to ask questions if they do not understand what they are told or what they should do.
[2021-04-16] MEDS: POTASSIUM CHLORIDE 20 MEQ TABLET PO (14:20)
--- NOTE | 2021-04-16 15:06 | PC.NURSE ---
Hourly rounding: patient is resting comfortably in bed. Daughter has left for the day, and patient appears to be less anxious than when she came. Stated her pain level is now negligible and she is not in need of anything at this time.
[2021-04-16] MEDS: SENNA/DOCUSATE SODIUM TABLET 1 TAB PO (21:17)
[2021-04-16] MEDS: busPIRone HCL 5 MG TABLET PO (21:18)
[2021-04-16] MEDS: DOCUSATE SODIUM 100 MG CAPSULE PO (21:18)
[2021-04-17] VITALS: PULSE 73; RESP 18; TEMP 36.1; O2SAT 98
--- NOTE | 2021-04-17 01:10 | PC.NURSE ---
patient had pain with movement unmeasured void due to patient missed hat.
[2021-04-17 03:35] VITALS: PULSE 61
[2021-04-17 04:00] VITALS: BP 129/72; PULSE 55; RESP 20; TEMP 36.2; O2SAT 96
[2021-04-17 05:44] LABS: Basophils Absolute Auto 0.03 K/mm3 (0.00-0.10); Basophils Percent Auto 0.7 % (0.0-1.0); Eosinophils Absolute Auto 0.14 K/mm3 (0.02-0.50); Eosinophils Percent Auto 3.5 % (1.0-6.0); Hematocrit 33.8 % (35.0-42.0); Immature Granulocyte Absolute 0.01 K/mm3 (0.00-0.00); Immature Granulocyte Percent A 0.2 % (0.0-0.0); Lymphocytes Absolute Auto 0.86 K/mm3 (1.10-4.50); Lymphocytes Percent Auto 21.4 % (18.0-42.0); Mean Corpuscular HGB Conc 32.5 g/dL (32.0-36.0); Mean Corpuscular Hemoglobin 30.4 pg (27.0-31.0); Mean Corpuscular Volume 93.4 fL (78.0-102.0); Mean Platelet Volume 9.4 fl (9.2-11.8); Monocytes Absolute Auto 0.38 K/mm3 (0.10-0.90); Monocytes Percent Auto 9.5 % (2.0-11.0); Neutrophils Absolute Auto 2.6 K/mm3 (1.7-7.2); Neutrophils Percent Auto 64.7 % (50.0-70.0); Platelet Count Result 222 K/mm3 (150-420); Red Blood Count 3.62 M/mm3 (4.20-5.40); Red Cell Distribution Width 14.1 % (11.6-14.4)
[2021-04-17 05:56] LABS: Anion Gap 11 mmol/L (8-16); Blood Urea Nitrogen 9 mg/dL (7-18); Calcium 8.5 mg/dL (8.5-10.1); Carbon Dioxide 27 mmol/L (21-32); Chloride 105 mmol/L (98-108); Estimated CRCL calculation 57 ml/min; Estimated Glomerular Filt Rate > 60; Glucose 95 mg/dL (70-99); Osmolality Calculated 294 mOsm/kg (285-295); Potassium 3.6 mmol/L (3.5-5.1); Sodium 143 mmol/L (136-145)
[2021-04-17 08:00] VITALS: BP 136/69; PULSE 64; PULSE 68; RESP 18; TEMP 36.2; O2SAT 98
[2021-04-17] MEDS: ACIDOPHILUS/BULGARICUS CHEWABLE TABLET 1 TABLET PO (09:46)
[2021-04-17] MEDS: MAG HYDROX/AL HYDROX/SIMETH 30 ML UDC PO (09:47)
[2021-04-17] MEDS: POTASSIUM CHLORIDE 20 MEQ TABLET PO (09:47)
[2021-04-17] MEDS: MULTIVITAMINS THERAPEUTIC TAB (*BKC) 1 TABLET PO (09:48)
[2021-04-17] MEDS: ATORVASTATIN 10 MG TABLET 20 MG PO (09:48)
[2021-04-17] MEDS: PANTOPRAZOLE 40 MG TABLET PO (09:48)
[2021-04-17] MEDS: busPIRone HCL 5 MG TABLET PO (09:48)
[2021-04-17] MEDS: amLODIPine BESYLATE 5 MG TABLET PO (09:48)
[2021-04-17] MEDS: ASPIRIN 81 MG ENTERIC TABLET PO (09:48)
[2021-04-17] MEDS: LORATADINE 10 MG TABLET PO (09:48)
[2021-04-17] MEDS: DOCUSATE SODIUM 100 MG CAPSULE PO (09:49)
--- NOTE | 2021-04-17 10:46 | PM.DS ---
DS: Admitting Diagnosis Admitting Diagnosis L3 Burst Fracture, Weakness DS: Discharge Diagnosis Discharge Diagnosis (1) Weakness of right lower extremity: Code(s): R29.898 - Other symptoms and signs involving the musculoskeletal system Status: Acute Assessment and Plan: Pt will be working with PT and OT for the following: Relieve pain, Improve movement or ability, Prevent or recover from an injury, Prevent disability or surgery, Rehab after injury or surgery, Work on balance to prevent a slip or fall, Learn to use assistive devices like a walker or cane if needed. 04/17/2021 Pt will be SC'ed and admitted as a Swing Bed Pt for PT/OT d/t weakness (2) Weakness of right upper extremity: Code(s): R29.898 - Other symptoms and signs involving the musculoskeletal system Status: Acute Assessment and Plan: PT states the weakness she is experiencing at this time is residual from her CVA in 2019. Pt will be working with PT and OT for the following: Relieve pain, Improve movement or ability, Prevent or recover from an injury, Prevent disability or surgery, Rehab after injury or surgery, Work on balance to prevent a slip or fall, Learn to use assistive devices like a walker or cane if needed. (3) Hypokalemia: Onset Date: Unknown Code(s): E87.6 - Hypokalemia Status: Resolved Assessment and Plan: Potassium 3.3, supplement with 20 mEq potassium PO, monitor lab work, correct as needed, check Magnesium if needed 04/17/2021 K 3.6 today (4) Compression fracture of L3 vertebra: Qualifiers: Encounter type: initial encounter Qualified Code(s): S32.030A - Wedge compression fracture of third lumbar vertebra, initial encounter for closed fracture Code(s): S32.030A - Wedge compression fracture of third lumbar vertebra, initial encounter for closed fracture Status: Acute Assessment and Plan: PT and OT as noted above, pain management, Pt has had Codeine during her previous admission and this worked well for her. 04/17/2021 Attempting to obtain a TLSO brace for Pt. Pain management, Pt is tolerating well (5) HTN (hypertension): Code(s): I10 - Essential (primary) hypertension Status: Acute Assessment and Plan: Continue with Amlodipine, monitor VS, make adjustments to medications as needed 04/17/2021 BP stable, no need to change medications or dosage at this time. (6) GERD (gastroesophageal reflux disease): Qualifiers: Esophagitis presence: esophagitis presence not specified Qualified Code(s): K21.9 - Gastro-esophageal reflux disease without esophagitis Code(s): K21.9 - Gastro-esophageal reflux disease without esophagitis Status: Chronic Assessment and Plan: Continue Protonix DS: Summary Hospital Course Hospital Course: Pt is being changed to Swing Bed for rehabilitation d/t weakness Time Spent with Patient Time attestation: Total time spent providing and/or coordinating discharge services: < 30 minutes Exam Const: General: cooperative, comfortable, no acute distress, alert, awake and Physically active Nutritional Appearance: thin Resp: Effort & Inspection: normal respiratory effort Auscultation: clear to auscultation bilaterally Cardio: Rate: regular rate Heart sounds: S1 normal heart sound present and S2 normal heart sound present GI: GI Palp: Yes Soft to palpation and No Tenderness to palpation present (GI) Auscultation: normal bowel sounds Skin: General skin exam: normal color and dry skin Neuro: General: oriented to person, oriented to place and oriented to time Cranial nerves: Yes CN's II-XII intact bilaterally (grossly intact) Cognition (Neuro): normal cognition Speech: normal speech Extrem: General: no pedal edema Left lower extremity: foot (varicose veins) Psych: Appearance: grossly normal Speech and movement: Normal speech and movement present Affect: normal affect Attitude: cooperative Thought p
[2021-04-17 12:00] VITALS: BP 127/78; PULSE 65; RESP 18; TEMP 36.2; O2SAT 98
--- NOTE | 2021-04-17 15:55 | PC.NURSE ---
Patient discharged from observation status.
--- NOTE | 2021-04-17 16:00 | PC.NURSE ---
Patient readmitted as swing bed status.
== END 2021-04-17 15:55 | disposition swing bed (61) ==
LOC: CHSED 08:57 → CHS2ND 12:28
PROVIDERS: Emergency Medicine; Admitting Provider Emergency Medicine; Emergency Provider Emergency Medicine; PCP Internal Medicine; Visit Provider Emergency Medicine
DX: S32.031A Stable burst fracture of third lumbar vertebra, initial encounter for closed fracture (principal); I69.351 Hemiplegia and hemiparesis following cerebral infarction affecting right dominant side; I10 Essential (primary) hypertension; E87.6 Hypokalemia; E78.5 Hyperlipidemia, unspecified; K21.9 Gastro-esophageal reflux disease without esophagitis; M19.90 Unspecified osteoarthritis, unspecified site; Z87.820 Personal history of traumatic brain injury; Z85.038 Personal history of other malignant neoplasm of large intestine; Z90.710 Acquired absence of both cervix and uterus; Z90.49 Acquired absence of other specified parts of digestive tract; Z96.651 Presence of right artificial knee joint
CPT/HCPCS: 36415; 70450; 70553; 72131; 72148; 73502; 80048; 80053; 81001; 84484; 85025; 85610; 85730; 93005; 97161; 99285; A9270; A9577; G0378

== ENCOUNTER 2021-04-17 15:56 | Inpatient (IN) | payer MEDICARE, SELFPAY ==
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
[2021-04-17 16:12] VITALS: BMI 20.2
--- NOTE | 2021-04-17 16:13 | PC.NURSE ---
Patient admitted as swing bed status.
[2021-04-17] MEDS: ACETAMINOPHEN 500 MG TABLET PO ×2 (18:13→23:33)
[2021-04-17 20:01] VITALS: BP 134/77; PULSE 56; RESP 20; TEMP 36.2; O2SAT 97
[2021-04-17] MEDS: busPIRone HCL 5 MG TABLET PO (20:35)
[2021-04-18] MEDS: ACETAMINOPHEN/CODEINE (*CRX) 300/30 MG TABLET 1 TAB PO (01:19)
[2021-04-18 08:00] VITALS: BP 133/76; PULSE 71; RESP 16; TEMP 36.5; O2SAT 96
[2021-04-18] MEDS: POTASSIUM CHLORIDE 20 MEQ TABLET PO ×2 (08:03→16:59)
[2021-04-18] MEDS: MAG HYDROX/AL HYDROX/SIMETH 30 ML UDC BY MOUTH (08:04)
[2021-04-18] MEDS: ASPIRIN 81 MG ENTERIC TABLET PO (08:04)
[2021-04-18] MEDS: LORATADINE 10 MG TABLET PO (08:05)
[2021-04-18] MEDS: SACCHAROMYCES BOULARDII 250 MG CAPSULE PO ×2 (08:05→16:59)
[2021-04-18] MEDS: ATORVASTATIN 10 MG TABLET 20 MG PO (08:05)
[2021-04-18] MEDS: busPIRone HCL 5 MG TABLET PO ×2 (08:05→21:15)
[2021-04-18] MEDS: MULTIVITAMINS THERAPEUTIC TAB (*BKC) 1 TABLET PO (08:05)
[2021-04-18] MEDS: DOCUSATE SODIUM 100 MG CAPSULE PO (08:05)
[2021-04-18] MEDS: amLODIPine BESYLATE 5 MG TABLET PO (08:05)
[2021-04-18 15:39] VITALS: BP 120/77; PULSE 66; RESP 16; TEMP 36.8; O2SAT 99
[2021-04-18] MEDS: ACETAMINOPHEN 500 MG TABLET PO (19:17)
[2021-04-19] VITALS: BP 137/71; PULSE 62; TEMP 36.2; O2SAT 98
[2021-04-19] MEDS: ACETAMINOPHEN 500 MG TABLET PO (02:28)
[2021-04-19 07:20] VITALS: BP 128/71; PULSE 63; RESP 18; TEMP 36.2; O2SAT 97
[2021-04-19] MEDS: MAG HYDROX/AL HYDROX/SIMETH 30 ML UDC BY MOUTH (09:12)
[2021-04-19] MEDS: POTASSIUM CHLORIDE 20 MEQ TABLET PO ×2 (09:12→17:22)
[2021-04-19] MEDS: ASPIRIN 81 MG ENTERIC TABLET PO (09:12)
[2021-04-19] MEDS: ATORVASTATIN 10 MG TABLET 20 MG PO (09:12)
[2021-04-19] MEDS: busPIRone HCL 5 MG TABLET PO ×2 (09:13→20:03)
[2021-04-19] MEDS: amLODIPine BESYLATE 5 MG TABLET PO (09:13)
[2021-04-19] MEDS: DOCUSATE SODIUM 100 MG CAPSULE PO (09:13)
[2021-04-19] MEDS: LORATADINE 10 MG TABLET PO (09:13)
[2021-04-19] MEDS: SACCHAROMYCES BOULARDII 250 MG CAPSULE PO ×2 (09:13→17:22)
[2021-04-19] MEDS: MULTIVITAMINS THERAPEUTIC TAB (*BKC) 1 TABLET PO (09:13)
[2021-04-19] MEDS: ACETAMINOPHEN/CODEINE (*CRX) 300/30 MG TABLET 1 TAB PO ×2 (13:55→20:03)
[2021-04-19 15:40] VITALS: BP 138/85; PULSE 86; RESP 18; TEMP 36.4; O2SAT 97
[2021-04-20] VITALS: BP 112/73; PULSE 74; RESP 18; TEMP 36.2; O2SAT 97
[2021-04-20] MEDS: ACETAMINOPHEN 500 MG TABLET PO (04:57)
[2021-04-20 08:00] VITALS: BP 121/80; PULSE 74; RESP 20; TEMP 36.8; O2SAT 98
[2021-04-20] MEDS: MAG HYDROX/AL HYDROX/SIMETH 30 ML UDC BY MOUTH (09:13)
[2021-04-20] MEDS: DOCUSATE SODIUM 100 MG CAPSULE PO (09:15)
[2021-04-20] MEDS: ASPIRIN 81 MG ENTERIC TABLET PO (09:15)
[2021-04-20] MEDS: POTASSIUM CHLORIDE 20 MEQ TABLET PO ×2 (09:15→17:44)
[2021-04-20] MEDS: SACCHAROMYCES BOULARDII 250 MG CAPSULE PO ×2 (09:15→17:44)
[2021-04-20] MEDS: LORATADINE 10 MG TABLET PO (09:16)
[2021-04-20] MEDS: ATORVASTATIN 10 MG TABLET 20 MG PO (09:16)
[2021-04-20] MEDS: busPIRone HCL 5 MG TABLET PO ×2 (09:16→20:31)
[2021-04-20] MEDS: amLODIPine BESYLATE 5 MG TABLET PO (09:16)
[2021-04-20] MEDS: MULTIVITAMINS THERAPEUTIC TAB (*BKC) 1 TABLET PO (09:16)
[2021-04-20] MEDS: ACETAMINOPHEN/CODEINE (*CRX) 300/30 MG TABLET 1 TAB PO ×2 (13:57→20:30)
--- NOTE | 2021-04-20 14:02 | PC.NURSE ---
Patient up in bedside chair today. Pt with her so noted today. Complaint of right hip pain nov radiation. Ms. Bowie states 5/10 pain level. Tylenol#3 1tab given p.o. as ordered every 6 hours.
--- NOTE | 2021-04-20 14:31 | PM.EVENT ---
Event Note Event Note Event Note: Vital sign review patient has no complaints at this time night uneventful
[2021-04-20 15:40] VITALS: BP 122/71; PULSE 73; RESP 18; TEMP 36.5; O2SAT 96
[2021-04-21] VITALS: BP 130/75; PULSE 60; RESP 18; TEMP 36.7; O2SAT 98
[2021-04-21] MEDS: ACETAMINOPHEN/CODEINE (*CRX) 300/30 MG TABLET 1 TAB PO ×2 (04:57→20:29)
--- NOTE | 2021-04-21 07:51 | PC.NURSE ---
Message left for [facility] in regards to TLSO brace
[2021-04-21 07:52] VITALS: BP 111/70; PULSE 70; RESP 18; TEMP 36.4; O2SAT 98
[2021-04-21] MEDS: SACCHAROMYCES BOULARDII 250 MG CAPSULE PO ×2 (08:20→16:44)
[2021-04-21] MEDS: DOCUSATE SODIUM 100 MG CAPSULE PO (08:20)
[2021-04-21] MEDS: ASPIRIN 81 MG ENTERIC TABLET PO (08:21)
[2021-04-21] MEDS: MULTIVITAMINS THERAPEUTIC TAB (*BKC) 1 TABLET PO (08:21)
[2021-04-21] MEDS: amLODIPine BESYLATE 5 MG TABLET PO (08:21)
[2021-04-21] MEDS: MAG HYDROX/AL HYDROX/SIMETH 30 ML UDC BY MOUTH (08:21)
[2021-04-21] MEDS: POTASSIUM CHLORIDE 20 MEQ TABLET PO ×2 (08:21→16:44)
[2021-04-21] MEDS: ATORVASTATIN 10 MG TABLET 20 MG PO (08:22)
[2021-04-21] MEDS: busPIRone HCL 5 MG TABLET PO ×2 (08:23→20:30)
[2021-04-21] MEDS: LORATADINE 10 MG TABLET PO (09:00)
[2021-04-21 16:00] VITALS: BP 138/94; PULSE 77; RESP 18; TEMP 36.4; O2SAT 97
--- NOTE | 2021-04-21 16:03 | PCOTNOTE ---
On 04/21/21, the student, [Octavia Jeter ], provided care and completed [facility] documentation on this patient. I have reviewed the student's documentation and agree with the findings. MS
--- NOTE | 2021-04-21 18:18 | PC.NURSE ---
Patient up to bathroom with 1 assist and walker. Patient urinated 350 ml of clear yellow urine.
[2021-04-22] VITALS: BP 122/72; PULSE 67; RESP 20; TEMP 36.2; O2SAT 97
[2021-04-22] MEDS: ACETAMINOPHEN/CODEINE (*CRX) 300/30 MG TABLET 1 TAB PO (04:54)
[2021-04-22 05:17] LABS: Hematocrit 37.4 % (35.0-42.0); Hemoglobin 12.2 g/dL (11.7-13.8); Mean Corpuscular HGB Conc 32.6 g/dL (32.0-36.0); Mean Corpuscular Hemoglobin 30.7 pg (27.0-31.0); Mean Corpuscular Volume 94.2 fL (78.0-102.0); Mean Platelet Volume 9.5 fl (9.2-11.8); Platelet Count Result 253 K/mm3 (150-420); Red Blood Count 3.97 M/mm3 (4.20-5.40); White Blood Count 4.5 K/mm3 (4.8-10.8)
[2021-04-22 05:26] LABS: Anion Gap 10 mmol/L (8-16); Blood Urea Nitrogen 14 mg/dL (7-18); Calcium 8.8 mg/dL (8.5-10.1); Carbon Dioxide 28 mmol/L (21-32); Chloride 103 mmol/L (98-108); Estimated CRCL calculation 57 ml/min; Estimated Glomerular Filt Rate > 60; Glucose 88 mg/dL (70-99); Osmolality Calculated 291 mOsm/kg (285-295); Potassium 4.1 mmol/L (3.5-5.1); Sodium 141 mmol/L (136-145)
--- NOTE | 2021-04-22 06:39 | PC.NURSE ---
Pt has brief intermittent periods of confusion & has difficulity in finding the right words to express her thoughts. Pt has sm formed brown BM in toilet.
[2021-04-22 07:53] VITALS: BP 117/70; PULSE 70; RESP 20; TEMP 36.6; O2SAT 97
[2021-04-22 08:00] VITALS: BP 117/70; PULSE 70; RESP 20; TEMP 36.6; O2SAT 97
[2021-04-22] MEDS: MULTIVITAMINS THERAPEUTIC TAB (*BKC) 1 TABLET PO (08:39)
[2021-04-22] MEDS: LORATADINE 10 MG TABLET PO (08:39)
[2021-04-22] MEDS: busPIRone HCL 5 MG TABLET PO ×2 (08:39→20:36)
[2021-04-22] MEDS: SACCHAROMYCES BOULARDII 250 MG CAPSULE PO ×2 (08:39→16:47)
[2021-04-22] MEDS: ASPIRIN 81 MG ENTERIC TABLET PO (08:39)
[2021-04-22] MEDS: DOCUSATE SODIUM 100 MG CAPSULE PO (08:39)
[2021-04-22] MEDS: ATORVASTATIN 10 MG TABLET 20 MG PO (08:39)
[2021-04-22] MEDS: POTASSIUM CHLORIDE 20 MEQ TABLET PO ×2 (08:40→16:47)
[2021-04-22] MEDS: amLODIPine BESYLATE 5 MG TABLET PO (08:40)
[2021-04-22] MEDS: MAG HYDROX/AL HYDROX/SIMETH 30 ML UDC BY MOUTH (08:41)
[2021-04-22 15:50] VITALS: BP 136/82; PULSE 84; RESP 16; TEMP 36.7; O2SAT 96
[2021-04-22] MEDS: ACETAMINOPHEN 500 MG TABLET PO (20:36)
[2021-04-22 23:54] VITALS: BP 132/87; PULSE 76; RESP 20; TEMP 36.4; O2SAT 96
[2021-04-23 07:42] VITALS: BP 112/72; PULSE 68; RESP 20; TEMP 36.3; O2SAT 97
--- NOTE | 2021-04-23 08:12 | P.PN_ITS ---
Progress Note: A&P Assessment and Plan (1) Weakness of right lower extremity: Code(s): R29.898 - Other symptoms and signs involving the musculoskeletal system <EMILY Irby-C - Last Filed: 04/23/21 11:15> Status: Acute <Ugo Marissa GarciaEMILY-C - Last Filed: 04/23/21 11:15> Assessment and Plan: Pt is going to work with PT and OT for the following: Relieve pain, Improve movement or ability, Prevent disability or surgery, Rehab after a stroke, Work on balance to prevent a slip or fall, Learn to use assistive devices like a walker or cane as or if needed. Discharge * Resolved * Patient able to ambulate 400 feet, 300 feet with 4 wheeled walker and modified independent senior care and PT <EMILY Irby-C - Last Filed: 04/23/21 11:15> (2) Weakness of right upper extremity: Code(s): R29.898 - Other symptoms and signs involving the musculoskeletal system <EMILY Irby-C - Last Filed: 04/23/21 11:15> Status: Acute <EMILY Irby-C - Last Filed: 04/23/21 11:15> Assessment and Plan: Pt is going to work with PT and OT for the following: Relieve pain, Improve movement or ability, Prevent disability or surgery, Rehab after a stroke, Work on balance to prevent a slip or fall, Learn to use assistive devices like a walker or cane as or if needed. This is residual from a prior CVA back in 2019. Discharge * Resolved * Patient able to ambulate 400 feet, 300 feet with 4 wheeled walker and modified independent senior care and PT <EMILY Irby-C - Last Filed: 04/23/21 11:15> (3) Compression fracture of L3 vertebra: Qualifiers: Encounter type: initial encounter Qualified Code(s): S32.030A - Wedge compression fracture of third lumbar vertebra, initial encounter for closed fracture <EMILY Irby-C - Last Filed: 04/23/21 11:15> Code(s): S32.030A - Wedge compression fracture of third lumbar vertebra, initial encounter for closed fracture <NAZ IrbyP-C - Last Filed: 04/23/21 11:15> Status: Acute <EUNICE Irby - Last Filed: 04/23/21 11:15> Assessment and Plan: Pt to get a TLSO brace, Pt to work with PT and OT as noted above. * Will need to follow-up with Ortho to determine whether or not a TLSO brace is needed <Ugo Garcia EUNICE - Last Filed: 04/23/21 11:15> (4) Hyperlipidemia: Onset Date: Unknown <Ugo Garcia EUNICE - Last Filed: 04/23/21 11:15> Code(s): E78.5 - Hyperlipidemia, unspecified <EUNICE Irby - Last Filed: 04/23/21 11:15> Status: Acute <Ugo Garcia EUNICE - Last Filed: 04/23/21 11:15> Assessment and Plan: Continue Atorvastatin <Ugo Garcia EUNICE - Last Filed: 04/23/21 11:15> (5) Gastroesophageal reflux disease: Onset Date: Unknown <EUNICE Irby - Last Filed: 04/23/21 11:15> Code(s): K21.9 - Gastro-esophageal reflux disease without esophagitis <Ugo Garcia EUNICE - Last Filed: 04/23/21 11:15> Status: Acute <Ugo Garcia EUNICE - Last Filed: 04/23/21 11:15> Assessment and Plan: Ordering Protonix <Ugo Garcia JULIOC - Last Filed: 04/23/21 11:15> Subjective Date/time seen: 04/23/21 08:12 Azeb Vallejo is a 75 year old female who was [facility] after experiencing sudden onset of weakness in her right side mostly the right leg. She felt tingling in her right leg and foot and was unable to lift that leg to climb back into bed. About the same time she wa
--- NOTE | 2021-04-23 08:12 | WPDPN ---
Progress Note: A&P Assessment and Plan (1) Weakness of right lower extremity: Code(s): R29.898 - Other symptoms and signs involving the musculoskeletal system <EUNICE Irby - Last Filed: 04/23/21 11:15> Status: Acute <JULIO IrbyC - Last Filed: 04/23/21 11:15> Assessment and Plan: Pt is going to work with PT and OT for the following: Relieve pain, Improve movement or ability, Prevent disability or surgery, Rehab after a stroke, Work on balance to prevent a slip or fall, Learn to use assistive devices like a walker or cane as or if needed. Discharge Resolved Patient able to ambulate 400 feet, 300 feet with 4 wheeled walker and modified independent halfway and PT <JULIO IrbyC - Last Filed: 04/23/21 11:15> (2) Weakness of right upper extremity: Code(s): R29.898 - Other symptoms and signs involving the musculoskeletal system <JULIO IrbyC - Last Filed: 04/23/21 11:15> Status: Acute <JULIO IrbyC - Last Filed: 04/23/21 11:15> Assessment and Plan: Pt is going to work with PT and OT for the following: Relieve pain, Improve movement or ability, Prevent disability or surgery, Rehab after a stroke, Work on balance to prevent a slip or fall, Learn to use assistive devices like a walker or cane as or if needed. This is residual from a prior CVA back in 2019. Discharge Resolved Patient able to ambulate 400 feet, 300 feet with 4 wheeled walker and modified independent halfway and PT <EMILY Irby-C - Last Filed: 04/23/21 11:15> (3) Compression fracture of L3 vertebra: Qualifiers: Encounter type: initial encounter Qualified Code(s): S32.030A - Wedge compression fracture of third lumbar vertebra, initial encounter for closed fracture <JULIO IrbyC - Last Filed: 04/23/21 11:15> Code(s): S32.030A - Wedge compression fracture of third lumbar vertebra, initial encounter for closed fracture <EUNICE Irby Last Filed: 04/23/21 11:15> Status: Acute <EUNICE Irby - Last Filed: 04/23/21 11:15> Assessment and Plan: Pt to get a TLSO brace, Pt to work with PT and OT as noted above. Will need to follow-up with Ortho to determine whether or not a TLSO brace is needed <EUNICE Irby - Last Filed: 04/23/21 11:15> (4) Hyperlipidemia: Onset Date: Unknown <JULIO IrbyC - Last Filed: 04/23/21 11:15> Code(s): E78.5 - Hyperlipidemia, unspecified <EUNICE Irby - Last Filed: 04/23/21 11:15> Status: Acute <Ugo Garcia EUNICE - Last Filed: 04/23/21 11:15> Assessment and Plan: Continue Atorvastatin <EUNICE Irby - Last Filed: 04/23/21 11:15> (5) Gastroesophageal reflux disease: Onset Date: Unknown <EUNICE Irby - Last Filed: 04/23/21 11:15> Code(s): K21.9 - Gastro-esophageal reflux disease without esophagitis <EUNICE Irby - Last Filed: 04/23/21 11:15> Status: Acute <Ugo Garcia EUNICE - Last Filed: 04/23/21 11:15> Assessment and Plan: Ordering Protonix <Ugo Garcia UENICE - Last Filed: 04/23/21 11:15> Subjective Date/time seen: 04/23/21 08:12 Azeb Vallejo is a 75 year old female who was admitted to [facility] after experiencing sudden onset of weakness in her right side mostly the right leg. She felt tingling in her right leg and foot and was unable to lift that leg to climb back into bed. About the same time she was experiencing increased lumbar pain and right hip / leg pain. She also had a headache at the front of her head. Pt denies having fallen. She noted that recently she experienced lumbar pain that feels similar to what she is experiencing today. She notes that her left arm weakness is related to a stroke she had in the past and
[2021-04-23] MEDS: LORATADINE 10 MG TABLET PO (08:18)
[2021-04-23] MEDS: ATORVASTATIN 10 MG TABLET 20 MG PO (08:18)
[2021-04-23] MEDS: DOCUSATE SODIUM 100 MG CAPSULE PO (08:18)
[2021-04-23] MEDS: MULTIVITAMINS THERAPEUTIC TAB (*BKC) 1 TABLET PO (08:18)
[2021-04-23] MEDS: MAG HYDROX/AL HYDROX/SIMETH 30 ML UDC BY MOUTH (08:18)
[2021-04-23] MEDS: ASPIRIN 81 MG ENTERIC TABLET PO (08:18)
[2021-04-23] MEDS: busPIRone HCL 5 MG TABLET PO (08:18)
[2021-04-23] MEDS: amLODIPine BESYLATE 5 MG TABLET PO (08:19)
[2021-04-23] MEDS: SACCHAROMYCES BOULARDII 250 MG CAPSULE PO (08:19)
[2021-04-23] MEDS: POTASSIUM CHLORIDE 20 MEQ TABLET PO (08:19)
--- NOTE | 2021-04-23 13:55 | PC.NURSE ---
Discharge ton home with discharge instructions; discussed verbally and written. All personal belongings were sent. Transport to ER entrance via w/c, packing shed supervisor in family vehicle. No complaints or problems upon discharge. All numbers were reminded to call as needed after discharge.
== END 2021-04-23 13:50 | disposition home health service (06) | DRG 560 ==
PROVIDERS: Nurse Practitioner; Admitting Provider Emergency Medicine; PCP Internal Medicine; Visit Provider Emergency Medicine
DX: S32.030D Wedge compression fracture of third lumbar vertebra, subsequent encounter for fracture with routine healing (principal); I69.354 Hemiplegia and hemiparesis following cerebral infarction affecting left non-dominant side; I69.351 Hemiplegia and hemiparesis following cerebral infarction affecting right dominant side; K21.9 Gastro-esophageal reflux disease without esophagitis; E78.5 Hyperlipidemia, unspecified; R29.898 Other symptoms and signs involving the musculoskeletal system; Z96.651 Presence of right artificial knee joint; Z87.820 Personal history of traumatic brain injury; Z92.3 Personal history of irradiation; Z85.038 Personal history of other malignant neoplasm of large intestine; Z98.49 Cataract extraction status, unspecified eye; Z90.710 Acquired absence of both cervix and uterus; Z90.49 Acquired absence of other specified parts of digestive tract
CPT/HCPCS: 36415; 80048; 85027; 97110; 97161; 97165; 97530; 97535; A9270

== ENCOUNTER 2021-08-02 06:54 | Observation (INO) | payer MEDICARE, SELFPAY ==
[2021-08-02] VITALS (11 sets, daily range): BP systolic 105–144; BP diastolic 61–89; PULSE 50–72; RESP 14–20; TEMP 36.3–36.6; O2SAT 92–99; BMI 21.8
--- NOTE | ~2021-08-02 | XR_ITS ---
EXAMINATION: XR knee RT 3V DATE: 08/02/2021 09:23 INDICATION: Anterior right knee pain with palpation and movement TECHNIQUE: Anteroposterior, oblique and crosstable lateral views of the affected knee were obtained COMPARISON: None. FINDINGS: Right total knee arthroplasty with patellar resurfacing which appears well seated in near-anatomic al ignment. No fracture. No periprosthetic lucency to suggest loosening or infection. No knee joint effu sarah or layering lipohemarthrosis. Small amount of atherosclerotic desiccation along the popliteal ar shorty. IMPRESSION: 1. Right total knee arthroplasty with no joint effusion or acute osseous abnormality. Reviewed, dictated and finalized at location B. ARY CLERK IMPRESSION: 1. Right total knee arthroplasty with no joint effusion or acute osseous abnorm ality.
--- NOTE | ~2021-08-02 | CT_ITS ---
EXAMINATION: CTA chest PE abdomen pel DATE: 08/02/2021 09:12 INDICATION: Chest pain. Abdominal pain. Bilateral hip pain. TECHNIQUE: Computed tomography angiography (CTA) of the chest was performed with 100 mL Omnipaque-350 intravenous contrast timed to evaluate the pulmonary arteries. Coronal maximum intensity projection 3D-reconstructions were created by the technologist. Computed tomography (CT) of the abdomen and pelv is was performed with intravenous contrast. Automated exposure control and iterative reconstruction t echnique were employed. The dose-length product was 650.04 mGy-cm. COMPARISON: CT abdomen and pelvis 03/18/2021 FINDINGS: CTA chest: The lungs demonstrate mild atelectasis. Calcified right lung nodules and calcified right h ilar lymph nodes are consistent with old granulomatous disease. There are a few nodules in the lungs measuring up to 5 mm in left lower lobe, likely benign. No pleural effusion. The heart size is normal . No pericardial effusion. There is no pulmonary embolus. There are old healed left rib fractures. CT abdomen and pelvis: There is a 12 mm cyst in the liver. The gallbladder, spleen, pancreas, and adr enal glands are normal. There is cortical thinning of the kidneys. There is a ventral hernia containi ng nonobstructed small bowel. Pelvic floor relaxation is noted. There are no dilated loops of bowel. The appendix is not visualized. There are no pathologically enlarged lymph nodes. There is no free in traperitoneal fluid. There is severe right hip osteoarthritis and moderate left hip osteoarthritis. T here is a benign bone island in right femoral neck. There is thoracolumbar levoscoliosis and severe s pondylosis. There is a chronic burst fracture of superior endplate of L3. IMPRESSION: 1. No pulmonary embolus. 2. Ventral hernia containing nonobstructed small bowel. 3. Pelvic floor relaxation. Reviewed, dictated and finalized at location A. E ROOFER
--- NOTE | ~2021-08-02 | XR_ITS ---
EXAMINATION: XR knee LT 3V DATE: 08/02/2021 09:23 INDICATION: Anterior left knee pain with palpation and movement. TECHNIQUE: Anteroposterior, oblique and crosstable lateral views of the left knee were obtained COMPARISON: None. FINDINGS: Alignment is normal. No fracture. Chondrocalcinosis at both the medial and lateral compartments of t he knee. Joint spaces appear relatively preserved on nonweightbearing imaging. No joint effusion/laye ring lipohemarthrosis. Soft tissues are unremarkable. IMPRESSION: 1. Chondrocalcinosis at the medial and lateral margins of the left knee. No osseous abnormality or chung int effusion. Reviewed, dictated and finalized at location B. TRUCK DRIVER IMPRESSION: 1. Chondrocalcinosis at the medial and lateral margins of the left knee. No oss eous abnormality or joint effusion.
--- NOTE | 2021-08-02 07:08 | ECG_ITS ---
Measurements Intervals [place] Rate: 56 P: 44 [place]: 138 QRS: 51 QRSD: 90 T: 6 QT: 459 QTc: 445 Interpretive Statements SINUS BRADYCARDIA BORDERLINE ST-T WAVE ABNORMALITY- ANTEROLAT/INF LEADS BASELINE ARTIFACT- I, II, III, AVR, AVL, AVF, V1-V6 BORDERLINE ECG Electronically Signed On 08-02-2021 7:40:33 BOARD MEMBER by Stewart Barrera D.O.
--- NOTE | 2021-08-02 07:08 | ED.CHESTPAIN ---
HPI - Chest Pain General Chief Complaint: Chest Pain Stated Complaint: Ambulance Time Seen by Provider: 08/02/21 07:09 Source: patient, family and EMS Mode of arrival: EMS Limitations: altered mental status History of Present Illness HPI narrative: 75-year-old woman with a history of memory impairment, CVA, colon cancer, small-bowel obstructions, and reflux comes in today complaining pain in her chest that is worse when she takes deep breath or when she palpates her chest. It started overnight. Patient also complains that she has a bruise over her upper abdomen, as abdominal pain and, on initial evaluation, stated that she had severe pain in her legs when she moved them and numbness and tingling in both feet. She also complains of right-sided neck pain that is worse with palpation and movement. She states she has some mild shortness of breath. There is no history of falls recently and was out to lunch with her brother yesterday without difficulties. She complains of weakness. She denies nausea, vomiting, fever, cough or cold symptoms, dysuria, change in appetite or intake. MD complaint: chest pain Onset (ago): hour(s) Timing of current episode: constant Prior episodes: No Onset: awoke with symptoms Pain location: right chest and subxiphoid Pain radiation: none Quality: aching and sharp Relieving factors: nothing Exacerbating factors: inspiration, palpation and movement Treatment prior to arrival: none Risk Factors Coronary artery disease risk factors: hyperlipidemia and hypertension Related Data Home Medications Medication Instructions Recorded Confirmed acetaminophen [Mapap 1,000 mg PO Q6H PRN 06/21/19 08/02/21 (acetaminophen)] multivitamin [Daily Multi-Vitamin] 1 tablet PO DAILY 06/21/19 08/02/21 cetirizine [Zyrtec] 10 mg PO DAILY 11/24/19 08/02/21 aspirin 81 mg PO DAILY 07/04/20 08/02/21 atorvastatin [Lipitor] 20 mg PO DAILY 12/05/20 08/02/21 Adult Probiotic 3,000 mmu cells PO DAILY 12/22/20 08/02/21 omeprazole 40 mg PO DAILY 03/11/21 08/02/21 alum-mag hydroxide-simeth See Rx Instructions .ROUTE .COMPLEX 04/16/21 08/02/21 [Shirin-Mox Antacid-Antigas] docusate sodium [Colace] 100 mg PO DAILY 04/16/21 08/02/21 polyethylene glycol 3350 [Miralax] See Rx Instructions .ROUTE .COMPLEX 04/16/21 08/02/21 sennosides-docusate sodium [Senna See Rx Instructions .ROUTE .COMPLEX 04/16/21 08/02/21 Plus] Allergies Allergy/AdvReac Type Severity Reaction Status Date / Time morphine AdvReac Intermediate Confusion Verified 06/14/21 11:14 ampicillin AdvReac Mild Rash Verified 06/14/21 11:14 Review of Systems Review of Systems: All systems reviewed & are unremarkable except as noted in HPI and below Constitutional: Constitutional: Denies chills and Denies fever(s) Eyes: Eyes: Denies change in vision ENT: Denies dysphagia, Denies nasal congestion and Denies sore throat Cardiovascular: Cardiovascular: Reports chest pain and Denies radiating jaw, neck or arm pain Respiratory: Respiratory: Denies cough, Denies dyspnea and Denies wheezing Gastrointestinal: Gastrointestinal: Reports abdominal pain, Denies diarrhea, Denies nausea and Denies vomiting Genitourinary: Genitourinary: Denies nocturia and Denies dysuria Musculoskeletal: Musculoskeletal: Denies back pain, Reports arthralgias and Denies joint swelling Integumentary/Breasts: Skin/Breast: Denies pruritus, Denies erythema and Denies rash Neurologic: Denies vertigo, Denies dizziness, Denies syncope, Reports headache(s) and Denies focal weakness Hematologic/Lymphatic: Hematologic/Lymphatic: Denies easy bleeding and Denies easy bruising Allergic/Immunologic: Allergic/Immunologic: Denies lip swelling and Denies throat swelling [facility] Past Medical History Medical History Abdominal pain Cerebrovascular accident (2018) CVA in spring 2018 with residual right-sided weakness, mainly dexterity issues in the right hand and right
[2021-08-02] MEDS: HYDROmorphone HCL INJ (*CRX) 2 MG/ML VIAL 0.5 MG IV PUSH (07:39)
[2021-08-02] MEDS: ONDANSETRON INJ 4 MG/2 ML VIAL IV PUSH (07:40)
[2021-08-02 07:54] LABS: Basophils Absolute Auto 0.03 K/mm3 (0.00-0.10); Basophils Percent Auto 0.6 % (0.0-1.0); Eosinophils Percent Auto 1.8 % (1.0-6.0); Hematocrit 41.8 % (35.0-42.0); Hemoglobin 13.5 g/dL (11.7-13.8); Immature Granulocyte Absolute 0.02 K/mm3 (0.00-0.00); Immature Granulocyte Percent A 0.4 % (0.0-0.0); Lymphocytes Absolute Auto 1.16 K/mm3 (1.10-4.50); Lymphocytes Percent Auto 21.4 % (18.0-42.0); Mean Corpuscular HGB Conc 32.3 g/dL (32.0-36.0); Mean Corpuscular Volume 89.7 fL (78.0-102.0); Mean Platelet Volume 9.8 fl (9.2-11.8); Monocytes Absolute Auto 0.47 K/mm3 (0.10-0.90); Monocytes Percent Auto 8.7 % (2.0-11.0); Neutrophils Absolute Auto 3.6 K/mm3 (1.7-7.2); Neutrophils Percent Auto 67.1 % (50.0-70.0); Platelet Count Result 244 K/mm3 (150-420); Red Blood Count 4.66 M/mm3 (4.20-5.40); Red Cell Distribution Width 14.4 % (11.6-14.4); White Blood Count 5.4 K/mm3 (4.8-10.8)
[2021-08-02 07:57] LABS: Add Urine Microscopic? YES; Appearance Urine Clear (Clear); Bilirubin Urine Negative (Negative); Blood Urine Negative (Negative); Color Urine Light Yellow (Yellow); Glucose Urine UA Negative (Negative); Ketones Urine Negative (Negative); Leukocyte Esterase Ur Trace LEU/UL (Negative); Nitrate Urine Negative (Negative); Protein Urine Negative (Negative); Specific Grav Ur 1.015 (1.010-1.020); Urobilinogen Urine 0.2 mg/dL (0.2-1.0)
[2021-08-02 08:11] LABS: Influenza Control Valid (Valid)
--- NOTE | 2021-08-02 08:12 | PC.NURSE ---
Pt has critical D Dimer of 1.[address] Carrion made aware.
[2021-08-02 08:15] LABS: Alanine Aminotransferase 23 U/L (14-59); Albumin Level 3.8 g/dL (3.4-5.0); Alkaline Phosphatase 77 U/L (46-116); Anion Gap 12 mmol/L (8-16); Aspartate Amino Transferase 17 U/L (15-37); Bilirubin,Total 0.5 mg/dL (0.00-1.00); Blood Urea Nitrogen 10 mg/dL (7-18); Calcium 9.1 mg/dL (8.5-10.1); Carbon Dioxide 26 mmol/L (21-32); Chloride 104 mmol/L (98-108); Estimated CRCL calculation 45 ml/min; Estimated Glomerular Filt Rate > 60; Glucose 101 mg/dL (70-99); Lipase 135 U/L (73-393); Osmolality Calculated 293 mOsm/kg (285-295); Potassium 3.6 mmol/L (3.5-5.1); Sodium 142 mmol/L (136-145); Total Protein 7.7 g/dL (6.4-8.2)
[2021-08-02 08:19] LABS: Creatine Kinase 106 U/L (26-192)
[2021-08-02 08:20] LABS: Troponin I 9.6 ng/L (0.00-60.4)
[2021-08-02 08:22] LABS: SARS-CoV-2 Ag Negative (Negative)
[2021-08-02 08:30] LABS: Bacteria Urine Trace /hpf; RBC Urine None seen /hpf (0-2); Squamous Epithelial Cell Urine Few /hpf (Few); WBC Urine None seen /hpf (0-3)
[2021-08-02] MEDS: SODIUM CHLORIDE 0.9% IV 1,000 ML 999 ML IV CONT (08:38)
--- NOTE | 2021-08-02 10:40 | PC.NURSE ---
Assisted pt to bedside commode and back x3. Requiring two assist.
[2021-08-02 10:47] LABS: Reflex Lactic Acid Yes or No Add Lactic
--- NOTE | 2021-08-02 11:52 | PC.NURSE ---
Patient admitted to room 204, transferred to bed with assistance. Oriented to room and call light. Daughter at bedside
[2021-08-02 11:55] LABS: Lactic Acid 0.7 mmol/L (0.4-2.0)
[2021-08-02] MEDS: ACETAMINOPHEN 500 MG TABLET 1000 MG PO ×2 (13:19→19:41)
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
[2021-08-02 16:52] LABS: Troponin I 12.4 ng/L (0.00-60.4)
[2021-08-02] MEDS: PANTOPRAZOLE 40 MG TABLET PO (17:23)
[2021-08-02] MEDS: POTASSIUM CHLORIDE 20 MEQ TABLET PO (17:23)
--- NOTE | 2021-08-02 19:46 | PC.NURSE ---
Patient states remembers being in shower and then being on her hands and knees. Up with walker and gait belt to toilet. Complaint of pain to right ribs. PRN acetaminophen given. Back to bed. Call light in reach.
[2021-08-02] MEDS: busPIRone HCL 5 MG TABLET PO (20:51)
[2021-08-02] MEDS: SENNA/DOCUSATE SODIUM TABLET 1 TAB PO (20:51)
--- NOTE | 2021-08-02 23:00 | PC.NURSE ---
Completed change of shift report. Patient is sleeping comfortably in bed, with no signs of pain or discomfort.
[2021-08-03] VITALS: BP 110/68; PULSE 58; RESP 16; TEMP 36.7; O2SAT 95
--- NOTE | 2021-08-03 02:27 | PC.NURSE ---
Completed patient rounding. Patient is sleeping comfortably in bed, with no signs of pain or discomfort.
[2021-08-03 04:00] VITALS: BP 109/71; PULSE 56; RESP 16; TEMP 36.7; O2SAT 97
[2021-08-03] MEDS: ACETAMINOPHEN 500 MG TABLET 1000 MG PO (05:20)
[2021-08-03 05:37] LABS: Hematocrit 35.9 % (35.0-42.0); Hemoglobin 11.5 g/dL (11.7-13.8); Mean Corpuscular Hemoglobin 29.6 pg (27.0-31.0); Mean Corpuscular Volume 92.3 fL (78.0-102.0); Mean Platelet Volume 10.2 fl (9.2-11.8); Platelet Count Result 199 K/mm3 (150-420); Red Blood Count 3.89 M/mm3 (4.20-5.40); Red Cell Distribution Width 14.6 % (11.6-14.4); White Blood Count 3.6 K/mm3 (4.8-10.8)
[2021-08-03 05:49] LABS: Anion Gap 8 mmol/L (8-16); Blood Urea Nitrogen 10 mg/dL (7-18); Calcium 8.6 mg/dL (8.5-10.1); Carbon Dioxide 30 mmol/L (21-32); Chloride 104 mmol/L (98-108); Estimated CRCL calculation 45 ml/min; Estimated Glomerular Filt Rate > 60; Glucose 88 mg/dL (70-99); Osmolality Calculated 292 mOsm/kg (285-295); Potassium 4.1 mmol/L (3.5-5.1); Sodium 142 mmol/L (136-145)
[2021-08-03 06:06] LABS: Band Neutrophils Percent 0 % (0-6); Basophils Absolute Manual 0.03 K/mm3 (0-0.1); Basophils Percent Manual 1 % (0-1); Eosinophils Absolute Manual 0.07 K/mm3 (0.02-0.5); Eosinophils Percent Manual 2 % (1-6); Lymphocytes Percent Manual 28 % (18-44); Monocytes Absolute Manual 0.39 K/mm3 (0.1-0.90); Monocytes Percent Manual 11 % (3-9); Neutrophils Absolute Manual 2.08 K/mm3 (1.7-7.2); Neutrophils Percent Manual 58 % (46-73); Total Cells Counted 100
[2021-08-03 06:07] LABS: Platelet Estimate Adequate (Adequate)
[2021-08-03 08:00] VITALS: BP 114/66; PULSE 56; PULSE 66; RESP 18; TEMP 36.3; O2SAT 97
[2021-08-03] MEDS: PANTOPRAZOLE 40 MG TABLET PO (09:13)
[2021-08-03] MEDS: DOCUSATE SODIUM 100 MG CAPSULE PO (09:13)
[2021-08-03] MEDS: LORATADINE 10 MG TABLET PO (09:13)
[2021-08-03] MEDS: ATORVASTATIN 10 MG TABLET 20 MG PO (09:13)
[2021-08-03] MEDS: MULTIVITAMINS THERAPEUTIC TAB (*BKC) 1 TABLET PO (09:13)
[2021-08-03] MEDS: MAG HYDROX/AL HYDROX/SIMETH 30 ML UDC BY MOUTH (09:13)
[2021-08-03] MEDS: ASPIRIN 81 MG ENTERIC TABLET PO (09:13)
[2021-08-03] MEDS: busPIRone HCL 5 MG TABLET PO (09:13)
[2021-08-03] MEDS: amLODIPine BESYLATE 5 MG TABLET PO (09:14)
[2021-08-03] MEDS: LIDOCAINE 5% PATCH 1 PATCH TRANSDERM (09:21)
[2021-08-03] MEDS: POTASSIUM CHLORIDE 20 MEQ TABLET PO (09:30)
--- NOTE | 2021-08-03 09:51 | PC.NURSE ---
Called to room, pain in area where lido patch was placed, removed and washed area, no redness noted, feels better with warm cloth, warm blanket applied to the area, pain less,
[2021-08-03 12:00] VITALS: BP 112/54; PULSE 62; PULSE 66; RESP 18; TEMP 36.6; O2SAT 97
--- NOTE | 2021-08-03 13:03 | P.DS_ITS ---
DS: Admitting Diagnosis Discharge Date 08/03/2021 <Christos AmayaPASHA kennedy-C - Last Filed: 08/03/21 13:17> Admitting Diagnosis Abdominal Contusion, Bradycardia, HTN, Weakness <Christos DayPASHA-C - Last Filed: 08/03/21 13:17> DS: Discharge Diagnosis Discharge Diagnosis (1) Fall: Qualifiers: Encounter type: initial encounter Qualified Code(s): W19.XXXA - Unspecified fall, initial encounter <Christos Day FERRY OPERATOR-C - Last Filed: 08/03/21 13:17> Code(s): W19.XXXA - Unspecified fall, initial encounter <Christos AmayaOSIEL kennedyN-C - Last Filed: 08/03/21 13:17> Status: Acute <Christos DayOSIELN-C - Last Filed: 08/03/21 13:17> Assessment and Plan: * Imaging negative for fracture dislocation * Due to memory impairment patient cannot recall falls * PT OT consulted * Fall precautions 08/03/2021 Pt to return back to assisted living, Pt will need to follow up with PCP. <Christos YanJuan Day APN-C - Last Filed: 08/03/21 13:17> (2) Abdominal contusion: Qualifiers: Encounter type: initial encounter Qualified Code(s): S30.1XXA - Contusion of abdominal wall, initial encounter <Christos YanJuan Jose LuisPASHA kennedy- C - Last Filed: 08/03/21 13:17> Code(s): S30.1XXA - Contusion of abdominal wall, initial encounter <Christos YanJuan Jose LuisOSIEL kennedyN-C - Last Filed: 08/03/21 13:17> Status: Acute <Christos AmayaOSIEL kennedyN-C - Last Filed: 08/03/21 13:17> Assessment and Plan: * Possibly secondary to a fall * CT of the abdomen no new finding 08/03/2021 Pt will need to take Tylenol and practice fall prevention <Christos YanOSIEL DuarteN-C - Last Filed: 08/03/21 13:17> (3) Bradycardia: Code(s): R00.1 - Bradycardia, unspecified <Christos YanJuan Day FERRY OPERATOR-C - Last Filed: 08/03/21 13:17> Status: Acute <OSIEL TolbertN-C - Last Filed: 08/03/21 13:17> Assessment and Plan: * Etiology unknown * Continue telemetry with orthostatic blood pressure reading * Patient not on any medication to affect heart rate * History does show occasional sinus bradycardia 08/03/2021 Pt to follow up with PCP, transmission and protection engineer <OSIEL TolbertN-C - Last Filed: 08/03/21 13:17> (4) HTN (hypertension): Code(s): I10 - Essential (primary) hypertension <Christos Day FERRY OPERATOR-C - Last Filed: 08/03/21 13:17> Status: Acute <Christos Day APN-C - Last Filed: 08/03/21 13:17> Assessment and Plan: * Stable * Continue amlodipine * Vital signs as ordered * Will adjust medication as needed 08/03/2021 VSS during her hospitalization <Christos Day APN-C - Last Filed: 08/03/21 13:17> (5) Weakness: Code(s): R53.1 - Weakness <OSIEL TolbertN-C - Last Filed: 08/03/21 13:17> Status: Acute <Christos Day APN-C - Last Filed: 08/03/21 13:17> Assessment and Plan: * PT OT evaluation 08/03/2021 PT discharge evaluation, safe to return <Christos Day APN-C - Last Filed: 08/03/21 13:17> (6) Hyperlipidemia: Onset Date: Unknown <OSIEL TolbertN-C - Last Filed: 08/03/21 13:17> Code(s): E78.5 - Hyperlipidemia, unspecified <OSIEL TolbertN-C - Last Filed: 08/03/21 13:17> Status: Acute <OSIEL TolbertN-C - Last Filed: 08/03/21 13:17> Assessment and Plan: * Continue statins <OSIEL TolbertN-C - Last Filed: 08/03/21 13:17> (7) Gastroesophageal reflux disease: Onset Date: Unknown <Christos Day APN-Evert - Last Filed: 08/03/21 13:17> Code(s): K21.9 - Gastro-esop
--- NOTE | 2021-08-03 13:03 | PM.DS ---
DS: Admitting Diagnosis Discharge Date 08/03/2021 <Christos AmayaPASHA kennedy-C - Last Filed: 08/03/21 13:17> Admitting Diagnosis Abdominal Contusion, Bradycardia, HTN, Weakness <Christos DayPASHA-C - Last Filed: 08/03/21 13:17> DS: Discharge Diagnosis Discharge Diagnosis (1) Fall: Qualifiers: Encounter type: initial encounter Qualified Code(s): W19.XXXA - Unspecified fall, initial encounter <Christos DayPASHA-C - Last Filed: 08/03/21 13:17> Code(s): W19.XXXA - Unspecified fall, initial encounter <Christos AmayaPASHA kennedy-C - Last Filed: 08/03/21 13:17> Status: Acute <Christos DayPASHA-C - Last Filed: 08/03/21 13:17> Assessment and Plan: Imaging negative for fracture dislocation Due to memory impairment patient cannot recall falls PT OT consulted Fall precautions 08/03/2021 Pt to return back to assisted living, Pt will need to follow up with PCP. <Christos YanJuan Day APN-C - Last Filed: 08/03/21 13:17> (2) Abdominal contusion: Qualifiers: Encounter type: initial encounter Qualified Code(s): S30.1XXA - Contusion of abdominal wall, initial encounter <Christos DayPASHA-C - Last Filed: 08/03/21 13:17> Code(s): S30.1XXA - Contusion of abdominal wall, initial encounter <Christos YanJuan Day APN-C - Last Filed: 08/03/21 13:17> Status: Acute <Christos YanJuan Jose LuisPASHA kennedy-C - Last Filed: 08/03/21 13:17> Assessment and Plan: Possibly secondary to a fall CT of the abdomen no new finding 08/03/2021 Pt will need to take Tylenol and practice fall prevention <Christos YanJuan Day APN-C - Last Filed: 08/03/21 13:17> (3) Bradycardia: Code(s): R00.1 - Bradycardia, unspecified <Christos YanJuan Day APN-C - Last Filed: 08/03/21 13:17> Status: Acute <Christos Day CHAIR INSPECTOR-C - Last Filed: 08/03/21 13:17> Assessment and Plan: Etiology unknown Continue telemetry with orthostatic blood pressure reading Patient not on any medication to affect heart rate History does show occasional sinus bradycardia 08/03/2021 Pt to follow up with PCP, rigging foreman <Christos DayPASHA-C - Last Filed: 08/03/21 13:17> (4) HTN (hypertension): Code(s): I10 - Essential (primary) hypertension <Christos Day CHAIR INSPECTOR-C - Last Filed: 08/03/21 13:17> Status: Acute <OSIEL TolbertN-C - Last Filed: 08/03/21 13:17> Assessment and Plan: Stable Continue amlodipine Vital signs as ordered Will adjust medication as needed 08/03/2021 VSS during her hospitalization <Christos Day CHAIR INSPECTOR-C - Last Filed: 08/03/21 13:17> (5) Weakness: Code(s): R53.1 - Weakness <Christos Day CHAIR INSPECTOR-C - Last Filed: 08/03/21 13:17> Status: Acute <Christos Day CHAIR INSPECTOR-C - Last Filed: 08/03/21 13:17> Assessment and Plan: PT OT evaluation 08/03/2021 PT discharge evaluation, safe to return <Christos Day CHAIR INSPECTOR-C - Last Filed: 08/03/21 13:17> (6) Hyperlipidemia: Onset Date: Unknown <Christos Day CHAIR INSPECTOR-C - Last Filed: 08/03/21 13:17> Code(s): E78.5 - Hyperlipidemia, unspecified <Christos Day CHAIR INSPECTOR-C - Last Filed: 08/03/21 13:17> Status: Acute <Christos Day CHAIR INSPECTOR-C - Last Filed: 08/03/21 13:17> Assessment and Plan: Continue statins <Christos Day CHAIR INSPECTOR-C - Last Filed: 08/03/21 13:17> (7) Gastroesophageal reflux disease: Onset Date: Unknown <Christos Day, CHAIR INSPECTOR-C - Last Filed: 08/03/21 13:17> Code(s): K21.9 - Gastro-esophageal reflux disease without esophagitis <STEVEN Tolbert - Last Filed: 08/03/21 13:17> Status: Acute <STEVEN Tolbert - Last Filed: 08/03/21 13:17> Assessment and Plan: Continue pantoprazole <STEVEN Tolbert - Last Filed: 08/03/21 13:17> (8) Delirium: Code(s): R41.0 - Disorientation, unspecified <Christos Amaya
--- NOTE | 2021-08-03 15:19 | PC.NURSE ---
1400 discharged to family. going back to [facility]. daughter and patient verbalize an understanding of dc instructions. voices no c/o at this time.
--- NOTE | 2021-08-03 16:02 | PCPTNOTE ---
No Care Plan initiated due to patient being discharged today.
--- NOTE | 2021-08-06 15:13 | PC.NURSE ---
Daughter states patient received and understood her discharge instructions. Daughter has no other comments.
== END 2021-08-03 14:00 ==
LOC: CHSED 10:11 → CHS2ND 08-03 07:02
PROVIDERS: Admitting Provider Emergency Medicine; Emergency Provider Emergency Medicine; PCP Internal Medicine; Visit Provider Emergency Medicine
DX: R00.1 Bradycardia, unspecified (principal); I10 Essential (primary) hypertension; I69.351 Hemiplegia and hemiparesis following cerebral infarction affecting right dominant side; K21.9 Gastro-esophageal reflux disease without esophagitis; K43.9 Ventral hernia without obstruction or gangrene; E78.5 Hyperlipidemia, unspecified; M19.90 Unspecified osteoarthritis, unspecified site; R53.1 Weakness; S30.1XXA Contusion of abdominal wall, initial encounter; W19.XXXA Unspecified fall, initial encounter; F03.90 Unspecified dementia, unspecified severity, without behavioral disturbance, psychotic disturbance, mood disturbance, and anxiety; Z20.822 Contact with and (suspected) exposure to COVID-19; Z91.81 History of falling; Z87.820 Personal history of traumatic brain injury; Z92.3 Personal history of irradiation; Z96.651 Presence of right artificial knee joint; Z85.038 Personal history of other malignant neoplasm of large intestine; Z90.710 Acquired absence of both cervix and uterus; Z90.49 Acquired absence of other specified parts of digestive tract
CPT/HCPCS: 36415; 71275; 73562; 74177; 80048; 80053; 81001; 82550; 83605; 83690; 84484; 85025; 85380; 87040; 87426; 87804; 93005; 96361; 96374; 96375; 97161; 99285; A9270; C9803; G0378; J1170; J2405; J7030; Q9967

== ENCOUNTER 2021-09-08 10:30 | Outpatient (NON) | payer MEDICARE, SELFPAY ==
[2021-09-08 11:03] LABS: Basophils Absolute Auto 0.05 K/mm3 (0.00-0.10); Basophils Percent Auto 1.3 % (0.0-1.0); Eosinophils Absolute Auto 0.18 K/mm3 (0.02-0.50); Eosinophils Percent Auto 4.5 % (1.0-6.0); Hematocrit 43.3 % (35.0-42.0); Hemoglobin 13.2 g/dL (11.7-13.8); Immature Granulocyte Absolute 0.01 K/mm3 (0.00-0.00); Immature Granulocyte Percent A 0.3 % (0.0-0.0); Lymphocytes Absolute Auto 1.01 K/mm3 (1.10-4.50); Lymphocytes Percent Auto 25.3 % (18.0-42.0); Mean Corpuscular HGB Conc 30.5 g/dL (32.0-36.0); Mean Corpuscular Hemoglobin 28.6 pg (27.0-31.0); Mean Corpuscular Volume 93.9 fL (78.0-102.0); Mean Platelet Volume 11.4 fl (9.2-11.8); Monocytes Absolute Auto 0.39 K/mm3 (0.10-0.90); Monocytes Percent Auto 9.8 % (2.0-11.0); Neutrophils Absolute Auto 2.4 K/mm3 (1.7-7.2); Neutrophils Percent Auto 58.8 % (50.0-70.0); Platelet Count Result 225 K/mm3 (150-420); Red Blood Count 4.61 M/mm3 (4.20-5.40); Red Cell Distribution Width 15.6 % (11.6-14.4)
[2021-09-08 11:45] LABS: Ferritin 36 ng/mL (8-252); Iron 90 ug/dL (50-170)
== END 2021-09-08 10:31 | disposition home or self-care (01) ==
LOC: CHSLAB 10:31
PROVIDERS: Visit Provider Internal Medicine
DX: D50.9 Iron deficiency anemia, unspecified (principal)
CPT/HCPCS: 36415; 82728; 83540; 85025

== ENCOUNTER 2021-11-02 02:44 | Emergency (ER) | payer MEDICARE, SELFPAY ==
--- NOTE | ~2021-11-02 | CT_ITS ---
. EXAMINATION: CT thoracic spine wo con DATE: 11/02/2021 04:02 INDICATION: Fall. TECHNIQUE: Computed tomography (CT) of the thoracic spine was performed without intravenous contrast. Automated exposure control and iterative reconstruction technique were employed. The dose-length pro duct was 240.27 mGy-cm. COMPARISON: Chest CT 08/02/2021 FINDINGS: There is a small sliding hiatal hernia. Calcified right lung nodules and calcified right hi lar lymph nodes are consistent with old granulomatous disease. There are old healed left rib fracture s. There is 20 degrees dextroscoliosis of thoracic spine. There is at least 33 degrees levoscoliosis of thoracolumbar spine. There is 2 mm anterolisthesis of T2 on T3. There is a burst fracture of T6 wi th less than 1/5 loss of height with retropulsion of bone 1 mm into central spinal canal. There is mi ld chronic anterior wedging of T3 vertebral body. There is moderately decreased disc height at T5-T6 and T6-T7 and severely decreased disc height at T11-T12 and T12-L1. There is mildly decreased disc he ight at multiple other levels. There is multilevel facet joint osteoarthritis, severe at some levels. There is multilevel mild neural foraminal stenosis. On the right, there is moderate neural foraminal stenosis at T9-T10, T10-T11, and T11-T12. On the left, there is moderate neural foraminal stenosis a t T7-T8, T8-T9, and T9-T10. There is mild central canal stenosis at T3-T4, T11-T12, and T12-L1. IMPRESSION: 1. Acute versus subacute T6 burst fracture. 2. Severe thoracic spondylosis. 3. Scoliosis. Reviewed, dictated and finalized at location A. AULIC CONTROLS TECHNICIAN
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
[2021-11-02 03:02] VITALS: BP 157/84; PULSE 57; RESP 18; TEMP 36.1; O2SAT 98
[2021-11-02] MEDS: HYDROmorphone HCL INJ (*CRX) 2 MG/ML VIAL 1 MG IV PUSH (03:18)
--- NOTE | 2021-11-02 04:36 | PC.NURSE ---
pt on bedpan, daughter at bedside. dr lopez notified ct scan results completed. awaiting review of chart from dr lopez.
[2021-11-02 05:15] VITALS: BP 128/76; PULSE 76; RESP 20; TEMP 36.7; O2SAT 97
== END 2021-11-02 05:25 | disposition home or self-care (01) ==
PROVIDERS: Emergency Provider Emergency Medicine; PCP Internal Medicine
DX: S22.000A Wedge compression fracture of unspecified thoracic vertebra, initial encounter for closed fracture (principal); W19.XXXA Unspecified fall, initial encounter
CPT/HCPCS: 72128; 96374; 99284; J1170

== ENCOUNTER 2021-11-06 09:29 | Inpatient (IN) | payer MEDICARE, SELFPAY ==
--- NOTE | ~2021-11-06 | CT_ITS ---
EXAMINATION: CT brain wo con DATE: 11/09/2021 14:07 INDICATION: Confusion. TECHNIQUE: Computed tomography (CT) of the head was performed without intravenous contrast. The mA wa s adjusted according to patient size. Iterative reconstruction technique was employed. The dose-lengt h product was 605.33 mGy-cm. COMPARISON: Head CT 04/16/2021 FINDINGS: There is chronic encephalomalacia in anteroinferior left temporal lobe. There is chronic en cephalomalacia left frontal and parietal lobes and left caudate nucleus. There is no intracranial hem orrhage, acute infarction, or abnormal intracranial mass lesion. There is ex vacuo dilatation of body and frontal horn of left lateral ventricle. There are likely changes of ocular lens replacement surg eries. There is mild mucosal thickening in the paranasal sinuses. The mastoid air cells are normal. IMPRESSION: 1. Chronic encephalomalacia involving the left temporal, frontal, parietal lobes and left caudate nuc leus. Reviewed, dictated and finalized at location A. IMPRESSION: 1. Chronic encephalomalacia involving the left temporal, frontal, parietal lobe s and left caudate nucleus.
--- NOTE | ~2021-11-06 | XR_ITS ---
EXAMINATION: XR ankle RT min 3V DATE: 11/09/2021 14:08 INDICATION: Right ankle pain. Fall. TECHNIQUE: 3 views of right ankle were obtained. COMPARISON: None. FINDINGS: Bone alignment is normal. No fracture. There is mild osteoarthritis of talonavicular joint and calcaneocuboid joint. There is an enthesophyte at posterior aspect of calcaneal tuberosity. There is medial ankle soft tissue swelling. IMPRESSION: 1. Mild polyarticular osteoarthritis. Reviewed, dictated and finalized at location A.
--- NOTE | ~2021-11-06 | CT_ITS ---
EXAMINATION: CT abdomen pelvis w con DATE: 11/06/2021 11:51 INDICATION: Low abdominal pain. TECHNIQUE: Computed tomography (CT) of the abdomen and pelvis was performed with 100 mL Omnipaque 350 intravenous contrast. Automated exposure control and iterative reconstruction technique were employe d. The dose-length product was 272.10 mGy-cm. COMPARISON: CT abdomen and pelvis 08/02/21, thoracic spine CT 11/02/2021 FINDINGS: The visualized portions of the lung bases demonstrate mild atelectasis. No pleural effusion . The heart size is normal. No pericardial effusion. There is a 12 mm cyst in the liver. The gallblad perico is distended. The spleen, pancreas, and adrenal glands are normal. There is cortical thinning of the kidneys. There is a 4 mm cyst in left kidney. There is an infraumbilical ventral hernia containin g nonobstructed small bowel. There is an anastomosis in the rectosigmoid. The appendix is normal. The re is wall thickening of the bladder. There are no pathologically enlarged lymph nodes. There is no f ree intraperitoneal fluid. Pelvic floor relaxation is noted. There are old healed fractures of right superior and inferior pubic rami and right sacral ala. There is a benign bone island in proximal righ t femur. There is thoracolumbar levoscoliosis and severe spondylosis. There is a chronic burst fractu re of L3 superior endplate. There is a compression fracture of T10 with less than 1/5 loss of height. IMPRESSION: 1. Diffuse wall thickening of the bladder, which may be seen with cystitis. 2. Gallbladder distention, which may be secondary to fasting. Correlate with physical exam to exclude acute cholecystitis. 3. Ventral hernia containing nonobstructed small bowel. 4. Pelvic floor relaxation. 5. Subacute T10 compression fracture. Reviewed, dictated and finalized at location A. R INSTALLER TECHNICIAN IMPRESSION: 1. Diffuse wall thickening of the bladder, which may be seen with cystitis. 2. Gallbladder distention, which may be secondary to fasting. Correlate with ph ysical exam to exclude acute cholecystitis. 3. Ventral hernia containing nonobstructed small bowel. 4. Pelvic floor relaxation. 5. Subacute T10 compression fracture.
--- NOTE | ~2021-11-06 | XR_ITS ---
EXAMINATION: XR hip BI 2V w AP pelvis DATE: 11/06/2021 11:48 INDICATION: Bilateral hip pain. Fall. TECHNIQUE: An anteroposterior view pelvis and 3 views of each hip were obtained. COMPARISON: Pelvis and hip radiographs 04/16/2021, CT abdomen and pelvis 11/06/2021 FINDINGS: There is lumbar levoscoliosis and moderate spondylosis. No acute fracture. There are old he aled fractures of right superior and inferior pubic rami and right sacral ala. There is a benign bone island in right femoral head. There is moderate osteoarthritis of the hips. There is a staple line i n the pelvis. IMPRESSION: 1. Moderate osteoarthritis of the hips. Reviewed, dictated and finalized at location A. ING MACHINE OPERATOR
--- NOTE | ~2021-11-06 | CT_ITS ---
EXAMINATION: CT abdomen pelvis wo con DATE: 11/09/2021 14:07 INDICATION: Right upper quadrant predominance generalized abdominal pain and tenderness post fall TECHNIQUE: Computed tomography (CT) of the abdomen and pelvis was performed without intravenous contr ast. Automated exposure control and iterative reconstruction technique were employed. The dose-length product was 390.65 mGy-cm. COMPARISON: 11/06/2021 and 07/04/2020 FINDINGS: Discoid atelectasis in the bilateral lower lobes. 4-5 mm left lower lobe nodule unchanged since 2019. Heart size is normal. No pericardial or pleural effusion. 1.2 cm left hepatic lobe cyst. Lupillo ously excreted contrast layering in the dependent aspect of the otherwise normal gallbladder. Spleen, pancreas and bilateral adrenal glands are normal. Small amount of cortical scarring at the upper yanni e of the left kidney. Moderate amount stool scattered throughout the colon. Rectosigmoid anastomotic suture line. Several small ventral hernias along a midline surgical scar one of the more cephalad con taining fat and more caudal wide mouthed hernia containing a few loops of nonobstructed small bowel. No bowel obstruction. Normal appendix. Persistent mild diffuse bladder wall thickening with small div erticulum at the right side of the bladder. The uterus is not identified and has likely been surgical ly resected. No free intraperitoneal gas or fluid. No pathologically enlarged abdominal or pelvic lym phadenopathy. Pelvic floor relaxation. Subcutaneous stranding and a few small foci of gas anterior wa ll of the left pelvis likely related to a subcutaneous injection. Moderate thoracolumbar dextroscolio sis with severe spondylosis. Lumbarized S1 segment. Chronic L3 burst fracture with 20% left-sided nallely tebral body height loss. Additional unchanged subacute or chronic mild superior endplate compression fracture at T10. Bone island at the right femoral neck. Old healed right superior and inferior pubic rami fractures. IMPRESSION: 1. No acute fracture or acute intra-abdominal/pelvic process. 2. Persistent diffuse mild wall thickening of the bladder which could be due to cystitis either acute or chronic or neurogenic bladder. 3. Wide mouth lower abdominal ventral hernia containing nonobstructed small bowel. 4. Pelvic floor relaxation. Reviewed, dictated and finalized at location A. IMPRESSION: 1. No acute fracture or acute intra-abdominal/pelvic process. 2. Persistent diffuse mild wall thickening of the bladder which could be due to cystitis either acute or chronic or neurogenic bladder. 3. Wide mouth lower abdominal ventral hernia containing nonobstructed small bow el. 4. Pelvic floor relaxation.
--- NOTE | ~2021-11-06 | XR_ITS ---
EXAMINATION: XR chest 1V portable DATE: 11/06/2021 11:48 INDICATION: Shortness of breath. TECHNIQUE: A single frontal view of the chest was obtained. COMPARISON: Chest 2 views 07/04/2020, CT abdomen and pelvis 11/06/2021 FINDINGS: There is mild atelectasis in the lower lung zones. No pleural effusion or pneumothorax. The heart size is normal. IMPRESSION: 1. Mild atelectasis in the lower lung zones. Reviewed, dictated and finalized at location A. STRANDER
[2021-11-06 09:56] VITALS: BP 142/81; PULSE 86; RESP 20; TEMP 36.7; O2SAT 98
--- NOTE | 2021-11-06 10:01 | ECG_ITS ---
Measurements Intervals [place] Rate: 79 P: 33 NC: 132 QRS: 4 QRSD: 101 T: 33 QT: 384 QTc: 442 Interpretive Statements SINUS RHYTHM INCOMPLETE RIGHT BUNDLE BRANCH BLOCK [90+ ms QRS DURATION, TERMINAL R IN V1/V2, 40+ ms S IN I/aVL/V4/V5/V6] COMPARED TO ECG 08/02/2021 07:19:32 BRADYCARDIA HAS RESOLVED INCOMPLETE RIGHT BUNDLE-BRANCH BLOCK NOW PRESENT Electronically Signed On 11-06-2021 13:26:09 COMMUNITY DEVELOPMENT MANAGER by Valeria Cohen M.D.
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
[2021-11-06] MEDS: ONDANSETRON INJ 4 MG/2 ML VIAL IV PUSH (10:11)
[2021-11-06] MEDS: KETOROLAC 15 MG/ML VIAL (*BKC) IV PUSH (10:12)
[2021-11-06 10:23] LABS: Basophils Absolute Auto 0.01 K/mm3 (0.00-0.10); Basophils Percent Auto 0.2 % (0.0-1.0); Eosinophils Absolute Auto 0.01 K/mm3 (0.02-0.50); Eosinophils Percent Auto 0.2 % (1.0-6.0); Hematocrit 39.6 % (35.0-42.0); Hemoglobin 12.8 g/dL (11.7-13.8); Immature Granulocyte Absolute 0.02 K/mm3 (0.00-0.00); Immature Granulocyte Percent A 0.3 % (0.0-0.0); Lymphocytes Absolute Auto 0.24 K/mm3 (1.10-4.50); Lymphocytes Percent Auto 4.1 % (18.0-42.0); Mean Corpuscular HGB Conc 32.3 g/dL (32.0-36.0); Mean Corpuscular Hemoglobin 30.5 pg (27.0-31.0); Mean Corpuscular Volume 94.3 fL (78.0-102.0); Mean Platelet Volume 9.9 fl (9.2-11.8); Monocytes Absolute Auto 0.66 K/mm3 (0.10-0.90); Monocytes Percent Auto 11.4 % (2.0-11.0); Neutrophils Absolute Auto 4.9 K/mm3 (1.7-7.2); Neutrophils Percent Auto 83.8 % (50.0-70.0); Platelet Count Result 188 K/mm3 (150-420); Red Cell Distribution Width 14.8 % (11.6-14.4); White Blood Count 5.8 K/mm3 (4.8-10.8)
[2021-11-06 10:32] LABS: Alanine Aminotransferase 41 U/L (14-59); Albumin Level 3.5 g/dL (3.4-5.0); Alkaline Phosphatase 67 U/L (46-116); Anion Gap 10 mmol/L (8-16); Aspartate Amino Transferase 38 U/L (15-37); Bilirubin,Total 0.4 mg/dL (0.00-1.00); Blood Urea Nitrogen 15 mg/dL (7-18); Calcium 8.4 mg/dL (8.5-10.1); Carbon Dioxide 24 mmol/L (21-32); Chloride 96 mmol/L (98-108); Estimated CRCL calculation 44 ml/min; Estimated Glomerular Filt Rate > 60; Glucose 100 mg/dL (70-99); Lipase 87 U/L (73-393); Osmolality Calculated 270 mOsm/kg (285-295); Sodium 130 mmol/L (136-145); Total Protein 7.2 g/dL (6.4-8.2)
[2021-11-06 10:37] LABS: Lactic Acid Reflex 0.9 mmol/L (0.4-2.0)
--- NOTE | 2021-11-06 10:48 | PC.NURSE ---
Stool noted to be dark in color. Occult blood obtained to ensure no GI bleeding. Pt is on iron supplement.
[2021-11-06 11:18] LABS: Occult Blood Negative (Negative)
[2021-11-06] MEDS: SODIUM CHLORIDE 0.9% IV 500 ML 999 ML IV CONT (12:02)
[2021-11-06 12:44] LABS: Appearance Urine Sl Cloudy (Clear); Bilirubin Urine Negative (Negative); Color Urine Yellow (Yellow); Glucose Urine UA Negative (Negative); Ketones Urine Negative (Negative); Leukocyte Esterase Ur 2+ (Negative); Nitrate Urine Negative (Negative); Protein Urine Negative (Negative); Specific Grav Ur <= 1.005 (1.010-1.020); Urobilinogen Urine 0.2 mg/dL (0.2-1.0)
[2021-11-06 12:49] LABS: Add Urine Microscopic? YES; Bacteria Urine 1+ /hpf; Blood Urine Trace-Intact (Negative); RBC Urine 0-2 /hpf (0-2); Squamous Epithelial Cell Urine Few /hpf (Few); WBC Urine 31-50 /hpf (0-3)
[2021-11-06 13:30] VITALS: BP 124/82; PULSE 78; RESP 18; O2SAT 95
--- NOTE | 2021-11-06 13:35 | PC.NURSE ---
Phone report called to [facility], 2nd floor RN
[2021-11-06] MEDS: PANTOPRAZOLE SODIUM IV 40 MG VIAL IV PUSH (13:40)
[2021-11-06 14:05] VITALS: BMI 23.1
[2021-11-06 14:15] VITALS: BP 132/84; PULSE 74; RESP 18; TEMP 36.3; O2SAT 97
[2021-11-06] MEDS: HYDROcodone/acetaminophen (*CRX) 5-325 MG TABLET 1 TAB PO (14:23)
[2021-11-06] MEDS: POTASSIUM CHLORIDE 20 MEQ TABLET PO (17:22)
[2021-11-06] MEDS: busPIRone HCL 5 MG TABLET PO (21:49)
[2021-11-06 23:34] VITALS: BP 124/73; PULSE 76; RESP 15; TEMP 37.7; O2SAT 94
--- NOTE | 2021-11-07 00:26 | PC.NURSE ---
Pt transferred from bed to commode via walker, gait belt and 1 assist. Pt needed direction on safely transferring and demonstrated fairly, but safely. Pt had a moderate bm. Pt had some stool in her underpants so those were disposed of and a fresh pair of depends was then put on Azeb. Pt needed assistance with cleaning her perianal area which was performed by Purvi Rojas RN. Pt then transferred back to bed with 2 assist and pt performed slightly better. Pt requested to wash her hands and stated she likes to wash her hands after using the restroom which this insurance underwriter praised and encouraged Azeb to keep doing. The pt was then moved up in bed slightly for comfort and a pillow was placed under her legs to prevent sores developing on the heels. Pt stated she felt comfortable and had a few sips of water. Bed was then placed in the lowest position and bed alarm turned on for pt safety. Call light placed within reach.
[2021-11-07] MEDS: HYDROcodone/acetaminophen (*CRX) 5-325 MG TABLET 1 TAB PO ×4 (00:41→20:17)
[2021-11-07 05:04] LABS: Hematocrit 36.9 % (35.0-42.0); Hemoglobin 12.1 g/dL (11.7-13.8); Mean Corpuscular HGB Conc 32.8 g/dL (32.0-36.0); Mean Corpuscular Hemoglobin 30.5 pg (27.0-31.0); Mean Corpuscular Volume 92.9 fL (78.0-102.0); Mean Platelet Volume 9.5 fl (9.2-11.8); Platelet Count Result 183 K/mm3 (150-420); Red Blood Count 3.97 M/mm3 (4.20-5.40); Red Cell Distribution Width 14.9 % (11.6-14.4); White Blood Count 4.1 K/mm3 (4.8-10.8)
[2021-11-07 05:20] LABS: Alanine Aminotransferase 39 U/L (14-59); Alkaline Phosphatase 58 U/L (46-116); Anion Gap 11 mmol/L (8-16); Aspartate Amino Transferase 36 U/L (15-37); Bilirubin,Total 0.3 mg/dL (0.00-1.00); Blood Urea Nitrogen 11 mg/dL (7-18); Calcium 7.7 mg/dL (8.5-10.1); Carbon Dioxide 23 mmol/L (21-32); Chloride 98 mmol/L (98-108); Estimated CRCL calculation 48 ml/min; Estimated Glomerular Filt Rate > 60; Glucose 90 mg/dL (70-99); Osmolality Calculated 273 mOsm/kg (285-295); Potassium 3.8 mmol/L (3.5-5.1); Sodium 132 mmol/L (136-145); Total Protein 6.4 g/dL (6.4-8.2)
--- NOTE | 2021-11-07 06:13 | PC.NURSE ---
Time on pt's clock adjusted for time change, so pt is aware of current time
--- NOTE | 2021-11-07 06:33 | PC.NURSE ---
Pt transferred from bed to commode via walker, gait belt, and 1 assist of Purvi Rojas RN. Pt had a loose, black bm mixed with urine. Pt cleaned herself independently and performed hand hygiene with minimal assist of bringing washing bin to her. Pt then transferred to chair with the call light placed within reach. Pt was brought tea per request and made aware of when breakfast is served. Room light dimmed, but on for pt safety.
[2021-11-07 08:00] VITALS: BP 128/82; PULSE 74; RESP 17; TEMP 36.9; O2SAT 97
[2021-11-07] MEDS: LORATADINE 10 MG TABLET PO (08:01)
[2021-11-07] MEDS: amLODIPine BESYLATE 5 MG TABLET PO (08:01)
[2021-11-07] MEDS: FLUoxetine HCL 20 MG CAPSULE PO (08:01)
[2021-11-07] MEDS: PANTOPRAZOLE 40 MG TABLET PO (08:02)
[2021-11-07] MEDS: FERROUS SULFATE 324 MG TABLET PO (08:02)
[2021-11-07] MEDS: ENOXAPARIN 40 MG/0.4 ML SYRINGE SUB-Q (08:02)
[2021-11-07] MEDS: busPIRone HCL 5 MG TABLET PO ×2 (08:02→22:29)
[2021-11-07] MEDS: ASPIRIN 81 MG ENTERIC TABLET PO (08:02)
[2021-11-07] MEDS: OPTI-GEN TAB 1 TABLET PO (08:02)
[2021-11-07] MEDS: POTASSIUM CHLORIDE 20 MEQ TABLET PO ×2 (08:02→17:37)
[2021-11-07] MEDS: ATORVASTATIN 10 MG TABLET 20 MG PO (08:02)
--- NOTE | 2021-11-07 10:00 | PC.NURSE ---
Spoke with patient daughter Veronica. States that her and her sister are touring a NH for possible placement for their mother today. Veronica expressed concern about patient getting weaker the past few days and seeing the need of patient to be [facility].
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
[2021-11-07] MEDS: traMADol HCL (*CRX) 25 MG TABLET PO (11:04)
[2021-11-07] MEDS: NITROFURANTOIN MONOHYD MACROCR 100 MG CAP PO ×2 (13:24→22:29)
[2021-11-07 16:00] VITALS: BP 126/73; PULSE 69; RESP 18; TEMP 36.6; O2SAT 95
[2021-11-07] MEDS: SACCHAROMYCES BOULARDII 250 MG CAPSULE PO (22:29)
[2021-11-07 23:07] VITALS: BP 123/78; PULSE 71; RESP 17; TEMP 37.1; O2SAT 94
--- NOTE | 2021-11-08 01:08 | PC.NURSE ---
Pt was transferred from bed to commode via walker, gait belt, and 1 assist. Pt had a bm and had perianal area cleansed with assistance of Leona Valiente RN. and was returned back to bed with 2 assist. Pt was then raised up in bed and has a pillow supporting her legs to keep off her heels. Bed placed in lowest position with 3 bed rails raised. Call light placed within reach and bed alarm still on. Pt was given some fresh water per request.
[2021-11-08] MEDS: HYDROcodone/acetaminophen (*CRX) 5-325 MG TABLET 1 TAB PO ×4 (04:36→21:37)
--- NOTE | 2021-11-08 05:20 | PC.NURSE ---
Stool sample was collected and given to lab in pt room.
[2021-11-08 05:22] LABS: Hematocrit 39.3 % (35.0-42.0); Hemoglobin 12.8 g/dL (11.7-13.8); Mean Corpuscular HGB Conc 32.6 g/dL (32.0-36.0); Mean Corpuscular Hemoglobin 30.2 pg (27.0-31.0); Mean Corpuscular Volume 92.7 fL (78.0-102.0); Mean Platelet Volume 9.7 fl (9.2-11.8); Platelet Count Result 190 K/mm3 (150-420); Red Blood Count 4.24 M/mm3 (4.20-5.40); Red Cell Distribution Width 14.7 % (11.6-14.4); White Blood Count 3.9 K/mm3 (4.8-10.8)
[2021-11-08 05:28] LABS: Anion Gap 12 mmol/L (8-16); Blood Urea Nitrogen 9 mg/dL (7-18); Calcium 8.4 mg/dL (8.5-10.1); Carbon Dioxide 23 mmol/L (21-32); Chloride 97 mmol/L (98-108); Estimated CRCL calculation 48 ml/min; Estimated Glomerular Filt Rate > 60; Glucose 79 mg/dL (70-99); Osmolality Calculated 271 mOsm/kg (285-295); Potassium 3.9 mmol/L (3.5-5.1); Sodium 132 mmol/L (136-145)
[2021-11-08 08:00] VITALS: BP 125/96; PULSE 66; RESP 14; TEMP 36.7; O2SAT 95
[2021-11-08] MEDS: POTASSIUM CHLORIDE 20 MEQ TABLET PO ×2 (08:16→17:35)
[2021-11-08] MEDS: OPTI-GEN TAB 1 TABLET PO (09:15)
[2021-11-08] MEDS: amLODIPine BESYLATE 5 MG TABLET PO (09:15)
[2021-11-08] MEDS: FLUoxetine HCL 20 MG CAPSULE PO (09:15)
[2021-11-08] MEDS: ASPIRIN 81 MG ENTERIC TABLET PO (09:15)
[2021-11-08] MEDS: ENOXAPARIN 40 MG/0.4 ML SYRINGE SUB-Q (09:15)
[2021-11-08] MEDS: SACCHAROMYCES BOULARDII 250 MG CAPSULE PO ×3 (09:15→17:35)
[2021-11-08] MEDS: NITROFURANTOIN MONOHYD MACROCR 100 MG CAP PO ×2 (09:17→20:40)
[2021-11-08] MEDS: FERROUS SULFATE 324 MG TABLET PO (09:18)
[2021-11-08] MEDS: busPIRone HCL 5 MG TABLET PO ×2 (09:18→20:40)
[2021-11-08] MEDS: PANTOPRAZOLE 40 MG TABLET PO (09:18)
[2021-11-08] MEDS: ATORVASTATIN 10 MG TABLET 20 MG PO (09:18)
[2021-11-08] MEDS: LORATADINE 10 MG TABLET PO (09:18)
--- NOTE | 2021-11-08 09:56 | P.DS_ITS ---
DS: Admitting Diagnosis Discharge Date 11/08/2021 Admitting Diagnosis Status post fall, worsening dementia, UTI DS: Discharge Diagnosis Discharge Diagnosis (1) Falls frequently: Code(s): R29.6 - Repeated falls Status: Acute Assessment and Plan: * Secondary to worsening dementia * Seeking placement for longterm * PT OT consulted * On fall precaution (2) Acute hyponatremia: Code(s): E87.1 - Hypo-osmolality and hyponatremia Status: Acute Assessment and Plan: * [id number] * Patient received 1 L of normal saline in ED * Encourage fluid intake (3) Compression fracture of L3 vertebra: Qualifiers: Encounter type: initial encounter Qualified Code(s): S32.030A - Wedge compression fracture of third lumbar vertebra, initial encounter for closed fracture Code(s): S32.030A - Wedge compression fracture of third lumbar vertebra, initial encounter for closed fracture Status: Acute Assessment and Plan: * Continue pain management (4) HTN (hypertension): Code(s): I10 - Essential (primary) hypertension Status: Acute Assessment and Plan: * Stable * Continue amlodipine 5 mg daily * Will adjust medication as needed * Vital signs as ordered (5) Weakness: Code(s): R53.1 - Weakness Status: Acute Assessment and Plan: * Possibly secondary to worsening dementia and or UTI * PT OT consulted * PT unsafe for patient to go to the assisted living [facility] longterm * Care coordination consulted (6) UTI (urinary tract infection): Onset Date: ~03/15/21 Qualifiers: Hematuria presence: without hematuria Urinary tract infection type: acute cystitis Qualified Code(s): N30.00 - Acute cystitis without hematuria Code(s): N39.0 - Urinary tract infection, site not specified Status: Acute Assessment and Plan: * UA positive for blood leukocyte Estrace and bacteria * UA culture * Continue Rocephin * Patient with a history of Enterobacter cloacea complex (7) Hyperlipidemia: Onset Date: Unknown Code(s): E78.5 - Hyperlipidemia, unspecified Status: Acute Assessment and Plan: * Continue statins (8) Gastroesophageal reflux disease: Onset Date: Unknown Code(s): K21.9 - Gastro-esophageal reflux disease without esophagitis Status: Acute Assessment and Plan: * Continue Protonix (9) Delirium: Code(s): R41.0 - Disorientation, unspecified Status: Resolved DS: Summary Hospital Course Reason for hospitalization: Frequent fall UTI Hospital Course: this is a 73-year-old female presented to ED status post fall. Patient has a past medical history of abdominal pain, CVA, colon cancer, small bowel obstruction, GERD, hyperlipidemia, memory impairment, osteoarthritis, small bowel obstruction, UTIs, in the ventral incisional hernia. Patient is we ll-known to our establishment in the past she visited our facility often due to a small bowel obstruction which has since been resolved with surgery. Here lately she has been admitted to our facility for frequent falls and worsening dementia. Patient is a poor historian most information obtained from medical record. Dealing with patient in the past this is her baseline. Her family is aware that her dementia is worsening and is seeking placement into a longterm versus assisted living. Patient does complain of lower back pain, patient has a T6 burst fracture from a previous fall. Patient also had a unwitnessed fall overnight denies any p
--- NOTE | 2021-11-08 09:56 | PM.DS ---
DS: Admitting Diagnosis Discharge Date 11/08/2021 Admitting Diagnosis Status post fall, worsening dementia, UTI DS: Discharge Diagnosis Discharge Diagnosis (1) Falls frequently: Code(s): R29.6 - Repeated falls Status: Acute Assessment and Plan: Secondary to worsening dementia Seeking placement for [facility] PT OT consulted On fall precaution (2) Acute hyponatremia: Code(s): E87.1 - Hypo-osmolality and hyponatremia Status: Acute Assessment and Plan: [id number] Patient received 1 L of normal saline in ED Encourage fluid intake (3) Compression fracture of L3 vertebra: Qualifiers: Encounter type: initial encounter Qualified Code(s): S32.030A - Wedge compression fracture of third lumbar vertebra, initial encounter for closed fracture Code(s): S32.030A - Wedge compression fracture of third lumbar vertebra, initial encounter for closed fracture Status: Acute Assessment and Plan: Continue pain management (4) HTN (hypertension): Code(s): I10 - Essential (primary) hypertension Status: Acute Assessment and Plan: Stable Continue amlodipine 5 mg daily Will adjust medication as needed Vital signs as ordered (5) Weakness: Code(s): R53.1 - Weakness Status: Acute Assessment and Plan: Possibly secondary to worsening dementia and or UTI PT OT consulted PT unsafe for patient to go to the assisted living [facility] Care coordination consulted (6) UTI (urinary tract infection): Onset Date: ~03/15/21 Qualifiers: Hematuria presence: without hematuria Urinary tract infection type: acute cystitis Qualified Code(s): N30.00 - Acute cystitis without hematuria Code(s): N39.0 - Urinary tract infection, site not specified Status: Acute Assessment and Plan: UA positive for blood leukocyte Estrace and bacteria UA culture Continue Rocephin Patient with a history of Enterobacter cloacea complex (7) Hyperlipidemia: Onset Date: Unknown Code(s): E78.5 - Hyperlipidemia, unspecified Status: Acute Assessment and Plan: Continue statins (8) Gastroesophageal reflux disease: Onset Date: Unknown Code(s): K21.9 - Gastro-esophageal reflux disease without esophagitis Status: Acute Assessment and Plan: Continue Protonix (9) Delirium: Code(s): R41.0 - Disorientation, unspecified Status: Resolved DS: Summary Hospital Course Reason for hospitalization: Frequent fall UTI Hospital Course: this is a 73-year-old female presented to ED status post fall. Patient has a past medical history of abdominal pain, CVA, colon cancer, small bowel obstruction, GERD, hyperlipidemia, memory impairment, osteoarthritis, small bowel obstruction, UTIs, in the ventral incisional hernia. Patient is well-known to our establishment in the past she visited our facility often due to a small bowel obstruction which has since been resolved with surgery. Here lately she has been admitted to our facility for frequent falls and worsening dementia. Patient is a poor historian most information obtained from medical record. Dealing with patient in the past this is her baseline. Her family is aware that her dementia is worsening and is seeking placement into a [facility] versus assisted living. Patient does complain of lower back pain, patient has a T6 burst fracture from a previous fall. Patient also had a unwitnessed fall overnight denies any pain denies hitting her head. Patient did not want to bother anyone for restroom use and attempted to transport herself to the restroom. Bed alarm ordered. Today she will discharged to a nursing facility. The patient denies SOB, CP, palpitation, extremity numbness, lightheadedness, dizziness, constipation, diarrhea, chills, or fever. Time Spent with Patient Time attestation: Total time spent providing and/o
[2021-11-08 10:00] LABS: SARS-CoV-2 Ag Negative (Negative)
[2021-11-08] MEDS: traMADol HCL (*CRX) 25 MG TABLET PO (12:18)
[2021-11-08 16:00] VITALS: BP 132/85; PULSE 68; RESP 14; TEMP 36.6; O2SAT 97
[2021-11-08] MEDS: SENNA/DOCUSATE SODIUM TABLET 1 TAB PO (20:40)
[2021-11-08] MEDS: traZODone HCL 50 MG TABLET PO (21:38)
[2021-11-08 23:57] VITALS: BP 120/69; PULSE 58; TEMP 36; O2SAT 96
[2021-11-09 07:50] VITALS: BP 132/78; PULSE 68; RESP 18; TEMP 36.6; O2SAT 96
[2021-11-09] MEDS: POTASSIUM CHLORIDE 20 MEQ TABLET PO (08:23)
[2021-11-09] MEDS: ASPIRIN 81 MG ENTERIC TABLET PO (08:23)
[2021-11-09] MEDS: ENOXAPARIN 40 MG/0.4 ML SYRINGE SUB-Q (08:23)
[2021-11-09] MEDS: LORATADINE 10 MG TABLET PO (08:24)
[2021-11-09] MEDS: OPTI-GEN TAB 1 TABLET PO (08:24)
[2021-11-09] MEDS: amLODIPine BESYLATE 5 MG TABLET PO (08:24)
[2021-11-09] MEDS: PANTOPRAZOLE 40 MG TABLET PO (08:24)
[2021-11-09] MEDS: NITROFURANTOIN MONOHYD MACROCR 100 MG CAP PO (08:24)
[2021-11-09] MEDS: ATORVASTATIN 10 MG TABLET 20 MG PO (08:24)
[2021-11-09] MEDS: FERROUS SULFATE 324 MG TABLET PO (08:25)
[2021-11-09] MEDS: HYDROcodone/acetaminophen (*CRX) 5-325 MG TABLET 1 TAB PO (08:25)
[2021-11-09] MEDS: busPIRone HCL 5 MG TABLET PO (08:25)
[2021-11-09] MEDS: FLUoxetine HCL 20 MG CAPSULE PO (08:26)
--- NOTE | 2021-11-09 09:33 | P.DS_ITS ---
DS: Admitting Diagnosis Discharge Date 11/09/2021 Admitting Diagnosis uti, s/p fall, worsening dementia DS: Discharge Diagnosis Discharge Diagnosis (1) Falls frequently: Code(s): R29.6 - Repeated falls Status: Acute Assessment and Plan: * Secondary to worsening dementia * Seeking placement for care home * PT OT consulted * On fall precaution (2) Acute hyponatremia: Code(s): E87.1 - Hypo-osmolality and hyponatremia Status: Acute Assessment and Plan: * [id number] * Patient received 1 L of normal saline in ED * Encourage fluid intake (3) Compression fracture of L3 vertebra: Qualifiers: Encounter type: initial encounter Qualified Code(s): S32.030A - Wedge compression fracture of third lumbar vertebra, initial encounter for closed fracture Code(s): S32.030A - Wedge compression fracture of third lumbar vertebra, initial encounter for closed fracture Status: Acute Assessment and Plan: * Continue pain management (4) HTN (hypertension): Code(s): I10 - Essential (primary) hypertension Status: Acute Assessment and Plan: * Stable * Continue amlodipine 5 mg daily * Will adjust medication as needed * Vital signs as ordered (5) Weakness: Code(s): R53.1 - Weakness Status: Acute Assessment and Plan: * Possibly secondary to worsening dementia and or UTI * PT OT consulted * PT unsafe for patient to go to the assisted living [facility] care home * Care coordination consulted (6) UTI (urinary tract infection): Onset Date: ~03/15/21 Qualifiers: Hematuria presence: without hematuria Urinary tract infection type: acute cystitis Qualified Code(s): N30.00 - Acute cystitis without hematuria Code(s): N39.0 - Urinary tract infection, site not specified Status: Acute Assessment and Plan: * UA culture with no growth antibiotics discontinued * UA positive for blood leukocyte Estrace and bacteria * UA culture * Patient with a history of Enterobacter cloacea complex (7) Hyperlipidemia: Onset Date: Unknown Code(s): E78.5 - Hyperlipidemia, unspecified Status: Acute Assessment and Plan: * Continue statins (8) Gastroesophageal reflux disease: Onset Date: Unknown Code(s): K21.9 - Gastro-esophageal reflux disease without esophagitis Status: Acute Assessment and Plan: * Continue Protonix (9) Delirium: Code(s): R41.0 - Disorientation, unspecified Status: Resolved DS: Summary Hospital Course Reason for hospitalization: Frequent fall UTI Hospital Course: this is a 73-year-old female presented to ED status post fall. Patient has a past medical history of abdominal pain, CVA, colon cancer, small bowel obstruction, GERD, hyperlipidemia, memory impairment, osteoarthritis, small bowel obstruction, UTIs, in the ventral incisional hernia. Patient is well-known to our establishment in the past she visited our facility often due to a small bowel obstruction which has since been resolved with surgery. Here lately she has been admitted to our facility for frequent falls and worsening dementia. Patient is a poor historian most information obtained from medical record. Dealing with patient in the past this is her baseline. Her family is aware that her dementia is worsening and is seeking placement into a care home versus assisted living. Patient does complain of lower back pain, patient has a T6 burst fracture from a previous fall. Patient also had a unwitnessed fa
--- NOTE | 2021-11-09 09:33 | PM.DS ---
DS: Admitting Diagnosis Discharge Date 11/09/2021 Admitting Diagnosis uti, s/p fall, worsening dementia DS: Discharge Diagnosis Discharge Diagnosis (1) Falls frequently: Code(s): R29.6 - Repeated falls Status: Acute Assessment and Plan: Secondary to worsening dementia [place] [facility] PT OT consulted On fall precaution (2) Acute hyponatremia: Code(s): E87.1 - Hypo-osmolality and hyponatremia Status: Acute Assessment and Plan: [id number] Patient received 1 L of normal saline in ED Encourage fluid intake (3) Compression fracture of L3 vertebra: Qualifiers: Encounter type: initial encounter Qualified Code(s): S32.030A - Wedge compression fracture of third lumbar vertebra, initial encounter for closed fracture Code(s): S32.030A - Wedge compression fracture of third lumbar vertebra, initial encounter for closed fracture Status: Acute Assessment and Plan: Continue pain management (4) HTN (hypertension): Code(s): I10 - Essential (primary) hypertension Status: Acute Assessment and Plan: Stable Continue amlodipine 5 mg daily Will adjust medication as needed Vital signs as ordered (5) Weakness: Code(s): R53.1 - Weakness Status: Acute Assessment and Plan: Possibly secondary to worsening dementia and or UTI PT OT consulted PT unsafe for patient to go to the assisted living [facility] [place] [facility] Care coordination consulted (6) UTI (urinary tract infection): Onset Date: ~03/15/21 Qualifiers: Hematuria presence: without hematuria Urinary tract infection type: acute cystitis Qualified Code(s): N30.00 - Acute cystitis without hematuria Code(s): N39.0 - Urinary tract infection, site not specified Status: Acute Assessment and Plan: UA culture with no growth antibiotics discontinued UA positive for blood leukocyte Estrace and bacteria UA culture Patient with a history of Enterobacter cloacea complex (7) Hyperlipidemia: Onset Date: Unknown Code(s): E78.5 - Hyperlipidemia, unspecified Status: Acute Assessment and Plan: Continue statins (8) Gastroesophageal reflux disease: Onset Date: Unknown Code(s): K21.9 - Gastro-esophageal reflux disease without esophagitis Status: Acute Assessment and Plan: Continue Protonix (9) Delirium: Code(s): R41.0 - Disorientation, unspecified Status: Resolved DS: Summary Hospital Course Reason for hospitalization: Frequent fall UTI Hospital Course: this is a 73-year-old female presented to ED status post fall. Patient has a past medical history of abdominal pain, CVA, colon cancer, small bowel obstruction, GERD, hyperlipidemia, memory impairment, osteoarthritis, small bowel obstruction, UTIs, in the ventral incisional hernia. Patient is well-known to our establishment in the past she visited our facility often due to a small bowel obstruction which has since been resolved with surgery. Here lately she has been admitted to our facility for frequent falls and worsening dementia. Patient is a poor historian most information obtained from medical record. Dealing with patient in the past this is her baseline. Her family is aware that her dementia is worsening and is seeking placement into a [place] [facility] versus assisted living. Patient does complain of lower back pain, patient has a T6 burst fracture from a previous fall. Patient also had a unwitnessed fall overnight denies any pain denies hitting her head. Patient did not want to bother anyone for restroom use and attempted to transport herself to the restroom. Bed alarm ordered. Today she will discharged to a nursing facility. The patient denies SOB, CP, palpitation, extremity numbness, lightheadedness, dizziness, constipation, diarrhea, chills, or fever. Time Spent with Patient Time attestation: Total t
[2021-11-09] MEDS: SACCHAROMYCES BOULARDII 250 MG CAPSULE PO ×2 (09:38→12:39)
[2021-11-09] MEDS: traMADol HCL (*CRX) 25 MG TABLET PO (12:38)
--- NOTE | 2021-11-09 15:07 | PC.NURSE ---
inpatient care manager rn aware of xray results and claims ok to dc to [facility].
--- NOTE | 2021-11-09 15:26 | PC.NURSE ---
report given to saroj at [facility]
--- NOTE | 2021-11-09 15:50 | PC.NURSE ---
ASSISTED PATIENT FROM [facility] TO W/C WITH ONE ASSIST AND WHEELED WALKER. PT TOLERATED WELL. ALL BELONGINGS WITH PATIENT, PATIENT AND DAUGHTER SIGNED DISCHARGE PAPERWORK, ALL PAPERWORK AND PRESCRIPTIONS WITH PATIENT DAUGHTER AND INFORMED TO GIVE TO CUSTODIAL STAFF UPON ARRIVAL. PT ASSISTED FROM W/C TO DAUGHTER'S PERSONAL VEHICLE WITHOUT DIFFICULTY. DISCHARGE 1550PM.
--- NOTE | 2021-11-11 12:27 | PC.NURSE ---
NH states they received and understood the discharge instructions.
== END 2021-11-09 15:50 | DRG 690 ==
LOC: CHSED 13:28 → CHS2ND 11-07 11:56
PROVIDERS: Nurse Practitioner; Admitting Provider Internal Medicine; Emergency Provider Emergency Medicine; PCP Internal Medicine; Visit Provider Internal Medicine
DX: N39.0 Urinary tract infection, site not specified (principal); E87.1 Hypo-osmolality and hyponatremia; I69.954 Hemiplegia and hemiparesis following unspecified cerebrovascular disease affecting left non-dominant side; I10 Essential (primary) hypertension; E78.5 Hyperlipidemia, unspecified; K21.9 Gastro-esophageal reflux disease without esophagitis; M16.0 Bilateral primary osteoarthritis of hip; M25.571 Pain in right ankle and joints of right foot; N81.10 Cystocele, unspecified; R29.6 Repeated falls; S32.030D Wedge compression fracture of third lumbar vertebra, subsequent encounter for fracture with routine healing; F03.90 Unspecified dementia, unspecified severity, without behavioral disturbance, psychotic disturbance, mood disturbance, and anxiety; Z96.651 Presence of right artificial knee joint; Z85.038 Personal history of other malignant neoplasm of large intestine; Z92.3 Personal history of irradiation; Z93.0 Tracheostomy status; Z87.820 Personal history of traumatic brain injury; W19.XXXA Unspecified fall, initial encounter; Y92.239 Unspecified place in hospital as the place of occurrence of the external cause
CPT/HCPCS: 36415; 70450; 71045; 73521; 73610; 74176; 74177; 80048; 80053; 81001; 82272; 83605; 83690; 85025; 85027; 87086; 87088; 87324; 87426; 93005; 96361; 96365; 96372; 96375; 97110; 97161; 97165; 97530; 97535; 99285; A9270; C9113; C9803; G0378; J0696; J1650; J1885; J2405; J7040; Q9967

== ENCOUNTER 2022-04-02 16:56 | Emergency (ER) | payer MEDICARE, SELFPAY ==
--- NOTE | ~2022-04-02 | CT_ITS ---
EXAMINATION: CT brain wo con DATE: 04/02/2022 18:18 INDICATION: fall with RIGHT SIDE head injury/HX OF STROKE . TECHNIQUE: Computed tomography (CT) of the head was performed without intravenous contrast. The mA wa s adjusted according to patient size. Iterative reconstruction technique was employed. The dose-lengt h product was 681.00 mGy-cm. COMPARISON: 11/09/2021 FINDINGS: No acute intracranial hemorrhage or extra-axial fluid collection. No hydrocephalus, mass, or herniation. No acute ischemic infarct. Unremarkable dural venous sinus attenuation. No acute osseous abnormality. Small right lateral scalp contusion. The aerated spaces are clear. Mild atrophy and chronic white matter change. Large old left MCA territory infarct. Atherosclerotic i ntracranial calcification. Bilateral lens replacements. IMPRESSION: No acute intracranial process. Reviewed, dictated and finalized at location K.
--- NOTE | ~2022-04-02 | XR_ITS ---
EXAM: XR pelvis 1-2V DATE: 04/02/2022 18:19 HISTORY: status post fall/RIGHT SIDE PAIN . COMPARISON: 11/06/2021. FINDINGS: Anastomotic suture line over the midline pelvis. Left lower quadrant surgical clip Decreas ed mineralization. No fracture or dislocation. No lytic or blastic lesion. Degenerative change in the lumbar spine, pubic symphysis and bilateral hips. No erosion or periosteal change. Soft tissues with in normal limits. IMPRESSION: No acute osseous finding in the pelvis. Reviewed, dictated and finalized at location K.
--- NOTE | ~2022-04-02 | CT_ITS ---
EXAMINATION: CT cervical spine wo con DATE: 04/02/2022 18:18 INDICATION: FALL/RIGHT SIDE NECK PAIN TECHNIQUE: Computed tomography (CT) of the cervical spine was performed without intravenous contrast. Automated exposure control and iterative reconstruction technique were employed. The dose-length pro duct was 127.60 mGy-cm. COMPARISON: 05/27/2017. FINDINGS: Vertebral Body Alignment: 5 mm anterolisthesis of C4 on C5, likely on a degenerative basis. Craniocervical and atlantoaxial alignment: Moderate degenerative change. Alignment intact. Osseous structures/fracture: No evidence of a lytic or blastic process in the visualized spine. No e vidence of acute fracture. C3-4 fusion. Cervical soft tissues: The paraspinal soft tissues planes are maintained. Degenerative changes: Degenerative changes, without severe neural foraminal or central canal narrowin g. IMPRESSION: No acute fracture or traumatic malalignment in the cervical spine. Reviewed, dictated and finalized at location K.
--- NOTE | ~2022-04-02 | XR_ITS ---
EXAMINATION: XR chest 1V portable Exam Date/Time: 04/02/2022 18:08 CDT HISTORY: right chest wall pain/FALL Comparison: 11/06/2021. RESULT: Lines, tubes, and devices: None. Lungs and pleura: Ill-defined groundglass and consolidative opacities in the lower lungs. Cardiomediastinal silhouette: Stable. Other: No acute osseous or upper abdominal finding. IMPRESSION: Lower lung opacities may likely reflect atelectasis, aspiration, infection, or contusion acute settin g can appear similar. Reviewed, dictated and finalized at location K. IMPRESSION: Lower lung opacities may likely reflect atelectasis, aspiration, infection, or contusion acute setting can appear similar.
--- NOTE | 2022-04-02 17:30 | ED.FALL ---
HPI - Fall General Chief Complaint: Fall Stated Complaint: fell down/R arm injury/back pain/R leg Time Seen by Provider: 04/02/22 17:31 Source: patient History of Present Illness HPI Narrative: 76-year-old female with a history of dementia,hypertension, dyslipidemia, GERD, CVA with right hemiplegia, compression fracture of L3, recurrent falls presents to the ER after a fall with -- head injury with a scalp hematoma -- right arm hematoma -- right-sided rib pain -- right thigh pain the fall was unwitnessed. patient has dementia and is unable to provide history MD complaint: fall Onset (ago): minute(s) ( 30 minutes ago) Fall from: standing Fall witnessed: no Place fall occurred: [facility] Loss of consciousness: unsure Related Data Home Medications Medication Instructions Recorded Confirmed cetirizine 10 mg tablet (Zyrtec) 10 mg PO DAILY 11/24/19 04/02/22 aspirin 81 mg tablet 81 mg PO DAILY 07/04/20 04/02/22 atorvastatin 20 mg tablet (Lipitor) 20 mg PO DAILY 12/05/20 04/02/22 lactobacillus combination no.8 3 3,000 mmu cells PO DAILY 12/22/20 04/02/22 billion cell capsule (Adult Probiotic) omeprazole 40 mg capsule,delayed 20 mg PO DAILY 03/11/21 04/02/22 release docusate sodium 100 mg capsule 100 mg PO DAILY 04/16/21 04/02/22 (Colace) polyethylene glycol 3350 17 17 g PO BID 04/16/21 04/02/22 gram/dose oral powder (Miralax) sennosides 8.6 mg-docusate sodium 1 tab-cap PO DAILY PRN Constipation 04/16/21 04/02/22 50 mg tablet (Senna Plus) ferrous sulfate 325 mg (65 mg 325 mg PO DAILY 11/06/21 04/02/22 iron) tablet (FeroSul) acetaminophen 325 mg tablet 650 mg PO Q4H PRN Pain 04/02/22 04/02/22 lidocaine HCl 4 % topical cream 1 applic topical QID PRN Pain 04/02/22 04/02/22 (Aspercreme (lidocaine HCl)) [id number] acid 500 1 tablet PO DAILY 04/02/22 04/02/22 mcg-lycopene 300 mcg-lutein 250 mcg tablet ([facility]) Allergies Allergy/AdvReac Type Severity Reaction Status Date / Time morphine AdvReac Intermediate Confusion Verified 04/02/22 17:53 ampicillin AdvReac Mild Rash Verified 04/02/22 17:53 Review of Systems Review of Systems: All systems reviewed & are unremarkable except as noted in HPI and below Constitutional: Constitutional: Reports as per HPI and Reports no additional constitutional complaints Eyes: Eyes: Reports as per HPI and Reports no additional eye complaints ENT: Reports system reviewed and no additional complaints, except as documented and Reports as per HPI Cardiovascular: Cardiovascular: Reports as per HPI and Reports no additional cardiovascular complaints Respiratory: Respiratory: Reports as per HPI and Reports no additional respiratory complaints Gastrointestinal: Gastrointestinal: Reports as per HPI and Reports no additional gastrointestinal complaints Genitourinary: Genitourinary: Reports no additional female genitourinary complaints and Reports as per HPI Musculoskeletal: Musculoskeletal: Reports no additional musculoskeletal complaints and Reports as per HPI Comments: complains of right shoulder, chest wall, and knee pain Integumentary/Breasts: Skin/Breast: Reports system reviewed and no additional complaints, except as docu and Reports as per HPI Comments: no bruises except for abrasion over the right parietal scalp Neurologic: Reports system reviewed and no additional complaints, except as documented and Reports as per HPI Psychiatric: Psychiatric: Reports no additional psychiatric complaints Comments: patient is confused PMFSH Past Medical History Medical History Abdominal pain Cerebrovascular accident (2019) 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 S/p colon re
[2022-04-02 17:41] VITALS: BP 139/86; PULSE 55; RESP 20; TEMP 36.7; O2SAT 96
[2022-04-02] MEDS: ACETAMINOPHEN 325 MG TABLET 650 MG PO (19:09)
[2022-04-02 19:44] VITALS: BP 127/91; PULSE 56; RESP 18; TEMP 36.4; O2SAT 96
== END 2022-04-02 19:45 | disposition home or self-care (01) ==
PROVIDERS: Emergency Provider Internal Medicine Critical Care Medicine; PCP Family Medicine
DX: S09.90XA Unspecified injury of head, initial encounter (principal); R07.89 Other chest pain; W19.XXXA Unspecified fall, initial encounter
CPT/HCPCS: 70450; 71045; 72125; 72170; 99284; A9270

== ENCOUNTER 2022-05-26 07:06 | Observation (INO) | payer MEDICARE, SELFPAY ==
--- NOTE | ~2022-05-26 | US_ITS ---
EXAMINATION: US abdomen limited DATE: 05/26/2022 10:00 INDICATION: Abdominal pain TECHNIQUE: Multiple grayscale and Doppler ultrasound images of the abdomen were obtained. COMPARISON: CT from today FINDINGS: The head and body of the pancreas are normal. The pancreatic tail is obscured by bowel gas. There is a 12 mm cyst of the liver. The liver is otherwise normal with normal echogenicity and echot exture. No surface nodularity. Normal hepatopetal flow in the main portal vein. The gallbladder is no rmal with no abnormal wall thickening, pericholecystic fluid or stones. The normal common bile duct m easures 4 mm. There was no sonographic Limon sign. IMPRESSION: 1. Normal sonographic study of the gallbladder. Reviewed, dictated and finalized at location A.
--- NOTE | ~2022-05-26 | CT_ITS ---
EXAMINATION: CT abdomen pelvis w con DATE: 05/26/2022 08:52 INDICATION: Right upper quadrant pain TECHNIQUE: Computed tomography (CT) of the abdomen and pelvis was performed with 100 cc Omnipaque 350 intravenous contrast. The dose-length product was 321.22 mGy-cm. Automated exposure control and iter ative reconstruction technique were employed. COMPARISON: CT dated 11/09/2021 FINDINGS: There is right lower lobe bronchiectasis. There is bilateral lower lobe atelectasis/scarrin g. Borderline heart size. Small hiatal hernia. No significant pleural or pericardial effusion. There is mild atherosclerosis of the aorta without evidence for aneurysm. No lymphadenopathy. Fatty infiltration of the liver. There is a 12 mm liver cyst. Gallbladder is mildly distended. The sp narendra, adrenal glands and kidneys are unremarkable. The pancreas is atrophic with mild prominence of t he pancreatic duct. Gallbladder is present. Bladder wall is thickened. Nonobstructive bowel gas patte rn. Moderate colonic fecal loading. There is lumbar spondylosis with levoscoliosis. There is osteoart hritis of the hips. There is a surgical anastomosis in the distal colon. IMPRESSION: 1. Right lower lobe bronchiectasis. 2: Small hiatal hernia. 3: Hepatic steatosis. 4: Mild bladder wall thickening. Cannot exclude cystitis. Clinically correlate. Reviewed, dictated and finalized at location B. IMPRESSION: 1. Right lower lobe bronchiectasis. 2: Small hiatal hernia. 3: Hepatic steatosis. 4: Mild bladder wall thickening. Cannot exclude cystitis. Clinically correlate .
[2022-05-26 07:12] VITALS: BP 138/86; PULSE 63; RESP 20; TEMP 36.2; O2SAT 96
--- NOTE | 2022-05-26 07:29 | ECG_ITS ---
Measurements Intervals [place] Rate: 52 P: 78 ID: [id number] QRS: 68 QRSD: 90 T: 78 QT: 464 QTc: 432 Interpretive Statements SINUS BRADYCARDIA BORDERLINE ST-T WAVE ABNORMALITY- ANTEROLAT/HIGH LAT LEADS BASELINE ARTIFACT- I, II, III, AVR, AVL, AVF, V1 BORDERLINE ECG COMPARED TO ECG 11/06/2021 10:20:10 [address] NOW PRESENT ST (T WAVE) DEVIATION NOW PRESENT Electronically Signed On 05-26-2022 11:48:36 CDT by Stewart Barrera D.O.
[2022-05-26 07:47] LABS: Basophils Absolute Auto 0.04 K/mm3 (0.00-0.10); Basophils Percent Auto 0.8 % (0.0-1.0); Eosinophils Absolute Auto 0.16 K/mm3 (0.02-0.50); Eosinophils Percent Auto 3.4 % (1.0-6.0); Hematocrit 36.3 % (35.0-42.0); Hemoglobin 12.2 g/dL (11.7-13.8); Immature Granulocyte Absolute 0.01 K/mm3 (0.00-0.00); Immature Granulocyte Percent A 0.2 % (0.0-0.0); Lymphocytes Absolute Auto 1.11 K/mm3 (1.10-4.50); Lymphocytes Percent Auto 23.3 % (18.0-42.0); Mean Corpuscular HGB Conc 33.6 g/dL (32.0-36.0); Mean Corpuscular Hemoglobin 31.8 pg (27.0-31.0); Mean Corpuscular Volume 94.5 fL (78.0-102.0); Mean Platelet Volume 9.4 fl (9.2-11.8); Monocytes Absolute Auto 0.47 K/mm3 (0.10-0.90); Monocytes Percent Auto 9.9 % (2.0-11.0); Neutrophils Percent Auto 62.4 % (50.0-70.0); Platelet Count Result 199 K/mm3 (150-420); Red Blood Count 3.84 M/mm3 (4.20-5.40); Red Cell Distribution Width 13.6 % (11.6-14.4); White Blood Count 4.8 K/mm3 (4.8-10.8)
[2022-05-26] MEDS: MORPHINE SULFATE (*CRX) 4 MG/ML INJ IV PUSH (07:57)
[2022-05-26 07:58] LABS: Partial Thromboplastin Time 25.5 SEC (23.90-30.70); Prothrombin Time 11.4 Seconds (9.50-12.10)
[2022-05-26] MEDS: SODIUM CHLORIDE 0.9% IV 1,000 ML 999 ML IV CONT (08:00)
[2022-05-26 08:06] LABS: Alanine Aminotransferase 17 U/L (14-59); Albumin Level 3.5 g/dL (3.4-5.0); Alkaline Phosphatase 71 U/L (46-116); Anion Gap 7 mmol/L (8-16); Aspartate Amino Transferase 16 U/L (15-37); Bilirubin,Total 0.5 mg/dL (0.00-1.00); Blood Urea Nitrogen 8 mg/dL (7-18); Calcium 8.9 mg/dL (8.5-10.1); Carbon Dioxide 29 mmol/L (21-32); Chloride 105 mmol/L (98-108); Estimated CRCL calculation 50 ml/min; Estimated Glomerular Filt Rate > 60; Glucose 96 mg/dL (70-99); Lactic Acid Reflex 1.1 mmol/L (0.4-2.0); Lipase 91 U/L (73-393); Osmolality Calculated 290 mOsm/kg (285-295); Potassium 3.8 mmol/L (3.5-5.1); Sodium 141 mmol/L (136-145); Total Protein 6.7 g/dL (6.4-8.2); Troponin I 10.3 ng/L (0.00-60.4)
[2022-05-26 08:10] LABS: CRP < 0.2 mg/dL (0.0-0.9)
[2022-05-26 08:31] LABS: Appearance Urine Clear (Clear); Bilirubin Urine Negative (Negative); Blood Urine Negative (Negative); Glucose Urine UA Negative (Negative); Ketones Urine Negative (Negative); Leukocyte Esterase Ur 3+ (Negative); Nitrate Urine Negative (Negative); Protein Urine Negative (Negative); Urobilinogen Urine 0.2 mg/dL (0.2-1.0)
[2022-05-26 08:37] LABS: Add Urine Microscopic? YES; Color Urine Light Yellow (Yellow); RBC Urine None seen /hpf (0-2); Squamous Epithelial Cell Urine Few /hpf (Few)
[2022-05-26 08:38] LABS: Bacteria Urine Trace /hpf
[2022-05-26 09:26] VITALS: BP 114/62; PULSE 57; RESP 20; TEMP 36.7; O2SAT 98
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
[2022-05-26] MEDS: MORPHINE SULFATE (*CRX) 2 MG/ML INJ IV PUSH (10:28)
[2022-05-26] MEDS: levoFLOXacin 500 MG/D5W 100 ML 500 MG/100 ML BAG 100 MG IVPB (10:29)
[2022-05-26 10:30] VITALS: BP 114/75; PULSE 57; RESP 20; TEMP 36.6; O2SAT 97
--- NOTE | 2022-05-26 10:43 | PC.NURSE ---
Veronica from [facility] updated on pt condition and admission. voiced understanding.
--- NOTE | 2022-05-26 12:00 | ADMGEN ---
This patient, Azeb Vallejo, was admitted to 2nd Floor Room 205-1. Patient/family oriented to hospital policies and general routines including ID bracelet, bed and alarms, visiting hours, pain management, procedures, bathroom and other care routines, personal items, smoking policy, room service/diet, and visiting hours. Information on how to activate the Rapid Response Team has been discussed. Patient/Family are encouraged to report perceived risks to care and to ask questions if they do not understand what they are told or what they should do.
[2022-05-26 12:05] VITALS: BP 110/71; PULSE 54; RESP 18; TEMP 36.7; O2SAT 98
[2022-05-26 12:08] VITALS: BMI 19.9
[2022-05-26] MEDS: SODIUM CHLORIDE 0.9% IV 1,000 ML 100 ML IV CONT ×2 (12:09→22:11)
[2022-05-26] MEDS: ONDANSETRON INJ 4 MG/2 ML VIAL IV PUSH (12:09)
[2022-05-26] MEDS: PANTOPRAZOLE SODIUM IV 40 MG VIAL IV PUSH (13:34)
[2022-05-26 16:00] VITALS: BP 111/60; PULSE 56; RESP 18; TEMP 36.5; O2SAT 96
[2022-05-26] MEDS: POTASSIUM CHLORIDE 20 MEQ TABLET PO (18:10)
--- NOTE | 2022-05-26 18:33 | PC.NURSE ---
Charting by Purvi Sosa, student nurse has been reviewed and agreed with by this nurse.
[2022-05-26 20:00] VITALS: PULSE 56; RESP 18; O2SAT 96
[2022-05-26] MEDS: ACETAMINOPHEN 325 MG TABLET 650 MG PO (21:28)
[2022-05-26] MEDS: HEPARIN SODIUM 5,000 UNITS/ML VIAL 5000 UNITS SUB-Q (21:29)
[2022-05-26] MEDS: busPIRone HCL 5 MG TABLET PO (21:31)
[2022-05-27] VITALS: BP 106/64; PULSE 56; RESP 16; TEMP 36.4; O2SAT 96
[2022-05-27 05:30] LABS: Hematocrit 35.4 % (35.0-42.0); Hemoglobin 11.2 g/dL (11.7-13.8); Mean Corpuscular HGB Conc 31.6 g/dL (32.0-36.0); Mean Corpuscular Hemoglobin 31.1 pg (27.0-31.0); Mean Corpuscular Volume 98.3 fL (78.0-102.0); Mean Platelet Volume 9.6 fl (9.2-11.8); Platelet Count Result 179 K/mm3 (150-420); Red Cell Distribution Width 13.6 % (11.6-14.4); White Blood Count 4.5 K/mm3 (4.8-10.8)
[2022-05-27 05:54] LABS: Anion Gap 3 mmol/L (8-16); Blood Urea Nitrogen 7 mg/dL (7-18); Carbon Dioxide 31 mmol/L (21-32); Chloride 108 mmol/L (98-108); Estimated CRCL calculation 50 ml/min; Estimated Glomerular Filt Rate > 60; Glucose 90 mg/dL (70-99); Osmolality Calculated 292 mOsm/kg (285-295); Sodium 142 mmol/L (136-145)
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
[2022-05-27 08:00] VITALS: BP 114/72; PULSE 57; RESP 16; TEMP 36.6; O2SAT 93
[2022-05-27] MEDS: busPIRone HCL 5 MG TABLET PO (09:59)
[2022-05-27] MEDS: ACIDOPHILUS/BULGARICUS CHEWABLE TABLET 1 TABLET PO (09:59)
[2022-05-27] MEDS: OPTI-GEN TAB 1 TABLET PO (10:00)
[2022-05-27] MEDS: ATORVASTATIN 10 MG TABLET 20 MG PO (10:00)
[2022-05-27] MEDS: ASPIRIN 81 MG ENTERIC TABLET PO (10:00)
[2022-05-27] MEDS: FLUoxetine HCL 10 MG CAPSULE 20 MG PO (10:01)
[2022-05-27] MEDS: LORATADINE 10 MG TABLET PO (10:01)
[2022-05-27] MEDS: DOCUSATE SODIUM 100 MG CAPSULE PO (10:01)
[2022-05-27] MEDS: POTASSIUM CHLORIDE 20 MEQ TABLET PO (10:01)
[2022-05-27] MEDS: amLODIPine BESYLATE 5 MG TABLET PO (10:02)
[2022-05-27] MEDS: FERROUS SULFATE 324 MG TABLET PO (10:02)
[2022-05-27] MEDS: HEPARIN SODIUM 5,000 UNITS/ML VIAL 5000 UNITS SUB-Q (10:02)
[2022-05-27] MEDS: cefTRIAXone 1 GM, LIDOCAINE HCL 1% LOCAL INJ 2.1 ML IM (10:03)
--- NOTE | 2022-05-27 11:45 | PC.NURSE ---
Report called to Tammi at [facility].
--- NOTE | 2022-05-30 11:02 | PC.NURSE ---
[facility] nurse states they received and understood the discharge instructions.
== END 2022-05-27 13:25 ==
LOC: CHSED 11:32 → CHS2ND 11:34
PROVIDERS: Nurse Practitioner Family; Admitting Provider Internal Medicine; Emergency Provider Emergency Medicine; PCP Family Medicine; Visit Provider Internal Medicine
DX: N39.0 Urinary tract infection, site not specified (principal); I69.351 Hemiplegia and hemiparesis following cerebral infarction affecting right dominant side; N81.10 Cystocele, unspecified; E78.5 Hyperlipidemia, unspecified; K21.9 Gastro-esophageal reflux disease without esophagitis; M19.90 Unspecified osteoarthritis, unspecified site; R10.11 Right upper quadrant pain; F32.A Depression, unspecified; Z96.651 Presence of right artificial knee joint; Z85.038 Personal history of other malignant neoplasm of large intestine; Z93.0 Tracheostomy status; Z87.820 Personal history of traumatic brain injury
CPT/HCPCS: 36415; 74177; 76705; 80048; 80053; 81001; 83605; 83690; 84484; 85025; 85027; 85610; 85730; 86140; 87086; 87088; 93005; 96361; 96365; 96367; 96372; 96375; 96376; 99285; A9270; C9113; G0378; J0696; J1644; J1956; J2270; J2405; J7030; Q9967

== ENCOUNTER 2023-05-03 05:12 | Emergency (ER) | payer MEDICARE, SELFPAY ==
--- NOTE | ~2023-05-03 | XR_ITS ---
EXAMINATION: XR chest 1V portable DATE: 05/03/2023 06:06 INDICATION: Seizure. Headache. Altered mental status. TECHNIQUE: A single frontal view of the chest was obtained. COMPARISON: Chest single view 04/02/2022, CT abdomen and pelvis 05/26/2022 FINDINGS: There is mild atelectasis versus scarring in right mid and lower lung zones and left lower lung zone. No pleural effusion or pneumothorax. The heart size is normal. IMPRESSION: 1. Mild atelectasis versus scarring in right mid and lower lung zones and left lower lung zone. Reviewed, dictated and finalized at location A.
--- NOTE | ~2023-05-03 | CT_ITS ---
EXAMINATION: CT brain wo con DATE: 05/03/2023 05:56 INDICATION: Seizure. Headache. Altered mental status. TECHNIQUE: Computed tomography (CT) of the head was performed without intravenous contrast. The mA wa s adjusted according to patient size. Iterative reconstruction technique was employed. The dose-lengt h product was 681.00 mGy-cm. COMPARISON: Head CT 04/02/2022 FINDINGS: There are old infarcts involving the left frontal, temporal, and parietal lobes and left ba bertin ganglia. There is no intracranial hemorrhage, acute infarction, or abnormal intracranial mass les ion. There is mild ex vacuo dilatation of left lateral ventricle. There is mild mucosal thickening in the paranasal sinuses. There are likely changes of ocular lens replacement surgeries. The mastoid ai r cells are normal. There is cerumen in the external auditory canals. IMPRESSION: 1. Old infarcts involving the left frontal, temporal, and parietal lobes and left basal ganglia. Reviewed, dictated and finalized at location A. IMPRESSION: 1. Old infarcts involving the left frontal, temporal, and parietal lobes and le ft basal ganglia.
--- NOTE | 2023-05-03 05:20 | ECG_ITS ---
Measurements Intervals [place] Rate: 74 P: 30 CA: 158 QRS: -10 QRSD: 90 T: 2 QT: 390 QTc: 435 Interpretive Statements SINUS RHYTHM EARLY PRECORDIAL R/S TRANSITION LEFT VENTRICULAR HYPERTROPHY AND ST-T CHANGE BORDERLINE T WAVE ABNORMALITY- INFERIOR LEADS BORDERLINE ECG COMPARED TO ECG 05/26/2022 07:48:19 SINUS RHYTHM NOW PRESENT LEFT VENTRICULAR HYPERTROPHY NOW PRESENT Electronically Signed On 05-03-2023 8:20:19 CDT by Stewart Barrera D.O.
[2023-05-03 05:27] VITALS: BP 123/80; PULSE 84; RESP 16; TEMP 36.8; O2SAT 95
[2023-05-03 05:32] LABS: Basophils Absolute Auto 0.02 K/mm3 (0.00-0.10); Basophils Percent Auto 0.4 % (0.0-1.0); Eosinophils Absolute Auto 0.25 K/mm3 (0.02-0.50); Eosinophils Percent Auto 5.3 % (1.0-6.0); Hematocrit 37.8 % (35.0-42.0); Hemoglobin 12.3 g/dL (11.7-13.8); Immature Granulocyte Absolute 0.02 K/mm3 (0.00-0.00); Immature Granulocyte Percent A 0.4 % (0.0-0.0); Lymphocytes Absolute Auto 1.39 K/mm3 (1.10-4.50); Lymphocytes Percent Auto 29.6 % (18.0-42.0); Mean Corpuscular HGB Conc 32.5 g/dL (32.0-36.0); Mean Corpuscular Hemoglobin 31.6 pg (27.0-31.0); Mean Corpuscular Volume 97.2 fL (78.0-102.0); Mean Platelet Volume 9.4 fl (9.2-11.8); Monocytes Absolute Auto 0.48 K/mm3 (0.10-0.90); Monocytes Percent Auto 10.2 % (2.0-11.0); Neutrophils Absolute Auto 2.5 K/mm3 (1.7-7.2); Neutrophils Percent Auto 54.1 % (50.0-70.0); Platelet Count Result 250 K/mm3 (150-420); Red Blood Count 3.89 M/mm3 (4.20-5.40); Red Cell Distribution Width 13.2 % (11.6-14.4); White Blood Count 4.7 K/mm3 (4.8-10.8)
[2023-05-03 05:50] LABS: Alanine Aminotransferase 16 U/L (14-59); Albumin Level 3.1 g/dL (3.4-5.0); Alkaline Phosphatase 80 U/L (46-116); Anion Gap 5 mmol/L (8-16); Aspartate Amino Transferase 12 U/L (15-37); Bilirubin,Total 0.4 mg/dL (0.00-1.00); Blood Urea Nitrogen 14 mg/dL (7-18); Calcium 8.7 mg/dL (8.5-10.1); Carbon Dioxide 31 mmol/L (21-32); Chloride 104 mmol/L (98-108); Estimated CRCL calculation 50 ml/min; Estimated Glomerular Filt Rate > 60; Glucose 91 mg/dL (70-99); Osmolality Calculated 290 mOsm/kg (285-295); Potassium 3.9 mmol/L (3.5-5.1); Sodium 140 mmol/L (136-145); Total Protein 7.4 g/dL (6.4-8.2)
[2023-05-03 05:51] LABS: Creatine Kinase 48 U/L (26-192)
--- NOTE | 2023-05-03 05:58 | ED.SEIZURE ---
HPI - Seizure General Chief Complaint: Seizure <Alirio Patel MD - Last Filed: 05/05/23 07:10> Stated Complaint: seizure <Alirio Patel MD - Last Filed: 05/05/23 07:10> Time Seen by Provider: 05/03/23 07:15 <Alirio Patel MD - Last Filed: 05/05/23 07:10> Source: patient and family <Alirio Patel MD - Last Filed: 05/05/23 07:10> Mode of arrival: EMS <Alirio Patel MD - Last Filed: 05/05/23 07:10> Limitations: clinical condition <Alirio Patel MD - Last Filed: 05/05/23 07:10> History of Present Illness HPI Narrative: patient is a 77-year-old female with a witnessed 3-5 minute unresponsive/ seizure episode at the nursing facility. <Alirio Patel MD - Last Filed: 05/05/23 07:10> MD complaint: possible seizure <Alirio Patel MD - Last Filed: 05/05/23 07:10> Onset (ago): minute(s) <Alirio Patel MD - Last Filed: 05/05/23 07:10> Description of Episode: loss of consciousness and tonic-clonic movement <Alirio Patel MD - Last Filed: 05/05/23 07:10> Duration of episode: 4 <Alirio Patel MD - Last Filed: 05/05/23 07:10> -: minutes(s) <Alirio Patel MD - Last Filed: 05/05/23 07:10> Witnessed: Yes - by Bystander ( Nursing staff) <Alirio Patel MD - Last Filed: 05/05/23 07:10> Trauma: No <Alirio Patel MD - Last Filed: 05/05/23 07:10> Seizure History: No <Alirio Patel MD - Last Filed: 05/05/23 07:10> Place: home <Alirio Patel MD - Last Filed: 05/05/23 07:10> Associated symptoms: denies other symptoms <Alirio Patel MD - Last Filed: 05/05/23 07:10> Treatments prior to arrival: none <Alirio Patel MD - Last Filed: 05/05/23 07:10> 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 ([employer]) as part of your employment, either self-employed or otherwise?: No <Alirio Patel MD - Last Filed: 05/05/23 07:10> Related Data Home Medications: Home Medications Medication Instructions Recorded Confirmed cetirizine 10 mg tablet (Zyrtec) 10 mg PO DAILY 11/24/19 05/26/22 aspirin 81 mg tablet 81 mg PO DAILY 07/04/20 05/03/23 atorvastatin 20 mg tablet (Lipitor) 20 mg PO DAILY 12/05/20 05/03/23 lactobacillus combination no.8 3 3,000 mmu cells PO DAILY 12/22/20 05/26/22 billion cell capsule (Adult Probiotic) omeprazole 40 mg capsule,delayed 20 mg PO DAILY 03/11/21 05/03/23 release docusate sodium 100 mg capsule 100 mg PO DAILY 04/16/21 05/03/23 (Colace) polyethylene glycol 3350 17 17 g PO BID 04/16/21 05/03/23 gram/dose oral powder (Miralax) sennosides 8.6 mg-docusate sodium 1 tab-cap PO DAILY PRN Constipation 04/16/21 05/03/23 50 mg tablet (Senna Plus) ferrous sulfate 325 mg (65 mg 325 mg PO DAILY 11/06/21 05/03/23 iron) tablet (FeroSul) acetaminophen 325 mg tablet 650 mg PO Q4H PRN Pain 04/02/22 05/03/23 lidocaine HCl 4 % topical cream 1 applic topical QID PRN Pain 04/02/22 05/03/23 (Aspercreme (lidocaine HCl)) mlappqmu-knc-eqogk acid 500 1 tablet PO DAILY 04/02/22 05/03/23 mcg-lycopene 300 mcg-lutein 250 mcg tablet ([facility]) <Alirio Patel MD - Last Filed: 05/05/23 07:10> Allergies/Adverse Reactions: Allergies Allergy/AdvReac Type Severity Reaction Status Date / Time ampicillin AdvReac Mild Rash Verified 05/03/23 05:26 <Alirio Patel MD - Last Filed: 05/05/23 07:10> Review of Systems Review of Systems: All systems reviewed & are unremarkable except as noted in HPI and below <Alirio Patel MD - Last Filed: 05/05/23 07:10> Constitutional: Constitutional: Reports no additional constitutional complaints <Alirio Patel MD - Last Filed: 05/05/23 07:10> Eyes: Eyes: Reports no additional eye complaints <Alirio Patel MD - Last Filed: 05/05/23 07:10> ENT: Reports system reviewed and no additional complaints, except as documented <Alirio Patel MD - Last Filed: 05/05/23 07:10>
[2023-05-03 06:00] LABS: Lactic Acid Reflex 1.7 mmol/L (0.4-2.0)
[2023-05-03 06:03] LABS: Appearance Urine Clear (Clear); Bilirubin Urine Negative (Negative); Blood Urine Negative (Negative); Color Urine Light Yellow (Yellow); Glucose Urine UA Negative (Negative); Ketones Urine Negative (Negative); Leukocyte Esterase Ur Trace LEU/UL (Negative); Nitrate Urine Negative (Negative); Protein Urine Negative (Negative); Specific Grav Ur 1.015 (1.010-1.020); Urobilinogen Urine 0.2 mg/dL (0.2-1.0); pH Urine 6.5 (5.0-8.0)
[2023-05-03 06:04] LABS: Magnesium 1.8 mg/dL (1.8-2.4); Troponin I 11.3 ng/L (0.00-60.4)
[2023-05-03 06:08] LABS: Add Urine Microscopic? YES; Bacteria Urine Trace /hpf; RBC Urine None seen /hpf (0-2); Squamous Epithelial Cell Urine Few /hpf (Few); WBC Urine 0-3 /hpf (0-3)
[2023-05-03] MEDS: ACETAMINOPHEN 325 MG TABLET 650 MG PO (07:43)
[2023-05-03] MEDS: levETIRAcetam 500MG/NACL 100ML 500 MG/100 ML BAG 400 MG IVPB (07:45)
[2023-05-03 08:39] VITALS: BP 110/73; PULSE 58; RESP 18; O2SAT 95
== END 2023-05-03 09:00 | disposition home or self-care (01) ==
PROVIDERS: Emergency Medicine; Emergency Provider Internal Medicine Critical Care Medicine; PCP Family Medicine
DX: R56.9 Unspecified convulsions (principal); E78.5 Hyperlipidemia, unspecified; Z79.899 Other long term (current) drug therapy; Z86.73 Personal history of transient ischemic attack (TIA), and cerebral infarction without residual deficits; Z85.038 Personal history of other malignant neoplasm of large intestine
CPT/HCPCS: 36415; 70450; 71045; 80053; 81001; 82550; 83605; 83735; 84484; 85025; 93005; 96365; 99284; A9270; J1953

== ENCOUNTER 2023-10-27 05:11 | Observation (INO) | payer MEDICARE, SELFPAY ==
[2023-10-27] VITALS (21 sets, daily range): BP systolic 103–126; BP diastolic 62–80; PULSE 57–82; RESP 15–20; TEMP 35.9–36.6; O2SAT 93–98; BMI 21.9
--- NOTE | ~2023-10-27 | CT_ITS ---
Non-contrast Head CT History: Head injury COMPARISON: 05/03/2023 Technique: Axial non-contrast imaging of the brain was performed. Dose reduction technique was used on this scan by utilizing automated exposure control and iterative reconstruction technique. The dose -length product (DLP) was 681.00 mGy-cm. Findings: There is no evidence of intracranial hemorrhage, mass lesion, or acute infarct. Stable lar ge, chronic left frontal lobe infarct. The ventricles and subarachnoid spaces are normal in size. T he calvarium appears normal. The visualized paranasal sinuses and mastoid air cells are clear. Impression: No acute abnormality. Stable large chronic left frontal lobe infarct. Reviewed, dictated and finalized at location . PT READER Impression: No acute abnormality. Stable large chronic left frontal lobe infarct.
--- NOTE | ~2023-10-27 | CT_ITS ---
Noncontrast CT scan of the lumbar spine CLINICAL HISTORY: Injury TECHNIQUE: Axial noncontrast imaging of the lumbar spine was performed. Sagittal and coronal reformat abraham images were constructed. Dose reduction technique was used on this scan by utilizing automated ex posure control and iterative reconstruction technique. The dose-length product (DLP) was 877.74 mGy-c m. COMPARISON: 04/16/2021 FINDINGS: There is chronic mild compression deformity at the superior plate of L3. There is prominent levoscoliosis of the thoracolumbar spine. Fracture of the right superior pubic ramus noted, probably subacute to chronic in nature. At L1-L2, there is minimal disc bulge and mild facet arthropathy. No central canal stenosis. There is minimal neural foraminal narrowing bilaterally. At L2-L3, there is minimal disc bulge and moderate facet arthropathy. No central canal stenosis. Ther e is mild bilateral neural foraminal narrowing, right worse than left. At L3-L4, there is minimal disc bulge and moderate facet arthropathy. No central canal stenosis. Neur al foramina are relatively well-preserved. At L4-L5, there is minimal disc bulge. There is moderate to advanced facet arthropathy. No central ca nal stenosis. There is mild to moderate bilateral neural foraminal narrowing. At L5-S1, there is no disc bulge or herniation. No spinal canal stenosis. Bilateral neural foramina a re preserved. Paravertebral soft tissues are unremarkable. Impression: Fracture the right superior pubic ramus is likely late subacute to chronic in nature. Chronic mild compression deformity of L3, unchanged. Prominent levoscoliosis with mild degenerative spinal change, as above. Reviewed, dictated and finalized at [facility]. ARCH BIOSTATISTICIAN Impression: Fracture the right superior pubic ramus is likely late subacute to chronic in n ature. Chronic mild compression deformity of L3, unchanged. Prominent levoscoliosis with mild degenerative spinal change, as above.
--- NOTE | ~2023-10-27 | CT_ITS ---
Non-contrast CT scan of the Pelvis Clinical indication: Pelvic injury Technique: 2.5 mm axial scans were obtained through the pelvis without intravenous or oral contrast. Dose reduction technique was used on this scan by utilizing automated exposure control and iterative reconstruction technique. The dose-length product (DLP) was 274.96 mGy-cm. COMPARISON: 05/26/2022 Findings: There are chronic, nonunited appearing fractures of the right superior and inferior pubic r ami. No acute fracture identified. No dislocation seen. There is mild to moderate degenerative change of the right hip joint. There is mild degenerative change of the left hip joint. SI joints are intac t. Visualized bowel is unremarkable. Urinary bladder unremarkable. No pelvic mass seen. Visualized muscu lature about the pelvis unremarkable. No hematoma or soft tissue mass evident. Impression: No definite acute fracture or dislocation. Chronic, nonunited appearing fractures of the right superior and inferior pubic rami. Degenerative change of both hip joints, as above. Reviewed, dictated and finalized at location . H OPERATOR Impression: No definite acute fracture or dislocation. Chronic, nonunited appearing fractures of the right superior and inferior pubic rami. Degenerative change of both hip joints, as above.
--- NOTE | ~2023-10-27 | XR_ITS ---
EXAMINATION: XR femur LT min 2V DATE: 10/28/2023 11:43 INDICATION: Left hip pain radiating down the left leg. Fall. TECHNIQUE: 2 views of left femur on 4 radiographs were obtained. COMPARISON: Pelvis radiograph 04/02/2022 FINDINGS: Bone alignment is normal. No fracture. There is mild left hip and knee osteoarthritis. IMPRESSION: 1. Mild polyarticular osteoarthritis. Reviewed, dictated and finalized at location A. OUT MANAGER
--- NOTE | ~2023-10-27 | XR_ITS ---
EXAMINATION: [id number] DATE: 10/28/2023 11:43 INDICATION: Left hip pain radiating down the left leg. Fall. TECHNIQUE: 2 views of left knee were obtained. COMPARISON: None. FINDINGS: Bone alignment is normal. No fracture. There is mild tricompartmental osteoarthritis. There is chondrocalcinosis of lateral meniscus. No knee joint effusion. IMPRESSION: 1. Mild left knee osteoarthritis. Reviewed, dictated and finalized at location A. E FRAMER
--- NOTE | 2023-10-27 05:36 | ED.FALL ---
HPI - Fall General Chief Complaint: Fall <Dylan Estrada MD - Last Filed: 10/27/23 06:39> Stated Complaint: fall <Dylan Estrada MD - Last Filed: 10/27/23 06:39> Time Seen by Provider: 10/27/23 07:30 <Dylan Estrada MD - Last Filed: 10/27/23 06:39> Source: patient, family and EMS <Dylan Estrada MD - Last Filed: 10/27/23 06:39> Mode of arrival: EMS <Dylan Estrada MD - Last Filed: 10/27/23 06:39> Limitations: altered mental status and clinical condition <Dylan Estrada MD - Last Filed: 10/27/23 06:39> History of Present Illness HPI Narrative: this is an 78-year-old senior living patient who presents via EMS after she had an unwitnessed fall with unclear down time appears that she hit the back of her head has a small abrasion and has pain in her bilateral hip and pelvis with movement, the patient has a history of stroke, history of dementia hyperlipidemia. The patient winces in pain with movement of her lower extremities, is pleasantly demented answers questions is alert and oriented denies any chest pain or shortness of breath no nausea vomiting. Does have some tenderness in the suprapubic area with no diarrhea or constipation. <Dylan Estrada MD - Last Filed: 10/27/23 06:39> MD complaint: fall <Dylan Estrada MD - Last Filed: 10/27/23 06:39> Onset (ago): hour(s) <Dylan Estrada MD - Last Filed: 10/27/23 06:39> Fall from: other <Dylan Estrada MD - Last Filed: 10/27/23 06:39> Fall witnessed: no <Dylan Estrada MD - Last Filed: 10/27/23 06:39> Place fall occurred: senior living[facility]SNF <Dylan Estrada MD - Last Filed: 10/27/23 06:39> Prolonged down time: unclear <Dylan Estrada MD - Last Filed: 10/27/23 06:39> Symptoms prior to fall: none <Dylan Estrada MD - Last Filed: 10/27/23 06:39> Location of injury: head, back and other <Dylan Estrada MD - Last Filed: 10/27/23 06:39> Location of injury - extremities: Bilateral: lower leg ( No deformities noted but tender with movement) <Dylan Estrada MD - Last Filed: 10/27/23 06:39> Severity: moderate <Dylan Estrada MD - Last Filed: 10/27/23 06:39> Related Data Home Medications: Home Medications Medication Instructions Recorded Confirmed cetirizine 10 mg tablet (Zyrtec) 10 mg PO DAILY 11/24/19 10/27/23 aspirin 81 mg tablet 81 mg PO DAILY 07/04/20 10/27/23 atorvastatin 20 mg tablet (Lipitor) 20 mg PO DAILY 12/05/20 10/27/23 lactobacillus combination no.8 3 3,000 mmu cells PO DAILY 12/22/20 10/27/23 billion cell capsule (Adult Probiotic) omeprazole 40 mg capsule,delayed 20 mg PO DAILY 03/11/21 10/27/23 release docusate sodium 100 mg capsule 100 mg PO DAILY 04/16/21 10/27/23 (Colace) polyethylene glycol 3350 17 17 g PO BID 04/16/21 10/27/23 gram/dose oral powder (Miralax) sennosides 8.6 mg-docusate sodium 1 tab-cap PO DAILY PRN Constipation 04/16/21 10/27/23 50 mg tablet (Senna Plus) ferrous sulfate 325 mg (65 mg 325 mg PO DAILY 11/06/21 10/27/23 iron) tablet (FeroSul) acetaminophen 325 mg tablet 650 mg PO Q4H PRN Pain 04/02/22 10/27/23 lidocaine HCl 4 % topical cream 1 applic topical QID PRN Pain 04/02/22 10/27/23 (Aspercreme (lidocaine HCl)) trhrzdtq-mbl-zsvlq acid 500 1 tablet PO DAILY 04/02/22 10/27/23 mcg-lycopene 300 mcg-lutein 250 mcg tablet (Sentry Senior) Saccharomyces boulardii 250 mg 250 mg PO DAILY 10/27/23 10/27/23 capsule (Florastor) tramadol 50 mg tablet 50 mg PO Q6H PRN Pain, Moderate 10/27/23 10/27/23 <Dylan Estrada MD - Last Filed: 10/27/23 06:39> Allergies/Adverse Reactions: Allergies Allergy/AdvReac Type Severity Reaction Status Date / Time ampicillin AdvReac Mild Rash Verified 05/03/23 05:26 <Dylan Estrada MD - Last Filed: 10/27/23 06:39> Review of Systems Review of Systems: All systems reviewed & are unremarkable except as noted in
--- NOTE | 2023-10-27 06:11 | PC.NURSE ---
Assisted peripheral vascular tech in moving pt back to ER cot. Pts pelvis stabalized c a sheet and tie wrap methos for possible pelvis fx.
[2023-10-27 06:14] LABS: Basophils Absolute Auto 0.04 K/mm3 (0.00-0.10); Basophils Percent Auto 0.5 % (0.0-1.0); Eosinophils Absolute Auto 0.18 K/mm3 (0.02-0.50); Eosinophils Percent Auto 2.3 % (1.0-6.0); Hematocrit 40.1 % (35.0-42.0); Hemoglobin 12.6 g/dL (11.7-13.8); Immature Granulocyte Absolute 0.02 K/mm3 (0.00-0.00); Immature Granulocyte Percent A 0.3 % (0.0-0.0); Lymphocytes Absolute Auto 1.81 K/mm3 (1.10-4.50); Lymphocytes Percent Auto 23.6 % (18.0-42.0); Mean Corpuscular HGB Conc 31.4 g/dL (32.0-36.0); Mean Corpuscular Hemoglobin 29.6 pg (27.0-31.0); Mean Corpuscular Volume 94.4 fL (78.0-102.0); Mean Platelet Volume 9.6 fl (9.2-11.8); Monocytes Absolute Auto 0.61 K/mm3 (0.10-0.90); Monocytes Percent Auto 7.9 % (2.0-11.0); Neutrophils Percent Auto 65.4 % (50.0-70.0); Platelet Count Result 218 K/mm3 (150-420); Red Blood Count 4.25 M/mm3 (4.20-5.40); Red Cell Distribution Width 12.8 % (11.6-14.4); White Blood Count 7.7 K/mm3 (4.8-10.8)
[2023-10-27] MEDS: SODIUM CHLORIDE 0.9% IV 500 ML 999 ML IV CONT (06:14)
[2023-10-27] MEDS: MORPHINE SULFATE (*CRX) 2 MG/ML INJ 1 MG IV PUSH (06:27)
[2023-10-27 06:36] LABS: Lactic Acid Reflex 1.8 mmol/L (0.4-2.0)
[2023-10-27 06:38] LABS: Alanine Aminotransferase 18 U/L (14-59); Albumin Level 3.5 g/dL (3.4-5.0); Alkaline Phosphatase 64 U/L (46-116); Anion Gap 7 mmol/L (8-16); Aspartate Amino Transferase 16 U/L (15-37); Bilirubin,Total 0.5 mg/dL (0.00-1.00); Blood Urea Nitrogen 15 mg/dL (7-18); Calcium 8.7 mg/dL (8.5-10.1); Carbon Dioxide 31 mmol/L (21-32); Chloride 103 mmol/L (98-108); Creatine Kinase 51 U/L (26-192); Estimated CRCL calculation 53 ml/min; Estimated Glomerular Filt Rate > 60; Glucose 106 mg/dL (70-99); NT Pro B Type Natriuretic Pept 292 pg/mL (0-450); Osmolality Calculated 292 mOsm/kg (285-295); Potassium 3.8 mmol/L (3.5-5.1); Sodium 141 mmol/L (136-145); Total Protein 6.9 g/dL (6.4-8.2)
--- NOTE | 2023-10-27 06:39 | PC.NURSE ---
ERP Ester Estrada in to speak c pts daughters about CT results and that the pelvic fx is old as read by radiologist, nothing acute. Pts daughters concerned about pts pain level and that she is unable to get relief, pt grimacing and moaning in pain. Explained to family that we can admit here for pain management and control. After much explanation family wanting to know if she can go to [facility] since this is where her orthopedic Dr is located and where she has had orthopedic surgery in the past. Info given to Dr Estrada, will attempt to call [facility].
[2023-10-27] MEDS: KETOROLAC 15 MG/ML VIAL (*BKC) IV PUSH (06:51)
--- NOTE | 2023-10-27 06:53 | PC.NURSE ---
Dr Patel here, report given to him per Dr Estrada. Call placed to [facility] to speak c Dr Galeas ortho.
--- NOTE | 2023-10-27 07:09 | PC.NURSE ---
Dr Patel spoke Dr Galeas, Report given to DANIELLE Peterson
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
[2023-10-27 07:50] LABS: Appearance Urine Clear (Clear); Bilirubin Urine Negative (Negative); Blood Urine Negative (Negative); Color Urine Light Yellow (Yellow); Glucose Urine UA Negative (Negative); Ketones Urine Negative (Negative); Leukocyte Esterase Ur Negative LEU/UL (Negative); Nitrate Urine Negative (Negative); Protein Urine Negative (Negative); Specific Grav Ur 1.015 (1.010-1.020); Urobilinogen Urine 0.2 mg/dL (0.2-1.0)
[2023-10-27 07:53] LABS: Add Urine Microscopic? NO
[2023-10-27] MEDS: MORPHINE SULFATE (*CRX) 2 MG/ML INJ IV PUSH (09:45)
[2023-10-27] MEDS: PANTOPRAZOLE 40 MG TABLET PO (10:55)
[2023-10-27] MEDS: FLUoxetine HCL 20 MG CAPSULE PO (10:56)
[2023-10-27] MEDS: ATORVASTATIN 10 MG TABLET 20 MG PO (10:56)
[2023-10-27] MEDS: HYDROcodone/acetaminophen (*CRX) 5-325 MG TABLET 1 TAB PO ×3 (10:56→20:58)
[2023-10-27] MEDS: LORATADINE 10 MG TABLET PO (10:58)
[2023-10-27] MEDS: busPIRone HCL 5 MG TABLET PO ×2 (10:58→20:57)
[2023-10-27] MEDS: levETIRAcetam 500 MG TABLET PO ×2 (10:58→20:58)
[2023-10-27] MEDS: POTASSIUM CHLORIDE 20 MEQ ER TABLET PO ×2 (10:58→17:03)
[2023-10-27] MEDS: SACCHAROMYCES BOULARDII 250 MG CAPSULE PO (10:58)
[2023-10-27] MEDS: OPTI-GEN TAB 1 TABLET PO (10:59)
[2023-10-27] MEDS: DOCUSATE SODIUM 100 MG CAPSULE PO (10:59)
[2023-10-27] MEDS: ASPIRIN 81 MG ENTERIC TABLET PO (10:59)
[2023-10-27] MEDS: FERROUS SULFATE 325 MG TABLET DR BY MOUTH (11:00)
[2023-10-27] MEDS: polyethylene glycoL 3350 17 GM POWD.PACK PO (17:03)
[2023-10-28] VITALS: BP 105/61; PULSE 63; RESP 18; TEMP 36.6; O2SAT 93
[2023-10-28] MEDS: amLODIPine BESYLATE 5 MG TABLET PO (07:56)
[2023-10-28] MEDS: busPIRone HCL 5 MG TABLET PO (07:57)
[2023-10-28] MEDS: ATORVASTATIN 10 MG TABLET 20 MG PO (07:57)
[2023-10-28] MEDS: LORATADINE 10 MG TABLET PO (07:57)
[2023-10-28] MEDS: DOCUSATE SODIUM 100 MG CAPSULE PO (07:58)
[2023-10-28] MEDS: levETIRAcetam 500 MG TABLET PO (07:58)
[2023-10-28] MEDS: HYDROcodone/acetaminophen (*CRX) 5-325 MG TABLET 1 TAB PO ×2 (07:58→11:43)
[2023-10-28] MEDS: FLUoxetine HCL 20 MG CAPSULE PO (07:59)
[2023-10-28] MEDS: OPTI-GEN TAB 1 TABLET PO (07:59)
[2023-10-28] MEDS: POTASSIUM CHLORIDE 20 MEQ ER TABLET PO (07:59)
[2023-10-28] MEDS: SACCHAROMYCES BOULARDII 250 MG CAPSULE PO (07:59)
[2023-10-28] MEDS: PANTOPRAZOLE 40 MG TABLET PO (07:59)
[2023-10-28 08:00] VITALS: BP 99/55; PULSE 62; RESP 18; TEMP 36.2; O2SAT 94
[2023-10-28] MEDS: ASPIRIN 81 MG ENTERIC TABLET PO (08:00)
[2023-10-28] MEDS: polyethylene glycoL 3350 17 GM POWD.PACK PO (08:00)
[2023-10-28] MEDS: MORPHINE SULFATE (*CRX) 2 MG/ML INJ IV PUSH (08:38)
[2023-10-28] MEDS: FERROUS SULFATE 325 MG TABLET DR BY MOUTH (09:00)
--- NOTE | 2023-10-28 09:16 | PC.NURSE ---
[facility] PO given this am and Morphine IV per family request that pain meds be given and insistence on pain continuance.
--- NOTE | 2023-10-28 13:08 | PM.DS ---
DS: Admitting Diagnosis Discharge Date 10/28/2023 Admitting Diagnosis acute pain, old CVA without late effect, compression fracture lumbar spine, closed pelvic fracture, fall DS: Discharge Diagnosis Discharge Diagnosis (1) Acute pain: Code(s): R52 - Pain, unspecified Status: Acute (2) Fall: Qualifiers: Encounter type: initial encounter Qualified Code(s): W19.XXXA - Unspecified fall, initial encounter Code(s): W19.XXXA - Unspecified fall, initial encounter Status: Acute (3) Old cerebrovascular accident (CVA) without late effect: Code(s): Z86.73 - Personal history of transient ischemic attack (TIA), and cerebral infarction without residual deficits Status: Chronic (4) Compression fx, lumbar spine: Qualifiers: Encounter type: initial encounter Lumbar vertebra fracture level: unspecified lumbar vertebra Qualified Code(s): S32.000A - Wedge compression fracture of unspecified lumbar vertebra, initial encounter for closed fracture Code(s): S32.000A - Wedge compression fracture of unspecified lumbar vertebra, initial encounter for closed fracture Status: Chronic (5) Closed pelvic fracture: Qualifiers: Encounter type: initial encounter Pelvic bone location: other part of pelvis Qualified Code(s): S32.89XA - Fracture of other parts of pelvis, initial encounter for closed fracture Code(s): S32.9XXA - Fracture of unspecified parts of lumbosacral spine and pelvis, initial encounter for closed fracture Status: Chronic DS: Summary Hospital Course Reason for hospitalization: patient was admitted for pain control after a fall at the nursing facility. Hospital Course: This is an 78-year-old female patient who was admitted to the hospital for pain control after a fall at her residential custodial. Patient complained of left hip and leg pain primarily. Morphine and IV ketorolac were not sufficient pain control in the emergency department so patient was admitted to the floor. She received an additional dose of morphine which lasted about an hour and then she received oral Novato which lasted about 6 hours. Overnight patient had no acute events. This morning she was in a lot of pain upon getting out of bed. Family attempted to reposition her leg as instructed by Occupational therapy and this causes the patient to scream out. On reassessment of patient this morning she was pointing to lower femur as the source of increased pain. Review of imaging showed only pelvics CT so x-ray of femur and knee were ordered. Patient had no lower leg pain or tenderness. She did receive pain relief with Novato. It appears that patient is having significant amount of pain after playing supine in the bed overnight. I discussed that I would prescribe pain medication and instruct the custodial to give her a dose of pain medicine 30-60 minutes before getting her up for the day. Patient and family were pleased with this plan. Patient discharged back by EMS as she was not able to tolerate being seated today and is unable to get into and car due to her right side flaccidity from prior stroke and left side acute pain. Status at Discharge Cognitive/behavioral status at discharge: Patient is awake and alert difficult to evaluate understanding due to pre-existing word-finding problems from prior stroke Functional status at discharge: wheelchair bound ( with use of sit to stand but patient not tolerating sitting in a chair today due to acute pain) Overall status at discharge: patient is not back to baseline Time Spent with Patient Time attestation: Total time spent providing and/or coordinating discharge services: 35 minutes Time spent: Greater than 30 minutes Exam Narrative: GENERAL: Pleasant elderly female lying in bed complaining of lower left thigh/femur pain, family at bedside HEAD: Normocephalic, atraumatic. ENT:? Mucous membranes moist. CHEST: Clear to auscu
--- NOTE | 2023-10-28 13:30 | PC.NURSE ---
Report called to Tammi at [facility] regarding patient return, family is aware and ambulance has been notified.
--- NOTE | 2023-10-31 13:04 | PC.NURSE ---
Discharge back to shelter in [place], garcia questions regarding dc instructions, copy to shelter
== END 2023-10-28 13:55 ==
LOC: CHSED 07:40 → CHS2ND 08:04
PROVIDERS: Emergency Medicine; Admitting Provider Internal Medicine; Emergency Provider Emergency Medicine; PCP Family Medicine; Visit Provider Internal Medicine
DX: S32.591A Other specified fracture of right pubis, initial encounter for closed fracture (principal); S32.030A Wedge compression fracture of third lumbar vertebra, initial encounter for closed fracture; M25.552 Pain in left hip; M25.551 Pain in right hip; W19.XXXA Unspecified fall, initial encounter; I69.351 Hemiplegia and hemiparesis following cerebral infarction affecting right dominant side; I69.328 Other speech and language deficits following cerebral infarction; M17.12 Unilateral primary osteoarthritis, left knee; F03.90 Unspecified dementia, unspecified severity, without behavioral disturbance, psychotic disturbance, mood disturbance, and anxiety; E78.5 Hyperlipidemia, unspecified; K21.9 Gastro-esophageal reflux disease without esophagitis; Z90.49 Acquired absence of other specified parts of digestive tract; M19.90 Unspecified osteoarthritis, unspecified site; Z85.038 Personal history of other malignant neoplasm of large intestine; Z92.21 Personal history of antineoplastic chemotherapy; Z79.82 Long term (current) use of aspirin; Z79.1 Long term (current) use of non-steroidal anti-inflammatories (NSAID); Z79.891 Long term (current) use of opiate analgesic; Z79.899 Other long term (current) drug therapy
CPT/HCPCS: 36415; 70450; 72131; 72192; 73552; 73560; 80053; 81003; 82550; 83605; 83880; 85025; 96374; 96375; 96376; 97161; 97165; 99285; A9270; G0378; J1885; J2270; J7040

== ENCOUNTER 2024-05-02 14:21 | Observation (INO) | payer MEDICARE, SELFPAY ==
[2024-05-02] VITALS (12 sets, daily range): BP systolic 103–129; BP diastolic 66–79; PULSE 57–72; RESP 11–16; TEMP 36.7–37; O2SAT 91–99; BMI 22.6
--- NOTE | ~2024-05-02 | CT_ITS ---
EXAMINATION: CT brain wo con DATE: 05/02/2024 15:29 INDICATION: Weakness and lethargy. Prior traumatic brain injury. TECHNIQUE: Computed tomography (CT) of the head was performed without intravenous contrast. Sagittal and coronal reconstructions were performed. The mA was adjusted according to patient size. Iterative reconstruction technique was employed. The dose-length product was 681.00 mGy-cm. COMPARISON: head CT dated 10/27/2023 and 05/03/2023 FINDINGS: Unchanged large region of encephalomalacia in the left frontal and parietal lobes. Additional unchang ed small regions of encephalomalacia in the left occipital, left frontal and left temporal lobes. No acute intracranial hemorrhage, acute infarction or abnormal extra axial fluid collection. Ventricles are normal and symmetric. No mass/mass effect. Changes of bilateral intraocular lens replacement. The orbits and paranasal sinuses are normal. Unchanged minimal left mastoid effusion. Again seen is debr is/cerumen at the bilateral external auditory canals. IMPRESSION: 1. Stable appearance of regions of encephalomalacia in the left frontal, parietal, occipital and temp oral lobes likely sequela of old infarct with differential including sequela of reported prior trauma tic brain injury. No acute intracranial process. Reviewed, dictated and finalized at location A. IMPRESSION: 1. Stable appearance of regions of encephalomalacia in the left frontal, pariet al, occipital and temporal lobes likely sequela of old infarct with differentia l including sequela of reported prior traumatic brain injury. No acute intracra nial process.
--- NOTE | ~2024-05-02 | XR_ITS ---
XR chest 1V portable 05/02/2024 15:30 Indication: Weakness Procedure: AP portable chest Comparison: Comparison to multiple prior studies sequentially, with oldest reviewed study dated 02/2020. Findings: Cardiomegaly. No focal air space disease, pulmonary edema, pleural effusion or suspected pn eumothorax. No acute osseous abnormality. Impression: 1: No acute cardiopulmonary disease. Reviewed, dictated and finalized at location B. Impression: 1: No acute cardiopulmonary disease.
--- NOTE | 2024-05-02 14:58 | ECG_ITS ---
Test Date: 2024-05-02 15:40:32 Measurements Intervals [place] Rate: 55 P: 53 TN: 168 QRS: 53 QRSD: 84 T: 74 QT: 435 QTc: 418 Interpretive Statements SINUS BRADYCARDIA BORDERLINE ST ABNORMALITY- ANTEROLATERAL LEADS BASELINE ARTIFACT- I, III, AVR, AVL, V1 BORDERLINE ECG No previous ECG available for comparison Electronically Signed On 05-02-2024 16:06:13 CDT by Stewart Barrera D.O.
[2024-05-02 15:22] LABS: Basophils Absolute Auto 0.05 K/mm3 (0.00-0.10); Basophils Percent Auto 0.9 % (0.0-1.0); Eosinophils Absolute Auto 0.19 K/mm3 (0.02-0.50); Eosinophils Percent Auto 3.3 % (1.0-6.0); Hematocrit 37.9 % (35.0-42.0); Hemoglobin 12.3 g/dL (11.7-13.8); Immature Granulocyte Absolute 0.01 K/mm3 (0.00-0.00); Immature Granulocyte Percent A 0.2 % (0.0-0.0); Lymphocytes Absolute Auto 1.59 K/mm3 (1.10-4.50); Lymphocytes Percent Auto 27.3 % (18.0-42.0); Mean Corpuscular HGB Conc 32.5 g/dL (32-36); Mean Corpuscular Volume 95.5 fL (78.0-102.0); Monocytes Absolute Auto 0.57 K/mm3 (0.10-0.90); Monocytes Percent Auto 9.8 % (2.0-11.0); Neutrophils Absolute Auto 3.41 K/mm3 (1.70-7.20); Neutrophils Percent Auto 58.5 % (50.0-70.0); Platelet Count Result 181 K/mm3 (150-420); Red Blood Count 3.97 M/mm3 (4.20-5.40); Red Cell Distribution Width 13.1 % (11.6-14.4); White Blood Count 5.8 K/mm3 (4.8-10.8)
[2024-05-02 15:56] LABS: Alanine Aminotransferase 15 U/L (14-59); Albumin Level 3.4 g/dL (3.4-5.0); Alkaline Phosphatase 72 U/L (46-116); Anion Gap 6 mmol/L (4-12); Aspartate Amino Transferase 18 U/L (15-37); Bilirubin,Total 0.2 mg/dL (0.00-1.00); Blood Urea Nitrogen 18 mg/dL (7-18); Calcium 8.8 mg/dL (8.5-10.1); Carbon Dioxide 28 mmol/L (21-32); Chloride 104 mmol/L (98-108); Estimated CRCL calculation 61 ml/min; Estimated Glomerular Filt Rate > 60; Glucose 87 mg/dL (70-99); Osmolality Calculated 286 mOsm/kg (285-295); Potassium 3.9 mmol/L (3.5-5.1); Sodium 138 mmol/L (136-145); Total Protein 6.7 g/dL (6.4-8.2)
[2024-05-02 16:01] LABS: Lactic Acid Reflex 1.1 mmol/L (0.4-2.0); SARS-CoV-2 RNA PCR Negative (Negative)
[2024-05-02] MEDS: SODIUM CHLORIDE 0.9% IV 1,000 ML 999 ML IV CONT (16:06)
--- NOTE | 2024-05-02 16:09 | PC.NURSE ---
Pt is complaining of headache and generalized body aches.
--- NOTE | 2024-05-02 16:10 | PC.NURSE ---
Daughters at bedside.
[2024-05-02 16:26] LABS: Influenza A QL RT-PCR Negative (Negative); Influenza B QL RT-PCR Negative (Negative); RSV RNA, RT-PCR Negative (Negative)
[2024-05-02 17:14] LABS: Appearance Urine Sl Cloudy (Clear); Color Urine Yellow (Yellow); pH Urine 6.5 (5.0-8.0)
[2024-05-02 17:15] LABS: Blood Urine Negative (Negative); Glucose Urine UA Negative (Negative); Ketones Urine Negative (Negative); Nitrate Urine Negative (Negative); Protein Urine Negative (Negative)
[2024-05-02 17:16] LABS: Add Urine Microscopic? YES; Bacteria Urine Rare /hpf; Bilirubin Urine Negative (Negative); Leukocyte Esterase Ur 2+ LEU/UL (Negative); RBC Urine 0-2 /hpf (0-2); Squamous Epithelial Cell Urine Few /hpf (Few); Urobilinogen Urine Negative mg/dL (0.2-1.0)
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
[2024-05-02] MEDS: levoFLOXacin 500 MG/D5W 100 ML 500 MG/100 ML BAG 100 MG IVPB (17:35)
[2024-05-02] MEDS: SODIUM CHLORIDE 0.9% IV 1,000 ML 100 ML IV CONT ×2 (17:36→23:09)
--- NOTE | 2024-05-02 17:49 | PC.NURSE ---
Called floor and spoke to DANIELLE Fitch. Pt to be transferred upstairs to room 207.
--- NOTE | 2024-05-02 17:50 | PC.NURSE ---
Pt resting comfortably. Daughters at bedside.
--- NOTE | 2024-05-02 18:20 | PC.NURSE ---
Patient arrived to unit on stretcher from ED. Patient required 3 assist slide transfer from stretcher to bed. Patient and family educated on hospital policies, visiting hours bed controls and call light. Patient is A/O to self only.
[2024-05-02] MEDS: levETIRAcetam 500 MG TABLET PO (21:02)
[2024-05-02] MEDS: busPIRone HCL 5 MG TABLET PO (21:02)
[2024-05-02] MEDS: HYDROcodone/acetaminophen (*CRX) 5-325 MG TABLET 1 TAB PO (22:02)
[2024-05-03] VITALS: BP 122/73; PULSE 80; RESP 16; TEMP 36.7; O2SAT 97
[2024-05-03 06:04] LABS: Basophils Absolute Auto 0.03 K/mm3 (0.00-0.10); Basophils Percent Auto 0.7 % (0.0-1.0); Eosinophils Absolute Auto 0.21 K/mm3 (0.02-0.50); Eosinophils Percent Auto 4.9 % (1.0-6.0); Hematocrit 35.6 % (35.0-42.0); Hemoglobin 11.6 g/dL (11.7-13.8); Immature Granulocyte Absolute 0.01 K/mm3 (0.00-0.00); Immature Granulocyte Percent A 0.2 % (0.0-0.0); Lymphocytes Absolute Auto 1.43 K/mm3 (1.10-4.50); Lymphocytes Percent Auto 33.1 % (18.0-42.0); Mean Corpuscular HGB Conc 32.6 g/dL (32-36); Mean Corpuscular Hemoglobin 31.2 pg (27.0-31.0); Mean Corpuscular Volume 95.7 fL (78.0-102.0); Mean Platelet Volume 10.3 fl (9.2-11.8); Monocytes Absolute Auto 0.51 K/mm3 (0.10-0.90); Monocytes Percent Auto 11.8 % (2.0-11.0); Neutrophils Absolute Auto 2.13 K/mm3 (1.70-7.20); Neutrophils Percent Auto 49.3 % (50.0-70.0); Platelet Count Result 161 K/mm3 (150-420); Red Blood Count 3.72 M/mm3 (4.20-5.40); Red Cell Distribution Width 13.1 % (11.6-14.4); White Blood Count 4.3 K/mm3 (4.8-10.8)
[2024-05-03 08:00] VITALS: BP 125/78; PULSE 56; RESP 18; TEMP 36.3; O2SAT 98
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
[2024-05-03] MEDS: ENOXAPARIN 40 MG/0.4 ML SYRINGE SUB-Q (08:43)
[2024-05-03] MEDS: polyethylene glycoL 3350 17 GM POWD.PACK PO ×2 (08:44→17:52)
[2024-05-03] MEDS: amLODIPine BESYLATE 5 MG TABLET PO (08:45)
[2024-05-03] MEDS: levETIRAcetam 500 MG TABLET PO ×2 (08:45→21:13)
[2024-05-03] MEDS: busPIRone HCL 5 MG TABLET PO ×2 (08:46→21:13)
[2024-05-03] MEDS: SACCHAROMYCES BOULARDII 250 MG CAPSULE PO (08:46)
[2024-05-03] MEDS: ATORVASTATIN 10 MG TABLET 20 MG PO (08:47)
[2024-05-03] MEDS: DOCUSATE SODIUM 100 MG CAPSULE PO (08:48)
[2024-05-03] MEDS: FLUoxetine HCL 20 MG CAPSULE PO (08:48)
[2024-05-03] MEDS: ASPIRIN 81 MG ENTERIC TABLET PO (08:49)
[2024-05-03] MEDS: FERROUS SULFATE 325 MG TABLET DR PO (08:49)
[2024-05-03] MEDS: HYDROcodone/acetaminophen (*CRX) 5-325 MG TABLET 1 TAB PO ×2 (08:51→21:13)
[2024-05-03 10:59] LABS: Alanine Aminotransferase 13 U/L (6-35); Albumin Level 3.1 g/dL (3.5-5.1); Alkaline Phosphatase 53 U/L (38-126); Anion Gap 6 mmol/L (4-12); Aspartate Amino Transferase 20 U/L (14-36); Bilirubin,Total 0.3 mg/dL (0.2-1.3); Blood Urea Nitrogen 13 mg/dL (7-17); Calcium 8.3 mg/dL (8.4-10.2); Carbon Dioxide 27 mmol/L (22-30); Chloride 106 mmol/L (98-107); Estimated CRCL calculation 59 ml/min; Estimated Glomerular Filt Rate > 60; Glucose 79 mg/dL (65-110); Osmolality Calculated 287 mOsm/kg (285-295); Potassium 3.9 mmol/L (3.4-5.0); Sodium 139 mmol/L (137-145)
[2024-05-03 11:12] LABS: NT Pro B Type Natriuretic Pept 344 pg/mL (19.9-100)
[2024-05-03 16:00] VITALS: BP 115/67; PULSE 59; RESP 18; TEMP 36.3; O2SAT 96
[2024-05-04] VITALS: BP 108/70; PULSE 63; RESP 16; TEMP 36.5; O2SAT 95
[2024-05-04 05:57] LABS: Basophils Absolute Auto 0.06 K/mm3 (0.00-0.10); Basophils Percent Auto 1.3 % (0.0-1.0); Eosinophils Absolute Auto 0.24 K/mm3 (0.02-0.50); Hematocrit 36.5 % (35.0-42.0); Hemoglobin 11.9 g/dL (11.7-13.8); Immature Granulocyte Absolute 0.01 K/mm3 (0.00-0.00); Immature Granulocyte Percent A 0.2 % (0.0-0.0); Lymphocytes Absolute Auto 1.24 K/mm3 (1.10-4.50); Mean Corpuscular HGB Conc 32.6 g/dL (32-36); Mean Corpuscular Hemoglobin 30.7 pg (27.0-31.0); Mean Corpuscular Volume 94.1 fL (78.0-102.0); Mean Platelet Volume 10.1 fl (9.2-11.8); Monocytes Percent Auto 10.5 % (2.0-11.0); Neutrophils Absolute Auto 2.72 K/mm3 (1.70-7.20); Platelet Count Result 163 K/mm3 (150-420); Red Blood Count 3.88 M/mm3 (4.20-5.40); White Blood Count 4.8 K/mm3 (4.8-10.8)
[2024-05-04 08:00] VITALS: BP 112/57; PULSE 61; RESP 20; TEMP 35.8; O2SAT 94
--- NOTE | 2024-05-04 08:18 | PM.DS ---
DS: Admitting Diagnosis Discharge Date 05/04/24 Admitting Diagnosis acute UTI weakness protein calorie malnutrition hypertension hyperlipidemia DS: Discharge Diagnosis Discharge Diagnosis (1) Acute UTI: Code(s): N39.0 - Urinary tract infection, site not specified Status: Acute (2) Weakness: Code(s): R53.1 - Weakness Status: Acute (3) Protein calorie malnutrition: Code(s): E46 - Unspecified protein-calorie malnutrition Status: Acute (4) HTN (hypertension): Code(s): I10 - Essential (primary) hypertension Status: Chronic (5) Hyperlipidemia: Onset Date: Unknown Code(s): E78.5 - Hyperlipidemia, unspecified Status: Chronic DS: Summary Hospital Course Reason for hospitalization: acute UTI weakness protein calorie malnutrition hypertension hyperlipidemia Hospital Course: This is an 78-year-old female with a significant past medical history of CVA with right side deficit, hyperlipidemia, hypertension, dementia, Colon cancer, GERD who presented to the hospital from [place] with reports of weakness by the half-way staff. Patient is a poor historian and history of presenting illness was obtained from the EMR. Workup in the hospital included a head CT which showed stable appearance of regions of encephalomalacia in the left frontal, parietal, occipital, and temporal lobes likely representing sequela of old infarcts. chest x-ray was negative. Initial labs showed a normal white blood cell count of 5.8, normal kidney function, normal liver function, otherwise unremarkable. A UA was obtained which showed a slightly cloudy appearance, 2+ leukocyte, 6-10 urine wbc's. She also had a respiratory panel which was negative for influenza A and B, RSV, COVID. Urine culture was obtained and is pending. She was given 1 L of normal saline and a dose of Levaquin while in the ED. Urine culture negative for bacteria. Rocephin was stopped. PT and OT worked patient and she is at her baseline level of functioning. She is stable for discharge at this time. She can follow-up with her primary care physician in 1 week. final diagnosis: abnormal urinalysis, generalized deconditioning Status at Discharge Cognitive/behavioral status at discharge: Alert to voice oriented x3 Functional status at discharge: wheelchair bound Overall status at discharge: patient is back to baseline Time Spent with Patient Time attestation: Total time spent providing and/or coordinating discharge services: Time spent: Greater than 30 minutes Exam Narrative: Cardiac: Normal S1 and S2. RRR,No murmur, gallops or friction rubs, peripheral pulses intact. Respiratory: Lungs clear to auscultation, no adventitious lung sounds, currently on room air Gastrointestinal: soft, non-distended, non-tender, normoactive bowel sounds. : voiding without difficulty. Extremities: right-sided weakness from old CVA, no edema Neuro: Alert to voice, confused DS: Data Data Completed and Pending Completed studies during hospitalization: head CT chest x-ray Pending studies at discharge: blood cultures Labs on day of discharge: Labs from last 24 hours 05/04/24 05/03/24 05/02/24 05:47 05:34 15:16 WBC 4.8 RBC 3.88 L Hgb 11.9 Hct 36.5 MCV 94.1 MCH 30.7 MCHC 32.6 RDW 13.0 Plt Count 163 MPV 10.1 Immature Gran % (Auto) 0.2 H Neut % (Auto) 57.0 Lymph % (Auto) 26.0 [place] % (Auto) 10.5 Eos % (Auto) 5.0 Baso % (Auto) 1.3 H Lymph # (Auto) 1.24 [place] # (Auto) 0.50 Eos # (Auto) 0.24 Baso # (Auto) 0.06 Abs Immat Gran (auto) 0.01 H Absolute Neuts (auto) 2.72 Absolute Nucleated RBC 0.00 Nucleated RBC % 0.0 Sodium Pending 139 Potassium Pending 3.9 Chloride Pending 106 Carbon Dioxide Pending 27 Anion Gap Pending 6 BUN Pending 13 D Creatinine Pending 0.50 L Estim Creat Clear Calc Pendi
[2024-05-04] MEDS: ASPIRIN 81 MG ENTERIC TABLET PO (09:31)
[2024-05-04] MEDS: polyethylene glycoL 3350 17 GM POWD.PACK PO (09:31)
[2024-05-04] MEDS: amLODIPine BESYLATE 5 MG TABLET PO (09:31)
[2024-05-04] MEDS: busPIRone HCL 5 MG TABLET PO (09:32)
[2024-05-04] MEDS: FERROUS SULFATE 325 MG TABLET DR PO (09:32)
[2024-05-04] MEDS: FLUoxetine HCL 20 MG CAPSULE PO (09:32)
[2024-05-04] MEDS: DOCUSATE SODIUM 100 MG CAPSULE PO (09:32)
[2024-05-04] MEDS: ATORVASTATIN 10 MG TABLET 20 MG PO (09:32)
[2024-05-04] MEDS: SACCHAROMYCES BOULARDII 250 MG CAPSULE PO (09:32)
[2024-05-04] MEDS: ENOXAPARIN 40 MG/0.4 ML SYRINGE SUB-Q (09:32)
[2024-05-04] MEDS: levETIRAcetam 500 MG TABLET PO (09:32)
[2024-05-04 10:18] LABS: Alanine Aminotransferase 15 U/L (6-35); Albumin Level 3.4 g/dL (3.5-5.1); Alkaline Phosphatase 59 U/L (38-126); Anion Gap 8 mmol/L (4-12); Aspartate Amino Transferase 25 U/L (14-36); Bilirubin,Total 0.5 mg/dL (0.2-1.3); Blood Urea Nitrogen 11 mg/dL (7-17); Calcium 8.9 mg/dL (8.4-10.2); Carbon Dioxide 27 mmol/L (22-30); Chloride 102 mmol/L (98-107); Estimated CRCL calculation 59 ml/min; Estimated Glomerular Filt Rate > 60; Glucose 82 mg/dL (65-110); Osmolality Calculated 282 mOsm/kg (285-295); Potassium 3.7 mmol/L (3.4-5.0); Sodium 137 mmol/L (137-145)
--- NOTE | 2024-05-04 11:15 | PC.NURSE ---
[facility] contacted for transfer back to [facility]
--- NOTE | 2024-05-04 11:21 | PC.NURSE ---
Discharge Nurses Note: Called report to nurse at [facility] [place], EMS called to transport back to facility, IV site removed and drsg applied, family updated regarding dc.
--- NOTE | 2024-05-09 09:19 | PC.NURSE ---
No questions or concerns regarding dc instructions from detention
== END 2024-05-04 11:42 ==
LOC: CHSED 17:22 → CHS2ND 17:47
PROVIDERS: Nurse Practitioner Acute Care; Admitting Provider Internal Medicine; Emergency Provider Emergency Medicine; PCP Family Medicine; Visit Provider Internal Medicine
DX: N39.0 Urinary tract infection, site not specified (principal); R53.1 Weakness; E46 Unspecified protein-calorie malnutrition; Z68.22 Body mass index [BMI] 22.0-22.9, adult; I10 Essential (primary) hypertension; E78.5 Hyperlipidemia, unspecified; I69.351 Hemiplegia and hemiparesis following cerebral infarction affecting right dominant side; F03.90 Unspecified dementia, unspecified severity, without behavioral disturbance, psychotic disturbance, mood disturbance, and anxiety; K21.9 Gastro-esophageal reflux disease without esophagitis; Z20.822 Contact with and (suspected) exposure to COVID-19; Z66 Do not resuscitate; Z79.82 Long term (current) use of aspirin; Z85.038 Personal history of other malignant neoplasm of large intestine; Z92.21 Personal history of antineoplastic chemotherapy; Z92.3 Personal history of irradiation; Z90.49 Acquired absence of other specified parts of digestive tract
CPT/HCPCS: 36415; 70450; 71045; 80053; 81001; 83605; 83880; 85025; 87040; 87086; 87637; 93005; 96361; 96365; 96372; 97161; 97165; 99285; A9270; G0378; J0696; J1650; J1956; J7030